=== PATIENT | male | born 1955 | race Caucasian/White ===

== ENCOUNTER 2023-05-16 15:23 | Outpatient (OUT) | payer MEDICARE, SELFPAY ==
[2023-05-16 15:44] LABS: Basophils Percent Auto 0.4 % (0.2-2.0); Eosinophils Absolute Auto 0.2 10^3/uL (0.0-0.7); Hematocrit 37.4 % (42.0-54.0); Hemoglobin 12.1 g/dL (14.0-18.0); Immature Granulocytes Abs Auto 0.02 10^3/uL (0.00-0.03); Immature Granulocytes Pct Auto 0.3 % (0.0-0.5); Lymphocytes Absolute Auto 1.8 10^3/uL (1.2-3.8); Lymphocytes Percent Auto 24.3 % (20.5-60.0); Mean Corpuscular HGB Conc 32.4 g/dL (29.9-35.2); Mean Corpuscular Hemoglobin 32.5 pg (25.9-34.0); Mean Corpuscular Volume 100.5 fL (80.0-94.0); Mean Platelet Volume 10.6 fL (9.5-13.5); Monocytes Absolute Auto 0.6 10^3/uL (0.3-0.8); Monocytes Percent Auto 8.7 % (1.7-12.0); Neutrophils Absolute Auto 4.7 10^3/uL (1.4-6.5); Neutrophils Percent Auto 63.3 % (43.0-75.0); Platelet Count 274 10^3/uL (150-450); Red Blood Count 3.72 10^6/uL (4.70-6.10); Red Cell Distribution Width 13.1 % (11.0-15.0); White Blood Count 7.3 10^3/uL (4.0-11.0)
[2024-01-20 13:20] LABS: Reticulocyte Count 1.61 % (0.60-3.10)
== END 2023-05-16 15:24 | disposition home or self-care (01) ==
PROVIDERS: PCP Internal Medicine; Visit Provider Internal Medicine
DX: D53.9 Nutritional anemia, unspecified (principal); E11.65 Type 2 diabetes mellitus with hyperglycemia
CPT/HCPCS: 36415; 82306; 85025; 85045

== ENCOUNTER 2023-10-21 07:34 | Outpatient (OUT) | payer MEDICARE, OTHER, SELFPAY ==
[2023-10-21 08:01] LABS: Basophils Absolute Auto 0.1 10^3/uL (0.0-0.1); Basophils Percent Auto 0.8 % (0.2-2.0); Eosinophils Absolute Auto 0.2 10^3/uL (0.0-0.7); Eosinophils Percent Auto 2.8 % (0.9-7.0); Hemoglobin 12.8 g/dL (14.0-18.0); Immature Granulocytes Abs Auto 0.02 10^3/uL (0.00-0.03); Immature Granulocytes Pct Auto 0.3 % (0.0-0.5); Lymphocytes Absolute Auto 2.1 10^3/uL (1.2-3.8); Lymphocytes Percent Auto 26.3 % (20.5-60.0); Mean Corpuscular Hemoglobin 31.7 pg (25.9-34.0); Mean Platelet Volume 10.2 fL (9.5-13.5); Monocytes Absolute Auto 0.6 10^3/uL (0.3-0.8); Monocytes Percent Auto 7.1 % (1.7-12.0); Neutrophils Absolute Auto 4.9 10^3/uL (1.4-6.5); Neutrophils Percent Auto 62.7 % (43.0-75.0); Platelet Count 311 10^3/uL (150-450); Red Blood Count 4.04 10^6/uL (4.70-6.10); Red Cell Distribution Width 12.1 % (11.0-15.0); White Blood Count 7.8 10^3/uL (4.0-11.0)
[2023-10-21 08:03] LABS: Microalbumin Urine Random 1.7 mg/dL (<=30.0)
[2023-10-21 08:05] LABS: Estimated Average Glucose 151 mg/dL; Glycohemoglobin A1C 6.9 % (4.5-6.2)
[2023-10-21 08:22] LABS: Alanine Aminotransferase 31 U/L (16-63); Anion Gap 12.6; BUN Creatinine Ratio 15.8; Calcium 8.8 mg/dL (8.5-10.1); Chloride 103 mmol/L (98-107); Chol HDL Ratio 3.1; Cholesterol 137 mg/dL (<=200); Estimated GFR (African America >60 (>=60); Estimated GFR (Non-African Ame 60 (>=60); Glucose 141 mg/dL (74-106); HDL Cholesterol 44 mg/dL (40-60); Potassium 4.6 mmol/L (3.5-5.1); Sodium 140 mmol/L (136-145); Triglycerides 192 mg/dL (<=150); VLDL CHOLESTEROL 38.4 mg/dL
[2023-10-21 09:04] LABS: Prostate Specific Antigen Scrn 1.92 ng/mL (<=4.00)
== END 2023-10-21 07:35 | disposition home or self-care (01) ==
PROVIDERS: PCP Internal Medicine; Visit Provider Internal Medicine
DX: E11.65 Type 2 diabetes mellitus with hyperglycemia (principal); E78.00 Pure hypercholesterolemia, unspecified; I10 Essential (primary) hypertension; Z12.5 Encounter for screening for malignant neoplasm of prostate; D51.0 Vitamin B12 deficiency anemia due to intrinsic factor deficiency
CPT/HCPCS: 36415; 80048; 80061; 82043; 82607; 83036; 84460; 85025; G0103

== ENCOUNTER 2023-11-18 10:23 | Outpatient (OUT) | payer MEDICARE, OTHER, SELFPAY ==
--- NOTE | 2023-11-18 10:24 | CA_ITS ---
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: : 1955 Requested By: HUNTER SIMMONS Order Number: [id number] Reading MD: HUNTER SIMMONS Interpretive Statements Predominant rhythm is sinus with average rate of 76 bpm Tachycardia - max rate of 173 bpm (associated with NSVT) - 229 episodes of PSVT with longest duration of 16 beats Bradycardia - min rate of 52 bpm - longest episode of 17sec with rates between 52-56 bpm - longest duration of 30sec with rates between 101-104 bpm Ventricular ectopy - 716 total (<1%) - 631 PVC - 58 couplets NSVT - 7 episodes with longest of 8 beats Patient triggered events: 8 - associated with symptoms of palpitations - assiciated with SVT, ventricular ectopy - associated with rates of 103, 105 and NSR IMpression: Predominant rhythm is sinus with average rate of 76 bpm Fastest rate of 173 bpm (NSVT) and sloweat rate of 52 bpm 631 PVC, 58 couplets 7 NSVT w/ longest duration of 8 beats No atrial fibrillation No pauses or blocks Electronically Signed On 12-05-2023 7:14:02 EST by HUNTER SIMMONS
[2023-11-18 10:48] LABS: Thyroid Stimulating Hormone 1.655 uIU/mL (0.358-3.740)
== END 2023-11-18 10:24 | disposition home or self-care (01) ==
LOC: CARD 10:23
PROVIDERS: PCP Internal Medicine; Visit Provider Internal Medicine
DX: R00.2 Palpitations (principal)
CPT/HCPCS: 36415; 84443; 93242

== ENCOUNTER 2023-12-17 13:28 | Outpatient (OUT) | payer MEDICARE, OTHER, SELFPAY ==
--- NOTE | 2023-12-17 14:31 | CA_ITS ---
Patient Name: MERRY RASMUSSEN MR#: [id number] : 1955 Exam Date: 12/17/2023 Ordering Doctor: DR Yordan Ramey D.O. ECHOCARDIOGRAM REPORT PROCEDURE: CA ECHO DOPPLER COMPLETE INDICATIONS: Nonsustained Vtach, AoV sclerosis, hypertension, diabetes COMPARISON: None. DESCRIPTION: COMPLETE ECHOCARDIOGRAM Real-time transthoracic echocardiography with 2D, M-mode, spectral and color flow Doppler performed. QUALITY: Technical quality was good. 69 , 236#, BSA 2.22 m2 LEFT VENTRICLE: Normal chamber size. Thickened septal wall. Normal systolic function. LV EF: Normal left ventricular ejection fraction, (>55%). DIASTOLIC: Diastolic function is indeterminate. ATRIAL SEPTUM: LEFT ATRIUM: Normal chamber size. RIGHT ATRIUM: Normal chamber size. RIGHT VENTRICLE: Normal chamber size. Normal right ventricular systolic function. TRICUSPID VALVE: Normal mobility and thickness. No stenosis with trivial regurgitation. Doppler studies reveal mildly (35-45) elevated right sided pressures. RVSP 43 mmHg MITRAL VALVE: Normal mobility and thickness. No evidence of mitral valve stenosis. Mild mitral annular calcification. No mitral regurgitation. AORTIC VALVE: Normal trileaflet appearance. Mildly calcified aortic valve. Mildly diminished mobility. Doppler velocity suggest no significant aortic valve stenosis. No aortic regurgitation. AORTIC ROOT: Normal diameter and appearance. PULMONIC VALVE: Normal thickness and mobility. No stenosis. No regurgitation. PERICARDIUM: No evidence of pericardial effusion. IVC: Collapses with inspirations. IVC is normal in size. PLEURA: CONCLUSION: 1. Normal ventricular systolic function. LVEF is 55 to 60%. 2. Mildly calcified aortic valve with no significant aortic valve stenosis. 3. Mildly elevated right-sided pressures. RVSP is 43 mmHg. Adult Echocardiography Procedure Report Left Ventricle LVEDD (3.7 - 5.6 cm): 5.00 cm LVESD (2.2 - 4.0 cm): 4.04 cm LVIVS thickness (0.6 - 1.2 cm): 1.21 cm LVPW thickness (0.5 - 1.0 cm): 1.04 cm e': 0.08 m/s E - e': 11.63 LVOT Max Gradient: 4.51 mm[Hg] LVOT Area (cm2): 1.06 m/s Peak Velocity (LVOT): 1.06 m/s Mean Velocity (LVOT): 0.57 m/s LVOT Diameter 1.6 cm Left Atrium LA Volume Index (2D A2C): 28.77 ml/m2 Left Atrium Systolic Dimension: 3.29 cm Mitral Valve MV E to A Ratio: 1.62 Mitral Valve A-Wave Peak Velocity: 0.58 m/s Mitral Valve E-Wave Peak Velocity: 0.93 m/s Right Ventricle Aorta AO Root Diam: 2.95 cm Ascending Ao Diam: 3.03 cm Aortic Valve AoV Area (Peak Addison): 0.97 cm2, 0.97 cm2 AoV Area (VTI): 1.07 cm2, 1.07 cm2 Peak Velocity(Antegrade Flow): 1.97 m/s Peak Gradient(Antegrade Flow): 15.60 mm[Hg] Mean Velocity(Antegrade Flow): 1.21 m/s Mean Gradient(Antegrade Flow): 6.91 mm[Hg] Velocity Time Integral: 37.15 cm Tricuspid Valve Peak Velocity (Regurgitant Flow): 3.16 m/s Pulmonic Valve Peak Velocity: 0.89 m/s Peak Gradient: 2.73 mm[Hg], 3.67 mm[Hg] Right Atrium Right Atrium Systolic Pressure: 48.25 ml, 48.25 ml Dictated by: Alex Foley M.D. on 12/17/2023 at 18:39 Approved by: Alex Foley M.D. on 12/17/2023 at 18:45
== END 2023-12-17 13:29 | disposition home or self-care (01) ==
LOC: CARD 13:29
PROVIDERS: PCP Internal Medicine; Visit Provider Internal Medicine
DX: I47.29 Other ventricular tachycardia (principal); I35.8 Other nonrheumatic aortic valve disorders
CPT/HCPCS: 93306

== ENCOUNTER 2023-12-20 09:21 | Outpatient (OUT) | payer MEDICARE, OTHER, SELFPAY ==
--- OUTSIDE RECORDS SUMMARY | 2023-12-20 09:26 | XMS_ITS | CCD ---
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 Name Role Phone PHYSICIAN, DEFAULT Unavailable Unavailable PHYSICIAN, DEFAULT Unavailable Unavailable PHYSICIAN, DEFAULT Unavailable Unavailable PHYSICIAN, DEFAULT Unavailable Unavailable PHYSICIAN, DEFAULT Unavailable Unavailable PHYSICIAN, DEFAULT Unavailable Unavailable TANVIR, DR HARRISON Primary Care Unavailable BALL, DR HARRISON Admitting Unavailable BALL, DR HARRISON Attending Unavailable BALL, DR HARRISON Consulting Unavailable ZIEBER, DR JHOANA Ace Consulting Unavailable BALL, DR HARRISON Admitting Unavailable BALL, DR HARRISON Attending Unavailable BALL, DR HARRISON Primary Care Unavailable BALL, DR HARRISON Consulting Unavailable BALL, DR HARRISON Admitting Unavailable BALL, DR HARRISON Attending Unavailable BALL, DR HARRISON Primary Care Unavailable BALL, DR HARRISON Consulting Unavailable REQUEST, DR JASON LISTED Admitting Unavaila ble REQUEST, DR JASON LISTED Attending Unavaila ble BALL, DR HARRISON Primary Care Unavailable REQUEST, DR JASON LISTED Consulting Unavaila ble REQUEST, DR JASON LISTED Admitting Unavaila ble REQUEST, DR JASON LISTED Attending Unavaila ble BALL, DR HARRISON Primary Care Unavailable REQUEST, DR JASON LISTED Consulting Unavaila ble BALL, DR HARRISON Admitting Unavailable BALL, DR HARRISON Attending Unavailable BALL, DR HARRISON Primary Care Unavailable BALL, DR HARRISON Consulting Unavailable WEST, DR ROXANE Culver Consulting Unavailable Ball, Yordan Unavailable Uzair Leblanc Admitting Unavailable Uzair Leblanc Attending Unavailable Tanvir, Yordan Primary Care Unavailable Allergies Allergy Classification Reported Allergen(s) Allergy Type Date of Onset Reaction(s) Facility (8 sources) sulfaSALAzine Drug Allergy Unknown Th[place]a Other Medications Current Medications Medication Drug Class(es) Dates Sig (Normalized) Sig (Original) atorvastatin 40 mg oral tablet (14 sources) HMG-CoA Reductase Inhibitor take 1 tablet by mouth every twenty-four hours Atorvastatin Calcium 40 MG 1 tablet Orally Once a day Active BD Luer-Josias Syringe 23G X 1 3 ML (14 sources) BD Luer-Josias Syri nge 23G X 1 3 ML 1 syringe once every month IM monthly for 365 days Active Cinnamon Preparation (14 sources) Non-Standardized Food Allergenic Extract Cinnamon Active Fish Oils (14 sources) Fish Oil Active FLUoxetine 20 mg oral capsule (14 sources) Serotonin Reuptake Inhibitor take 1 capsule by mouth once daily FLUoxetine HCl 20 MG TAKE 1 CAPSULE BY MOUTH EVERY DAY Active lisinopril 20 mg oral tablet (14 sources) Angiotensin Converting Enzyme Inhibitor take 1 tablet by mouth once daily Lisinopril 20 MG TAKE 1 TABLET BY MOUTH EVERY DAY Active metFORMIN hydrochloride 1000 mg oral tablet (14 sources) Biguanide take 1 tablet by mouth at dinner metFORMIN HCl 1000 MG TAKE 1 TABLET BY MOUTH BEFORE BKFST AND EVENING MEAL for 90 Active 24 hr metoprolol succinate 25 mg extended release oral tablet (2 sources) beta-Adrenergic Jose Start: 12-05-19 take 1 tablet by mouth every twenty-four hours Metoprolol Succinate ER 25 MG 1 tablet Orally Once a day for 30 days Dec, Active tamsulosin hydrochloride 0.4 mg oral capsule (14 sources) alpha-Adrenergic Jose take 1 capsule by mouth once daily at dinner Tamsulosin HCl 0.4 MG TAKE 1 CAPSULE BY MOUTH EVERY DAY AFTER EVENING MEAL Active vitamin b12 1 mg/ml injectable solution (14 sources) Vitamin B12 Cyanocobalamin 1 000 MCG/ML INJECT 1 ML EVERY 4 WEEKS Active Cyanocobalamin 1 000 MCG/ML INJECT 1 ML EVERY 4 WEEKS Active Completed/Discontinued Medications Medication Drug Class(es) Dates Sig (Normalized) Sig (Original) dextromethorphan hydrobromide 30 mg / pyrilamine maleate 30 mg oral tablet (14 sources) Uncompetitive G-kgiekv-P-aspartat e Receptor Antagonist, Sigma-1 Agonist Start: 01-27-2020 [place] DMT 30-30 MG 1 tablet Orally every 6-8 hours for 7 days Jan, Not-Taking/PRN Start: 01-27-2020 oseltamivir 75 mg oral capsule (14 sources) Neuraminidase Inhibitor Start: 01-27-2020 take 1 capsule by mouth every twelve hours Tamiflu 75 MG 1 capsule Orally Twice a day for 5 day(s) Jan, Not-Taking/PRN Problems Active Problems Problem Classification Problem Date Documented Date Episodic/Chronic Calculus of urinary tract (3 sources) Personal history of urinary calculi Episodic Cardiac dysrhythmias (1 source) Palpitations Episodic Deficiency and other anemia (6 sources) Nutritional anemia, unspecified; Translations: [NUTRITIONAL ANEMIA UNSPECIFIED] Onset: 10-26-2022 Episodic Deficiency and other anemia (20 sources) Iron deficiency anemia; Translations: [Iron deficiency anemia] Episodic Deficiency and other anemia (5 sources) Vitamin B12 deficiency anemia due to intrinsic factor deficiency Episodic Deficiency and other anemia (12 sources) Macrocytic anemia; Translations: [Nutritional anemia, unspecified] Episodic Deficiency and other anemia (12 sources) Pernicious anemia; Translations: [Vitamin B12 deficiency anemia due to intrinsic factor deficiency] Episodic Deficiency and other anemia (1 source) Iron deficiency anemia, unspecified; Translations: [Iron deficiency anemia, unspecified] Onset: 04-25-2023 Episodic Diabetes mellitus with complications (20 sources) Type 2 diabetes mellitus with hyperglycemia; Translations: [Type 2 diabetes mellitus] Onset: 10-22-2022 Chronic Disorders of lipid metabolism (20 sources) Mixed hyperlipidemia; Translations: [Hypercholesterolemi a] Onset: 10-18-2022 Chronic Essential hypertension (20 sources) Essential (primary) hypertension; Translations: [Essential hypertension] Onset: 10-22-2022 Chronic Genitourinary symptoms and ill-defined conditions (1 source) Nocturia Episodic Heart valve disorders (20 sources) Other nonrheumatic aortic valve disorders; Translations: [Aortic valve sclerosis] Onset: 01-30-2022 Chronic Hyperplasia of prostate (6 sources) 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; Translations: [Benign prostatic hyperplasia with lower urinary tract symptoms] Chronic Mood disorders (10 sources) Recurrent major depression in full remission; Translations: [Major depressive disorder, recurrent, in full remission] Chronic Other aftercare (1 source) Other long term care pharmacist (current) drug therapy; Translations: [OTH RUBBER TURNER CURRENT DRUG THERAPY] Onset: 10-22-2022 Episodic Other and unspecified benign neoplasm (14 sources) History of polyp of colon; Translations: [Personal history of colonic polyps] Episodic Other and unspecified benign neoplasm (6 sources) Tubular adenoma of colon; Translations: [Tubular adenoma of colon] Episodic Other connective tissue disease (4 sources) Other specified soft tissue disorders; Translations: [OTHER SPEC SOFT TISSUE DISORDERS] Onset: 09-11-2022 Episodic Other diseases of veins and lymphatics (14 sources) Peripheral venous insufficiency; Translations: [Venous insufficiency (chronic) (peripheral)] Episodic Other diseases of veins and lymphatics (5 sources) Venous insufficiency (chronic) (peripheral) Episodic Other hereditary and degenerative nervous system conditions (14 sources) Restless legs; Translations: [Restless legs syndrome] Chronic Other hereditary and degenerative nervous system conditions (3 sources) Restless legs syndrome Chronic Other injuries and conditions due to external causes (2 sources) Other injury of unspecified body region, initial encounter Episodic Other screening for suspected conditions (not mental disorders or infectious disease) (2 sources) Encounter for screening for malignant neoplasm of prostate; Translations: [ENC SCREEN MALIG NEOPLASM PROSTATE] Onset: 10-22-2022 Episodic Other skin disorders (1 source) Inflamed seborrheic keratosis Episodic Residual codes; unclassified (14 sources) Obstructive sleep apnea syndrome; Translations: [Obstructive sleep apnea (adult) (pediatric)] Chronic Residual codes; unclassified (6 sources) Obstructive sleep apnea (adult) (pediatric) Chronic Superficial injury; contusion (1 source) Contusion of right lower leg, initial encounter; Translations: [CONTUSION RIGHT LOWER LEG INITIAL] Onset: 09-13-2022 Episodic Past or Other Problems Problem Classification Problem Date Documented Da te Episodic/Chronic Other circulatory disease (1 source) Other specified symptoms and signs involving the circulatory and respiratory systems; Translations: [OTH SPEC SX SIGNS INVLV CIRC RS] Onset: 01-31-2022 Episodic Unclassified (1 source) Nonsustained ventricular tachycardia I47.29 Results Test Name Value Interpretation Reference Range Facility Glucose Poct Glucometerson 0 04-25-2023 Commemt1 Glu2: Cleaned Meter Normal [facility] Comment on above: Result Comment: PERF ORMED BY: [facility] [address] [place] [address] PATHOLOGIST MOTORCYCLE MECHANIC APPRENTICE JERMAIN DANIELS M.D. Performed By: #### G LULS #### Point of Care testing , Glucose [Mass/Vol] 123 mg/dL Normal [facility] Comment on above: Result Comment: [facility] Glucose Reference Range is dependent on time and content of last meal. Glucose of more than 200 mg/dL in a nonstressed, ambulatory subject supports the diagnosis of Diabetes Mellitus. Performed By: #### G LULS #### Point of Care testing , IRON AND TIBCon 10-26-2022 % SATURATION 16.1 % Normal [facility] Comment on above: Performed By: #### M ALBR #### [facility] [address] [place] [address] Dr. Dayna Ford Iron [Mass/Vol] 44.0 ug/dL Critically low 65.0-175.0 [facility] Comment on above: Performed By: #### M ALBR #### [facility] [address] [place] [address] Dr. Dayna Ford TIBC DIRECT 274.0 ug/dL Normal 250.0-450.0 [facility] Comment on above: Performed By: #### M ALBR #### [facility] [address] [place] [address] Dr. Dayna Ford RETICULOCYTEon 10-26-2022 RETIC 1.75 % Normal 0.60-3.10 [facility] Comment on above: Performed By: #### M ALBR #### [facility] [address] [place] [address] Dr. Dayna Ford VIT B12 AND FOLATEon Cobalamin (Vitamin B12) [Mass/Vol] 398.0 pg/mL Normal 193.0-986.0 [facility] Comment on above: Performed By: #### M ALBR #### [facility] [address] [place] [address] Dr. Dayna Ford FOLATE 20.10 ng/mL Normal 8.60-58.90 [facility] Comment on above: Performed By: #### M ALBR #### [facility] [address] [place] [address] Dr. Dayna Ford CBC AUTO DIFFon 10-18-2022 BASO # 0.1 103/ul Normal 0.0-0.1 [facility] Comment on above: Performed By: #### M ALBR #### [facility] [address] [place] [address] Dr. Dayna Ford Basophils/100 WBC (Bld) 0.7 % Normal 0.2-2.0 [facility] Comment on above: Performed By: #### M ALBR #### [facility] [address] [place] [address] Dr. Dayna Ford EO # 0.2 103/ul Normal 0.0-0.7 [facility] Comment on above: Performed By: #### M ALBR #### [facility] [address] [place] [address] Dr. Dayna Ford Eosinophils/100 WBC (Bld) 3.1 % Normal 0.9-7.0 [facility] Comment on above: Performed By: #### M ALBR #### [facility] [address] [place] [address] Dr. Dayna Ford Erythrocyte distribution width (RBC) [Ratio] 12.7 % Normal 11.0-15.0 [facility] Comment on above: Performed By: #### M ALBR #### [facility] [address] [place] [address] Dr. Dayna Ford Hematocrit (Bld) [Volume fraction] 36.2 % Critically low 42.0-54.0 [facility] Comment on above: Performed By: #### M ALBR #### [facility] [address] [place] [address] Dr. Dayna Ford Hemoglobin (Bld) [Mass/Vol] 11.8 g/dL Critically low 14.0-18.0 [facility] Comment on above: Performed By: #### M ALBR #### [facility] [address] [place] [address] Dr. Dayna Ford IG # 0.02 10e3/ul Normal 0.00-0.03 [facility] Comment on above: Performed By: #### M ALBR #### [facility] [address] [place] [address] Dr. Dayna Ford IG % 0.3 % Normal 0.0-0.5 [facility] Comment on above: Performed By: #### M ALBR #### [facility] [address] [place] [address] Dr. Dayna Ford LYMPH # 1.9 103/ul Normal 1.2-3.8 [facility] Comment on above: Performed By: #### M ALBR #### [facility] [address] [address] [address] Dayna Ford Lymphocytes/100 WBC (Bld) 26.2 % Normal 20.5-60.0 [facility] Comment on above: Performed By: #### M ALBR #### [facility] [address] [address] [address] Dayna Ford MANUAL DIFF REQ NO Normal [facility] Comment on above: Performed By: #### M ALBR #### [facility] [address] [address] [address] Dayna Ford MCH (RBC) [Entitic mass] 31.9 pg Normal 25.9-34.0 [facility] Comment on above: Performed By: #### M ALBR #### [facility] [address] [place] [address] Dr. Dayna Ford MCHC (RBC) [Mass/Vol] 32.6 g/dL Normal 29.9-35.2 [facility] Comment on above: Performed By: #### M ALBR #### [facility] [address] [place] [address] Dr. Dayna Ford MCV (RBC) [Entitic vol] 97.8 fL Critically high 80.0-94.0 [facility] Comment on above: Performed By: #### M ALBR #### [facility] [address] [place] [address] Dr. Dayna Ford MONO # 0.7 103/ul Normal 0.3-0.8 [facility] Comment on above: Performed By: #### M ALBR #### [facility] [address] [place] [address] Dr. Dayna Ford Monocytes/100 WBC (Bld) 9.3 % Normal 1.7-12.0 [facility] Comment on above: Performed By: #### M ALBR #### [facility] [address] [place] [address] Dr. Dayna Ford NEUT # 4.3 103/ul Normal 1.4-6.5 [facility] Comment on above: Performed By: #### M ALBR #### [facility] [address] [address] [address] Dayna Ford Neutrophils/100 WBC (Bld) 60.4 % Normal 43.0-75.0 [facility] Comment on above: Performed By: #### M ALBR #### [facility] [address] [address] [address] Dayna Ford Platelet mean volume (Bld) [Entitic vol] 10.6 fL Normal 9.5-13.5 [facility] Comment on above: Performed By: #### M ALBR #### [facility] [address] [address] [address] Dayna Ford PLT 247 103/ul Normal 150-450 [facility] Comment on above: Performed By: #### M ALBR #### [facility] [address] [address] [address] Dayna Ford RBC 3.70 106/ul Critically low 4.70-6.10 [facility] Comment on above: Performed By: #### M ALBR #### [facility] [address] [address] [address] Dayna Ford WBC 7.1 103/ul Normal 4.0-11.0 [facility] Comment on above: Performed By: #### M ALBR #### [facility] [address] [address] [address] Dayna Ford GLYCOHEMOGLOBIN A1Con 2021 ADA RECOMMENDATION SEE BELOW Normal [facility] Comment on above: Result Comment: ADA RECOMMENDED LIMIT 4.0 - 6.0 ADA THERAPEUTIC TARGET < 7.0 ACTION SUGGESTED > 7.0 Performed By: #### A 1C #### [facility] [address] [address] [address] Dayna Ford Glucose [Mass/Vol] 148 mg/dL Normal [facility] Comment on above: Performed By: #### A 1C #### [facility] [address] [address] [address] Dayna Ford HbA1c (Bld) [Mass fraction] 6.8 % Critically high 4.5-6.2 [facility] Comment on above: Performed By: #### A 1C #### [facility] [address] [address] [address] Dayna Ford LIPID PROFILEon 10-18-2022 CHOL-HDL RATIO NORM SEE BELOW Normal [facility] Comment on above: Result Comment: 3.3 - 4.4 LOW RISK 4.4 - 7.1 AVERAGE RISK 7.1 - 11.0 MODERATE RISK >11.0 HIGH RISK Performed By: #### A LT, BMP, LIPID #### [facility] [address] [address] [address] Dayna Ford Cholesterol [Mass/Vol] 183 mg/dL Normal <=200 [facility] Comment on above: Performed By: #### A LT, BMP, LIPID #### [facility] [address] [address] [address] Dayna Ford Cholesterol in HDL [Mass/Vol] 46 mg/dL Normal 40-60 [facility] Comment on above: Performed By: #### A LT, BMP, LIPID #### [facility] [address] [address] [address] Dayna Ford Cholesterol in LDL [Mass/Vol] 98.0 mg/dL Normal [facility] Comment on above: Performed By: #### A LT, BMP, LIPID #### [facility] [address] [address] [address] Dayna Ford Cholesterol.total/Ch olesterol in HDL [Mass ratio] 4.0 {ratio} Normal [facility] Comment on above: Performed By: #### A LT, BMP, LIPID #### [facility] [address] [place], [place] [address] Dr. Dayna Ford HDL NORMAL > or = 60 mg/dl - LO W CARDIOVASCULAR RISK <40 mg/dl - HIGH CARDIOVASCULAR RISK Normal [facility] Comment on above: Performed By: #### A LT, BMP, LIPID #### [facility] [address] [address] [address] Dayna Ford LDL CALC NORMAL SEE BELOW Normal [facility] Comment on above: Result Comment: <100 mg/dl OPTIMAL 100 - 129 mg/dl NEAR OR ABOVE OPTIMAL 130 - 159 mg/dl BORDERLINE HIGH 160 - 189 mg/dl HIGH >190 mg/dl VERY HIGH Performed By: #### A LT, BMP, LIPID #### [facility] [address] [place] [address] Dr. Dayna Ford Triglyceride [Mass/Vol] 195 mg/dL Critically high <=150 [facility] Comment on above: Performed By: #### A LT, BMP, LIPID #### [facility] [address] [place] [address] Dr. Dayna Ford VLDL CALC 39.0 mg/dL Normal [facility] Comment on above: Performed By: #### A LT, BMP, LIPID #### [facility] [address] [place] [address] Dr. Dayna Ford MICROALBUMIN, RAND URon 11- mALB 3.3 mg/L Normal <=30.0 [facility] Comment on above: Performed By: #### M ALBR #### [facility] [address] [place] [address] Dr. Dayna Ford PROF CHEM 8 (BAS METB)on Anion gap [Moles/Vol] 9.5 mmol/L Normal [facility] Comment on above: Performed By: #### A LT, BMP, LIPID #### [facility] [address] [place] [address] Dr. Dayna Ford Calcium [Mass/Vol] 8.8 mg/dL Normal 8.5-10.1 [facility] Comment on above: Performed By: #### A LT, BMP, LIPID #### [facility] [address] [place] [address] Dr. Dayna Ford Chloride [Moles/Vol] 106 mmol/L Normal 98-107 [facility] Comment on above: Performed By: #### A LT, BMP, LIPID #### [facility] [address] [place] [address] Dr. Dayna Ford CO2 [Moles/Vol] 27.4 mmol/L Normal 21.0-32.0 [facility] Comment on above: Performed By: #### A LT, BMP, LIPID #### [facility] [address] [address] [address] Dayna Ford Creatinine [Mass/Vol] 1.10 mg/dL Normal 0.70-1.30 [facility] Comment on above: Performed By: #### A LT, BMP, LIPID #### [facility] [address] [address] [address] Dayna Ford EGFR-AF SENEGALESE >60 Normal >=60 [facility] Comment on above: Performed By: #### A LT, BMP, LIPID #### [facility] [address] [address] [address] Dayna Ford EGFR-NON AF SENEGALESE >60 Normal >=60 [facility] Comment on above: Performed By: #### A LT, BMP, LIPID #### [facility] [address] [address] [address] Dayna Ford Glucose [Mass/Vol] 106 mg/dL Normal 74-106 [facility] Comment on above: Performed By: #### A LT, BMP, LIPID #### [facility] [address] [address] [address] Dayna Ford Potassium [Moles/Vol] 4.9 mmol/L Normal 3.5-5.1 [facility] Comment on above: Performed By: #### A LT, BMP, LIPID #### [facility] [address] [address] [address] Dayna Ford Sodium [Moles/Vol] 138 mmol/L Normal 136-145 [facility] Comment on above: Performed By: #### A LT, BMP, LIPID #### [facility] [address] [address] [address] Dayna Ford Urea nitrogen [Mass/Vol] 15.0 mg/dL Normal 7.0-18.0 [facility] Comment on above: Performed By: #### A LT, BMP, LIPID #### [facility] [address] [address] [address] Dayna Ford Urea nitrogen/Creatinine [Mass ratio] 13.6 mg/mg Normal [facility] Comment on above: Performed By: #### A LT, BMP, LIPID #### [facility] [address] [address] [address] Dayna Ford SGPTon 10-18-2022 ALT [Catalytic activity/Vol] 27 U/L Normal 16-63 [facility] Comment on above: Performed By: #### A LT, BMP, LIPID #### [facility] [address] [address] [address] Dayna Ford US PATRICIA DOP LEG RTon 09-11-20 22 US PATRICIA DOP LEG RT EXAMINATION: US PATRICIA DOP LEG RT HISTORY: Disorder of soft tissue ; right leg swelling COMPARISON: No relevant comparison available. FINDINGS: REGION: Right lower extremity THROMBI: None. COMPRESSIBILITY: Normal compressibility. FLOW: Normal waveform and antegrade flow between 5 and 20 cm/s. OTHER: Heterogeneous fluid collection within upper medial calf in area of pain favoring an intramuscular hematoma, 8.7 cm in length by 4.7 cm in width by 0.6 cm in thickness. IMPRESSION: 1. No deep vein thrombus within the right lower extremity. 2. Intramuscular hematoma corresponding to patient's area of pain. Electronically authenticated by: JHOANA SERRATO Date: 2022-09-11 21:23 Normal [facility] GLYCOHEMOGLOBIN A1Con 2021 ADA RECOMMENDATION SEE BELOW Normal [facility] Comment on above: Result Comment: ADA RECOMMENDED LIMIT 4.0 - 6.0 ADA THERAPEUTIC TARGET < 7.0 ACTION SUGGESTED > 7.0 Performed By: #### D ATA1C #### [facility] [address] [place] [address] Dr. Dayna Ford Glucose [Mass/Vol] 146 mg/dL Normal [facility] Comment on above: Performed By: #### D ATA1C #### [facility] [address] [address] [address] Dayna Ford HbA1c (Bld) [Mass fraction] 6.7 % Critically high 4.5-6.2 [facility] Comment on above: Performed By: #### D ATA1C #### [facility] [address] [address] [address] Dayna Ford ECHOCARDIO M/2D COMPLETEon 0 3-01-2022 ECHOCARDIO M/2D COMPLETE Patient: MERRY RASMUSSEN Exam Date: 01/30/2022 : 1955 Gender:M Ordering : DR YORDAN SIMMONS D.O. Admission #: [id number] Family : Order #: [id number] CLICK HERE TO VIEW EXAM ECHOCARDIOGRAM REPORT PROCEDURE: CARDIO PULMONARY ECHOCARDIO M/2D COMP INDICATIONS: Aortic valve sclerosis COMPARISON: None. DESCRIPTION: COMPLETE ECHOCARDIOGRAM Real-time transthoracic echocardiography with 2D, M-mode, spectral and color flow Doppler performed. QUALITY: Technical quality was good. LEFT VENTRICLE: Normal chamber size. Borderline left ventricular hypertrophy. Global left ventricular systolic function is normal. Calculated left ventricular ejection fraction is 68%. LV EF: DIASTOLIC: Normal diastolic function. ATRIAL SEPTUM: LEFT ATRIUM: Normal chamber size. RIGHT ATRIUM: Normal chamber size. RIGHT VENTRICLE: Normal chamber size. Normal right ventricular systolic function. TRICUSPID VALVE: Normal mobility and thickness. No stenosis with trivial regurgitation. No evidence of pulmonary hypertension. RVSP 32 mmHg. MITRAL VALVE: Normal mobility and thickness. No mitral valve prolapse. No evidence of mitral valve stenosis. Mild mitral annular calcification. Trivial mitral regurgitation. AORTIC VALVE: Normal trileaflet appearance. Mildly calcified aortic valve. Normal leaflet mobility. No evidence of aortic valve stenosis. DVI 0.6. No aortic regurgitation. AORTIC ROOT: Normal diameter and appearance. PULMONIC VALVE: Normal thickness and mobility. No stenosis. No regurgitation. PERICARDIUM: No evidence of pericardial effusion. IVC: Collapses with inspirations. Normal in size. PLEURA: CONCLUSION: 1. Normal ventricular function. 2. No significant valvular dysfunction. 3. Normal right sided pressures. 4. No pericardial effusion. Adult Echocardiography Procedure Report Left Ventricle LVEDD (3.7 - 5.6 cm): 5.05 cm LVESD (2.2 - 4.0 cm): 3.20 cm LVIVS thickness (0.6 - 1.2 cm): 1.13 cm LVPW thickness (0.5 - 1.0 cm): 1.02 cm e': 8.33 cm/s E - e': 9.70 LVOT Area (cm2): 4.52 cm2 Peak Velocity (LVOT): 104.00 cm/s LVOT Diameter 2.40 cm Left Ventricular Ejection Fraction: 66.10 % Left Ventricular Ejection Fraction (A2C): 67 % Left Ventricular Ejection Fraction (A4C): 67 % Left Atrium LA Volume Index (2D A2C): 18.20 ml/m2 Left Atrium Systolic Dimension: 3.90 cm Left Atrium Systolic Area(A2C): 16.80 cm2 Left Atrium Systolic Area(A4C): 18.10 cm2 Left Atrium Systolic Volume(A2C): 08601 mm3 Left Atrium Systolic Volume(A4C): 49961 mm3 Mitral Valve MV E to A Ratio: 1.30 Deceleration Jones: 4520 mm/s2 Mitral Valve A-Wave Peak Velocity: 61.70 cm/s Mitral Valve E-Wave Peak Velocity: 80.50 cm/s Right Ventricle RV Internal Diastolic Dimension: 3.48 cm Aorta AO Root Diam: 3.00 cm Aortic Valve Peak Velocity (Antegrade Flow): 155.00 cm/s AoV Area (Peak Addison): 2.84 cm2 Aortic Valve Cusp Separation: 1.90 cm Peak Velocity(Antegrade Flow): 167.00 cm/s Peak Gradient(Antegrade Flow): 11 mm[Hg] Tricuspid Valve Pulmonic Valve Peak Velocity: 90.30 cm/s Peak Gradient: 3 mm[Hg] Right Atrium Dictated by: Alex Foley M.D. on 01/30/2022 at 17:59 Approved by: Alex Foley M.D. on 01/30/2022 at 18:05 Normal [facility] US CAROTID ART BILon 03-01-2 022 US CAROTID ART JUDSON EXAMINATION: US CAROTID ART JUDSON HISTORY: Aortic valve disorder COMPARISON: No relevant comparison available. TECHNIQUE: Duplex Doppler ultrasound analysis of carotid and vertebral arteries. . Bilateral carotid arterial duplex examination was performed using B-mode, color flow and spectral analysis. Carotid stenosis is reported according to validated velocity parameters, similar to NASCET criteria. FINDINGS: RIGHT CAROTID ARTERY Mild atherosclerotic plaque Subclavian: PSV: 139.8 cm/s cm/s EDV: 5.7 cm/s cm/s CCA: Prox: PSV: 133.8 cm/s cm/s EDV: 23.5 cm/s cm/s Mid: PSV: 116.1 cm/s cm/s EDV: 27.4 cm/s cm/s Distal: PSV: 92.4 cm/s cm/s EDV: 25.4 cm/s cm/s BULB: PSV: 67.2 cm/s cm/s EDV: 18.0 cm/s cm/s ICA: Prox: PSV: 116.1 cm/s cm/s EDV: 27.3 cm/s cm/s Mid: PSV: 106.2 cm/s cm/s EDV: 33.3 cm/s cm/s Distal: PSV: 106.2 cm/s cm/s EDV: 43.2 cm/s cm/s ECA: PSV: 146.1 cm/s cm/s EDV: 25.3 cm/s cm/s VERTEBRAL: PSV: 49.3 cm/s cm/s EDV: 13.1 cm/s cm/s ICA/CCA ratio: PSV: 0.9 EDV: 1.2 LEFT CAROTID ARTERY Mild atherosclerotic plaque. Moderate atherosclerotic plaque with a 70% area reduction proximal left external carotid artery with elevated flow velocity Subclavian: PSV: 235.6 cm/s cm/s EDV: 0.0 cm/s CCA: Prox: PSV: 138.6 cm/s cm/s EDV: 35.2 cm/s Mid: PSV: 116.1 cm/s cm/s EDV: 31.3 cm/s Distal: PSV: 96.4 cm/s cm/s EDV: 29.4 cm/s BULB: PSV: 64.6 cm/s cm/s EDV: 18.0 cm/s ICA: Prox: PSV: 67.2 cm/s cm/s EDV: 19.3 cm/s Mid: PSV: 95.6 cm/s cm/s EDV: 33.5 cm/s Distal: PSV: 96.8 cm/s cm/s EDV: 33.8 cm/s ECA: PSV: 252.1 cm/s cm/s EDV: 46.2 cm/s VERTEBRAL: PSV: 50.5 cm/s cm/s EDV: 10.4 cm/s ICA/CCA ratio: PSV: 0.7 EDV: 1.0 IMPRESSION: 0-49% flow stenosis bilateral internal carotid arteries 70% area reduction proximal left external carotid artery with elevated flow velocity Spectral Doppler US Thresholds (Reference: Diego EG, et al. Radiology 2000; 214:247-252) Stenosis (%) PSV (cm/sec) VICA/VCCA 0-49 <150 <2.5 50-69 150-225 2.5-4.0 >70 >225 >4.0 Electronically authenticated by: ROXANE SOSA Date: 2022-01-30 10:37 Normal [facility] GLYCOHEMOGLOBIN A1Con 2021 ADA RECOMMENDATION ADA THERAPEUTIC TARGET 6.0 - 7.0 ACTION SUGGESTED > 7.0 Normal [facility] Comment on above: Performed By: #### D ATA1C #### [facility] [address] [address] [address] Dayna Ford Glucose [Mass/Vol] 148 mg/dL Normal [facility] Comment on above: Performed By: #### D ATA1C #### [facility] [address] [address] [address] Dayna Ford HbA1c (Bld) [Mass fraction] 6.8 % Critically high <=6.0 [facility] Comment on above: Performed By: #### D ATA1C #### [facility] [address] [address] [address] Dayna Ford Vital Signs Date Time Vital Sign Value Performing Clinician Facility 12-05-2023 13:24-0500 Body height 172.72 cm [email or web address] 11-14-2023 11:00-0500 Body height 172.72 cm [email or web address] 11-14-2023 11:00-0500 Body mass index (BMI) [Ratio] 36.4 kg/m2 [email or web address] 11-14-2023 11:00-0500 Body weight 108.59 kg [email or web address] 11-14-2023 11:00-0500 Diastolic blood pressure 80 mm[Hg] [email or web address] Other 11-14-2023 11:00-0500 Respiratory rate 12 /min Yordan Ball Other [facility] Other 11-14-2023 11:00-0500 Systolic blood pressure 132 mm[Hg] Yordan Ball Other [facility] Other 10-18-2023 09:30-0500 Body height 172.72 cm Yordan Ball Other [facility] Other 10-18-2023 09:30-0500 Body mass index (BMI) [Ratio] 35.85 kg/m2 Yordan Ball Other [facility] Other 10-18-2023 09:30-0500 Body weight 106.96 kg Yordan Ball Other [facility] Other 10-18-2023 09:30-0500 Diastolic blood pressure 69 mm[Hg] Yordan Ball Other [facility] Other 10-18-2023 09:30-0500 Respiratory rate 12 /min Yordan Ball Other [facility] Other 10-18-2023 09:30-0500 Systolic blood pressure 130 mm[Hg] Yordan Ball Other [facility] Other 08-01-2023 09:30-0400 Body height 172.72 cm Yordan Ball Other [facility] 08-01-2023 09:30-0400 Body mass index (BMI) [Ratio] 35.82 kg/m2 Yordan Ball Other [facility] Other 08-01-2023 09:30-0400 Body weight 106.87 kg Yordan Ball Other [facility] Other 08-01-2023 09:30-0400 Diastolic blood pressure 68 mm[Hg] Yordan Ball Other [facility] Other 08-01-2023 09:30-0400 Respiratory rate 12 /min Yordan Ball Other [facility] Other 08-01-2023 09:30-0400 Systolic blood pressure 118 mm[Hg] Yordan Ball Other [facility] Other 06-12-2023 13:20-0400 Body height 172.72 cm Yordan Ball Other [facility] Other 04-26-2023 09:30-0400 Body height 172.72 cm Yordan Ball Other [facility] Other 04-26-2023 09:30-0400 Body mass index (BMI) [Ratio] 35.91 kg/m2 Yordan Ball Other [facility] Other 04-26-2023 09:30-0400 Body weight 107.14 kg Yordan Ball Other [facility] Other 04-26-2023 09:30-0400 Diastolic blood pressure 73 mm[Hg] Yordan Ball Other [facility] Other 04-26-2023 09:30-0400 Respiratory rate 12 /min Yordan Ball Other [facility] Other 04-26-2023 09:30-0400 Systolic blood pressure 120 mm[Hg] Yordan Ball Other [facility] Other 01-25-2023 09:30-0500 Body height 172.72 cm Yordan Ball Other [facility] Other 01-25-2023 09:30-0500 Body mass index (BMI) [Ratio] 36.12 kg/m2 Yordan Simmons Other [facility] Other 01-25-2023 09:30-0500 Body weight 107.78 kg Yordan Simmons Other [facility] Other 01-25-2023 09:30-0500 Diastolic blood pressure 70 mm[Hg] Yordan Simmons Other [facility] Other 01-25-2023 09:30-0500 Respiratory rate 12 /min Yordan Simmons Other [facility] Other 01-25-2023 09:30-0500 Systolic blood pressure 122 mm[Hg] Yordan Simmons Other [facility] Other Encounters Encounter Date Encounter Type Care Provider Facility Start: 12-05-2023 End: 12-05-2023 ambulatory Yordan Simmons Other [facility] Other Start: 12-05-2023 Telephone encounter Yordan Simmons [facility] Start: 11-14-2023 End: 11-14-2023 ambulatory Yordan Simmons Other [facility] Other Start: 11-14-2023 Office outpatient visit 15 minutes Yordan Simmons [facility] Start: 10-18-2023 End: 10-18-2023 ambulatory Yordan Simmons Other [facility] Other Start: 10-18-2023 Patient encounter procedure Yordan Tanvir [facility] Start: 10-08-2023 End: 10-08-2023 ambulatory Yordan Simmons Other [facility] Other Start: 10-08-2023 Nursing evaluation o f patient and report Yordan Simmons [facility] Start: 09-19-2023 End: 09-19-2023 ambulatory Yordan Simmons Other [facility] Start: 09-19-2023 Nursing evaluation o f patient and report Yordan Simmons [facility] Start: 08-01-2023 End: 08-01-2023 ambulatory Yordan Simmons Other [facility] Other Start: 08-01-2023 Office outpatient visit 25 minutes Yordan Ball [facility] Start: 06-12-2023 End: 06-12-2023 ambulatory Yordan Simmons Other [facility] Other Start: 06-12-2023 Telephone encounter Yordan Simmons [facility] Start: 05-22-2023 End: 05-22-2023 ambulatory Yordan Simmons Other [facility] Start: 05-22-2023 Telephone encounter Yordan Simmons [facility] Start: 04-26-2023 End: 04-26-2023 ambulatory Yordan Simmons Other [facility] Start: 04-26-2023 Office outpatient visit 25 minutes Yordan Simmons [facility] Start: 04-25-2023 End: 04-25-2023 ambulatory Uzair Leblanc Facility:[facility] Start: 04-15-2023 End: 04-15-2023 ambulatory Yordan Simmons Other [facility] Other Start: 04-15-2023 Telephone encounter Yordan Simmons [facility] Start: 01-25-2023 End: 01-25-2023 ambulatory Yordan Simmons Other [facility] Other Start: 01-25-2023 Office outpatient visit 25 minutes Yordan Ball [facility] Start: 10-26-2022 End: 10-27-[address] YORDAN SIMMONS Facility: Start: 10-18-2022 End: 10-19-[address] YORDAN SIMMONS Facility:[facility] Start: 09-11-2022 End: 09-12-[address] YORDAN SIMMONS Facility:[facility] Start: 07-19-2022 End: 07-20-2022 ambulatory NONE LISTED REQUEST Facility:[facility] Start: 01-30-2022 End: 01-31-[address] YORDAN SIMMONS Facility:[facility] Start: 01-17-2022 End: 01-18-2022 ambulatory NONE LISTED REQUEST Facility: Start: 03-25-2018 End: 03-26-2018 Ambulatory DEFAULT PHYSICIAN Facility:[facility] Start: 03-12-2018 End: 03-13-2018 Ambulatory DEFAULT PHYSICIAN Facility:[facility] Procedures Date Procedure Procedure Detail Performing Clinician Start: 10-18-[address] TYLER SIMMONS Comment on above: Performed By: #### M ALBR #### [facility] [address] [place] [address] Dr. Dayna Ford Immunizations Immunization Date Immunization Notes Care Provider [facility] 10-08-2023 tetanus and diphther ia toxoids, adsorbed, preservative free, for adult use (5 Lf of tetanus toxoid and 2 Lf of diphtheria toxoid) Yordan [facility] Other [facility] 09-19-2023 influenza, high dose seasonal, preservative-free Yordan Simmons Other [facility] Other 09-11-2022 influenza virus vaccine, split virus (incl. purified surface antigen) Yordan Simmons Other [facility] Other 08-27-2021 influenza virus vaccine, split virus (incl. purified surface antigen) Yordan Simmons Other [facility] Other 08-31-2019 pneumococcal polysaccharide vaccine, 23 valent Yordan Simmons Other [facility] Other 10-28-2013 diphtheria, tetanus toxoids and acellular pertussis vaccine, unspecified formulation Yordan Simmons Other [facility] Other Payers Date Payer Category Payer Unknown [id number] 1961 Medicare [id number] 1961 Self-pay 1961 Unknown [id number] 1955 Unknown [id number] 2.16.84 [id number] 1955 Unknown [id number] 2.16.84 [id number] 1955 Unknown [id number] 2.16.84 [id number] 1955 Unknown [id number] 2.16.84 [id number] Unknown Unknown [id number] 2.16.84 [id number] Unknown [id number] 2.16.84 [id number] Unknown [id number] 2.16.8 [id number] Social History Date Type Detail Facility Unknown if ever smoked [facility] Other Sex Assigned At Sex Assigned At Bir [facility] Other Clinical Notes 01-25-2023 to 12-05-2023 Note Date & Type Note Facility 12-05-2023 Evaluation note Encounter Date Diagnosis Assessment Notes Dec, Nonsustained ventricular tachycardia (ICD-10 - I47.29) Dec, Aortic valve sclerosis (ICD-10 - I35.8) 2021 ECHO: MORIAH 1.8cm, velocity 190, 15/9 Dec, Primary hypertension (ICD-10 - I10) [facility] Other [id number] Evaluation note* Encounter Date Diagnosis Assessment Notes Treatment Notes Treatment Clinical Notes Nov, Intermittent palpitations (ICD-10 - R00.2) Avoid stimulants, hydrate and healthy diet. Check TSH to r/o thyrotoxicosis Check Holter Nov, Primary hypertension (ICD-10 - I10) This patient is instructed to consume a healthy, low-fat, low-salt diet. They are also encouraged to continue exercise to achieve/maintain a normal BMI. Nov, Type 2 diabetes mellitus with hyperglycemia, without long-term current use of insulin (ICD-10 - E11.65) This patient is following a comprehensive diabetic treatment plan. They are checking their feet daily for calluses and nonhealing ulcers. They are being seen for yearly dilated eye examinations. Goals: SBP less than 130, LDL less than 100, FBS less than 140, A1C less than 7%. They are checking their BS daily, will which are reviewed at the office visit. Continue regular routine monitoring of A1C,] Microalbumin, Dilated eye exam and Foot exam [facility] Other 11-17-2023 Evaluation note* Encounter Date Diagnosis Assessment Notes Treatment Notes Treatment Clinical Notes Oct, Medicare annual wellness visit, initial (ICD-10 - Z00.00) Personalized health advice was given to the beneficiary including a written plan for screenings discussed and provided. Advanced care planning reviewed and/or information given as requested. Additional counseling was provided here today in regards to, [ ]. The above visit was performed by [ ] under direct supervision of [ ]. Document reviewed and amended by provider signed below. Oct, Primary hypertension (ICD-10 - I10) This patient is instructed to consume a healthy, low-fat, low-salt diet. They are also encouraged to continue exercise to achieve/maintain a normal BMI. Oct, Type 2 diabetes mellitus with hyperglycemia, without long-term current use of insulin (ICD-10 - E11.65) This patient is following a comprehensive diabetic treatment plan. They are checking their feet daily for calluses and nonhealing ulcers. They are being seen for yearly dilated eye examinations. Goals: SBP less than 130, LDL less than 100, FBS less than 140, A1C less than 7%. They are checking their BS daily, will which are reviewed at the office visit. Continue regular routine monitoring of A1C,] Microalbumin, Dilated eye exam and Foot exam Oct, GENARO (obstructive sleep apnea) (ICD-10 - G47.33) This patient is aware of the benefits associated with GENARO: With continued use, the patient reduces the risk for SC, CVA, HTN, cardiac dysrhythmias and sudden cardiac deaths.The patient is also aware of the association between GENARO and morning headaches, daytime somnolence, fatigue and obesity, which also has been improved with continued use.The patient is compliant with treatment, wearing the equipment every night for greater than 4 hours.The patient is instructed to continue use of the CPAP for GENARO treatment. Oct, Nonrheumatic aortic valve stenosis (ICD-10 - I35.0) Echo: MORIAH 1.8, Velocity 190, gradient 16/08 - 01/2022 Denies CP, tachycardia or syncope. Echo w/o significant narrowing, repeat in 3-5 years. Control BP Oct, Elevated cholesterol (ICD-10 - E78.00) Instructed on diet and exercise with continued statin therapy.Discussed the beneficial effects of lowering cholesterol in reducing the risk for cerebrovascular and cardiovascular disease. Oct, Recurrent major depressive disorder, in full remission (ICD-10 - F33.42) Mood stable. Instructed on healthy diet, exercise and to keep active. 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 No change in medical therapy Oct, Chronic venous insufficiency (ICD-10 - I87.2) Avoid salt and elevate lower extremities, support stockings, inspect legs and feet daily for blisters and ulcerations. Oct, PA (pernicious anemia) (ICD-10 - D51.0) Continue replacement injections. Recently realized only getting SC and switched to longer needle Oct, Nocturia (ICD-10 - R35.1) Oct, Benign prostatic hyperplasia with lower urinary tract symptoms (ICD-10 - N40.1) Oct, Screening PSA (prostate specific antigen) (ICD-10 - Z12.5) [facility] Other 11-07-2023 Evaluation note* Encounter Date Diagnosis Assessment Notes Treatment Notes Treatment Clinical Notes Oct, Superficial laceration of skin (ICD-10 - T14.8XXA) [facility] Other 11-07-2023 Evaluation note* Encounter Date Diagnosis Assessment Notes Treatment Notes Treatment Clinical Notes Oct, Superficial laceration of skin (ICD-10 - T14.8XXA) Tetanus shot given due to laceration on right hand [facility] Other 08-31-2023 Evaluation note* Encounter Date Diagnosis Assessment Notes Treatment Notes Treatment Clinical Notes Jul, Primary hypertension (ICD-10 - I10) This patient is instructed to consume a healthy, low-fat, low-salt diet. They are also encouraged to continue exercise to achieve/maintain a normal BMI. Jul, Type 2 diabetes mellitus with hyperglycemia, without long-term current use of insulin (ICD-10 - E11.65) This patient is following a comprehensive diabetic treatment plan. They are checking their feet daily for calluses and nonhealing ulcers. They are being seen for yearly dilated eye examinations. Goals: SBP less than 130, LDL less than 100, FBS less than 140, AC and A1C less than 7%. They are checking their BS daily, will which are reviewed at the office visit. Continue regular routine monitoring of A1C,] Microalbumin, Dilated eye exam and Foot exam Jul, GENARO (obstructive sleep apnea) (ICD-10 - G47.33) This patient is aware of the benefits associated with GENARO: With continued use, the patient reduces the risk for SC, CVA, HTN, cardiac dysrhythmias and sudden cardiac deaths.The patient is also aware of the association between GENARO and morning headaches, daytime somnolence, fatigue and obesity, which also has been improved with continued use.The patient is compliant with treatment, wearing the equipment every night for greater than 4 hours.The patient is instructed to continue use of the CPAP for GENARO treatment. Jul, Inflamed seborrheic keratosis (ICD-10 - L82.0) Used cryotherapy to remove due to constant irritation, inflammation and bleeding. He understands this is a benign lesion. Any recurrence should be brought to the office's attention Jul, Nonrheumatic aortic valve stenosis (ICD-10 - I35.0) Control BP w/ serial Echo every 3-5 years Denies CP, tachycardia or syncope Jul, Elevated cholesterol (ICD-10 - E78.00) Instructed on diet and exercise with continued statin therapy.Discussed the beneficial effects of lowering cholesterol in reducing the risk for cerebrovascular and cardiovascular disease. 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 Jul, Chronic venous insufficiency (ICD-10 - I87.2) Avoid salt and elevate lower extremities, support stockings, inspect legs and feet daily for blisters and ulcerations. Jul, PA (pernicious anemia) (ICD-10 - D51.0) COntinue monthly B12 injections [facility] Other 07-12-2023 Evaluation note* Encounter Date Diagnosis Assessment Notes Treatment Notes Treatment Clinical Notes Jun, GENARO (obstructive sleep apnea) (ICD-10 - G47.33) AHI > 30 [facility] Other 05-26-2023 Evaluation note* Encounter Date Diagnosis Assessment Notes Treatment Notes Treatment Clinical Notes April, Primary hypertension (ICD-10 - I10) This patient is instructed to consume a healthy, low-fat, low-salt diet. They are also encouraged to continue exercise to achieve/maintain a normal BMI. April, Type 2 diabetes mellitus with hyperglycemia, without long-term current use of insulin (ICD-10 - E11.65) This patient is following a comprehensive diabetic treatment plan. They are checking their feet daily for calluses and nonhealing ulcers. They are being seen for yearly dilated eye examinations. Goals: SBP less than 130, LDL less than 100, FBS less than 140, AC and A1C less than 7%. They are checking their BS daily, will which are reviewed at the office visit. A1C: [ ] Microalbumin: [ ] Eye exam: [ ] Foot exam: [ ] April, GENARO (obstructive sleep apnea) (ICD-10 - G47.33) This patient is aware of the benefits associated with GENARO: With continued use, the patient reduces the risk for SC, CVA, HTN, cardiac dysrhythmias and sudden cardiac deaths.The patient is also aware of the association between GENARO and morning headaches, daytime somnolence, fatigue and obesity, which also has been improved with continued use.The patient is compliant with treatment, wearing the equipment every night for greater than 4 hours.The patient is instructed to continue use of the CPAP for GENARO treatment. April, Nonrheumatic aortic valve stenosis (ICD-10 - I35.0) Control BP REcheck Echo in 3 years. April, Elevated cholesterol (ICD-10 - E78.00) Instructed on diet and exercise with continued statin therapy.Discussed the beneficial effects of lowering cholesterol in reducing the risk for cerebrovascular and cardiovascular disease. April, Chronic venous insufficiency (ICD-10 - I87.2) Avoid salt and elevate lower extremities, support stockings, inspect legs and feet daily for blisters and ulcerations. April, PA (pernicious anemia) (ICD-10 - D51.0) Continue IM B12 1000mcg monthly April, RLS (restless legs syndrome) (ICD-10 - G25.81) Symptoms tolerable at this time. Discussed Fe supplements April, Macrocytic anemia (ICD-10 - D53.9) r/o FA, B12 deficiency Referral to Hematology? April, History of nephrolithiasis (ICD-10 - Z87.442) [facility] Other 05-26-2023 Evaluation note* Encounter Date Diagnosis Assessment Notes Treatment Notes Treatment Clinical Notes April, Primary hypertension (ICD-10 - I10) This patient is instructed to consume a healthy, low-fat, low-salt diet. They are also encouraged to continue exercise to achieve/maintain a normal BMI. April, Type 2 diabetes mellitus with hyperglycemia, without long-term current use of insulin (ICD-10 - E11.65) This patient is following a comprehensive diabetic treatment plan. They are checking their feet daily for calluses and nonhealing ulcers. They are being seen for yearly dilated eye examinations. Goals: SBP less than 130, LDL less than 100, FBS less than 140, AC and A1C less than 7%. They are checking their BS daily, will which are reviewed at the office visit. A1C: [ ] Microalbumin: [ ] Eye exam: [ ] Foot exam: [ ] April, GENARO (obstructive sleep apnea) (ICD-10 - G47.33) This patient is aware of the benefits associated with GENARO: With continued use, the patient reduces the risk for SC, CVA, HTN, cardiac dysrhythmias and sudden cardiac deaths.The patient is also aware of the association between GENARO and morning headaches, daytime somnolence, fatigue and obesity, which also has been improved with continued use.The patient is compliant with treatment, wearing the equipment every night for greater than 4 hours.The patient is instructed to continue use of the CPAP for GENARO treatment. The patient currently has the ResMedAirCurve 10 machine and has received an error message of pump going into failure and is need of a new machine. His settings are IPAP 15 and EPAP 10. April, Nonrheumatic aortic valve stenosis (ICD-10 - I35.0) Control BP REcheck Echo in 3 years. April, Elevated cholesterol (ICD-10 - E78.00) Instructed on diet and exercise with continued statin therapy.Discussed the beneficial effects of lowering cholesterol in reducing the risk for cerebrovascular and cardiovascular disease. April, Chronic venous insufficiency (ICD-10 - I87.2) Avoid salt and elevate lower extremities, support stockings, inspect legs and feet daily for blisters and ulcerations. April, PA (pernicious anemia) (ICD-10 - D51.0) Continue IM B12 1000mcg monthly April, RLS (restless legs syndrome) (ICD-10 - G25.81) Symptoms tolerable at this time. Discussed Fe supplements April, Macrocytic anemia (ICD-10 - D53.9) r/o FA, B12 deficiency Referral to Hematology? April, History of nephrolithiasis (ICD-10 - Z87.442) Push [facility] Other 05-15-2023 Evaluation note* Encounter Date Diagnosis Assessment Notes Treatment Notes Treatment Clinical Notes April, Elevated cholesterol (ICD-10 - E78.00) [facility] Other 02-24-2023 Evaluation note* Encounter Date Diagnosis Assessment Notes Treatment Notes Treatment Clinical Notes Jan, Aortic valve sclerosis (ICD-10 - I35.8) 2021 ECHO: MORIAH 1.8cm, velocity 190, 15/9 Mild stenosis, control BP. Repeat Echo in 3 years Jan, Primary hypertension (ICD-10 - I10) This patient is instructed to consume a healthy, low-fat, low-salt diet. They are also encouraged to continue exercise to achieve/maintain a normal BMI. Jan, Elevated cholesterol (ICD-10 - E78.00) Diet and exercise with continued statin therapy. Jan, GENARO (obstructive sleep apnea) (ICD-10 - G47.33) This patient is aware of the benefits associated with GENARO: With continued use, the patient reduces the risk for SC, CVA, HTN, cardiac dysrhythmias and sudden cardiac deaths.The patient is also aware of the association between GENARO and morning headaches, daytime somnolence, fatigue and obesity, which also has been improved with continued use.The patient is compliant with treatment, wearing the equipment every night for greater than 4 hours.The patient is instructed to continue use of the CPAP for GENARO treatment. Jan, Type 2 diabetes mellitus with hyperglycemia, without long-term current use of insulin (ICD-10 - E11.65) This patient is following a comprehensive diabetic treatment plan. They are checking their feet daily for calluses and nonhealing ulcers. They are being seen for yearly dilated eye examinations. Goals: SBP less than 130, LDL less than 100, FBS less than 140, AC and A1C less than 7%. They are checking their BS daily, will which are reviewed at the office visit. Jan, Chronic venous insufficiency (ICD-10 - I87.2) Avoid salt and elevate lower extremities, support stockings, inspect legs and feet daily for blisters and ulcerations. Jan, PA (pernicious anemia) (ICD-10 - D51.0) Change needle to 1in to allow for IM injection Jan, History of nephrolithiasis (ICD-10 - Z87.442) Push fluids, no s/s recurrence Jan, RLS (restless legs syndrome) (ICD-10 - G25.81) Continue treatment of GENARO. Symptoms tolerable Thoora Other Evaluation noteNo InformationNort News in Shorts Other History general Narrative - Reported* Type Description Date Medical History hypertension Medical History type II diabetes Medical History hypercholesterolemia Surgical History wisdom teeth extract Surgical History hiatal hernia repair Surgical History cholecystectomy Surgical History hernia Hospitalization History see surgical history Th[facility]a Other History general Narrative - Reported* Type Description Date Medical History hypertension Medical History type II diabetes Medical History hypercholesterolemia Surgical History wisdom teeth extract Surgical History hiatal hernia repair Surgical History cholecystectomy Surgical History hernia Surgical History EGD 04/2023 Surgical History Colonoscopy 04/2023 Hospitalization History see surgical history Thoora Other History general Narrative - ReportedNort News in Shorts Other History general Narrative - Reported* Type Description Date Medical History hypertension Medical History type II diabetes Medical History hypercholesterolemia Medical History GENARO Surgical History wisdom teeth extract Surgical History hiatal hernia repair Surgical History cholecystectomy Surgical History hernia Surgical History EGD 04/2023 Surgical History Colonoscopy 04/2023 Hospitalization History see surgical history Thoora Other Summary Purpose Family History No Family History Records FoundNo Family History Records FoundNo Family History Records Found Advance Directives No Advanced Directives Records FoundNo Advanced Directives Records FoundNo Advanced Directives Records Found Additional Source Comments (unrecognized sect ion and content) No Status Records FoundNo Status Records FoundNo Status Records Found INFORMATION SOURCE (unrecogn ized section and content) DATE CREATED AUTHOR 05/22/2018 [facility] DATE CREATED AUTHOR AUTHOR'S ORGANIZ ATION 11/01/2022 [facility] DATE CREATED AUTHOR AUTHOR'S ORGANIZ ATION 05/12/2023 [facility] REASON FOR VISIT (unrecogniz ed section and content) 3 MONTH FOLLOW UP MBRefill3 MOTH FOLLOW UP3 MOTH FOLLOW UPNo Information3 month Follow upflu shottetanus shotWellnestetanus shotfeels like heart is fluttering , bp has been fineHolter resultsNo Information FOR RECORDS PERTAINING TO PATIENTS WHO ARE OR HAVE BEEN ENROLLED IN A CHEMICAL DEPENDENCY/SUBSTANCEABUSE PROGRAM, SOME INFORMATION MAY BE OMITTED. This clinical summary was aggregated from multiple sources. Caution should be exercised in using it in the provision of clinical care. This summary normalizes information from multiple sources, and as a consequence, information in this document may materially change the coding, format and clinical context of patient data. In addition, data may be omitted in some cases. CLINICAL DECISIONS SHOULD BE BASED ON THE PRIMARY CLINICAL RECORDS. [employer] provides no warranty or guarantee of the accuracy or completeness of information in this document.
[2023-12-20 09:38] LABS: Basophils Percent Auto 0.5 % (0.2-2.0); Eosinophils Absolute Auto 0.2 10^3/uL (0.0-0.7); Eosinophils Percent Auto 2.4 % (0.9-7.0); Hematocrit 38.3 % (42.0-54.0); Hemoglobin 12.1 g/dL (14.0-18.0); Immature Granulocytes Abs Auto 0.02 10^3/uL (0.00-0.03); Immature Granulocytes Pct Auto 0.3 % (0.0-0.5); Lymphocytes Absolute Auto 1.7 10^3/uL (1.2-3.8); Lymphocytes Percent Auto 22.5 % (20.5-60.0); Mean Corpuscular HGB Conc 31.6 g/dL (29.9-35.2); Mean Corpuscular Hemoglobin 31.8 pg (25.9-34.0); Mean Corpuscular Volume 100.5 fL (80.0-94.0); Mean Platelet Volume 10.8 fL (9.5-13.5); Monocytes Absolute Auto 0.7 10^3/uL (0.3-0.8); Monocytes Percent Auto 9.6 % (1.7-12.0); Neutrophils Absolute Auto 4.9 10^3/uL (1.4-6.5); Neutrophils Percent Auto 64.7 % (43.0-75.0); Platelet Count 230 10^3/uL (150-450); Red Blood Count 3.81 10^6/uL (4.70-6.10); White Blood Count 7.6 10^3/uL (4.0-11.0)
[2023-12-20 10:06] LABS: Anion Gap 13.3; BUN Creatinine Ratio 17.2; Calcium 8.7 mg/dL (8.5-10.1); Carbon Dioxide 27.7 mmol/L (21.0-32.0); Chloride 107 mmol/L (98-107); Estimated GFR (African America >60 (>=60); Estimated GFR (Non-African Ame 53 (>=60); Glucose 148 mg/dL (74-106); Sodium 144 mmol/L (136-145); Thyroid Stimulating Hormone 1.172 uIU/mL (0.358-3.740)
== END 2023-12-20 09:22 | disposition home or self-care (01) ==
LOC: LAB 09:23
PROVIDERS: PCP Internal Medicine; Visit Provider Internal Medicine
DX: I47.29 Other ventricular tachycardia (principal); I35.8 Other nonrheumatic aortic valve disorders; I10 Essential (primary) hypertension
CPT/HCPCS: 36415; 80048; 84443; 85025

== ENCOUNTER 2024-02-19 06:31 | Outpatient (OUT) | payer MEDICARE, OTHER, SELFPAY ==
--- NOTE | 2024-02-19 | PCN_ITS ---
CARDIAC STRESS TEST Requesting Physician: Procedure Date: 02/19/2024 INDICATION: Abnormal EKG, V-tach. STRESS TEST PROTOCOL: Lexiscan myocardial perfusion imaging. Resting heart rate: 63 beats per minute. Max heart rate: 94 beats per minute. Resting blood pressure: 108/60 Max blood pressure: 126/60 CONCLUSION: 1. Patient with right bundle branch block at baseline. 2. There were PVCs noted throughout procedure. 3. There were no definite EKG changes meeting the criteria of ischemia post Lexiscan infusion. 4. Please refer to separately interpreted nuclear myocardial perfusion imaging report. MTDD
--- NOTE | 2024-02-19 06:10 | NM_ITS ---
Patient Name: MERRY RASMUSSEN MR#: [id number] : 1955 Exam Date: 02/19/2024 Ordering Doctor: BANDAR DIAZ RADIOLOGY REPORT PROCEDURE: NM NAINA PERF SPECT REST STR COMPARISON: None. INDICATIONS: ABNORMAL EKG, VENTRICULAR TACHYCARDIA TECHNIQUE: Exam Description: Stress/Rest one day protocol gated SPECT Rest Imagin.8 mCi Tc-99m Cardiolite IV on 02/19/2024 Stress Imaging 30.7 mCi Tc-99m Cardiolite IV on 02/19/2024 Exercise Protocol: 0.4 mg Lexiscan given IV Heart Rate (bpm): Rest: 62 Max: 94 PMHR: 62 Blood Pressure: Rest: 108/60 Max: 126/60 Symptoms: Rest and peak stress ECG findings were pending and the exercise portion of the study was pending per attending physician Dr. VAZQUEZ . For more details please see separate cardiac stress test report. FINDINGS: QUALITY OF STUDY: Good. PERFUSION DEFECT: LOCATION: Basal inferior. Mid-inferior. SIZE: Small (1-2 segments). SEVERITY: Mild. TYPE: Persistent. WALL MOTION: Normal. LV SIZE: Normal. 74 mL. TID / TCD: None; 0.8 LVEF: Normal. Calculated EF 72%. SUMMARY: Myocardial perfusion imaging study has ABNORMAL findings. CONCLUSION: 1. Small area of mildly decreased uptake in the inferior wall on stress images, RCA distribution, stable on rest images with no reversible ischemia 2. Pending exercise test results Dictated by: Galo Peguero MD on 02/19/2024 at 14:26 Approved by: Galo Peguero MD on 02/19/2024 at 14:29
--- OUTSIDE RECORDS SUMMARY | 2024-02-19 06:34 | XMS_ITS | CCD ---
Author Organization [facility] Care Team Providers Care Plate Gauger Name Role Phone PHYSICIAN, DEFAULT Unavailable Unavailable PHYSICIAN, DEFAULT Unavailable Unavailable PHYSICIAN, DEFAULT Unavailable Unavailable PHYSICIAN, DEFAULT Unavailable Unavailable PHYSICIAN, DEFAULT Unavailable Unavailable PHYSICIAN, DEFAULT Unavailable Unavailable BALL, DR HARRISON Primary Care Unavailable [...] JASON LISTED Admitting Unavaila ble REQUEST, DR JAOSN LISTED Attending Unavaila ble BALL, DR HARRISON [...] Leblanc Admitting Unavailable Uzair Leblanc Attending Unavailable Ball, Yordan Primary Care Unavailable Allergies Allergy Classification Reported Allergen(s) Allergy Type Date of Onset Reaction(s) Facility (10 sources) sulfaSALAzine Drug Allergy Unknown [facility] Other Medications Current Medications Medication Drug Class(es) Dates Sig (Normalized) Sig (Original) atorvastatin 40 mg oral tablet (16 sources) HMG-CoA Reductase Inhibitor take 1 tablet by mouth every twenty-four hours Atorvastatin Calcium 40 MG 1 tablet Orally Once a day Active BD Luer-Josias Syringe 23G X 1 3 ML (16 sources) BD Luer-Josias Syri nge 23G X 1 3 ML 1 syringe once every month IM monthly for 365 days Active Cinnamon Preparation (16 sources) Non-Standardized Food Allergenic Extract Cinnamon Active Fish Oils (16 sources) Fish Oil Active FLUoxetine 20 mg oral capsule (16 sources) Serotonin Reuptake Inhibitor take 1 capsule by mouth once daily FLUoxetine HCl 20 MG TAKE 1 CAPSULE BY MOUTH EVERY DAY Active lisinopril 20 mg oral tablet (16 sources) Angiotensin Converting Enzyme Inhibitor take 1 tablet by mouth once daily Lisinopril 20 MG TAKE 1 TABLET BY MOUTH EVERY DAY Active metFORMIN hydrochloride 1000 mg oral tablet (16 sources) Biguanide take 1 tablet by mouth at dinner metFORMIN HCl 1000 MG TAKE 1 TABLET BY MOUTH BEFORE BKFST AND EVENING MEAL Active 24 hr metoprolol succinate 25 mg extended release oral tablet (4 sources) beta-Adrenergic Jose Start: 12-05-19 24 take 1 tablet by mouth every twenty-four hours Metoprolol Succinate ER 25 MG 1 tablet Orally Once a day Dec, Active tamsulosin hydrochloride 0.4 mg oral capsule (16 sources) alpha-Adrenergic Jose take 1 capsule by mouth once daily at dinner Tamsulosin HCl 0.4 MG TAKE 1 CAPSULE BY MOUTH EVERY DAY AFTER EVENING MEAL Active vitamin b12 1 mg/ml injectable solution (16 sources) Vitamin B12 Cyanocobalamin 1 000 MCG/ML INJECT 1 ML EVERY 4 WEEKS Active Cyanocobalamin 1 000 MCG/ML INJECT 1 ML EVERY 4 WEEKS Active Completed/Discontinued Medications Medication Drug Class(es) Dates Sig (Normalized) Sig (Original) dextromethorphan hydrobromide 30 mg / pyrilamine maleate 30 mg oral tablet (16 sources) Uncompetitive G-xlzesg-L-aspartat e Receptor Antagonist, Sigma-1 Agonist Start: 01-27-2020 Bristol DMT 30-30 MG 1 tablet Orally every 6-8 hours for 7 days Jan, Not-Taking/PRN Start: 01-27-2020 oseltamivir 75 mg oral capsule (16 sources) Neuraminidase Inhibitor Start: 01-27-2020 take 1 [...] factor deficiency Episodic Deficiency and other anemia (14 sources) Macrocytic anemia; Translations: [Nutritional anemia, unspecified] Episodic Deficiency and other anemia (14 sources) Pernicious anemia; Translations: [Vitamin B12 deficiency [...] sclerosis] Onset: 01-30-2022 Chronic Hyperplasia of prostate (8 sources) 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; Translations: [Benign prostatic hyperplasia with lower urinary tract symptoms] Chronic Mood disorders (12 sources) Recurrent major depression in full remission; Translations: [Major depressive disorder, recurrent, in full remission] Chronic Other aftercare (1 source) Other terminal make up operator (current) drug therapy; Translations: [OTH INTERMEDIATE CURRENT DRUG THERAPY] Onset: 10-22-2022 Episodic Other and unspecified benign neoplasm (16 sources) History of polyp of colon; Translations: [Personal history of colonic polyps] Episodic Other and unspecified benign neoplasm (6 sources) Tubular adenoma of colon; Translations: [Tubular adenoma of colon] Episodic Other connective tissue disease (4 sources) Other specified soft tissue disorders; Translations: [OTHER SPEC SOFT TISSUE DISORDERS] Onset: 09-11-2022 Episodic Other diseases of veins and lymphatics (16 sources) Peripheral venous insufficiency; Translations: [Venous insufficiency (chronic) (peripheral)] Episodic Other diseases of veins and lymphatics (6 sources) Venous insufficiency (chronic) (peripheral) Episodic Other hereditary and degenerative nervous system conditions (16 sources) Restless legs; Translations: [Restless legs syndrome] [...] Inflamed seborrheic keratosis Episodic Residual codes; unclassified (16 sources) Obstructive sleep apnea syndrome; Translations: [Obstructive sleep apnea (adult) (pediatric)] Chronic Residual codes; unclassified (7 sources) Obstructive sleep apnea (adult) (pediatric) Chronic [...] INVLV CIRC RS] Onset: 01-31-2022 Episodic Unclassified (2 sources) Nonsustained ventricular tachycardia I47.29 Results Test Name Value Interpretation Reference Range Facility Glucose Poct Glucometerson 0 04-25-2023 Commemt1 Glu2: Cleaned Meter Normal [facility] Comment on above: Result Comment: PERF ORMED BY: [facility] [address] [place] [address] PATHOLOGIST LEAN FACILITATOR JERMAIN DANIELS M.D. Performed By: #### G LULS #### Point of Care testing , Glucose [Mass/Vol] 123 mg/dL Normal [facility] Comment on above: Result Comment: [facility] Glucose Reference Range is dependent on time and content of last meal. Glucose of more than 200 mg/dL in a nonstressed, ambulatory subject supports the diagnosis of Diabetes Mellitus. Performed By: #### G LULS #### Point of Care testing , IRON AND TIBCon 10-26-2022 % SATURATION 16.1 % Normal [facility] Comment on above: Performed By: #### M ALBR #### [facility] [address] [place] [address] Dr. Dayna Ford Iron [Mass/Vol] 44.0 ug/dL Critically low 65.0-175.0 [facility] Comment on above: Performed By: #### M ALBR #### [facility] [address] [place] [address] Dr. Dayna Ford TIBC DIRECT 274.0 ug/dL Normal 250.0-450.0 [facility] Comment on above: Performed By: #### M ALBR #### [facility] [address] [place] [address] Dr. Dayna Ford RETICULOCYTEon 10-26-2022 RETIC 1.75 % Normal 0.60-3.10 [facility] Comment on above: Performed By: #### M ALBR #### [facility] [address] [place] [address] Dr. Dayna Ford VIT B12 AND FOLATEon Cobalamin (Vitamin B12) [Mass/Vol] 398.0 pg/mL Normal 193.0-986.0 [facility] Comment on above: Performed By: #### M ALBR #### [facility] [address] [place] [address] Dr. Dayna Ford FOLATE 20.10 ng/mL Normal 8.60-58.90 [facility] Comment on above: Performed By: #### M ALBR #### [facility] [address] [place] [address] Dr. Dayna Ford CBC AUTO DIFFon 10-18-2022 BASO # 0.1 103/ul Normal 0.0-0.1 [facility] Comment on above: Performed By: #### M ALBR #### [facility] [address] [place] [address] Dr. Dayna Ford Basophils/100 WBC (Bld) 0.7 % Normal 0.2-2.0 [facility] Comment on above: Performed By: #### M ALBR #### [facility] [address] [place] [address] Dr. Dayna Fodr EO # 0.2 103/ul Normal 0.0-0.7 [facility] Comment on above: Performed By: #### M ALBR #### [facility] [address] [place] [address] Dr. Dayna Ford Eosinophils/100 WBC (Bld) 3.1 % Normal 0.9-7.0 [facility] Comment on above: Performed By: #### M ALBR #### [facility] [address] [place] [address] Dr. Dayna Ford Erythrocyte distribution width (RBC) [Ratio] 12.7 % Normal 11.0-15.0 [facility] Comment on above: Performed By: #### M ALBR #### [facility] [address] [place] [address] Dr. Dayna Ford Hematocrit (Bld) [Volume fraction] 36.2 % Critically low 42.0-54.0 [facility] Comment on above: Performed By: #### M ALBR #### [facility] [address] [place] [address] Dr. Dayna Ford Hemoglobin (Bld) [Mass/Vol] 11.8 g/dL Critically low 14.0-18.0 [facility] Comment on above: Performed By: #### M ALBR #### [facility] [address] [place] [address] Dr. Dayna Ford IG # 0.02 10e3/ul Normal 0.00-0.03 [facility] Comment on above: Performed By: #### M ALBR #### [facility] [address] [place] [address] Dr. Dayna Ford IG % 0.3 % Normal 0.0-0.5 [facility] Comment on above: Performed By: #### M ALBR #### [facility] [address] [place] [address] Dr. Dayna Ford LYMPH # 1.9 103/ul Normal 1.2-3.8 [facility] Comment on above: Performed By: #### M ALBR #### [facility] [address] [place] [address] Dr. Dayna Ford Lymphocytes/100 WBC (Bld) 26.2 % Normal 20.5-60.0 [facility] Comment on above: Performed By: #### M ALBR #### [facility] [address] [place] [address] Dr. Dayna Ford MANUAL DIFF REQ NO Normal [facility] Comment on above: Performed By: #### M ALBR #### [facility] [address] [address] [address] Dayna Ford MCH (RBC) [Entitic mass] 31.9 pg Normal 25.9-34.0 [facility] Comment on above: Performed By: #### M ALBR #### [facility] [address] [place] [address] Dr. Dayna Ford MCHC (RBC) [Mass/Vol] 32.6 g/dL Normal 29.9-35.2 [facility] Comment on above: Performed By: #### M ALBR #### [facility] [address] [place] [address] Dr. Dayna Ford MCV (RBC) [Entitic vol] 97.8 fL Critically high 80.0-94.0 [facility] Comment on above: Performed By: #### M ALBR #### [facility] [address] [place] [address] Dr. Dayna Ford MONO # 0.7 103/ul Normal 0.3-0.8 [facility] Comment on above: Performed By: #### M ALBR #### [facility] [address] [place] [address] Dr. Dayna Ford Monocytes/100 WBC (Bld) 9.3 % Normal 1.7-12.0 [facility] Comment on above: Performed By: #### M ALBR #### [facility] [address] [place] [address] Dr. Dayna Ford NEUT # 4.3 103/ul Normal 1.4-6.5 [facility] Comment on above: Performed By: #### M ALBR #### [facility] [address] [address] [address] Dayna Ford Neutrophils/100 WBC (Bld) 60.4 % Normal 43.0-75.0 [facility] Comment on above: Performed By: #### M ALBR #### [facility] [address] [address] [address] Dayna Ford Platelet mean volume (Bld) [Entitic vol] 10.6 fL Normal 9.5-13.5 [facility] Comment on above: Performed By: #### M ALBR #### [facility] [address] [address] [address] Dayna Ford PLT 247 103/ul Normal 150-450 [facility] Comment on above: Performed By: #### M ALBR #### [facility] [address] [place] [address] Dr. Dayna Ford RBC 3.70 106/ul Critically low 4.70-6.[address] [facility] Comment on above: Performed By: #### M ALBR #### [facility] [address] [address] [address] Dayna Ford WBC 7.1 103/ul Normal 4.0-11.0 [facility] Comment on above: Performed By: #### M ALBR #### [facility] [address] [place] [address] Dr. Dayna Ford GLYCOHEMOGLOBIN A1Con 2021 ADA RECOMMENDATION SEE BELOW Normal [facility] Comment on above: Result Comment: ADA RECOMMENDED LIMIT 4.0 - 6.0 ADA THERAPEUTIC TARGET < 7.0 ACTION SUGGESTED > 7.0 Performed By: #### A 1C #### [facility] [address] [place] [address] Dr. Dayna Ford Glucose [Mass/Vol] 148 mg/dL Normal [facility] Comment on above: Performed By: #### A 1C #### [facility] [address] [place] [address] Dr. Dayna Ford HbA1c (Bld) [Mass fraction] 6.8 % Critically high 4.5-6.2 [facility] Comment on above: Performed By: #### A 1C #### [facility] [address] [address] [address] Dayna Ford LIPID PROFILEon 10-18-2022 CHOL-HDL RATIO NORM SEE BELOW Normal [facility] Comment on above: Result Comment: 3.3 - 4.4 LOW RISK 4.4 - 7.1 AVERAGE RISK 7.1 - 11.0 MODERATE RISK >11.0 HIGH RISK Performed By: #### A LT, BMP, LIPID #### [facility] [address] [address] [address] Dayna Ford Cholesterol [Mass/Vol] 183 mg/dL Normal <=200 [facility] Comment on above: Performed By: #### A LT, BMP, LIPID #### [facility] [address] [address] [address] Dayna Ford Cholesterol in HDL [Mass/Vol] 46 mg/dL Normal 40-60 [facility] Comment on above: Performed By: #### A LT, BMP, LIPID #### [facility] [address] [address] [address] Dayna Ford Cholesterol in LDL [Mass/Vol] 98.0 mg/dL Normal [facility] Comment on above: Performed By: #### A LT, BMP, LIPID #### [facility] [address] [address] [address] Dayna Ford Cholesterol.total/Ch olesterol in HDL [Mass ratio] 4.0 {ratio} Normal [facility] Comment on above: Performed By: #### A LT, BMP, LIPID #### [facility] [address] [place] [address] Dr. Dayna Ford HDL NORMAL > or = 60 mg/dl - LO W CARDIOVASCULAR RISK <40 mg/dl - HIGH CARDIOVASCULAR RISK Normal [facility] Comment on above: Performed By: #### A LT, BMP, LIPID #### [facility] [address] [place] [address] Dr. Dayna Ford LDL CALC NORMAL SEE BELOW Normal [facility] Comment on above: Result Comment: <100 mg/dl OPTIMAL 100 - 129 mg/dl NEAR OR ABOVE OPTIMAL 130 - 159 mg/dl BORDERLINE HIGH 160 - 189 mg/dl HIGH >190 mg/dl VERY HIGH Performed By: #### A LT, BMP, LIPID #### [facility] [address] [address] [address] Dayna Ford Triglyceride [Mass/Vol] 195 mg/dL Critically high <=150 [facility] Comment on above: Performed By: #### A LT, BMP, LIPID #### [facility] [address] [address] [address] Dayna Ford VLDL CALC 39.0 mg/dL Normal [facility] Comment on above: Performed By: #### A LT, BMP, LIPID #### [facility] [address] [place] [address] Dr. Dayna Ford MICROALBUMIN, RAND URon 11- mALB 3.3 mg/L Normal <=30.0 [facility] Comment on above: Performed By: #### M ALBR #### [facility] [address] [place] [address] Dr. Dayna Ford PROF CHEM 8 (BAS METB)on Anion gap [Moles/Vol] 9.5 mmol/L Normal [facility] Comment on above: Performed By: #### A LT, BMP, LIPID #### [facility] [address] [place] [address] Dr. Dayna Ford Calcium [Mass/Vol] 8.8 mg/dL Normal 8.5-10.1 [facility] Comment on above: Performed By: #### A LT, BMP, LIPID #### [facility] [address] [place] [address] Dr. Dayna Ford Chloride [Moles/Vol] 106 mmol/L Normal 98-107 [facility] Comment on above: Performed By: #### A LT, BMP, LIPID #### [facility] [address] [place] [address] Dr. Dayna Ford CO2 [Moles/Vol] 27.4 mmol/L Normal 21.0-32.0 [facility] Comment on above: Performed By: #### A LT, BMP, LIPID #### [facility] [address] [address] [address] Dayna Ford Creatinine [Mass/Vol] 1.10 mg/dL Normal 0.70-1.30 [facility] Comment on above: Performed By: #### A LT, BMP, LIPID #### [facility] [address] [place] [address] Dr. Dayna Ford EGFR-AF FILIPINO >60 Normal >=60 [facility] Comment on above: Performed By: #### A LT, BMP, LIPID #### [facility] [address] [address] [address] Dayna Ford EGFR-NON AF FILIPINO >60 Normal >=60 [facility] Comment on above: Performed By: #### A LT, BMP, LIPID #### [facility] [address] [place] [address] Dr. Dayna Ford Glucose [Mass/Vol] 106 mg/dL Normal 74-106 [facility] Comment on above: Performed By: #### A LT, BMP, LIPID #### [facility] [address] [place] [address] Dr. Dayna Ford Potassium [Moles/Vol] 4.9 mmol/L Normal 3.5-5.1 [facility] Comment on above: Performed By: #### A LT, BMP, LIPID #### [facility] [address] [place] [address] Dr. Dayna Ford Sodium [Moles/Vol] 138 mmol/L Normal 136-145 [facility] Comment on above: Performed By: #### A LT, BMP, LIPID #### [facility] [address] [place] [address] Dr. Dayna Ford Urea nitrogen [Mass/Vol] 15.0 mg/dL Normal 7.0-18.0 [facility] Comment on above: Performed By: #### A LT, BMP, LIPID #### [facility] [address] [place] [address] Dr. Dayna Ford Urea nitrogen/Creatinine [Mass ratio] 13.6 mg/mg Normal [facility] Comment on above: Performed By: #### A LT, BMP, LIPID #### [facility] [address] [address] [address] Dayna Ford SGPTon 10-18-2022 ALT [Catalytic activity/Vol] 27 U/L Normal 16-63 [facility] Comment on above: Performed By: #### A LT, BMP, LIPID #### [facility] [address] [address] [address] Dayna Ford US PATRICIA DOP LEG [...] by: JHOANA SERRATO Date: 2022-09-11 21:23 Normal [facility] GLYCOHEMOGLOBIN A1Con 2021 ADA RECOMMENDATION SEE BELOW Normal [facility] Comment on above: Result Comment: ADA RECOMMENDED LIMIT 4.0 - 6.0 ADA THERAPEUTIC TARGET < 7.0 ACTION SUGGESTED > 7.0 Performed By: #### D ATA1C #### [facility] [address] [address] [address] Dayna Ford Glucose [Mass/Vol] 146 mg/dL Normal [facility] Comment on above: Performed By: #### D ATA1C #### [facility] [address] [address] [address] Dayna Ford HbA1c (Bld) [Mass fraction] 6.7 % Critically high 4.5-6.2 [facility] Comment on above: Performed By: #### D ATA1C #### [facility] [address] [address] [address] Dayna Ford ECHOCARDIO M/2D COMPLETEon 0 01-30-2022 ECHOCARDIO M/2D COMPLETE Patient: MERRY RASMUSSEN Exam Date: 01/30/2022 : 1955 Gender:M Ordering : DR YORDAN SIMMONS D.O. Admission #: [id number] Family : Order #: [id number] CLICK HERE TO VIEW EXAM ECHOCARDIOGRAM REPORT [...] Area(A4C): 18.10 cm2 Left Atrium Systolic Volume(A2C): 02662 mm3 Left Atrium Systolic Volume(A4C): 66251 mm3 Mitral Valve MV E to A Ratio: 1.30 Deceleration Shelby: 4520 mm/s2 Mitral Valve A-Wave Peak Velocity: [...] Foley M.D. on 01/30/2022 at 18:05 Normal [facility] US CAROTID ART BILon 01-30-2 022 CAROTID ART JUDSON EXAMINATION: US CAROTID ART [...] by: ROXANE SOSA Date: 2022-01-30 10:37 Normal [facility] GLYCOHEMOGLOBIN A1Con 2021 ADA RECOMMENDATION ADA THERAPEUTIC TARGET 6.0 - 7.0 ACTION SUGGESTED > 7.0 Normal [facility] Comment on above: Performed By: #### D ATA1C #### [facility] [address] [address] [address] Dayna Ford Glucose [Mass/Vol] 148 mg/dL Normal [facility] Comment on above: Performed By: #### D ATA1C #### [facility] [address] [address] [address] Dayna Ford HbA1c (Bld) [Mass fraction] 6.8 % Critically high <=6.0 [facility] Comment on above: Performed By: #### D ATA1C #### [facility] [address] [address] [address] Dayna Ford Vital Signs Date Time Vital Sign Value Performing Clinician Facility 12-05-2023 13:24-0500 Body height 172.72 cm [facility] Other [facility] 11-14-2023 11:00-0500 Body height 172.72 cm Yordan [employer] Other [facility] 11-14-2023 11:00-0500 Body mass index (BMI) [Ratio] 36.4 kg/m2 [facility] 11-14-2023 11:00-0500 Body weight 108.59 kg [facility] Other [facility] Other 11-14-2023 11:00-0500 Diastolic blood pressure 80 mm[Hg] [facility] Other [facility] Other 11-14-2023 11:00-0500 Respiratory rate 12 /min Yordan Ball Other [facility] Other 11-14-2023 11:00-0500 Systolic blood pressure 132 mm[Hg] Yordan Ball Other [facility] Other 10-18-2023 09:30-0500 Body height 172.72 cm Yordan Ball Other [facility] Other 10-18-2023 09:30-0500 Body mass index (BMI) [Ratio] 35.85 kg/m2 Yordan Ball Other [facility] Other 10-18-2023 09:30-0500 Body weight 106.96 kg Yordan Ball Other [facility] Other 10-18-2023 09:30-0500 Diastolic blood pressure 69 mm[Hg] Yordan Ball Other [facility] Other 10-18-2023 09:30-0500 Respiratory rate 12 /min Yordan Ball Other [facility] Other 10-18-2023 09:30-0500 Systolic blood pressure 130 mm[Hg] Yordan Ball Other [facility] Other 08-01-2023 09:30-0400 Body height 172.72 cm Yordan Ball Other [facility] Other 08-01-2023 09:30-0400 Body mass index (BMI) [Ratio] 35.82 kg/m2 Yordan Ball Other [facility] Other 08-01-2023 09:30-0400 Body weight 106.87 kg Yordan Ball Other [facility] Other 08-01-2023 09:30-0400 Diastolic blood pressure 68 mm[Hg] Yordan Ball Other [facility] Other 08-01-2023 09:30-0400 Respiratory rate 12 /min Yordan Ball Other [facility] Other 08-01-2023 09:30-0400 Systolic blood pressure 118 mm[Hg] Yordan Ball Other [facility] Other 06-12-2023 13:20-0400 Body height 172.72 cm Yordan Ball Other [facility] Other 04-26-2023 09:30-0400 Body height 172.72 cm Yordan Ball Other [facility] Other 04-26-2023 09:30-0400 Body mass index (BMI) [Ratio] 35.91 kg/m2 Yordan Ball Other [facility] Other 04-26-2023 09:30-0400 Body weight 107.14 kg Yordan Ball Other [facility] Other 04-26-2023 09:30-0400 Diastolic blood pressure 73 mm[Hg] Yordan Ball Other [facility] Other 04-26-2023 09:30-0400 Respiratory rate 12 /min Yordan Ball Other [facility] Other 04-26-2023 09:30-0400 Systolic blood pressure 120 mm[Hg] Yordan Ball Other [facility] Other 01-25-2023 09:30-0500 Body height 172.72 cm Yordan Ball Other [facility] Other 01-25-2023 09:30-0500 Body mass index (BMI) [Ratio] 36.12 kg/m2 Yordan Ball Other [facility] Other 01-25-2023 09:30-0500 Body weight 107.78 kg Yordan Ball Other [facility] Other 01-25-2023 09:30-0500 Diastolic blood pressure 70 mm[Hg] Yordan Ball Other [facility] Other 01-25-2023 09:30-0500 Respiratory rate 12 /min Yordan Ball Other [facility] Other 01-25-2023 09:30-0500 Systolic blood pressure 122 mm[Hg] Yordan Ball Other [facility] Other Encounters Encounter Date Encounter Type Care Provider Facility Start: 12-24-2023 End: 12-24-2023 ambulatory Yordan Ball Other [facility] Other Start: 12-24-2023 Telephone encounter Yordan Ball [facility] Start: 12-23-2023 End: 12-23-2023 ambulatory Yordan Ball Other [facility] Other Start: 12-23-2023 Telephone encounter Yordan Ball [facility] Start: 12-05-2023 End: 12-05-2023 ambulatory Yordan Ball Other [facility] Other Start: 12-05-2023 Telephone encounter Yordan Ball [facility] Start: 11-14-2023 End: 11-14-2023 ambulatory Yordan Ball Other [facility] Other Start: 11-14-2023 Office outpatient visit 15 minutes Yordan Ball [facility] Start: 10-18-2023 End: 10-18-2023 ambulatory Yordan Ball Other [facility] Other Start: 10-18-2023 Patient encounter procedure Yordan Simmons [facility] Start: 10-08-2023 End: 10-08-2023 ambulatory Yordan Simmons Other [facility] Other Start: 10-08-2023 Nursing evaluation o f patient and report Yordan Simmons [facility] Start: 09-19-2023 End: 09-19-2023 ambulatory Yordan Simmons Other [facility] Other Start: 09-19-2023 Nursing evaluation o f patient and report Yordan [facility] Start: 08-01-2023 End: 08-01-2023 ambulatory Yordan Simmons Other [facility] Start: 08-01-2023 Office outpatient visit 25 minutes Yordan Ball [facility] Start: 06-12-2023 End: 06-12-2023 ambulatory Yordan Simmons Other [facility] Start: 06-12-2023 Telephone encounter Yordan Simmons [facility] Start: 05-22-2023 End: 05-22-2023 ambulatory Yordan Simmons Other [facility] Start: 05-22-2023 Telephone encounter Yordan Ball [facility] Start: 04-26-2023 End: 04-26-2023 ambulatory Yordan Ball Other [facility] Start: 04-26-2023 Office outpatient visit 25 minutes Yordan Ball [facility] Start: 04-25-2023 End: 04-25-2023 ambulatory Uzair Leblanc Facility:[facility] Start: 04-15-2023 End: 04-15-2023 ambulatory Yordan Ball Other [facility] Start: 04-15-2023 Telephone encounter Yordan Ball [facility] Start: 01-25-2023 End: 01-25-2023 ambulatory Yordan Simmons Other [facility] Start: 01-25-2023 Office outpatient visit 25 minutes Yordan [facility] Start: 10-26-2022 End: 10-27-[address] YORDAN SIMMONS Facility:[facility] Start: 10-18-2022 End: 10-19-[address] YORDAN SIMMONS Facility:[facility] Start: 09-11-2022 End: 09-12-[address] YORDAN SIMMONS Facility:[facility] Start: 07-19-2022 End: 07-20-[address] NONE LISTED REQUEST Facility:[facility] Start: 01-30-2022 End: 01-31-[address] YORDAN SIMMONS Facility:[facility] Start: 01-17-2022 End: 01-18-[address] NONE LISTED REQUEST Facility: Start: 03-25-2018 End: 03-26-2018 Ambulatory DEFAULT PHYSICIAN Facility:[facility] Start: 03-12-2018 End: 03-13-2018 Ambulatory DEFAULT PHYSICIAN Facility:[facility] Procedures Date Procedure Procedure Detail Performing Clinician Start: 10-18-[address] SCOTT [place] Comment on above: Performed By: #### M ALBR #### [facility] [address] [place] [address] Dr. Dayna Ford Immunizations Immunization Date Immunization Notes Care Provider Fa [facility] 10-08-2023 tetanus and diphther ia toxoids, adsorbed, preservative free, for adult use (5 Lf of tetanus toxoid and 2 Lf of diphtheria toxoid) Yordan Simomns Other [facility] 09-19-2023 influenza, high dose seasonal, preservative-free Yordan Simmons Other [facility] 09-11-2022 influenza virus vaccine, split virus (incl. purified surface antigen) Yordan Simmons Other [facility] 08-27-2021 influenza virus vaccine, split virus (incl. purified surface antigen) Yordan Simmnos Other [facility] Other 08-31-2019 pneumococcal polysaccharide vaccine, 23 valent Yordan Simmons Other [facility] Other 10-28-2013 diphtheria, tetanus toxoids and acellular pertussis vaccine, unspecified formulation Yordan Simmons Other [facility] Other Payers Date Payer Category Payer Unknown [id number] 1961 Medicare [id number] 1961 Self-pay 1961 Unknown [id number] 1955 Unknown [id number] 2.16.84 [id number] 1953 Unknown [id number] 2.16.84 [id number] 1953 Unknown [id number] 2.16.84 [id number] 1953 Unknown [id number] 2.16.84 [id number] Unknown Unknown [id number] 2.16.84 [id number] Unknown [id number] 2.16.84 [id number] Unknown [id number] 2.16.8 [id number] Social History Date Type Detail Facility Unknown if ever smoked [facility] Other Sex Assigned At Sex Assigned At Bir th [facility] Other Clinical Notes 01-25-2023 to 12-24-2023 Note Date & Type Note Facility 12-24-2023 Evaluation note Encounter Date Diagnosis Assessment Notes Dec, NSVT (nonsustained ventricular tachycardia) (ICD-10 - I47.29) Normal LVEF w/o aortic sclerosis. Compliant w/ treatment of GENARO. Normal TSH and BMP w/ mild CKD 3a. Symptoms noticeable at rest w/o activity limiting symptoms. Denies CP, dyspnea or lightheadedness . Instructed to avoid stimulants and initiated Metoprolol Refer to Cardiology for evaluation. Dec, Aortic valve sclerosis (ICD-10 - I35.8) 2021 ECHO: MORIAH 1.8cm, velocity 190, 15 ECHO: LVEF 60%, calcific aortic valve w/o , RVSP 43 - 12/2023 Asymptomatic w/o CP, tachycardia or lightheadedness . Control BP and repeast Echo in 3 years. Dec, Primary hypertension (ICD-10 - I10) Stable and controlled. Dec, Elevated cholesterol (ICD-10 - E78.00) Stable Dec, GENARO (obstructive sleep apnea) (ICD-10 - G47.33) AHI > 30 Compliant w/ treatment Dec, Type 2 diabetes mellitus with hyperglycemia, without long-term current use of insulin (ICD-10 - E11.65) Stable Dec, Chronic venous insufficiency (ICD-10 - I87.2) Stable [facility] Other 01-04-2024 Evaluation note* Encounter Date Diagnosis Assessment Notes Treatment Notes Treatment Clinical Notes Dec, Nonsustained ventricular tachycardia (ICD-10 - I47.29) Dec, Aortic valve sclerosis (ICD-10 - I35.8) 2021 ECHO: MORIAH 1.8cm, velocity 190, 15Dec, Primary hypertension (ICD-10 - I10) [facility] Other 12-14-2023 Evaluation note* Encounter Date Diagnosis Assessment Notes [...] Microalbumin, Dilated eye exam and Foot exam [facility] Other 11-17-2023 Evaluation note* Encounter Date Diagnosis [...] use, the patient reduces the risk for ME, CVA, HTN, cardiac dysrhythmias and sudden cardiac [...] and to keep active. 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 No change [...] PSA (prostate specific antigen) (ICD-10 - Z12.5) [facility] Other 11-07-2023 Evaluation note* Encounter Date Diagnosis Assessment Notes Treatment Notes Treatment Clinical Notes Oct, Superficial laceration of skin (ICD-10 - T14.8XXA) [facility] Other 11-07-2023 Evaluation note* Encounter Date Diagnosis Assessment Notes Treatment Notes Treatment Clinical Notes Oct, Superficial laceration of skin (ICD-10 - T14.8XXA) Tetanus shot given due to laceration on right hand [facility] Other 08-31-2023 Evaluation note* Encounter Date Diagnosis [...] use, the patient reduces the risk for ME, CVA, HTN, cardiac dysrhythmias and sudden cardiac [...] healthy diet, exercise and keep active 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 Jul, Chronic venous insufficiency (ICD-10 - I87.2) Avoid salt and elevate lower extremities, support stockings, inspect legs and feet daily for blisters and ulcerations. Jul, PA (pernicious anemia) (ICD-10 - D51.0) COntinue monthly B12 injections [facility] Other 07-12-2023 Evaluation note* Encounter Date Diagnosis Assessment Notes Treatment Notes Treatment Clinical Notes Jun, GENARO (obstructive sleep apnea) (ICD-10 - G47.33) AHI > 30 [facility] Other 05-26-2023 Evaluation note* Encounter Date Diagnosis [...] use, the patient reduces the risk for ME, CVA, HTN, cardiac dysrhythmias and sudden cardiac [...] April, History of nephrolithiasis (ICD-10 - Z87.442) [facility] Other 05-26-2023 Evaluation note* Encounter Date Diagnosis [...] use, the patient reduces the risk for ME, CVA, HTN, cardiac dysrhythmias and sudden cardiac [...] of nephrolithiasis (ICD-10 - Z87.442) Push fluids [facility] Other 05-15-2023 Evaluation note* Encounter Date Diagnosis Assessment Notes Treatment Notes Treatment Clinical Notes April, Elevated cholesterol (ICD-10 - E78.00) [facility] Other 02-24-2023 Evaluation note* Encounter Date Diagnosis [...] use, the patient reduces the risk for ME, CVA, HTN, cardiac dysrhythmias and sudden cardiac [...] G25.81) Continue treatment of GENARO. Symptoms tolerable [facility] Other Evaluation noteNo InformationNort StyleHop Other History general Narrative - Reported* Type Description Date Medical History hypertension Medical History type II diabetes Medical History hypercholesterolemia Surgical History wisdom teeth extract Surgical History hiatal hernia repair Surgical History cholecystectomy Surgical History hernia Hospitalization History see surgical history [facility] Other History general Narrative - Reported* Type Description Date Medical History hypertension Medical History type II diabetes Medical History hypercholesterolemia Surgical History wisdom teeth extract Surgical History hiatal hernia repair Surgical History cholecystectomy Surgical History hernia Surgical History EGD 04/2023 Surgical History Colonoscopy 04/2023 Hospitalization History see surgical history [facility] Other History general Narrative - ReportedNortPopJam Other History general Narrative - Reported* Type Description Date Medical History hypertension Medical History type II diabetes Medical History hypercholesterolemia Medical History GENARO Surgical History wisdom teeth extract Surgical History hiatal hernia repair Surgical History cholecystectomy Surgical History hernia Surgical History EGD 04/2023 Surgical History Colonoscopy 04/2023 Hospitalization History see surgical history [facility] Other Reason for referral (narrative)* Reason Referral for NSVT Diagnosis 1 NSVT (nonsustained v entricular tachycardia) (I47.29) Referral Organization [facility] Referring Provider First Name Yordan Referring Provider Last Name Tanvir Referring Provider Specialty Internal Me dicine Referred Organization [facility] Referred Provider Gabino Parham Referred Address [address] [place], [place],[address] Referred Provider Specialty Cardiology Referral Priority Routine General Notes Patient being referr ed for NSVT. He presented w/ heart fluttering during rest. He denies activity limiting symptoms. He has normal LVEF and denies CP, dyspnea or lightheadedness. He is being referred for evaluation and treatment. [facility] Other Summary Purpose Family History No Family History Records FoundNo Family History Records FoundNo Family History Records Found Advance Directives No Advanced Directives Records FoundNo Advanced Directives Records FoundNo Advanced Directives Records Found Additional Source Comments (unrecognized sect ion and content) No Status Records FoundNo Status Records FoundNo Status Records Found INFORMATION SOURCE (unrecogn ized section and content) DATE CREATED AUTHOR 05/22/2018 [facility] DATE CREATED AUTHOR AUTHOR'S ORGANIZ ATION 11/01/[address] [facility] DATE CREATED AUTHOR AUTHOR'S ORGANIZ ATION 05/12/2023 [facility] REASON FOR VISIT (unrecogniz ed section and content) 3 MONTH FOLLOW UP MBRefill3 MOTH FOLLOW UP3 MOTH FOLLOW UPNo Information3 month Follow upflu shottetanus shotWellnestetanus shotfeels like heart is fluttering , bp has been fineHolter resultsNo InformationLab resultsNo Information FOR RECORDS PERTAINING TO PATIENTS [...] BE BASED ON THE PRIMARY CLINICAL RECORDS. [facility]. provides no warranty or guarantee of the accuracy or completeness of information in this document.
[2024-02-19] MEDS: REGADENOSON 0.4 MG/5 ML SYRINGE 0.400000000000000022 MG IV (08:19)
== END 2024-02-19 06:32 | disposition home or self-care (01) ==
LOC: NM 06:31
PROVIDERS: PCP Internal Medicine; Visit Provider Nurse Practitioner
DX: I47.29 Other ventricular tachycardia (principal); R94.31 Abnormal electrocardiogram [ECG] [EKG]
CPT/HCPCS: 78452; 93017; A9500; J2785

== ENCOUNTER 2024-06-23 12:57 | Outpatient (OUT) | payer MEDICARE, OTHER, SELFPAY ==
--- OUTSIDE RECORDS SUMMARY | 2024-06-23 13:05 | XMS_ITS | CCD ---
Author Organization [facility] Care Team Providers Care Rn Review Name Role Phone PHYSICIAN, DEFAULT Unavailable Unavailable [...] Unavailable WEST, DR ROXANE Culver Consulting Unavailable Tanvir, Yordan Unavailable Uzair Leblanc Admitting Unavailable Uzair Leblanc Attending Unavailable Ball, Yordan Primary Care Unavailable GABINO PARHAM Attending Unavailable BANDAR DIAZ Attending Unavailable Allergies Allergy Classification Reported Allergen(s) Allergy Type Date of Onset Reaction(s) Facility (10 sources) sulfaSALAzine Drug Allergy Unknown oneforty Other Medications Current Medications Medication Drug Class(es) Dates Sig (Normalized) Sig (Original) atorvastatin 40 mg oral tablet (17 sources) HMG-CoA Reductase Inhibitor Start: 01-31-2024 take 40 mg by mouth once daily Atorvastatin Active 40 MG PO Daily January 31, 2024 1:00am take 1 tablet by obey th every twenty-four hours Atorvastatin Calcium 40 MG 1 tablet Oral ly Once a day Active BD Luer-Josias Syringe 23G X 1 3 ML (16 sources) BD Luer-Josias Syri nge 23G X 1 3 ML 1 syringe once every month IM monthly for 365 days Active Cinnamon Preparation (16 sources) Non-Standardized Food Allergenic Extract Cinnamon Active Fish Oils (16 sources) Fish Oil Active FLUoxetine 20 mg oral capsule (17 sources) Serotonin Reuptake Inhibitor Start: 10-24-2020 take 20 mg by mouth once daily Fluoxetine Active 20 MG PO Daily October 24, 2020 1:00am lisinopril 20 mg oral tablet (17 sources) Angiotensin Converting Enzyme Inhibitor Start: 10-24-2020 take 20 mg by mouth once daily Lisinopril Active 20 MG PO Daily October 24, 2020 1:00am metFORMIN hydrochloride 1000 mg oral tablet (17 sources) Biguanide Start: 10-24-2020 take 1000 mg by mouth twice daily Metformin Active 1000 MG PO Twice daily October 24, 2020 1:00am take 1 tablet by mouth at dinner metFORMIN HCl 1000 MG TAKE 1 TABLET BY MOUTH BEFORE BKFST AND EVENING MEAL Active metoprolol tartrate 50 mg oral tablet (5 sources) beta-Adrenergic Jose Start: 01-31-2024 take 50 mg by mouth once daily Metoprolol Tartrate Active 50 MG PO Daily January 31, 2024 1:00am Start: 12-05-2023 take 1 tablet by obey th every twenty-four hours Metoprolol Succinate ER 25 MG 1 tablet Orally Once a day Dec, Active tamsulosin hydrochloride 0.4 mg oral capsule (17 sources) alpha-Adrenergic Jose Start: 04-25-2023 take 0.4 mg by mouth once daily Tamsulosin Active 0.4 MG PO Daily April 25, 2023 12:00am vitamin b12 1 mg/ml injectable solution (17 sources) Vitamin B12 Start: 10-24-2020 inject 1000 ug by subcutaneous injection every month Cyanocobalamin (Vitamin B-12) Active 1000 MCG SUBCUT every month October 24, 2020 1:00am Cyanocobalamin 1 000 MCG/ML INJECT 1 ML EVERY 4 WEEKS Active Cyanocobalamin 1 000 MCG/ML INJECT 1 ML EVERY 4 WEEKS Active Completed/Discontinued Medications Medication Drug Class(es) Dates Sig (Normalized) Sig (Original) dextromethorphan hydrobromide 30 mg / pyrilamine maleate 30 mg oral tablet (16 sources) Uncompetitive P-bnmugp-Y-aspartat e Receptor Antagonist, Sigma-1 Agonist Start: 01-27-2020 Longs DMT 30-30 MG 1 tablet Orally every 6-8 hours for 7 days Jan, Not-Taking/PRN Start: 01-27-2020 oseltamivir 75 mg oral capsule (16 sources) Neuraminidase Inhibitor Start: 01-27-2020 take 1 capsule by mouth every twelve hours Tamiflu 75 MG 1 capsule Orally Twice a day for 5 day(s) Jan, Not-Taking/PRN pravastatin sodium 40 mg oral tablet (1 source) HMG-CoA Reductase Inhibitor Start: 10-24-2020 End: 01-31-2024 take 40 mg by mouth once daily Pravastatin Discontinued 40 MG PO Daily October 24, 2020 1:00am January 31, 2024 2:12pm Problems Active Problems Problem Classification Problem Date Documented Date Episodic/Chronic Calculus of urinary tract (3 sources) Personal history of urinary calculi Episodic Cardiac dysrhythmias (2 sources) Nonsustained ventricular tachycardia ; Translations: [Nonsustained ventricular tachycardia] 02-22-2024 Chronic Cardiac dysrhythmias (1 source) Palpitations Episodic Deficiency [...] lipid metabolism (20 sources) Mixed hyperlipidemia; Translations: [Hypercholesterolemia] Onset: 10-18-2022 Chronic Essential hypertension (20 sources) Essential (primary) hypertension; Translations: [Essential hypertension] Onset: 10-22-2022 Chronic Genitourinary symptoms and ill-defined conditions (1 source) Nocturia Episodic Heart valve disorders (20 sources) Other nonrheumatic aortic valve disorders; Translations: [Aortic valve sclerosis] Onset: 01-30-2022 Chronic Hyperplasia of prostate (8 sources) 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; Translations: [Benign prostatic hyperplasia with lower urinary tract symptoms] Chronic Hypertension with complications and secondary hypertension (2 sources) Hypertensive heart disease without heart failure; Translations: [Hypertensive heart disease without heart failure] Onset: 02-25-2024 Chronic Mood disorders (13 sources) Recurrent major depression in full remission; Translations: [Major depressive disorder, recurrent, in full remission] Chronic Other aftercare (1 source) Other exterminator helper (current) drug therapy; Translations: [OTH SKILLED NURSING CURRENT DRUG THERAPY] Onset: 10-22-2022 Episodic Other [...] Other hereditary and degenerative nervous system conditions (17 sources) Restless legs; Translations: [Restless legs syndrome] 02-21-2024 Chronic Other hereditary and degenerative nervous system conditions (3 sources) Restless legs syndrome Chronic Other injuries and conditions due to external causes (2 sources) Other injury of unspecified body region, initial encounter Episodic Other screening for suspected conditions (not mental disorders or infectious disease) (5 sources) Encounter for screening for malignant neoplasm of prostate; Translations: [History of adenomatous polyp of colon] Onset: 10-22-2022 Episodic Other skin disorders (1 source) Inflamed seborrheic keratosis Episodic Residual codes; unclassified (17 sources) Obstructive sleep apnea syndrome; Translations: [Obstructive sleep apnea (adult) (pediatric)] 02-21-2024 Chronic Residual codes; unclassified (7 sources) Obstructive sleep apnea (adult) (pediatric) Chronic Superficial injury; contusion (1 source) Contusion of right lower leg, initial encounter; Translations: [CONTUSION RIGHT LOWER LEG INITIAL] Onset: 09-13-2022 Episodic Unclassified (1 source) Other ventricular tachycardia; Translations: [Other ventricular tachycardia] Onset: 01-22-2024 Unclassified (1 source) Supraventricular tachycardia, unspecified; Translations: [Supraventricular tachycardia, unspecified] Onset: 01-22-2024 Past or Other Problems Problem Classification Problem Date Documented Date Episodic/Chronic Other circulatory disease (1 source) Other specified symptoms and signs involving the circulatory and respiratory systems; Translations: [OTH SPEC SX SIGNS INVLV CIRC RS] Onset: 01-31-2022 Episodic Unclassified (2 sources) Nonsustained ventricular tachycardia I47.29 Unclassified (1 source) Other ventricular tachycardia; Translations: [Other ventricular tachycardia] Onset: 01-22-2024 Unclassified (1 source) Supraventricular tachycardia, unspecified; Translations: [Supraventricular tachycardia, unspecified] Onset: 01-22-2024 Results Test Name Value Interpretation Reference Range Facility Office Visiton 02-25-2024 Follow-up visit [id number] Myrna,Merry S 1955 M Date Provider Department Center 02/25/2024 GABINO LUNDBERG BUSTER [facility] Family History Problem Relation Age of Onset Diabetes Mother Heart failure Mother Family Status - Relation Status Age at Mother Level of Service:04431 [place] OFFICE/OUTPATIENT NEW MODERATE MDM 45 MINUTES Normal [facility] Office Visiton 01-22-2024 Follow-up visit [id number] NorrisMerry Fern 1955 M Date Provider Department Center 01/22/2024 BANDAR AGUILAR BUSTER [facility] Family History Problem Relation Age of Onset Diabetes Mother Heart failure Mother Family Status - Relation Status Age at Mother Level of Service:05239 [place] OFFICE/OUTPATIENT NEW MODERATE MDM 45 MINUTES Normal [facility] Glucose Poct Glucometerson 0 04-25-2023 Commemt1 Glu2: Cleaned Meter Normal [facility] Comment on above: Result Comment: PERF ORMED BY: [facility] [address] [place] [address] PATHOLOGIST COILER OPERATOR JERMAIN DANIELS M.D. Performed By: #### G LULS #### Point of Care testing , Glucose [Mass/Vol] 123 mg/dL Normal [facility] Comment on above: Result Comment: [place] Glucose Reference Range is dependent on time and content of last meal. Glucose of more than 200 mg/dL in a nonstressed, ambulatory subject supports the diagnosis of Diabetes Mellitus. Performed By: #### G LULS #### Point of Care testing , IRON AND TIBCon 10-26-2022 % SATURATION 16.1 % Normal [facility] Comment on above: Performed By: #### M ALBR #### [facility] [address] [place] [address] Dr. Dayna Ford Iron [Mass/Vol] 44.0 ug/dL Critically low 65.0-175.0 [facility] Comment on above: Performed By: #### M ALBR #### [facility] [address] [address] [address] Dayna Ford TIBC DIRECT 274.0 ug/dL Normal 250.0-450.0 [facility] Comment on above: Performed By: #### M ALBR #### [facility] [address] [place] [address] Dr. Dayna Ford RETICULOCYTEon 10-26-2022 RETIC 1.75 % Normal 0.60-3.10 [facility] Comment on above: Performed By: #### M ALBR #### [facility] [address] [place] [address] Dr. Dayna Ford VIT B12 AND FOLATEon 022 Cobalamin (Vitamin B12) [Mass/Vol] 398.0 pg/mL Normal 193.0-986.0 [facility] Comment on above: Performed By: #### M ALBR #### [facility] [address] [place] [address] Dr. Dayna Ford FOLATE 20.10 ng/mL Normal 8.60-58.90 [facility] Comment on above: Performed By: #### M ALBR #### [facility] [address] [address] [address] Dayna Ford CBC AUTO DIFFon 10-18-2022 BASO # 0.1 103/ul Normal 0.0-0.1 [facility] Comment on above: Performed By: #### M ALBR #### [facility] [address] [address] [address] Dayna Ford Basophils/100 WBC (Bld) 0.7 % Normal 0.2-2.0 [facility] Comment on above: Performed By: #### M ALBR #### [facility] [address] [place] [address] Dr. Dayna Ford EO # 0.2 103/ul Normal 0.0-0.7 [facility] Comment on above: Performed By: #### M ALBR #### [facility] [address] [place] [address] Dr. Dayna Ford Eosinophils/100 WBC (Bld) 3.1 % Normal 0.9-7.0 [facility] Comment on above: Performed By: #### M ALBR #### [facility] [address] [place] [address] Dr. Dayna Ford Erythrocyte distribution width (RBC) [Ratio] 12.7 % Normal 11.0-15.0 [facility] Comment on above: Performed By: #### M ALBR #### [facility] [address] [place] [address] Dr. Dayna Ford Hematocrit (Bld) [Volume fraction] 36.2 % Critically low 42.0-54.0 [facility] Comment on above: Performed By: #### M ALBR #### [facility] [address] [place] [address] Dr. Dayna Ford Hemoglobin (Bld) [Mass/Vol] 11.8 g/dL Critically low 14.0-18.0 [facility] Comment on above: Performed By: #### M ALBR #### [facility] [address] [place] [address] Dr. Dayna Ford IG # 0.02 10e3/ul Normal 0.00-0.03 [facility] Comment on above: Performed By: #### M ALBR #### [facility] [address] [address] [address] Dayna Ford IG % 0.3 % Normal 0.0-0.5 [facility] Comment on above: Performed By: #### M ALBR #### [facility] [address] [address] [address] Dayna Ford LYMPH # 1.9 103/ul Normal 1.2-3.8 [facility] Comment on above: Performed By: #### M ALBR #### [facility] [address] [place] [address] Dr. Dayna Ford Lymphocytes/100 WBC (Bld) 26.2 % Normal 20.5-60.0 [facility] Comment on above: Performed By: #### M ALBR #### [facility] [address] [place] [address] Dr. Dayna Ford MANUAL DIFF REQ NO Normal [facility] Comment on above: Performed By: #### M ALBR #### [facility] [address] [place] [address] Dr. Dayna Ford MCH (RBC) [Entitic mass] 31.9 pg Normal 25.9-34.0 [facility] Comment on above: Performed By: #### M ALBR #### [facility] [address] [place] [address] Dr. Dayna Ford MCHC (RBC) [Mass/Vol] 32.6 g/dL Normal 29.9-35.2 [facility] Comment on above: Performed By: #### M ALBR #### [facility] [address] [place] [address] Dr. Dayna Ford MCV (RBC) [Entitic vol] 97.8 fL Critically high 80.0-94.0 [facility] Comment on above: Performed By: #### M ALBR #### [facility] [address] [place] [address] Dr. Dayna Ford MONO # 0.7 103/ul Normal 0.3-0.8 [facility] Comment on above: Performed By: #### M ALBR #### [facility] [address] [address] [address] Dayna Ford Monocytes/100 WBC (Bld) 9.3 % Normal 1.7-12.0 [facility] Comment on above: Performed By: #### M ALBR #### [facility] [address] [address] [address] Dayna Ford NEUT # 4.3 103/ul Normal 1.4-6.5 [facility] Comment on above: Performed By: #### M ALBR #### [facility] [address] [address] [address] Dayna Ford Neutrophils/100 WBC (Bld) 60.4 % Normal 43.0-75.0 [facility] Comment on above: Performed By: #### M ALBR #### [facility] [address] [place] [address] Dr. Dayna Ford Platelet mean volume (Bld) [Entitic vol] 10.6 fL Normal 9.5-13.5 [facility] Comment on above: Performed By: #### M ALBR #### [facility] [address] [place] [address] Dr. Dayna Ford PLT 247 103/ul Normal 150-450 [facility] Comment on above: Performed By: #### M ALBR #### [facility] [address] [place] [address] Dr. Dayna Ford RBC 3.70 106/ul Critically low 4.70-6.10 [facility] Comment on above: Performed By: #### M ALBR #### [facility] [address] [address] [address] Dayna Ford WBC 7.1 103/ul Normal 4.0-11.0 [facility] Comment on above: Performed By: #### M ALBR #### [facility] [address] [place] [address] Dr. Dayna Ford GLYCOHEMOGLOBIN A1Con 2021 ADA RECOMMENDATION SEE BELOW Normal [facility] Comment on above: Result Comment: ADA RECOMMENDED LIMIT 4.0 - 6.0 ADA THERAPEUTIC TARGET < 7.0 ACTION SUGGESTED > 7.0 Performed By: #### A 1C #### [facility] [address] [address] [address] Dayna Ford Glucose [Mass/Vol] 148 mg/dL Normal [facility] Comment on above: Performed By: #### A 1C #### [facility] [address] [address] [address] Dayna Ford HbA1c (Bld) [Mass fraction] 6.8 % Critically high 4.5-6.2 [facility] Comment on above: Performed By: #### A 1C #### [facility] [address] [place] [address] Dr. Dayna Ford LIPID PROFILEon 10-18-2022 CHOL-HDL RATIO NORM SEE BELOW Normal [facility] Comment on above: Result Comment: 3.3 - 4.4 LOW RISK 4.4 - 7.1 AVERAGE RISK 7.1 - 11.0 MODERATE RISK >11.0 HIGH RISK Performed By: #### A LT, BMP, LIPID #### [facility] [address] [place] [address] Dr. Dayna Ford Cholesterol [Mass/Vol] 183 mg/dL Normal <=200 [facility] Comment on above: Performed By: #### A LT, BMP, LIPID #### [facility] [address] [place] [address] Dr. Dayna Ford Cholesterol in HDL [Mass/Vol] 46 mg/dL Normal 40-60 [facility] Comment on above: Performed By: #### A LT, BMP, LIPID #### [facility] [address] [place] [address] Dr. Dayna Ford Cholesterol in LDL [Mass/Vol] 98.0 mg/dL Normal [facility] Comment on above: Performed By: #### A LT, BMP, LIPID #### [facility] [address] [place] [address] Dr. Dayna Ford Cholesterol.total/Ch olesterol in HDL [Mass ratio] 4.0 {ratio} Normal [facility] Comment on above: Performed By: #### A LT, BMP, LIPID #### [facility] [address] [address] [address] Dayna Ford HDL NORMAL > or = 60 mg/dl - LO W CARDIOVASCULAR RISK <40 mg/dl - HIGH CARDIOVASCULAR RISK Normal [facility] Comment on above: Performed By: #### A LT, BMP, LIPID #### [facility] [address] [address] [address] Dayna Ford LDL CALC NORMAL SEE BELOW Normal [facility] Comment on above: Result Comment: <100 mg/dl OPTIMAL 100 - 129 mg/dl NEAR OR ABOVE OPTIMAL 130 - 159 mg/dl BORDERLINE HIGH 160 - 189 mg/dl HIGH >190 mg/dl VERY HIGH Performed By: #### A LT, BMP, LIPID #### [facility] [address] [place] [address] Dr. Dayna Ford Triglyceride [Mass/Vol] 195 mg/dL Critically high <=150 [facility] Comment on above: Performed By: #### A LT, BMP, LIPID #### [facility] [address] [address] [address] Dayna Ford VLDL CALC 39.0 mg/dL Normal [facility] Comment on above: Performed By: #### A LT, BMP, LIPID #### [facility] [address] [place] [address] Dr. Dayna Ford MICROALBUMIN, RAND URon 11- mALB 3.3 mg/L Normal <=30.0 [facility] Comment on above: Performed By: #### M ALBR #### [facility] [address] [place] [address] Dr. Dayna Ford PROF CHEM 8 (BAS METB)on Anion gap [Moles/Vol] 9.5 mmol/L Normal [facility] Comment on above: Performed By: #### A LT, BMP, LIPID #### [facility] [address] [place] [address] Dr. Dayna Ford Calcium [Mass/Vol] 8.8 mg/dL Normal 8.5-10.1 [facility] Comment on above: Performed By: #### A LT, BMP, LIPID #### [facility] [address] [address] [address] Dayna Ford Chloride [Moles/Vol] 106 mmol/L Normal 98-107 [facility] Comment on above: Performed By: #### A LT, BMP, LIPID #### [facility] [address] [address] [address] Dayna Ford CO2 [Moles/Vol] 27.4 mmol/L Normal 21.0-32.[address] [facility] Comment on above: Performed By: #### A LT, BMP, LIPID #### [facility] [address] [address] [address] Dayna Ford Creatinine [Mass/Vol] 1.10 mg/dL Normal 0.70-1.30 [facility] Comment on above: Performed By: #### A LT, BMP, LIPID #### [facility] [address] [place] [address] Dr. Dayna Ford EGFR-AF LAO >60 Normal >=[address] [facility] Comment on above: Performed By: #### A LT, BMP, LIPID #### [facility] [address] [place] [address] Dr. Dayna Ford EGFR-NON AF LAO >60 Normal >=60 [facility] Comment on above: Performed By: #### A LT, BMP, LIPID #### [facility] [address] [place] [address] Dr. Dayna Ford Glucose [Mass/Vol] 106 mg/dL Normal 74-106 [facility] Comment on above: Performed By: #### A LT, BMP, LIPID #### [facility] [address] [address] [address] Dayna Ford Potassium [Moles/Vol] 4.9 mmol/L Normal 3.5-5.1 [facility] Comment on above: Performed By: #### A LT, BMP, LIPID #### [facility] [address] [address] [address] Dayna Ford Sodium [Moles/Vol] 138 mmol/L Normal 136-145 [facility] Comment on above: Performed By: #### A LT, BMP, LIPID #### [facility] [address] [place], [place] [address] Dr. Dayna Ford Urea nitrogen [Mass/Vol] 15.0 mg/dL Normal 7.0-18.0 [facility] Comment on above: Performed By: #### A LT, BMP, LIPID #### [facility] [address] [address] [address] Dayna Ford Urea nitrogen/Creatinine [Mass ratio] 13.6 mg/mg Normal [facility] Comment on above: Performed By: #### A LT, BMP, LIPID #### [facility] [address] [address] [address] Dayna Ford PTon 10-18-2022 ALT [Catalytic activity/Vol] 27 U/L Normal 16-63 [facility] Comment on above: Performed By: #### A LT, BMP, LIPID #### [facility] [address] [address] [address] Dayna Ford US PATRICIA DOP LEG RTon 09-11-20 US PATRICIA DOP LEG RT EXAMINATION: US [...] by: JHOANA SERRATO Date: 2022-09-11 21:[address] [facility] GLYCOHEMOGLOBIN A1Con 2021 ADA RECOMMENDATION SEE BELOW Normal [facility] Comment on above: Result Comment: ADA RECOMMENDED LIMIT 4.0 - 6.0 ADA THERAPEUTIC TARGET < 7.0 ACTION SUGGESTED > 7.0 Performed By: #### D ATA1C #### [facility] [address] [place] [address] Dr. Dayna Ford Glucose [Mass/Vol] 146 mg/dL Normal [facility] Comment on above: Performed By: #### D ATA1C #### [facility] [address] [place], [place] [address] Dr. Dayna Ford HbA1c (Bld) [Mass fraction] 6.7 % Critically high 4.5-6.2 [facility] Comment on above: Performed By: #### D ATA1C #### [facility] [address] [place], [place] [address] Dr. Dayna Ford ECHOCARDIO M/2D COMPLETEon 0 01-30-2022 ECHOCARDIO M/2D COMPLETE Patient: MERRY NORRIS Exam Date: 01/30/2022 : 1955 Gender:M Ordering : DR YORDAN RAMEY D.O. Admission #: [id number] Family : Order #: [id number] CLICK HERE TO VIEW EXAM ECHOCARDIOGRAM REPORT [...] Area(A4C): 18.10 cm2 Left Atrium Systolic Volume(A2C): 90783 mm3 Left Atrium Systolic Volume(A4C): 48035 mm3 Mitral Valve MV E to A Ratio: 1.30 Deceleration [place]: 4520 mm/s2 Mitral Valve A-Wave Peak Velocity: [...] Foley M.D. on 01/30/2022 at 18:[address] [facility] US CAROTID ART BILon 022 US CAROTID ART JUDSON EXAMINATION: US [...] by: ROXANE SOSA Date: 2022-01-30 10:[address] [facility] GLYCOHEMOGLOBIN A1Con 2021 ADA RECOMMENDATION ADA THERAPEUTIC TARGET 6.0 - 7.0 ACTION SUGGESTED > 7.[address] [facility] Comment on above: Performed By: #### D ATA1C #### [facility] [address] [place] [address] Dr. Dayna Ford Glucose [Mass/Vol] 148 mg/dL Normal [facility] Comment on above: Performed By: #### D ATA1C #### [facility] [address] [address] [address] Dayna Ford HbA1c (Bld) [Mass fraction] 6.8 % Critically high <=6.0 [facility] Comment on above: Performed By: #### D ATA1C #### [facility] [address] [address] [address] Dayna Ford Vital Signs Date Time Vital Sign Value Performing Clinician Facility 02-24-2024 14: Body height 172.72 cm [facility] 02-24-2024 14:040 Body mass index (BMI) [Ratio] 36.3 kg/m2 [facility] 02-24-2024 14: Body weight 108.4 kg [facility] 02-24-2024 14:33-0400 Diastolic blood pressure 70 mm[Hg] [facility] 02-24-2024 14:33-0400 Heart rate 71 /min [facility] 02-24-2024 14:33-0400 Respiratory rate 12 /min [facility] 02-24-2024 14:33-0400 Systolic blood pressure 96 mm[Hg] [facility] 12-05-2023 13:24-0500 Body height 172.72 cm Yordan Ball Other [facility] 11-14-2023 11:00-0500 Body height 172.72 cm Yordan Ball Other [facility] Other 11-14-2023 11:00-0500 Body mass index (BMI) [Ratio] 36.4 kg/m2 Yordan Ball Other [facility] Other 11-14-2023 11:00-0500 Body weight 108.59 kg Yordan Ball Other [facility] Other 11-14-2023 11:00-0500 Diastolic blood pressure 80 mm[Hg] Yordan Ball Other [facility] Other 11-14-2023 11:00-0500 Respiratory rate 12 /min Yordan Ball Other [facility] Other 11-14-2023 11:00-0500 Systolic blood pressure 132 mm[Hg] Yordan Ball Other [facility] Other 10-18-2023 09:30-0500 Body height 172.72 cm Yordan Ball Other [facility] Other 10-18-2023 09:30-0500 Body mass index (BMI) [Ratio] 35.85 kg/m2 Yordan Ball Other [facility] Other 10-18-2023 09:30-0500 Body weight 106.96 kg Yordan Ball Other [facility] Other 10-18-2023 09:30-0500 Diastolic blood pressure 69 mm[Hg] Yordan Ball Other [facility] Other 10-18-2023 09:30-0500 Respiratory rate 12 /min Yrodan Ball Other [facility] Other 10-18-2023 09:30-0500 Systolic blood pressure 130 mm[Hg] Yordan Ball Other [facility] Other 08-01-2023 09:30-0400 Body height 172.72 cm Yordan Ball Other [facility] Other 08-01-2023 09:30-0400 Body mass index (BMI) [Ratio] 35.82 kg/m2 Yordan Ball Other [facility] Other 08-01-2023 09:30-0400 Body weight 106.87 kg Yordan Ball Other [facility] Other 08-01-2023 09:30-0400 Diastolic blood pressure 68 mm[Hg] Yordan Ball Other [facility] Other 08-01-2023 09:30-0400 Respiratory rate 12 /min Yordan Ball Other [facility] Other 08-01-2023 09:30-0400 Systolic blood pressure 118 mm[Hg] Yordan Ball Other [facility] Other 06-12-2023 13:20-0400 Body height 172.72 cm Yordan Ball Other [facility] Other 05-26-2023 09:30-0400 Body height 172.72 cm Yordan Ball Other [facility] Other 04-26-2023 09:30-0400 Body mass index (BMI) [Ratio] 35.91 kg/m2 Yordan Ball Other [facility] Other 04-26-2023 09:30-0400 Body weight 107.14 kg Yordan Ball Other [facility] Other 04-26-2023 09:30-0400 Diastolic blood pressure 73 mm[Hg] Yordan Ball Other [facility] Other 04-26-2023 09:30-0400 Respiratory rate 12 /min Yordan Ball Other [facility] Other 04-26-2023 09:30-0400 Systolic blood pressure 120 mm[Hg] Yordan Ball Other [facility] Other 01-25-2023 09:30-0500 Body height 172.72 cm Yordan Ball Other [facility] Other 01-25-2023 09:30-0500 Body mass index (BMI) [Ratio] 36.12 kg/m2 Yordan Ball Other [facility] Other 01-25-2023 09:30-0500 Body weight 107.78 kg Yordan Ball Other [facility] Other 01-25-2023 09:30-0500 Diastolic blood pressure 70 mm[Hg] Yordan Ball Other [facility] Other 01-25-2023 09:30-0500 Respiratory rate 12 /min Yordan Ball Other [facility] Other 01-25-2023 09:30-0500 Systolic blood pressure 122 mm[Hg] Yordan Ramey Other [facility] Other Encounters Encounter Date Encounter Type Care Provider Facility Start: 02-25-2024 End: 02-25-2024 ambulatory GABINO PARHAM [facility] Start: 02-24-2024 End: 02-24-2024 ambulatory [facility] Work Phone: Start: 02-24-2024 End: 02-24-2024 Patient encounter procedure [facility] Work Phone: Start: 01-31-2024 Non-patient / Non-visit [facility] Work Phone: Start: 01-22-2024 End: 01-22-2024 ambulatory [facility] Start: 12-24-2023 End: 12-24-2023 ambulatory Yordan Ramey Other [facility] Other Start: 12-24-2023 Telephone encounter Yordan Ramey [facility] Start: 12-24-2023 Patient encounter procedure [facility] Start: 12-23-2023 End: 12-23-2023 ambulatory Yordan Ramey Other [facility] Other Start: 12-23-2023 Telephone encounter Yordan Ramey [facility] Start: 12-05-2023 End: 12-05-2023 ambulatory Yordan Ramey Other [facility] Other Start: 12-05-2023 Telephone encounter Yordan Ramey [facility] Start: 12-05-2023 End: 12-05-2023 Patient encounter procedure [facility] Work Phone: Start: 11-14-2023 End: 11-14-2023 ambulatory Yordan Ramey Other [facility] Other Start: 11-14-2023 Office outpatient visit 15 minutes Yordan Ramey [facility] Start: 10-18-2023 End: 10-18-2023 ambulatory Yordan Ramey Other [facility] Other Start: 10-18-2023 Patient encounter procedure Yordan Ramey [facility] Start: 10-08-2023 End: 10-08-2023 ambulatory Yordan Ramey Other [facility] Other Start: 10-08-2023 Nursing evaluation o f patient and report Yordan Ramey [facility] Start: 09-19-2023 End: 09-19-2023 ambulatory Yordan Ramey Other [facility] Other Start: 09-19-2023 Nursing evaluation o f patient and report Yordan Ramey [facility] Start: 08-01-2023 End: 08-01-2023 ambulatory Yordan Ramey Other [facility] Other Start: 08-01-2023 Office outpatient visit 25 minutes Yordan Ramey [facility] Start: 06-12-2023 End: 06-12-2023 ambulatory Yordan Ramey Other [facility] Other Start: 06-12-2023 Telephone encounter Yordan Ramey [facility] Start: 05-22-2023 End: 05-22-2023 ambulatory Yordan Ramey Other [facility] Other Start: 05-22-2023 Telephone encounter Yordan Ramey [facility] Start: 04-26-2023 End: 04-26-2023 ambulatory Yordan Ramey Other [facility] Other Start: 04-26-2023 Office outpatient visit 25 minutes Yordan Ball [facility] Start: 04-25-2023 End: 04-25-2023 ambulatory Uzair Leblanc Facility:[facility] Start: 04-15-2023 End: 04-15-2023 ambulatory Yordan Ramey Other [facility] Other Start: 04-15-2023 Telephone encounter Yordan Ramey [facility] Start: 01-25-2023 End: 01-25-2023 ambulatory Yordan Ramey Other [facility] Other Start: 01-25-2023 Office outpatient visit 25 minutes Yordan Ramey [facility] Start: 10-26-2022 End: 10-27-[address] YORDAN RAMEY Facility:[facility] Start: 10-18-2022 End: 10-19-[address] YORDAN RAMEY Facility:[facility] Start: 09-11-2022 End: 09-12-[address] YORDAN RAMEY Facility:[facility] Start: 07-19-2022 End: 07-20-[address] NONE LISTED REQUEST Facility:[facility] Start: 01-30-2022 End: 01-31-[address] YORDAN RAMEY Facility:[facility] Start: 01-17-2022 End: 01-18-[address] NONE LISTED REQUEST Facility:[facility] Start: 03-25-2018 End: 03-26-2018 Ambulatory DEFAULT PHYSICIAN Facility:[facility] Start: 03-12-2018 End: 03-13-2018 Ambulatory DEFAULT PHYSICIAN Facility:[facility] Procedures Date Procedure Procedure Detail Performing Clinician Start: 10-18-[address] SC[place] Comment on above: Performed By: #### M ALBR #### [facility] [address] [place] [address] Dr. Dayna Ford Immunizations Immunization Date Immunization Notes Care Provider [facility] 10-08-2023 tetanus and diphther ia toxoids, adsorbed, preservative free, for adult use (2 Lf of tetanus toxoid and 2 Lf of diphtheria toxoid) [facility] 10-08-2023 tetanus and diphther ia toxoids, adsorbed, preservative free, for adult use (5 Lf of tetanus toxoid and 2 Lf of diphtheria toxoid) Yordan Ramey Other [facility] Other 09-19-2023 influenza virus vaccine, unspecified formulation [facility] 09-19-2023 influenza, high dose seasonal, preservative-free Yordan Ramey Other [facility] Other 09-11-2022 influenza virus vaccine, split virus (incl. purified surface antigen) Yordan Ramey Other [facility] Other 09-11-2022 influenza virus vaccine, unspecified formulation [facility] 08-27-2021 influenza virus vaccine, split virus (incl. purified surface antigen) Yordan Ramey Other [facility] Other 08-27-2021 influenza virus vaccine, unspecified formulation [facility] 08-31-2019 pneumococcal polysaccharide vaccine, 23 valent Yordan Ramey Other [facility] 10-28-2013 diphtheria, tetanus toxoids and acellular pertussis vaccine, unspecified formulation Yordan Ramey Other [facility] Payers Date Payer Category Payer Unknown [id number] 1961 Medicare [id number] 1961 Self-pay 1961 Unknown [id number] 1955 Unknown [id number] 1955 Unknown [id number] 1955 Unknown [id number] 1953 Unknown [id number] Unknown Unknown [id number] Unknown [id number] Unknown [id number] Unknown [place] [id number] Social History Date Type Detail Facility Unknown if ever smoked [facility] Other Sex Assigned At Sex Assigned At Bir th [facility] Other Start: 01-20-2024 Tobacco smoking status NHIS Never smoked tobacco (finding) [facility] Start: 1955 Sex Assigned At Male [facility] Clinical Notes 01-25-2023 to 02-25-2024 Note Date & Type Note Facility 02-25-2024 Note [facility] Consult Note Reason for visit: NSVT on holter, palpitations HPI: Merry Norris is a 68 y.o. year old with past medical history of Hypertension, type 2 diabetes on metformin, hypercholesterolemia, GENARO compliant with CPAP, aortic stenosis, carotid bruit, anemia. mild ckd PSH: EGD 04/2023, colonoscopy 04/2023, cholecystectomy, hiatal hernia repair. He was referred to us by primary care physician for concerns of palpitations. He was evaluated by his PCP with a Holter monitor and was found to have concerns for NSVT on Holter monitor. Patient has been complaining of heart fluttering which began the last 3 or 4 months. His palpitations are not associated with any other symptoms and do not appear to be triggered by anything specific. He was started on metoprolol after having a Holter monitor and has noticed improved symptoms, still has occasional palpitations but they are improved. He was seen by [facility] nurse practitioner who had ordered a stress test. Patient here for follow up stress test. C/o lightheadedness and near-syncope upon standing too quickly. Has not had palpitations since increasing metoprolol to 50mg daily. Still denies chest pain and SOB. Says his BP was low yesterday at Dr. Ramey's office but he doesn't recall what it was. patient states that he has noted that his blood pressure changes and dizziness has occurred since the Toprol-XL was increased to 50 mg. although he does state that this has reduced the palpitation symptoms that he had. he is on lisinopril 20 mg once daily as well as Toprol-XL 50 mg once daily and Flomax 0.4 mg once daily Patient underwent a stress test on 02/19/2024 which revealed with a small area of mildly decreased uptake in the inferior wall suggestive RCA distribution. There was no area of reversible ischemia. EKG portion of revealed presence of right bundle branch block at baseline with PVCs noted during procedure. There was no evidence of ischemia with an EKG Holter monitor 12/03/2023 shows concerns for PSVT and NSVT, patient did da symptoms for both PMH: Past Medical History: Diagnosis Date Diabetes mellitus (CMS/HCC) Sleep apnea PSH: Past Surgical History: Procedure Laterality Date TONSILLECTOMY SH: Social Determinants of Health Tobacco Use: Low Risk (01/22/2024) Patient History Smoking Tobacco Use: Never Smokeless Tobacco Use: Never Passive Exposure: Not on file Alcohol Use: Not on file Financial Resource Strain: Not on file Food Insecurity: Not on file Transportation Needs: Not on file Physical Activity: Not on file Stress: Not on file Social Connections: Not on file Intimate Partner Violence: Unknown (01/23/2024) [place] Safety & Environment Fear of Current or Ex-Partner: Not on file Emotionally Abused: Not on file Physically Abused: Not on file Sexually Abused: Not on file Physically or Sexually Abused: Not on file Depression: Not on file Housing Stability: Not on file Utilities: Not on file Allergies: No Known Allergies Weight: 108kg Visit Vitals BP 100/60 (BP Location: Right arm, Patient Position: Standing) Pulse 71 Ht 1.753 m (5' 9 ) Wt 108 kg (237 lb) SpO2 95% BMI 35.00 kg/m??? Smoking Status Never BSA 2.29 m??? Meds: Current Outpatient Medications on File Prior to Visit Medication Sig Dispense Refill atorvastatin (Lipitor) 40 mg tablet TAKE 1 TABLET BY MOUTH EVERY DAY FOR 90 DAYS lisinopril 20 mg tablet Take 20 mg by mouth in the morning. metFORMIN (Glucophage) 1,000 mg tablet TAKE 1 TABLET BY MOUTH BEFORE BREAKFAST AND EVENING MEAL metoprolol succinate XL (Toprol-XL) 50 mg 24 hr tablet Take 1 tablet (50 mg) by mouth in the morning. 30 tablet 3 tamsulosin (Flomax) 0.4 mg 24 hr capsule TAKE 1 CAPSULE BY MOUTH EVERY DAY AFTER EVENING MEAL 90 No current facility-administered medications on file prior to visit. ROS: Review of Systems Cardiovascular: Positive for near-syncope. Neurological: Positive for dizziness and light-headedness. All other systems reviewed and are negative. Physical Exam: Constitutional General Appearance: well-nourished, well-developed, appears stated age Level of Distress: comfortable Psychiatric Mental Status: alert, normal affect Orientation: oriented to time, place, and person Insight: good judgement Eyes Lids and Conjunctivae: non-injected, no xanthelasma ENMT Ears: no lesions on external ear Nose: no lesions on external nose Oropharynx: no cyanosis, no pallor Neck Neck: supple, trachea midline Carotid Arteries: bilateral normal upstroke, no bruits Jugular Veins: normal jugular venous pressure Thyroid: not enlarged Lungs Respiratory Effort: unlabored Chest Exam: normal curvature, no thoracic deformity Auscultation: clear, no wheezing, no rales, no rhonchi Cardiovascular Rate And Rhythm: regular Heart Sounds: normal S1, normal s2, no gallop Systolic Murmur: not heard Diastolic Murmur: not heard (more content not included)... [facility] 01-22-2024 Note [facility] Consult Note Reason for visit: NSVT on holter, palpitations HPI: Merry Norris is a 68 y.o. year old with past medical history of Hypertension, type 2 diabetes on metformin, hypercholesterolemia, GENARO compliant with CPAP, aortic stenosis, carotid bruit, anemia. mild ckd PSH: EGD 04/2023, colonoscopy 04/2023, cholecystectomy, hiatal hernia repair He was referred to us by primary care physician for concerns of palpitations. He was evaluated by his PCP with a Holter monitor and was found to have concerns for NSVT on Holter monitor. Patient has been complaining of heart fluttering which began the last 3 or 4 months. His palpitations are not associated with any other symptoms and do not appear to be triggered by anything specific. He was started on metoprolol after having a Holter monitor and has noticed improved symptoms, still has occasional palpitations but they are improved Holter monitor 12/03/2023 shows concerns for PSVT and NSVT, patient did da symptoms for both PMH: No past medical history on file. PSH: No past surgical history on file. SH: Social Determinants of Health Tobacco Use: Not on file Alcohol Use: Not on file Financial Resource Strain: Not on file Food Insecurity: Not on file Transportation Needs: Not on file Physical Activity: Not on file Stress: Not on file Social Connections: Not on file Intimate Partner Violence: Unknown (01/22/2024) [place] Safety & Environment Fear of Current or Ex-Partner: Not on file Emotionally Abused: Not on file Physically Abused: Not on file Sexually Abused: Not on file Physically or Sexually Abused: Not on file Depression: Not on file Housing Stability: Not on file Utilities: Not on file Allergies: Not on File Weight: No weight available There were no vitals taken for this visit. Meds: No current outpatient medications on file prior to visit. No current facility-administered medications on file prior to visit. ROS: Cardio Basic Cardiovascular Symptoms: no lightheadedness, no leg edema, no syncope, no orthopnea, no PND, no claudication, Constitutional Constitutional: no fever, no night sweats, no significant weight gain, no significant weight loss, no exercise intolerance Eyes Eyes: no dry eyes, no irritation, no vision change ENMT Ears: no difficulty hearing, no ear pain Nose: no frequent nosebleeds, Mouth/Throat: no sore throat, no bleeding gums, no snoring, no dry mouth, no mouth ulcers, no oral abnormalities, no teeth problems Respiratory Respiratory: no cough, no wheezing, no coughing up blood, no sleep apnea Musculoskeletal Musculoskeletal: no muscle aches, no muscle weakness, joint pain+, no back pain, no swelling in the extremities Integumentary Skin no rash, no ulcer, no varicosities, no discoloration, no pruritus Neurologic Neurologic: no loss of consciousness, no weakness, no numbness, no seizures, no dizziness, no headaches Psychiatric Psych: no depression, feeling safe in relationship, no alcohol abuse, Hematologic/Lymphatic Hematologic/Lymphatic no swollen glands, no bruising Physical Exam: Constitutional General Appearance: well-nourished, well-developed, appears stated age Level of Distress: comfortable Psychiatric Mental Status: alert, normal affect Orientation: oriented to time, place, and person Insight: good judgement Eyes Lids and Conjunctivae: non-injected, no xanthelasma ENMT Ears: no lesions on external ear Nose: no lesions on external nose Oropharynx: no cyanosis, no pallor Neck Neck: supple, trachea midline Carotid Arteries: bilateral normal upstroke, no bruits Jugular Veins: normal jugular venous pressure Thyroid: not enlarged Lungs Respiratory Effort: unlabored Chest Exam: normal curvature, no thoracic deformity Auscultation: clear, no wheezing, no rales, no rhonchi Cardiovascular Rate And Rhythm: regular Heart Sounds: normal S1, normal s2, no gallop Systolic Murmur: not heard Diastolic Murmur: not heard Extremities: no cyanosis, no edema, no peripheral signs of emboli Peripheral Pulses Radial Pulse: normal Abdomen Inspection and Palpation: soft, non distended, no bruit, non tender Musculoskeletal Inspection: no joint swelling Neurologic Gait: normal gait Skin Inspection and Palpation: warm and dry Nails: no clubbing Labs: Labs: 12/20/2023 sodium 144, K4, BUN 23, creatinine 1.34, GFR 53, TSH 1.172 EKG: No results found for this or any previous visit (from the past 4464 hour(s)). Echo: TTE 12/17/2023 through showing no significant stenosis, normal LVEF and size, mildly elevated RVSP 43 mmHg, mildly calcified aortic valve but no significant valve stenosis. Stress test: pending Coronary angiogram: @CATH@ Diagnostic Imaging: Carotid duplex 01/2022 shows 0 to 49% flow stenosis bilaterally, 70% area reduction of proximal left external carotid with elevated flow velocity Holter monitor (more content not included)... [facility] 01-22-2024 Note New patient here to establish care. Ref from Dr. Ramey for SVT. Had echo last month and wore Holter in Nov 2023. Tests were ordered for palpitations. He denies chest pain and SOB. Wears cpap nightly for GENARO. Review of Systems Cardiovascular: Positive for palpitations. Neurological: Positive for light-headedness. All other systems reviewed and are negative. [facility] 12-24-2023 Evaluation note Encounter Date Diagnosis Assessment [...] 2021 ECHO: MORIAH 1.8cm, velocity 190, 15/9 ECHO: LVEF 60%, calcific aortic valve w/o [...] Chronic venous insufficiency (ICD-10 - I87.2) Stable [facility] Other 01-04-2024 Evaluation note* Encounter Date Diagnosis Assessment Notes Treatment Notes Treatment Clinical Notes Dec, Nonsustained ventricular tachycardia (ICD-10 - I47.29) Dec, Aortic valve sclerosis (ICD-10 - I35.8) 2021 ECHO: MORIAH 1.8cm, velocity 190, 15Dec, Primary hypertension (ICD-10 - I10) [facility] Other 12-14-2023 Evaluation note* Encounter Date Diagnosis [...] Microalbumin, Dilated eye exam and Foot exam [facility] Other 11-17-2023 Evaluation note* Encounter Date Diagnosis [...] use, the patient reduces the risk for IL, CVA, HTN, cardiac dysrhythmias and sudden cardiac [...] I35.0) Echo: MORIAH 1.8, Velocity 190, gradient 15/9 - 01/2022 Denies CP, tachycardia or syncope. [...] and to keep active. 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 [...] PSA (prostate specific antigen) (ICD-10 - Z12.5) [facility] Other 11-07-2023 Evaluation note* Encounter Date Diagnosis Assessment Notes Treatment Notes Treatment Clinical Notes Oct, Superficial laceration of skin (ICD-10 - T14.8XXA) [facility] Other 11-07-2023 Evaluation note* Encounter Date Diagnosis Assessment Notes Treatment Notes Treatment Clinical Notes Oct, Superficial laceration of skin (ICD-10 - T14.8XXA) Tetanus shot given due to laceration on right hand [facility] Other 08-31-2023 Evaluation note* Encounter Date Diagnosis [...] use, the patient reduces the risk for IL, CVA, HTN, cardiac dysrhythmias and sudden cardiac [...] healthy diet, exercise and keep active 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 Jul, Chronic venous insufficiency (ICD-10 - I87.2) Avoid salt and elevate lower extremities, support stockings, inspect legs and feet daily for blisters and ulcerations. Jul, PA (pernicious anemia) (ICD-10 - D51.0) COntinue monthly B12 injections [facility] Other 07-12-2023 Evaluation note* Encounter Date Diagnosis Assessment Notes Treatment Notes Treatment Clinical Notes Jun, GENARO (obstructive sleep apnea) (ICD-10 - G47.33) AHI > 30 [facility] Other 05-26-2023 Evaluation note* Encounter Date Diagnosis [...] use, the patient reduces the risk for IL, CVA, HTN, cardiac dysrhythmias and sudden cardiac [...] April, History of nephrolithiasis (ICD-10 - Z87.442) [facility] Other 05-26-2023 Evaluation note* Encounter Date Diagnosis [...] use, the patient reduces the risk for IL, CVA, HTN, cardiac dysrhythmias and sudden cardiac [...] of nephrolithiasis (ICD-10 - Z87.442) Push fluids [facility] Other 05-15-2023 Evaluation note* Encounter Date Diagnosis Assessment Notes Treatment Notes Treatment Clinical Notes April, Elevated cholesterol (ICD-10 - E78.00) [facility] Other 02-24-2023 Evaluation note* Encounter Date Diagnosis [...] use, the patient reduces the risk for IL, CVA, HTN, cardiac dysrhythmias and sudden cardiac [...] G25.81) Continue treatment of GENARO. Symptoms tolerable [facility] Other Evaluation noteNo InformationNort [employer] Other Evaluation note* Diagnosis Onset Date Resolution Status Aortic valve sclerosis acute NSVT (nonsustained ventricular tachycardia) acute Type 2 diabetes mellitus with hyperglycemia acute [facility] Work Phone: [facility] general Narrative - Reported* Type Description Date Medical History hypertension Medical History type II diabetes Medical History hypercholesterolemia Surgical History wisdom teeth extract Surgical History hiatal hernia repair Surgical History cholecystectomy Surgical History hernia Hospitalization History see surgical history [facility] Other [facility] general Narrative - Reported* Type Description Date Medical History hypertension Medical History type II diabetes Medical History hypercholesterolemia Surgical History wisdom teeth extract Surgical History hiatal hernia repair Surgical History cholecystectomy Surgical History hernia Surgical History EGD 04/2023 Surgical History Colonoscopy 04/2023 Hospitalization History see surgical history [facility] Other History general Narrative - [email or web address] Other Hispdod general Narrative - Reported* Type Description Date Medical History hypertension Medical History type II diabetes Medical History hypercholesterolemia Medical History GENARO Surgical History wisdom teeth extract Surgical History hiatal hernia repair Surgical History cholecystectomy Surgical History hernia Surgical History EGD 04/2023 Surgical History Colonoscopy 04/2023 Hospitalization History see surgical history [facility] Other Reason for referral (narrative)* Reason Referral for NSVT Diagnosis 1 NSVT (nonsustained v entricular tachycardia) (I47.29) Referral Organization [facility] Referring Provider First Name Yordan Referring Provider Last Name Tanvir Referring Provider Specialty Internal Me dicine Referred Organization [place] [facility] Referred Provider Gabino Parham Referred Address [address], [place],[address] Referred Provider Specialty Cardiology Referral Priority Routine General Notes Patient being referr ed for NSVT. He presented w/ heart fluttering during rest. He denies activity limiting symptoms. He has normal LVEF and denies CP, dyspnea or lightheadedness. He is being referred for evaluation and treatment. oneforty Other Summary Purpose Family History No Family History Records Found Relationship Condition Age at Onset Recorded Date/T meena Not Specified Kidney disorder Unknown Diabetes mellitus Unknown father Hypertension Unknown Unknown Heart disease Unknown Not Specified Diabetes mellitus Unknown Malignant neoplasm Unknown Hypertension Unknown Advance Directives No Advanced Directives Records Found Advance Directive Response Recorded Date/ Time Advance Directives No October 5:37pm Chief Complaint and Reason for Visit Chief Complaint Amb Documentation 4 month follow up Reason for Visit Aortic valve scleros is NSVT (nonsustained ventricular tachycardia) Type 2 diabetes mellitus with hyperglycemia Additional Source Comments (unrecognized sect ion and content) No Status Records FoundNo Status Records FoundNo Status Records FoundNo Status Records Found INFORMATION SOURCE (unrecogn ized section and content) DATE CREATED AUTHOR 05/22/2018 [facility] DATE CREATED AUTHOR AUTHOR'S ORGANIZ ATION 11/01/2022 [facility] DATE CREATED AUTHOR AUTHOR'S ORGANIZ ATION 05/12/2023 [facility] DATE CREATED AUTHOR AUTHOR'S ORGANIZ ATION 02/26/2024 [facility] REASON FOR VISIT (unrecogniz ed section and content) 3 MONTH FOLLOW UP MBRefill3 MOTH FOLLOW UP3 MOTH FOLLOW UPNo Information3 month Follow upflu shottetanus shotWellnestetanus shotfeels like heart is fluttering , bp has been fineHolter resultsNo InformationLab resultsNo Information Care Teams (unrecognized sec tion and content) Team Status: Active Member Role Status Dates Yordan Ramey , Primary Care Provider Active Team Status: Inactive Member Role Status Dates Yordan Ramey DO Attending Provider Active Sta rt: December 05, 2023 End: December 05, 2023 Team Status: Active Member Role Status Dates Provider Conversion Attending Provider Active St art: December 24, 2023 Team Status: Active Member Role Status Dates Yordan Ramey , Primary Care Provider Active Start: January 31, 2024 MJ Holly Attending Provider Active St art: January 31, 2024 Team Status: Inactive Member Role Status Dates Yordan Ramey DO Primary Care Provide r, Attending Provider Active Start: February 24, 2024 End: February 24, 2024 Goals (unrecognized section and content) Goals may be documented in a n alternate section FOR RECORDS PERTAINING TO PATIENTS WHO ARE [...] BE BASED ON THE PRIMARY CLINICAL RECORDS. [facility] [employer] provides no warranty or guarantee of the accuracy or completeness of information in this document.
--- NOTE | 2024-06-23 13:08 | XR_ITS ---
[address] [address] Patient Name: MERRY RASMUSSEN MRN: [id number] date: 1955 Sex: M Assigned Patient Location: [facility] Current Patient Location: Accession/Order Number: [id number] Exam Date: 06/23/2024 13:10 Report Date: 06/24/2024 07:47 At the request of: HUNTER SIMMONS Procedure: XR hip RT 2V w/ pelvis PROCEDURE: XR hip RT 2V w/ pelvis COMPARISON: None. HISTORY: Pain Right Hip M25.551 FINDINGS: BONES:No acute fracture or dislocation. No significant degenerative changes or joint space narrowing. Degenerative spondylosis of the spine. SOFT TISSUES:Negative. No visible soft tissue swelling. EFFUSION:None visible. OTHER: Negative. XR/XR hip RT 2V w/ pelvis IMPRESSION: No acute radiographic abnormality Electronically authenticated by: ROXANE SOSA Date: 06/24/2024 07:47
== END 2024-06-23 12:58 | disposition home or self-care (01) ==
LOC: RAD 13:00
PROVIDERS: PCP Internal Medicine; Visit Provider Internal Medicine
DX: M25.551 Pain in right hip (principal)
CPT/HCPCS: 73502

== ENCOUNTER 2024-10-22 08:42 | Outpatient (OUT) | payer MEDICARE, OTHER, SELFPAY ==
--- OUTSIDE RECORDS SUMMARY | 2024-10-22 08:48 | XMS_ITS | CCD ---
Author Organization [facility] Care Team Providers Care Center Punch Operator Name Role Phone PHYSICIAN, DEFAULT Unavailable Unavailable PHYSICIAN, DEFAULT Unavailable Unavailable PHYSICIAN, DEFAULT Unavailable Unavailable PHYSICIAN, DEFAULT Unavailable Unavailable PHYSICIAN, DEFAULT Unavailable Unavailable PHYSICIAN, DEFAULT Unavailable Unavailable TANVIR, DR HARRISON Primary Care Unavailable BALL, DR HARRISON Admitting Unavailable BALL, DR HARRISON Attending Unavailable BALL, DR HARRISON Consulting Unavailable ZIEBER, DR JHOANA cAe Consulting Unavailable BALL, DR HARRISON Admitting Unavailable [...] WEST, DR ROXANE Culver Consulting Unavailable Tanvir, Yoradn Unavailable Uzair Leblanc Admitting Unavailable Uzair Leblanc Attending Unavailable Tanvir, Yordan Primary Care Unavailable SAÚL GUILLAUME Attending Unavailable GABINO PARHAM Attending Unavailable BANDAR CHEW Attending Unavailable Allergies Allergy Classification Reported Allergen(s) Allergy Type Date of Onset Reaction(s) Facility (10 sources) sulfaSALAzine Drug Allergy Unknown [facility] Other Medications Current Medications Medication Drug Class(es) Dates Sig (Normalized) Sig (Original) atorvastatin 40 mg oral tablet (20 sources) HMG-CoA Reductase Inhibitor Start: 06-24-2024 take 40 mg by mouth once daily at bedtime Atorvastatin Active 40 MG PO Daily at bedtime June 24, 2024 11:01am Start: 03-27-2024 End: 06-24-2024 take 1 tablet by mouth once daily Atorvastatin Discontinued 0 .ROUTE .COMPLEX March 27, 2024 7:33am June 24, 2024 11:06am TAKE 1 TABLET BY MOUTH EVERY DAY FOR 90 DAYS Start: 01-31-2024 End: 03-27-2024 take 40 mg by mouth once daily Atorvastatin Discontinu ed 40 MG PO Daily January 31, 2024 1:00am March 27, 2024 7:33am take 1 tablet by obey th every twenty-four hours Atorvastatin Calcium 40 MG 1 tablet Orally Once a day Active BD Luer-Josias Syringe 23G X 1 3 ML (16 sources) BD Luer-Josias Syri nge 23G X 1 3 ML 1 syringe once every month IM monthly for 365 days Active 24 hr buPROPion hydrochloride 150 mg extended release oral tablet (5 sources) Aminoketone Start: 07-28-2024 take 150 mg by mouth once daily in the morning Bupropion Hcl Active 150 MG PO Every morning July 28, 2024 12:00am Start: 07-22-2024 End: 07-28-2024 take 100 mg by mouth twice daily Bupropion Hcl Discontinued 100 MG PO Twice daily July 24, 2024 9:02am July 28, 2024 2:48pm Start: 06-23-2024 End: 07-22-2024 take 150 mg by mouth once daily in the morning Bupropion Hcl Discontinued 150 MG PO Every morning June 23, 2024 12:00am July 22, 2024 5:22pm Cinnamon Preparation (16 sources) Non-Standardized Food Allergenic Extract Cinnamon Active Fish Oils (16 sources) Fish Oil Active lisinopril 5 mg oral tablet (20 sources) Angiotensin Converting Enzyme Inhibitor Start: 06-25-2024 take 5 mg by mouth once daily Lisinopril Active 5 MG PO Daily June 25, 2024 5:45pm Start: 02-26-2024 End: 06-25-2024 take 10 mg by mouth once daily Lisinopril Discontinued 10 MG PO Daily February 26, 2024 6:18pm June 25, 2024 5:46pm Start: 10-24-2020 End: 02-26-2024 take 20 mg by mouth once daily Lisinopril Discontinued 20 MG PO Daily October 24, 2020 1:00am February 26, 2024 6:19pm metFORMIN hydrochloride 1000 mg oral tablet (20 sources) Biguanide Start: 10-24-2020 End: 06-23-2024 take 1000 mg by mouth twice daily at mealtime Metformin Active 1000 MG PO Twice daily with meals 60 June 24, 2024 12:00am take 1 tablet by mouth at dinner metFORMIN HCl 1000 MG TAKE 1 TABLET BY MOUTH BEFORE BKFST AND EVENING MEAL Active tamsulosin hydrochloride 0.4 mg oral capsule (19 sources) alpha-Adrenergic Jose Start: 04-25-2023 take 0.4 mg by mouth once daily Tamsulosin Active 0.4 MG PO Daily April 25, 2023 12:00am vitamin B12 (20 sources) Vitamin B12 Start: 03-02-2024 Cyanocobalamin (Vitamin B-12) Active 0 .ROUTE .COMPLEX 3 March 02, 2024 5:10pm INJECT 1 ML EVERY 4 WEEKS Start: 10-24-2020 End: 03-02-2024 inject 1000 ug by subcutaneous injection every month Cyanocobalamin (Vitamin B-12) Discontinued 1000 MCG SUBCUT every month October 24, 2020 1:00am March 02, 2024 5:10pm Cyanocobalamin 1 000 MCG/ML INJECT 1 ML EVERY 4 WEEKS Active Cyanocobalamin 1 000 MCG/ML INJECT 1 ML EVERY 4 WEEKS Active Completed/Discontinued Medications Medication Drug Class(es) Dates Sig (Normalized) Sig (Original) dextromethorphan hydrobromide 30 mg / pyrilamine maleate 30 mg oral tablet (16 sources) Uncompetitive J-gjvroc-C-aspartat e Receptor Antagonist, Sigma-1 Agonist Start: 01-27-2020 [place] DMT 30-30 MG 1 tablet Orally every 6-8 hours for 7 days Jan, Not-Taking/PRN Start: 01-27-2020 FLUoxetine 20 mg oral capsule (19 sources) Serotonin Reuptake Inhibitor Start: 10-24-2020 End: 06-23-2024 take 20 mg by mouth once daily Fluoxetine Discontinued 20 MG PO Daily October 24, 2020 1:00am June 23, 2024 11:17am metoprolol tartrate 50 mg oral tablet (11 sources) beta-Adrenergic Jose Start: 06-23-2024 End: 06-24-2024 take 50 mg by mouth twice daily Metoprolol Tartrate Discontinued 50 MG PO Twice daily June 23, 2024 11:19am June 24, 2024 11:04am Start: 06-23-2024 take 50 mg by mouth once daily Metoprolol Succinate Active 50 MG PO Daily 30 June 23, 2024 12:00am Start: 01-31-2024 End: 06-23-2024 take 50 mg by mouth once daily Metoprolol Tartrate Dis continued 50 MG PO Daily January 31, 2024 1:00am June 23, 2024 11:19am Start: 12-05-2023 take 1 tablet by obey th every twenty-four hours Metoprolol Succinate ER 25 MG 1 tablet Orally Once a day Dec, Active oseltamivir 75 mg oral capsule (16 sources) Neuraminidase Inhibitor Start: 01-27-2020 take 1 capsule by mouth every twelve hours Tamiflu 75 MG 1 capsule Orally Twice a day for 5 day(s) Jan, Not-Taking/PRN pravastatin sodium 40 mg oral tablet (3 sources) HMG-CoA Reductase Inhibitor Start: 10-24-2020 End: 01-31-2024 take 40 mg by mouth once daily Pravastatin Discontinued 40 MG PO Daily October 24, 2020 1:00am January 31, 2024 2:12pm Problems Active Problems Problem Classification Problem Date Documented Date Episodic/Chronic Calculus of urinary tract (3 sources) Personal history of urinary calculi Episodic Cardiac dysrhythmias (6 sources) Nonsustained ventricular tachycardia ; Translations: [Nonsustained ventricular tachycardia] 02-22-2024 Chronic Cardiac dysrhythmias (1 source) Palpitations Episodic Conditions associated with dizziness or vertigo (2 sources) Dizziness and giddiness; Translations: [Dizziness and giddiness] 06-23-2024 Episodic Deficiency and other anemia (6 sources) [...] heart failure] Onset: 02-25-2024 Chronic Mood disorders (15 sources) Recurrent major depression in full remission; Translations: [Major depressive disorder, recurrent, in full remission] Chronic Other aftercare (1 source) 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; Translations: [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 THERAPY] Onset: 10-22-2022 Episodic Other [...] Other hereditary and degenerative nervous system conditions (19 sources) Restless legs; Translations: [Restless legs syndrome] 02-21-2024 Chronic Other hereditary and degenerative nervous system conditions (3 sources) Restless legs syndrome Chronic Other injuries and conditions due to external causes (2 sources) Other injury of unspecified body region, initial encounter Episodic Other non-traumatic joint disorders (2 sources) Hip pain; Translations: [Pain in right hip] 06-23-2024 Episodic Other non-traumatic joint disorders (2 sources) Pain in right hip; Translations: [Pain in joint, pelvic region and thigh] 06-23-2024 Episodic Other screening for suspected conditions (not mental disorders or infectious disease) (7 sources) Encounter for screening for malignant neoplasm of prostate; Translations: [History of adenomatous polyp of colon] Onset: 10-22-2022 Episodic Other skin disorders (1 source) Inflamed seborrheic keratosis Episodic Residual codes; unclassified (19 sources) Obstructive sleep apnea syndrome; Translations: [Obstructive sleep apnea (adult) (pediatric)] 02-21-2024 Chronic Residual codes; unclassified (9 sources) Obstructive sleep apnea (adult) (pediatric); Translations: [Obstructive sleep apnea (adult)(pediatric)] Chronic Superficial injury; contusion (1 source) Contusion of right lower leg, initial encounter; Translations: [CONTUSION RIGHT LOWER LEG INITIAL] Onset: 09-13-2022 Episodic Unclassified (2 sources) NSVT Onset: 08-05-2024 Unclassified (1 source) Other ventricular tachycardia; Translations: [...] Value Interpretation Reference Range Facility Office Visiton 08-05-2024 Follow-up visit [id number] Merry Norris 1955 M Date Provider Department Center 08/05/2024 [id number] GUILLAUME CARD [facility] Family History Problem Relation Age of Onset Diabetes Mother Heart failure Mother Family Status - Relation Status Age at Mother Level of Service:61161 CO OFFICE/OUTPATIENT ESTABLISHED MOD MDM 30 MIN Reason for Visit and Comments: Hypertension [986171] NSVT [Other] - PCP decreased lisinopril down to 5mg daily due to lightheadedness, which he says has helped. Denies chest pain, SOB, and palpitations. Had routine labs w/ lipid panel in June. Normal [facility] Basophils Auto (Bld) [#/Vol] on 06-08-2024 Basophils (Bld) [#/Vol] 0.0 10 3/uL 0.0-0.1 [facility] Basophils/100 WBC Auto (Bld) on 06-08-2024 Basophils/100 WBC (Bld) 0.4 % 0.2-2.0 [facility] Cholesterol in LDL Calc [Mas s/Vol]on 06-08-2024 Cholesterol in LDL [Mass/Vol] 36.0 mg/dL [facility] Comment on above: <100 mg/dl [id number] 0-129 mg/dl NEAR OR ABOVE [id number] mg/dl BORDERLINE [id number] mg/dl HIGH>190 mg/dl VERY HIGH Cholesterol in VLDL Calc [Ma ss/Vol]on 06-08-2024 Cholesterol in VLDL [Mass/Vol] 32.8 mg/dL [facility] Eosinophils/100 WBC Auto (Bl d)on 06-08-2024 Eosinophils/100 WBC (Bld) 2.9 % 0.9-7.0 [facility] Erythrocyte distribution wid th Auto (RBC) [Ratio]on 06-08-2024 Erythrocyte distribution width (RBC) [Ratio] 12.7 % 11.0-15.0 [facility] Estimated glomerular filtrat ion rate (GFR) non- Americanon 06-08-2024 GFR/1.73 sq M.predicted among non-blacks MDRD (S/P/Bld) [Vol rate/Area] 59 mL/min/{1.73_m2} Low >=60 [facility] Globulin Calc (S) [Mass/Vol] on 06-08-2024 Globulin (S) [Mass/Vol] 3.1 g/dL [facility] Glucose mean value [Mass/vol ume] in Blood Estimated from glycated hemoglobinon 06-08-2024 Average glucose Estimated from glycated hemoglobin (Bld) [Mass/Vol] 148 mg/dL [facility] Hematocrit Auto (Bld) [Volum e fraction]on 06-08-2024 Hematocrit (Bld) [Volume fraction] 38.8 % Low 42.0-54.0 [facility] Hemoglobin [Mass/volume] in Bloodon 06-08-2024 Hemoglobin (Bld) [Mass/Vol] 12.6 g/dL Low 14.0-18.0 [facility] - Chemistry and C hemistry - challengeon 06-08-2024 Albumin [Mass/Vol] 3.2 g/dL Low 3.4-5.0 [facility] ALP [Catalytic activity/Vol] 80 U/L 46-116 [facility] ALT [Catalytic activity/Vol] 28 U/L 16-63 [facility] AST [Catalytic activity/Vol] 18 U/L 15-37 [facility] Bilirubin [Mass/Vol] 0.9 mg/dL 0.2-1.0 [facility] Calcium [Mass/Vol] 8.0 mg/dL Low 8.5-10.1 [facility] Chloride [Moles/Vol] 106 mmol/L 98-107 [facility] Cholesterol [Mass/Vol] 108 mg/dL <=200 [facility] Cholesterol in HDL [Mass/Vol] 40 mg/dL 40-60 [facility] Comment on above: > or =60 mg/dl - LOW CARDIOVASCULAR RISK<40 mg/dl - HIGH CARDIOVASCULAR RISK CO2 [Moles/Vol] 27.3 mmol/L 21.0-32.0 [facility] Creatinine [Mass/Vol] 1.22 mg/dL 0.70-1.30 [facility] GFR/1.73 sq M.predicted MDRD (S/P/Bld) [Vol rate/Area] mL/min/{1.73_m2} >=60 [facility] Glucose [Mass/Vol] 136 mg/dL High 74-106 [facility] Potassium [Moles/Vol] 4.4 mmol/L 3.5-5.1 [facility] Protein [Mass/Vol] 6.3 g/dL Low 6.4-8.2 [facility] Sodium [Moles/Vol] 141 mmol/L 136-145 [facility] Triglyceride [Mass/Vol] 164 mg/dL High <=150 [facility] Urea nitrogen [Mass/Vol] 18.0 mg/dL 7.0-18.0 [facility] Urea nitrogen/Creatinine [Mass ratio] 14.8 mg/mg [facility] - Hematology and Cell countson 06-08-2024 HbA1c (Bld) [Mass fraction] 6.8 % High 4.5-6.2 [facility] Comment on above: ADA RECOMMENDED LIMI T 4.0 - 6.0ADA THERAPEUTIC TARGET < 7.0ACTION SUGGESTED> 7.0 Immature granulocytes/100 WBC (Bld) 0.1 % 0.0-0.5 [facility] Leukocytes [#/volume] correc anabel for nucleated erythrocytes in Blood by Automated counon 06-08-2024 WBC corrected for nucl RBC Auto (Bld) [#/Vol] 7.3 10 3/uL 4.0-11.0 [facility] Lymphocytes Auto (Bld) [#/Vo l]on 06-08-2024 Lymphocytes (Bld) [#/Vol] 1.6 10 3/uL 1.2-3.8 [facility] Lymphocytes/100 WBC Auto (Bl d)on 06-08-2024 Lymphocytes/100 WBC (Bld) 22.1 % 20.5-60.0 [facility] MCH Auto (RBC) [Entitic mass ]on 06-08-2024 MCH (RBC) [Entitic mass] 32.1 pg 25.9-34.0 [facility] MCHC Auto (RBC) [Mass/Vol]on 06-08-2024 MCHC (RBC) [Mass/Vol] 32.5 g/dL 29.9-35.2 [facility] MCV Auto (RBC) [Entitic vol] on 06-08-2024 MCV (RBC) [Entitic vol] 98.7 fL High 80.0-94.0 [facility] Monocytes Auto (Bld) [#/Vol] on 06-08-2024 Monocytes (Bld) [#/Vol] 0.6 10 3/uL 0.3-0.8 [facility] Monocytes/100 WBC Auto (Bld) on 06-08-2024 Monocytes/100 WBC (Bld) 8.4 % 1.7-12.0 [facility] Neutrophils Auto (Bld) [#/Vo l]on 06-08-2024 Neutrophils (Bld) [#/Vol] 4.8 10 3/uL 1.4-6.5 [facility] Neutrophils/100 WBC Auto (Bl d)on 06-08-2024 Neutrophils/100 WBC (Bld) 66.1 % 43.0-75.0 [facility] No Panel Informationon 06-08 Eosinophils # (Auto) 0.2 10 3/uL 0.0-0.7 [facility] Immature Granulocyte # (Auto) 0.01 10 3/uL 0.00-0.03 [facility] Nucleated Red Blood Cells/100 WBC 0 [facility] Platelet mean volume Auto (B ld) [Entitic vol]on 06-08-2024 Platelet mean volume (Bld) [Entitic vol] 10.9 fL 9.5-13.5 [facility] Platelets Auto (Bld) [#/Vol] on 06-08-2024 Platelets (Bld) [#/Vol] 252 10 3/uL 150-450 [facility] RBC Auto (Bld) [#/Vol]on RBC (Bld) [#/Vol] 3.93 10 6/uL Low 4.70-6.10 [facility] Serum or plasma albumin/glob ulin mass ratioon 06-08-2024 Albumin/Globulin [Mass ratio] 1.0 {ratio} [facility] Serum or plasma anion gap de terminationon 06-08-2024 Anion gap [Moles/Vol] 12.1 mmol/L [facility] Serum or plasma total choles terol/high density lipoprotein (HDL) cholesterol mass carly 06-08-2024 Cholesterol.total/Ch olesterol in HDL [Mass ratio] 2.7 {ratio} [facility] Comment on above: 3.3 - 4.4 LOW RISK4. 4 - 7.1 AVERAGE RISK7.1 - 11.0 MODERATE RISK>11.0 HIGH RISK Office Visiton 02-25-2024 Follow-up visit [id number] Merry Norris 1955 M Date Provider Department Center 02/25/2024 GABINO LUNDBERG BUSTER [facility] Family History Problem Relation Age of Onset Diabetes Mother Heart failure Mother Family Status - Relation Status Age at Mother Level of Service:14896 CO OFFICE/OUTPATIENT NEW MODERATE MDM 45 MINUTES Normal [facility] Office Visiton 01-22-2024 Follow-up visit [id number] Merry Norris 1955 M Date Provider Department Center 01/22/2024 BANDAR AGUILAR BUSTER [facility] Family History Problem Relation Age of Onset Diabetes Mother Heart failure Mother Family Status - Relation Status Age at Mother Level of Service:34208 CO OFFICE/OUTPATIENT NEW MODERATE MDM 45 MINUTES Normal [facility] Glucose Poct Glucometerson 0 04-25-2023 Commemt1 Glu2: Cleaned Meter Normal [facility] Comment on above: Result Comment: PERF ORMED BY: [facility] [address] [place] [address] PATHOLOGIST FILTERATION OPERATOR JERMAIN DANIELS M.D. Performed By: #### G LUMOLLY #### Point of Care testing , Glucose [Mass/Vol] 123 mg/dL Normal [facility] Comment on above: Result Comment: [place] Glucose Reference Range is dependent on time and content of last meal. Glucose of more than 200 mg/dL in a nonstressed, ambulatory subject supports the diagnosis of Diabetes Mellitus. Performed By: #### G LULS #### Point of Care testing , IRON AND TIBCon 10-26-2022 % SATURATION 16.1 % Normal [facility] Comment on above: Performed By: #### M ALBR #### [facility] [address] [address] [address] Dayna Ford Iron [Mass/Vol] 44.0 ug/dL Critically low 65.0-175.0 [facility] Comment on above: Performed By: #### M ALBR #### [facility] [address] [place] [address] Dr. Dayna Ford TIBC DIRECT 274.0 ug/dL Normal 250.0-450.[address] [facility] Comment on above: Performed By: #### M ALBR #### [facility] [address] [place] [address] Dr. Dayna Ford RETICULOCYTEon 10-26-2022 RETIC 1.75 % Normal 0.60-3.10 [facility] Comment on above: Performed By: #### M ALBR #### [facility] [address] [place] [address] Dr. Dayna Ford VIT B12 AND FOLATEon Cobalamin (Vitamin B12) [Mass/Vol] 398.0 pg/mL Normal 193.0-986.0 [facility] Comment on above: Performed By: #### M ALBR #### [facility] [address] [place] [address] Dr. Dayna Ford FOLATE 20.10 ng/mL Normal 8.60-58.90 [facility] Comment on above: Performed By: #### M ALBR #### [facility] [address] [place] [address] Dr. Dayna Ford CBC AUTO DIFFon 10-18-2022 BASO # 0.1 103/ul Normal 0.0-0.1 [facility] Comment on above: Performed By: #### M ALBR #### [facility] [address] [place] [address] Dr. Dayna Ford Basophils/100 WBC (Bld) 0.7 % Normal 0.2-2.0 [facility] Comment on above: Performed By: #### M ALBR #### [facility] [address] [place] [address] Dr. Dayna Ford EO # 0.2 103/ul Normal 0.0-0.7 [facility] Comment on above: Performed By: #### M ALBR #### [facility] [address] [place] [address] Dr. Dayna Ford Eosinophils/100 WBC (Bld) 3.1 % Normal 0.9-7.0 [facility] Comment on above: Performed By: #### M ALBR #### [facility] [address] [place] [address] Dr. Dayna Ford Erythrocyte distribution width (RBC) [Ratio] 12.7 % Normal 11.0-15.0 [facility] Comment on above: Performed By: #### M ALBR #### [facility] [address] [place] [address] Dr. Dayna Ford Hematocrit (Bld) [Volume fraction] 36.2 % Critically low 42.0-54.0 [facility] Comment on above: Performed By: #### M ALBR #### [facility] [address] [place] [address] Dr. Dayna Ford Hemoglobin (Bld) [Mass/Vol] 11.8 g/dL Critically low 14.0-18.0 [facility] Comment on above: Performed By: #### M ALBR #### [facility] [address] [place] [address] Dr. Danya Ford IG # 0.02 10e3/ul Normal 0.00-0.03 [facility] Comment on above: Performed By: #### M ALBR #### [facility] [address] [place] [address] Dr. Dayna oFrd IG % 0.3 % Normal 0.0-0.5 [facility] Comment on above: Performed By: #### M ALBR #### [facility] [address] [place] [address] Dr. Dayna Ford LYMPH # 1.9 103/ul Normal 1.2-3.8 [facility] Comment on above: Performed By: #### M ALBR #### [facility] [address] [place] [address] Dr. Dayna Ford Lymphocytes/100 WBC (Bld) 26.2 % Normal 20.5-60.0 [facility] Comment on above: Performed By: #### M ALBR #### [facility] [address] [address] [address] Dayna Ford MANUAL DIFF REQ NO Normal [facility] Comment on above: Performed By: #### M ALBR #### [facility] [address] [place] [address] Dr. Dayna Ford MCH (RBC) [Entitic mass] 31.9 pg Normal 25.9-34.0 [facility] Comment on above: Performed By: #### M ALBR #### [facility] [address] [place] [address] Dr. Dayna Ford MCHC (RBC) [Mass/Vol] 32.6 g/dL Normal 29.9-35.2 [facility] Comment on above: Performed By: #### M ALBR #### [facility] [address] [place] [address] Dr. Dayna Ford MCV (RBC) [Entitic vol] 97.8 fL Critically high 80.0-94.0 [facility] Comment on above: Performed By: #### M ALBR #### [facility] [address] [place] [address] Dr. Dayna Ford MONO # 0.7 103/ul Normal 0.3-0.8 [facility] Comment on above: Performed By: #### M ALBR #### [facility] [address] [place] [address] Dr. Dayna Ford Monocytes/100 WBC (Bld) 9.3 % Normal 1.7-12.0 [facility] Comment on above: Performed By: #### M ALBR #### [facility] [address] [place] [address] Dr. Dayna Ford NEUT # 4.3 103/ul Normal 1.4-6.5 [facility] Comment on above: Performed By: #### M ALBR #### [facility] [address] [place] [address] Dr. Dayna Ford Neutrophils/100 WBC (Bld) 60.4 % Normal 43.0-75.0 [facility] Comment on above: Performed By: #### M ALBR #### [facility] [address] [address] [address] Dayna Ford Platelet mean volume (Bld) [Entitic vol] 10.6 fL Normal 9.5-13.5 [facility] Comment on above: Performed By: #### M ALBR #### [facility] [address] [address] [address] Dayna Ford PLT 247 103/ul Normal 150-450 [facility] Comment on above: Performed By: #### M ALBR #### [facility] [address] [address] [address] Dayna Ford RBC 3.70 106/ul Critically low 4.70-6.10 [facility] Comment on above: Performed By: #### M ALBR #### [facility] [address] [address] [address] Dayna Ford WBC 7.1 103/ul Normal 4.0-11.0 [facility] Comment on above: Performed By: #### M ALBR #### [facility] [address] [address] [address] Dayna Ford GLYCOHEMOGLOBIN A1Con 2021 ADA RECOMMENDATION SEE BELOW Normal [facility] Comment on above: Result Comment: ADA RECOMMENDED LIMIT 4.0 - 6.0 ADA THERAPEUTIC TARGET < 7.0 ACTION SUGGESTED > 7.0 Performed By: #### A 1C #### [facility] [address] [address] [address] Dayna Ford Glucose [Mass/Vol] 148 mg/dL Normal [facility] Comment on above: Performed By: #### A 1C #### [facility] [address] [address] [address] Dayna Ford HbA1c (Bld) [Mass fraction] 6.8 % Critically high 4.5-6.2 [facility] Comment on above: Performed By: #### A 1C #### [facility] [address] [address] [address] Dayna Ford LIPID PROFILEon 10-18-2022 CHOL-HDL RATIO NORM SEE BELOW Normal [facility] Comment on above: Result Comment: 3.3 - 4.4 LOW RISK 4.4 - 7.1 AVERAGE RISK 7.1 - 11.0 MODERATE RISK >11.0 HIGH RISK Performed By: #### A LT, BMP, LIPID #### [facility] [address] [address] [address] Dayna Ford Cholesterol [Mass/Vol] 183 mg/dL Normal <=200 [facility] Comment on above: Performed By: #### A LT, BMP, LIPID #### [facility] [address] [address] [address] Dayna Ford Cholesterol in HDL [Mass/Vol] 46 mg/dL Normal 40-60 [facility] Comment on above: Performed By: #### A LT, BMP, LIPID #### [facility] [address] [address] [address] Dayna Ford Cholesterol in LDL [Mass/Vol] 98.0 mg/dL Normal [facility] Comment on above: Performed By: #### A LT, BMP, LIPID #### [facility] [address] [address] [address] Dayna Ford Cholesterol.total/Ch olesterol in HDL [Mass ratio] 4.0 {ratio} Normal [facility] Comment on above: Performed By: #### A LT, BMP, LIPID #### [facility] [address] [address] [address] Dayna Ford HDL NORMAL > or = 60 mg/dl - LO W CARDIOVASCULAR RISK <40 mg/dl - HIGH CARDIOVASCULAR RISK Normal [facility] Comment on above: Performed By: #### A LT, BMP, LIPID #### [facility] [address] [address] [address] Dayna Ford LDL CALC NORMAL SEE BELOW Normal [facility] Comment on above: Result Comment: <100 mg/dl OPTIMAL 100 - 129 mg/dl NEAR OR ABOVE OPTIMAL 130 - 159 mg/dl BORDERLINE HIGH 160 - 189 mg/dl HIGH >190 mg/dl VERY HIGH Performed By: #### A LT, BMP, LIPID #### [facility] [address] [address] [address] Dayna Ford Triglyceride [Mass/Vol] 195 mg/dL Critically high <=150 [facility] Comment on above: Performed By: #### A LT, BMP, LIPID #### [facility] [address] [address] [address] Dayna Ford VLDL CALC 39.0 mg/dL Normal [facility] Comment on above: Performed By: #### A LT, BMP, LIPID #### [facility] [address] [address] [address] aDyna Ford MICROALBUMIN, RAND URon 11-1 mALB 3.3 mg/L Normal <=30.0 [facility] Comment on above: Performed By: #### M ALBR #### [facility] [address] [address] [address] Dayna Ford PROF CHEM 8 (BAS METB)on Anion gap [Moles/Vol] 9.5 mmol/L Normal [facility] Comment on above: Performed By: #### A LT, BMP, LIPID #### [facility] [address] [address] [address] Dayna Ford Calcium [Mass/Vol] 8.8 mg/dL Normal 8.5-10.1 [facility] Comment on above: Performed By: #### A LT, BMP, LIPID #### [facility] [address] [address] [address] Dayna Ford Chloride [Moles/Vol] 106 mmol/L Normal 98-107 [facility] Comment on above: Performed By: #### A LT, BMP, LIPID #### [facility] [address] [address] [address] Dayna Ford CO2 [Moles/Vol] 27.4 mmol/L Normal 21.0-32.0 [facility] Comment on above: Performed By: #### A LT, BMP, LIPID #### [facility] [address] [address] [address] Dayna Ford Creatinine [Mass/Vol] 1.10 mg/dL Normal 0.70-1.30 [facility] Comment on above: Performed By: #### A LT, BMP, LIPID #### [facility] [address] [address] [address] Dayna Ford EGFR-AF CENTRAL AFRICAN >60 Normal >=60 [facility] Comment on above: Performed By: #### A LT, BMP, LIPID #### [facility] [address] [address] [address] Dayna Ford EGFR-NON AF CENTRAL AFRICAN >60 Normal >=60 [facility] Comment on above: Performed By: #### A LT, BMP, LIPID #### [facility] [address] [address] [address] Dayna Ford Glucose [Mass/Vol] 106 mg/dL Normal 74-106 [facility] Comment on above: Performed By: #### A LT, BMP, LIPID #### [facility] [address] [place] [address] Dr. Dayna Ford Potassium [Moles/Vol] 4.9 mmol/L Normal 3.5-5.1 [facility] Comment on above: Performed By: #### A LT, BMP, LIPID #### [facility] [address] [address] [address] Dayna Ford Sodium [Moles/Vol] 138 mmol/L Normal 136-145 [facility] Comment on above: Performed By: #### A LT, BMP, LIPID #### [facility] [address] [place] [address] Dr. Dayna Ford Urea nitrogen [Mass/Vol] 15.0 mg/dL Normal 7.0-18.0 [facility] Comment on above: Performed By: #### A LT, BMP, LIPID #### [facility] [address] [address] [address] Dayna Ford Urea nitrogen/Creatinine [Mass ratio] 13.6 mg/mg Normal [facility] Comment on above: Performed By: #### A LT, BMP, LIPID #### [facility] [address] [address] [address] Dayna Ford [facility] 10-18-2022 ALT [Catalytic activity/Vol] 27 U/L Normal 16-63 [facility] Comment on above: Performed By: #### A LT, BMP, LIPID #### [facility] [address] [address] [address] Dayna Ford US PATRICIA DOP LEG [...] by: JHOANA SERRATO Date: 2022-09-11 21:23 Normal [facility] GLYCOHEMOGLOBIN A1Con 2021 ADA RECOMMENDATION SEE BELOW Normal [facility] Comment on above: Result Comment: ADA RECOMMENDED LIMIT 4.0 - 6.0 ADA THERAPEUTIC TARGET < 7.0 ACTION SUGGESTED > 7.0 Performed By: #### D ATA1C #### [facility] [address] [address] [address] Dayna Ford Glucose [Mass/Vol] 146 mg/dL Normal [facility] Comment on above: Performed By: #### D ATA1C #### [facility] [address] [address] [address] Dayna Ford HbA1c (Bld) [Mass fraction] 6.7 % Critically high 4.5-6.2 [facility] Comment on above: Performed By: #### D ATA1C #### [facility] [address] [address] [address] Dayna Ford ECHOCARDIO M/2D COMPLETEon 0 01-30-2022 ECHOCARDIO M/2D COMPLETE Patient: MERRY NORRIS Exam Date: 01/30/2022 : 1955 Gender:M Ordering : DR YORDAN RAMEY D.O. Admission #: [id number] Family : Order #: [id number] CLICK HERE TO VIEW EXAM ECHOCARDIOGRAM REPORT [...] Area(A4C): 18.10 cm2 Left Atrium Systolic Volume(A2C): 77139 mm3 Left Atrium Systolic Volume(A4C): 20315 mm3 Mitral Valve MV E to A Ratio: 1.30 Deceleration [place]: 4520 mm/s2 Mitral Valve A-Wave Peak Velocity: [...] Foley M.D. on 01/30/2022 at 18:05 Normal [facility] US CAROTID ART BILon 03-01-2 022 [...] by: ROXANE SOSA Date: 2022-01-30 10:37 Normal [facility] GLYCOHEMOGLOBIN A1Con 2021 ADA RECOMMENDATION ADA THERAPEUTIC TARGET 6.0 - 7.0 ACTION SUGGESTED > 7.0 Normal [facility] Comment on above: Performed By: #### D ATA1C #### [facility] [address] [address] [address] Dayna Ford Glucose [Mass/Vol] 148 mg/dL Normal [facility] Comment on above: Performed By: #### D ATA1C #### [facility] [address] [place], [place] [address] Dr. Dayna Ford HbA1c (Bld) [Mass fraction] 6.8 % Critically high <=6.0 [facility] Comment on above: Performed By: #### D ATA1C #### [facility] [address] [address] [address] Dayna Ford Vital Signs Date Time Vital Sign Value Performing Clinician Facility 06-23-2024 10:50-0400 Body height 172.72 cm [facility] 06-23-2024 10:50-0400 Body mass index (BMI) [Ratio] 35.8 kg/m2 [facility] 06-23-2024 10:50-0400 Body weight 106.82 kg [facility] 06-23-2024 10:50-0400 Diastolic blood pressure 67 mm[Hg] [facility] 06-23-2024 10:50-0400 Heart rate 67 /min [facility] 06-23-2024 10:50-0400 Respiratory rate 12 /min [facility] 06-23-2024 10:50-0400 Systolic blood pressure 115 mm[Hg] [facility] 02-24-2024 14:33-0400 Body height 172.72 cm [facility] 02-24-2024 14:33-0400 Body mass index (BMI) [Ratio] 36.3 kg/m2 [facility] 02-24-2024 14:33-0400 Body weight 108.4 kg [facility] 02-24-2024 14:33-0400 Diastolic blood pressure 70 mm[Hg] [facility] 02-24-2024 14:33-0400 Heart rate 71 /min [facility] 02-24-2024 14:33-0400 Respiratory rate 12 /min [facility] 02-24-2024 14:33-0400 Systolic blood pressure 96 mm[Hg] [facility] 12-05-2023 13:24-0500 Body height 172.72 cm Yordan Ball Other [facility] 11-14-2023 11:00-0500 Body height 172.72 cm Yordan Ball Other [facility] [employer] Other 11-14-2023 11:00-0500 Body mass index (BMI) [Ratio] 36.4 kg/m2 Yordan Ball Other [facility] Other 11-14-2023 11:00-0500 Body weight 108.59 kg Yordan Ball Other [facility] [employer] Other 11-14-2023 11:00-0500 Diastolic blood pressure 80 mm[Hg] Yordan Ball Other [facility] Other 11-14-2023 11:00-0500 Respiratory rate 12 /min Yordan Ball Other [facility] Other 11-14-2023 11:00-0500 Systolic blood pressure 132 mm[Hg] Yordan Ball Other [facility] Other 10-18-2023 09:30-0500 Body height 172.72 cm Yordan Ball Other [facility] Other 10-18-2023 09:30-0500 Body mass index (BMI) [Ratio] 35.85 kg/m2 Yordan Ball Other [facility] Other 10-18-2023 09:30-0500 Body weight 106.96 kg Yordan Ball Other [facility] Other 10-18-2023 09:30-0500 Diastolic blood pressure 69 mm[Hg] Yordan Ball Other [facility] Other 10-18-2023 09:30-0500 Respiratory rate 12 /min Yordan Ball Other [facility] Other 10-18-2023 09:30-0500 Systolic blood pressure 130 mm[Hg] Yordan Ball Other [facility] Other 08-01-2023 09:30-0400 Body height 172.72 cm Yordan Ball Other [facility] Other 08-01-2023 09:30-0400 Body mass index (BMI) [Ratio] 35.82 kg/m2 Yordan Ball Other [facility] Other 08-01-2023 09:30-0400 Body weight 106.87 kg Yordan Ball Other [facility] Other 08-01-2023 09:30-0400 Diastolic blood pressure 68 mm[Hg] Yordan Ball Other [facility] Other 08-01-2023 09:30-0400 Respiratory rate 12 /min Yordan Ball Other [facility] Other 08-01-2023 09:30-0400 Systolic blood pressure 118 mm[Hg] Yordan Ball Other [facility] Other 06-12-2023 13:20-0400 Body height 172.72 cm Yordan Ball Other [facility] Other 04-26-2023 09:30-0400 Body height 172.72 cm Yordan Ball Other [facility] Other 04-26-2023 09:30-0400 Body mass index (BMI) [Ratio] 35.91 kg/m2 Yordan Ball Other [facility] Other 04-26-2023 09:30-0400 Body weight 107.14 kg Yordan Ball Other [facility] Other 04-26-2023 09:30-0400 Diastolic blood pressure 73 mm[Hg] Yordan Ball Other [facility] Other 04-26-2023 09:30-0400 Respiratory rate 12 /min Yordan Ball Other [facility] Other 04-26-2023 09:30-0400 Systolic blood pressure 120 mm[Hg] Yordan Ball Other [facility] Other 01-25-2023 09:30-0500 Body height 172.72 cm Yordan Ball Other [facility] Other 01-25-2023 09:30-0500 Body mass index (BMI) [Ratio] 36.12 kg/m2 Yordan Ball Other [facility] Other 01-25-2023 09:30-0500 Body weight 107.78 kg Yordan Ball Other [facility] Other 01-25-2023 09:30-0500 Diastolic blood pressure 70 mm[Hg] Yordan Ball Other [facility] Other 01-25-2023 09:30-0500 Respiratory rate 12 /min Yordan Ball Other [facility] Other 01-25-2023 09:30-0500 Systolic blood pressure 122 mm[Hg] Yordan Ramey Other [facility] Other Encounters Encounter Date Encounter Type Care Provider Facility Start: 08-11-2024 End: 08-11-2024 ambulatory [facility] Work Phone: Start: 08-11-2024 End: 08-11-2024 Patient encounter procedure [facility] Work Phone: Start: 08-05-2024 End: 08-05-2024 ambulatory [facility] Start: 06-23-2024 End: 06-23-2024 ambulatory [facility] Work Phone: Start: 06-23-2024 End: 06-23-2024 Patient encounter procedure [facility] Work Phone: Start: 06-08-2024 Non-patient / Non-visit [facility] Work Phone: Start: 02-25-2024 End: 02-25-2024 ambulatory [facility] Start: 02-24-2024 End: 02-24-2024 ambulatory [facility] Work Phone: Start: 02-24-2024 End: 02-24-2024 Patient encounter procedure [facility] Work Phone: Start: 01-31-2024 Non-patient / Non-visit [facility] [employer] [facility] Work Phone: Start: 01-22-2024 End: 01-22-2024 ambulatory [facility] Start: 12-24-2023 End: 12-24-2023 ambulatory Yordan Ramey Other [facility] Other Start: 12-24-2023 Telephone encounter Yordan Ramey [facility] Start: 12-24-2023 Patient encounter procedure [facility]- Start: 12-23-2023 End: 12-23-2023 ambulatory Yordan Tanvir Other [facility] Other Start: 12-23-2023 Telephone encounter Yordan Ramey [facility] Start: 12-05-2023 End: 12-05-2023 ambulatory Yordan Ball Other [facility] Other Start: 12-05-2023 Telephone encounter Yordan Ramey [facility] Start: 12-05-2023 End: 12-05-2023 Patient encounter procedure [facility] Work Phone: Start: 11-14-2023 End: 11-14-2023 ambulatory Yordan Tanvir Other [facility] Other Start: 11-14-2023 Office outpatient visit 15 minutes Yordan Ball [facility] Start: 10-18-2023 End: 10-18-2023 ambulatory Yordan Ball Other [facility] Other Start: 10-18-2023 Patient encounter procedure Yordan Ramey [facility] Start: 10-08-2023 End: 10-08-2023 ambulatory Yordan Ball Other [facility] Other Start: 10-08-2023 Nursing evaluation o f patient and report Yordan Ramey [facility] Start: 09-19-2023 End: 09-19-2023 ambulatory Yordan Ball Other [facility] Other Start: 09-19-2023 Nursing evaluation o f patient and report Yordan Ball [facility] Start: 08-01-2023 End: 08-01-2023 ambulatory Yordan Ball Other [facility] Other Start: 08-01-2023 Office outpatient visit 25 minutes Yordan Ball [facility] Start: 06-12-2023 End: 06-12-2023 ambulatory Yordan Ball Other [facility] Other Start: 06-12-2023 Telephone encounter Yordan Ramey [facility] Start: 05-22-2023 End: 05-22-2023 ambulatory Yordan Ramey Other [facility] Other Start: 05-22-2023 Telephone encounter Yordan Ramey [facility] Start: 04-26-2023 End: 04-26-2023 ambulatory Yordan Ramey Other [facility] Other Start: 04-26-2023 Office outpatient visit 25 minutes Yordan Ramey [facility] Start: 04-25-2023 End: 04-25-2023 ambulatory Uzair Leblanc Facility:[facility] Start: 04-15-2023 End: 04-15-2023 ambulatory Yordan Ramey Other [facility] Other Start: 04-15-2023 Telephone encounter Yordan Ramey [facility] Start: 01-25-2023 End: 01-25-2023 ambulatory Yordan Ramey Other [facility] Other Start: 01-25-2023 Office outpatient visit 25 minutes Yordan Tanvir [facility] Start: 10-26-2022 End: 10-27-2022 ambulatory [...] Start: 03-25-2018 End: 03-26-2018 Ambulatory DEFAULT PHYSICIAN Facility:[facility] Start: 03-12-2018 End: 03-13-2018 Ambulatory DEFAULT PHYSICIAN Facility:[facility] Procedures Date Procedure Procedure Detail Performing Clinician Start: 10-18-[address] TYLER RAMEY Comment on above: Performed By: #### M ALBR #### [facility] [address] [address] [address] Dayna Ford Plan of Treatment Date Care Activity Detail Author XR Hip - right 2 Views [facility] Immunizations Immunization Date Immunization Notes Care Provider Fa cility 08-11-2024 influenza, high dose seasonal, preservative-free [facility] 10-08-2023 tetanus and diphther ia toxoids, adsorbed, preservative free, for adult use (2 Lf of tetanus toxoid and 2 Lf of diphtheria toxoid) [facility] 10-08-2023 tetanus and diphther ia toxoids, adsorbed, preservative free, for adult use (5 Lf of tetanus toxoid and 2 Lf of diphtheria toxoid) Yordan Ramey Other [facility] Other 09-19-2023 influenza virus vaccine, unspecified formulation [facility] 09-19-2023 influenza, high dose seasonal, preservative-free Yordan Ramey Other [facility] 09-11-2022 influenza virus vaccine, split virus (incl. purified surface antigen) Yordan Ramey Other [facility] Other 09-11-2022 influenza virus vaccine, unspecified formulation [facility] 08-27-2021 influenza virus vaccine, split virus (incl. purified surface antigen) Yordan Ramey Other [facility] 08-27-2021 influenza virus vaccine, unspecified formulation [facility] 08-31-2019 pneumococcal polysaccharide vaccine, 23 valent Yordan Ramey Other [facility] 10-28-2013 diphtheria, tetanus toxoids and acellular pertussis vaccine, unspecified formulation Yordan Ramey Other [facility] Payers Date Payer Category Payer Unknown [id number] 1961 Medicare [id number] 1961 Self-pay 1961 Unknown [id number] 1955 Unknown [id number] 1955 Unknown [id number] 1955 Unknown [id number] 1955 Unknown [id number] Unknown Unknown [id number] Unknown [id number] Unknown [id number] [address] [id number] Social History Date Type Detail Facility Unknown if ever smoked [facility] Other Sex Assigned At Sex Assigned At Bir th [facility] Other Start: 01-20-2024 Tobacco smoking status NHIS Never smoked tobacco (finding) [facility] Start: 1955 Sex Assigned At Male F [facility] Clinical Notes 01-25-2023 to 08-05-2024 Note Date & Type Note Facility 08-05-2024 Note [facility] Jake Norris is a 69 y.o. year old male patient being seen for Hypertension and NSVT Patient Active Problem List Diagnosis Sleep apnea Diabetes mellitus (CMS/HCC) NSVT (nonsustained ventricular tachycardia) (CMS/HCC) Aortic valve sclerosis Encounter for colonoscopy due to history of adenomatous colonic polyps Hypercholesterolemia Primary hypertension Recurrent major depressive disorder, in full remission (CMS/HCC) Right hip pain RLS (restless legs syndrome) Type 2 diabetes mellitus with hyperglycemia (CMS/HCC) HPI 08/05/2024 Patient is here today for follow-up visit. He states that he has been doing well. He denies any palpitation. He denies dizziness or syncope or near syncope. Denies chest pain or shortness of breath at rest with exertion. Denies orthopnea or paroxysmal nocturnal dyspnea or legs edema He states that he wears CPAP on daily basis. 01/22/2024 visit with Bandar Chew NP Merry Norris is a 68 y.o. year [...] NSVT, patient did da symptoms for both ROS All systems were reviewed and they were negative except for the positive findings noted above in the history Past Medical History: Diagnosis Date Diabetes mellitus (CMS/HCC) Sleep apnea Past Surgical History: Procedure Laterality Date TONSILLECTOMY Family History Problem Relation Name Age of Onset Diabetes Mother Heart failure Mother Social History Tobacco Use Smoking status: Never Smokeless tobacco: Never Substance Use Topics Alcohol use: Never Allergies No Known Allergies Medications Current Outpatient Medications: atorvastatin (Lipitor) 40 mg tablet, TAKE 1 TABLET BY MOUTH EVERY DAY FOR 90 DAYS, Disp: , Rfl: lisinopril 10 mg tablet, Take 1 tablet (10 mg) by mouth once daily as directed. (Patient taking differently: Take 5 mg by mouth once daily as directed.), Disp: 90 tablet, Rfl: 3 metFORMIN (Glucophage) 1,000 mg tablet, TAKE 1 TABLET BY MOUTH BEFORE BREAKFAST AND EVENING MEAL, Disp: , Rfl: metoprolol succinate XL (Toprol-XL) 50 mg 24 hr tablet, TAKE 1 TABLET BY MOUTH EVERY DAY IN THE MORNING, Disp: 90 tablet, Rfl: 3 tamsulosin (Flomax) 0.4 mg 24 hr capsule, TAKE 1 CAPSULE BY MOUTH EVERY DAY AFTER EVENING MEAL 90, Disp: , Rfl: Objective Visit Vitals BP 129/68 (BP Location: Right arm, Patient Position: Sitting) Pulse 71 Ht 1.753 m (5' 9 ) Wt 105 kg (231 lb) SpO2 99% BMI 34.11 kg/m??? Smoking Status Never BSA 2.26 m??? Physical exam: GENERAL: alert and oriented x3, well developed, in no acute distress. HEAD: atraumatic, normocephalic. EYES: TOBY, EOMI. NECK: trachea midline, no JVD present, no carotid bruits present. CARDIAC: S1, S2 present. RRR. No murmur, rubs, or gallops. RESPIRATORY: CTAB, no increased effort of breathing, no rales, rhonchi, or wheezing. ABDOMEN: soft, nontender, nondistended. EXTREMITIES: no lower extremity edema. No rash/skin discoloration present. NEURO: strength/sensation equal and symmetric in bilateral upper and lower extremities. PSYCH: appropriate mood, affect, and judgement. Recent Labs Labs 12/20/2023 White blood count 7.6, hemoglobin 12, hematocrit 38, platelets 230 Sodium 144, potassium 4, BUN 23, creatinine 1.34, GFR above 60, glucose 148, calcium 8.7 TSH 1.172 Labs 10/21/2023 HbA1c 6.9% ALT 31 Triglyceride 192, cholesterol 137, LDL 55, HDL 44 Imaging and other tests [id number] showed normal sinus rhythm with sinus arrhythmia, normal EKG Echo: 12/17/2023 Echo 01/30/2022 Echo 03/25/2018 Global left ventricular systolic function is normal (Visually estimated EF 60%). No regional wall motion abnormality. Normal diastolic function. Normal right ventricular systolic function. The left atrium is normal in size. Mildly sclerosed aortic valve cusps Trileaflet aortic valve with mild non-coronary cusp thickening; DVI 0.56. No aortic valve stenosis. No aortic valve regurgitation. Measurements: Name Value Normal Rang Lexiscan nuclear stress test 02/19/2024 at [facility]: Cardiac cath: Event Monitor: 11/18/2023 (more content not included)... [facility] 02-25-2024 Note [place] [facility] Consult Note Reason for visit: NSVT [...] on file Intimate Partner Violence: Unknown (01/23/2024) [place] Safety [place] Environment Fear of Current or [...] Murmur: not heard (more content not included)... [facility] 01-22-2024 Note [place] [facility] Consult Note [...] on file Intimate Partner Violence: Unknown (01/22/2024) [place] Fear of Current or [...] velocity Holter monitor (more content not included)... [facility] 01-22-2024 Note New patient here to establish care. Ref from Dr. Ramey for SVT. Had echo last month and wore Holter in Nov 2023. Tests were ordered for palpitations. He denies chest pain and SOB. Wears cpap nightly for GENARO. Review of Systems Cardiovascular: Positive for palpitations. Neurological: Positive for light-headedness. All other systems reviewed and are negative. [facility] 12-24-2023 Evaluation note Encounter Date Diagnosis [...] I35.8) 2021 ECHO: MORIAH 1.8cm, velocity 190, 15/ ECHO: LVEF 60%, calcific aortic valve w/o [...] Chronic venous insufficiency (ICD-10 - I87.2) Stable [facility] Other 01-04-2024 Evaluation note* Encounter Date Diagnosis Assessment Notes Treatment Notes Treatment Clinical Notes Dec, Nonsustained ventricular tachycardia (ICD-10 - I47.29) Dec, Aortic valve sclerosis (ICD-10 - I35.8) 2021 ECHO: MORIAH 1.8cm, velocity 190, 15/9 Dec, Primary hypertension (ICD-10 - I10) [facility] Other 12-14-2023 Evaluation note* Encounter Date Diagnosis [...] Microalbumin, Dilated eye exam and Foot exam [facility] Other 11-17-2023 Evaluation note* Encounter Date Diagnosis [...] use, the patient reduces the risk for MO, CVA, HTN, cardiac dysrhythmias and sudden cardiac [...] and to keep active. 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 No change [...] PSA (prostate specific antigen) (ICD-10 - Z12.5) [facility] Other 11-07-2023 Evaluation note* Encounter Date Diagnosis Assessment Notes Treatment Notes Treatment Clinical Notes Oct, Superficial laceration of skin (ICD-10 - T14.8XXA) [facility] Other 11-07-2023 Evaluation note* Encounter Date Diagnosis Assessment Notes Treatment Notes Treatment Clinical Notes Oct, Superficial laceration of skin (ICD-10 - T14.8XXA) Tetanus shot given due to laceration on right hand [facility] Other 08-31-2023 Evaluation note* Encounter Date Diagnosis [...] use, the patient reduces the risk for MO, CVA, HTN, cardiac dysrhythmias and sudden cardiac [...] healthy diet, exercise and keep active 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 Jul, Chronic venous insufficiency (ICD-10 - I87.2) Avoid salt and elevate lower extremities, support stockings, inspect legs and feet daily for blisters and ulcerations. Jul, PA (pernicious anemia) (ICD-10 - D51.0) COntinue monthly B12 injections [facility] Other 07-12-2023 Evaluation note* Encounter Date Diagnosis Assessment Notes Treatment Notes Treatment Clinical Notes Jun, GENARO (obstructive sleep apnea) (ICD-10 - G47.33) AHI > 30 [facility] Other 05-26-2023 Evaluation note* Encounter Date Diagnosis [...] use, the patient reduces the risk for MO, CVA, HTN, cardiac dysrhythmias and sudden cardiac [...] History of nephrolithiasis (ICD-10 - Z87.442) [employer] ([employer]) Other 05-26-2023 Evaluation note* Encounter Date Diagnosis [...] use, the patient reduces the risk for MO, CVA, HTN, cardiac dysrhythmias and sudden cardiac [...] of nephrolithiasis (ICD-10 - Z87.442) [employer] [facility] Other 05-15-2023 Evaluation note* Encounter Date Diagnosis Assessment Notes Treatment Notes Treatment Clinical Notes April, Elevated cholesterol (ICD-10 - E78.00) [facility] Other 02-24-2023 Evaluation note* Encounter Date Diagnosis [...] use, the patient reduces the risk for MO, CVA, HTN, cardiac dysrhythmias and sudden cardiac [...] G25.81) Continue treatment of GENARO. Symptoms tolerable [facility] Other Evaluation noteNo InformationNort Boundary Other Evaluation note* Diagnosis Onset Date Resolution Status Aortic valve sclerosis acute NSVT (nonsustained ventricular tachycardia) acute Type 2 diabetes mellitus with hyperglycemia acute [facility] Work Phone: Evaluation note* Diagnosis Onset Date Resolution Status Aortic valve sclerosis acute NSVT (nonsustained ventricular tachycardia) acute GENARO (obstructive sleep apnea) acute Primary hypertension acute Right hip pain acute Type 2 diabetes mellitus with hyperglycemia acute Lightheadedness noneactive [facility] Work Phone: History general Narrative - Reported* Type Description Date Medical History hypertension Medical History type II diabetes Medical History hypercholesterolemia Surgical History wisdom teeth extract Surgical History hiatal hernia repair Surgical History cholecystectomy Surgical History hernia Hospitalization History see surgical history [facility] Other [facility] Narrative - Reported* Type Description Date Medical History hypertension Medical History type II diabetes Medical History hypercholesterolemia Surgical History wisdom teeth extract Surgical History hiatal hernia repair Surgical History cholecystectomy Surgical History hernia Surgical History EGD 04/2023 Surgical History Colonoscopy 04/2023 Hospitalization History see surgical history [facility] Other History [facility] [place] Narrative - Reported* Type Description Date Medical History hypertension Medical History type II diabetes Medical History hypercholesterolemia Medical History GENARO Surgical History wisdom teeth extract Surgical History hiatal hernia repair Surgical History cholecystectomy Surgical History hernia Surgical History EGD 04/2023 Surgical History Colonoscopy 04/2023 Hospitalization History see surgical history [facility] Other Reason for referral (narrative)* Reason Referral for NSVT Diagnosis 1 NSVT (nonsustained v entricular tachycardia) (I47.29) Referral Organization [facility] arlet Referring Provider First Name Yordan Referring Provider Last Name Tanvir Referring Provider Specialty Internal Me dicine Referred Organization [facility] Referred Provider Gabino Parham Referred Address [address], [place],[address] Referred Provider Specialty Cardiology Referral Priority Routine General Notes Patient being referr ed for NSVT. He presented w/ heart fluttering during rest. He denies activity limiting symptoms. He has normal LVEF and denies CP, dyspnea or lightheadedness. He is being referred for evaluation and treatment. [facility] Other Summary Purpose Family History Relationship Condition Age at Onset Recorded Date/T meena Not Specified Kidney disorder Unknown Diabetes mellitus Unknown father Hypertension Unknown Unknown Heart disease Unknown Not Specified Diabetes mellitus Unknown Malignant neoplasm Unknown Hypertension Unknown Relationship Condition Age at Onset Recorded Date/T meena mother Kidney disorder Unknown Diabetes mellitus Unknown father Hypertension Unknown Unknown Heart disease Unknown mother Diabetes mellitus Unknown Malignant neoplasm Unknown Hypertension Unknown Advance Directives Advance Directive Response Recorded Date/ Time Advance Directives No October 5:37pm Chief Complaint and Reason for Visit Chief Complaint Amb Documentation 4 month follow up Reason for Visit Aortic valve scleros is NSVT (nonsustained ventricular tachycardia) Type 2 diabetes mellitus with hyperglycemia Chief Complaint 4 month follow up Reason for Visit Aortic valve scleros is NSVT (nonsustained ventricular tachycardia) GENARO (obstructive sleep apnea) Primary hypertension Right hip pain Type 2 diabetes mellitus with hyperglycemia Lightheadedness Chief Complaint 4 month follow up flu shot Reason for Visit Aortic valve scleros is NSVT (nonsustained ventricular tachycardia) GENARO (obstructive sleep apnea) Primary hypertension Right hip pain Type 2 diabetes mellitus with hyperglycemia Lightheadedness Additional Source Comments (unrecognized sect ion and content) No Status Records FoundNo Status Records FoundNo Status Records FoundNo Status Records Found INFORMATION SOURCE (unrecogn ized section and content) DATE CREATED AUTHOR 05/22/2018 [facility] DATE CREATED AUTHOR AUTHOR'S ORGANIZ ATION 11/01/2022 [facility] DATE CREATED AUTHOR AUTHOR'S ORGANIZ ATION 05/12/2023 [facility] DATE CREATED AUTHOR AUTHOR'S ORGANIZ ATION 08/10/2024 [facility] REASON FOR VISIT (unrecogniz ed section and content) 3 MONTH FOLLOW UP MBRefill3 MOTH FOLLOW UP3 MOTH FOLLOW UPNo Information3 month Follow upflu shottetanus shotWellnestetanus shotfeels like heart is fluttering , bp has been fineHolter resultsNo InformationLab resultsNo Information Care Teams (unrecognized sec tion and content) Team Status: Active Member Role Status Dates Yordan Ramey , DO Primary Care Provider Active Team Status: Active Member Role Status Dates Yordan Ramey , DO Primary Care Provide r, Attending Provider Active Start: June 08, 2024 Team Status: Inactive Member Role Status Dates Yordan Ramey , DO Primary Care Provide r, Attending Provider Active Start: June 23, 2024 End: June 23, 2024 Team Status: Inactive Member Role Status Dates Yordan Ramey , DO Attending Provider Active Sta rt: December 05, 2023 End: December 05, 2023 Team Status: Active Member Role Status Dates Provider Conversion Attending Provider Active St art: December 24, 2023 Team Status: Active Member Role Status Dates Yordan Ramey DO Primary Care Provider Active Start: January 31, 2024 MJ Holly Attending Provider Active St art: January 31, 2024 Team Status: Inactive Member Role Status Dates Yordan Ramey , DO Primary Care Provide r, Attending Provider Active Start: February 24, 2024 End: February 24, 2024 Team Status: Inactive Member Role Status Dates Yordan Ramey , DO Primary Care Provide r, Attending Provider Active Start: August 11, 2024 End: August 11, 2024 Goals (unrecognized section and content) Goals [...] BE BASED ON THE PRIMARY CLINICAL RECORDS. [employer] [facility]. provides no warranty or guarantee of the accuracy or completeness of information in this document.
[2024-10-22 10:16] LABS: Prostate Specific Antigen Scrn 1.19 ng/mL (<=4.00)
== END 2024-10-22 08:43 | disposition home or self-care (01) ==
LOC: LAB 08:44
PROVIDERS: PCP Internal Medicine; Visit Provider Internal Medicine
DX: Z12.5 Encounter for screening for malignant neoplasm of prostate (principal)
CPT/HCPCS: 36415; G0103

== ENCOUNTER 2025-03-05 16:13 | Emergency (ER) | payer MEDICARE, OTHER, SELFPAY ==
[2025-03-05] VITALS (23 sets, daily range): BP systolic 171–186; BP diastolic 80–89; PULSE 57–66; TEMP 36.8; O2SAT 97–100; BMI 35.4
--- NOTE | 2025-03-05 16:45 | ECG_ITS ---
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 Measurements Intervals [place] Rate: 60 P: 53 DE: 160 QRS: 120 QRSD: 140 T: 20 QT: 430 QTc: 431 Interpretive Statements 1100 Sinus rhythm 1102 Sinus arrhythmia 2450 Right bundle branch block 2730 Left posterior fascicular block 9150 abnormal ECG No previous ECG available for comparison Electronically Signed On 03-06-2025 8:56:31 EDT by SHAUN ANGELO M.D.
[2025-03-05 17:08] LABS: Basophils Percent Auto 0.4 % (0.2-2.0); Eosinophils Absolute Auto 0.2 10^3/uL (0.0-0.7); Eosinophils Percent Auto 2.4 % (0.9-7.0); Hemoglobin 12.8 g/dL (14.0-18.0); Immature Granulocytes Abs Auto 0.02 10^3/uL (0.00-0.03); Immature Granulocytes Pct Auto 0.3 % (0.0-0.5); Lymphocytes Absolute Auto 1.7 10^3/uL (1.2-3.8); Lymphocytes Percent Auto 21.8 % (20.5-60.0); Mean Corpuscular HGB Conc 32.8 g/dL (29.9-35.2); Mean Corpuscular Hemoglobin 32.7 pg (25.9-34.0); Mean Corpuscular Volume 99.5 fL (80.0-94.0); Mean Platelet Volume 10.5 fL (9.5-13.5); Monocytes Absolute Auto 0.6 10^3/uL (0.3-0.8); Monocytes Percent Auto 8.1 % (1.7-12.0); Neutrophils Absolute Auto 5.3 10^3/uL (1.4-6.5); Platelet Count 267 10^3/uL (150-450); Red Blood Count 3.92 10^6/uL (4.70-6.10); Red Cell Distribution Width 13.1 % (11.0-15.0); White Blood Count 7.9 10^3/uL (4.0-11.0)
[2025-03-05 17:36] LABS: Alanine Aminotransferase 27 U/L (16-63); Albumin Level 3.4 g/dL (3.4-5.0); Alkaline Phosphatase 92 U/L (46-116); Anion Gap 12.3; Aspartate Amino Transferase 12 U/L (15-37); BUN Creatinine Ratio 13.3; Bilirubin Total 0.9 mg/dL (0.2-1.0); Calcium 8.9 mg/dL (8.5-10.1); Carbon Dioxide 27.9 mmol/L (21.0-32.0); Chloride 104 mmol/L (98-107); Estimated GFR (African America >60 (>=60 mL/min/1.73m^2); Estimated GFR (Non-African Ame 55 (>=60 mL/min/1.73m^2); Globulin 3.5 g/dL; Glucose 109 mg/dL (74-106); Potassium 4.2 mmol/L (3.5-5.1); Sodium 140 mmol/L (136-145); Total Protein 6.9 g/dL (6.4-8.2); Troponin I High Sensitivity 8.8 pg/mL (4.0-76.1)
--- NOTE | 2025-03-05 17:53 | ED.CHESTPAI1 ---
Documented by User: Arlyn Oro 03/05/25 19:17 HPI - Chest Pain General Chief Complaint: Chest Pain Stated Complaint: HIGH BP Time Seen by Provider: 03/05/25 17:06 Source: patient Mode of arrival: walk-in Limitations: no limitations History of Present Illness HPI narrative: 69-year-old male presents here with a chief complaint of elevated blood pressure. Patient states he went to his primary care physician's office earlier this week for blood pressure and they increased his lisinopril by 5 mg. Patient does not have any chest pain. No shortness of breath. He has had a stress test over the last year that was normal. Patient denies chest pain today and states he just feels heaviness in his arms. Patient has no cardiac symptoms at this time. He is alert and oriented no acute distress. Related Data Home Medications ?Medication ?Instructions ?Recorded ?Confirmed atorvastatin 40 mg tablet 40 mg PO DAILY 03/05/25 03/05/25 cinnamon bark 500 mg capsule 500 mg PO DAILY 03/05/25 03/05/25 (Cinnamon) lisinopril 10 mg tablet 10 mg PO DAILY 03/05/25 03/05/25 metformin 1,000 mg tablet 1,000 mg PO DAILY 03/05/25 03/05/25 metoprolol succinate 50 mg 50 mg PO DAILY 03/05/25 03/05/25 tablet,extended release 24 hr tamsulosin 0.4 mg capsule 0.4 mg PO Q24H 03/05/25 03/05/25 Allergies Allergy/AdvReac Type Severity Reaction Status Date / Time No Known Drug Allergies Allergy Verified 03/05/25 16:22 Review of Systems ROS Narrative All Systems are negative except as noted/marked.All systems reviewed and otherwise negative PFSH PFSH Social History Little interest or pleasure in doing things: not at all Feeling down, depressed, or hopeless: not at all Exam Narrative Exam Narrative: All Systems are negative except as noted/marked.All systems reviewed and otherwise negative Nurses note and vital signs reviewed and patient is not hypoxic. General: The patient appears well and in no apparent distress. Patient is resting comfortably on cart. Skin: Warm, dry, no pallor noted. There is no rash noted. Head: Normocephalic, atraumatic Eye: Normal conjunctiva, no drainage, EOMI. PERRL Ears, Nose, Mouth, and Throat: oral mucosa is moist. Nares patent. Mouth without vesicles. Ear canals patent. Tm's without Erythema Cardiovascular: Regular Rate and Rhythm Respiratory: Patient is in no distress, no accessory muscle use, lungs are clear to auscultation, no wheezing, rales or rhonchi Back: non-tender, no CVA tenderness bilaterally to percussion. GI: Normal bowel sounds, no tenderness to palpation, no masses appreciated. No rebound, guarding, or rigidity noted. Musculoskeletal: The patient has no evidence of calf tenderness, no pitting edema, symmetrical pulses noted bilaterally Neurological: A&O x4, normal speech Psychiatric: Cooperative Constitutional Vital Signs, click to edit/add: Last Vital Signs Temp 98.2 F 03/05/25 16:22 Pulse 63 03/05/25 19:41 Resp 22 H 03/05/25 19:41 BP 171/87 H 03/05/25 19:41 Pulse Ox 100 03/05/25 19:41 O2 Del Method Room Air 03/05/25 19:41 Course Vital Signs Vital signs: Vital Signs Temperature 98.2 F 03/05/25 16:22 Pulse Rate 62 03/05/25 16:22 Respiratory Rate 18 03/05/25 16:22 Blood Pressure 180/80 H 03/05/25 16:22 Pulse Oximetry 98 03/05/25 16:22 Temperature 98.2 F 03/05/25 16:22 Pulse Rate 63 03/05/25 19:41 Respiratory Rate 22 H 03/05/25 19:41 Blood Pressure 171/87 H 03/05/25 19:41 Pulse Oximetry 100 03/05/25 19:41 Oxygen Delivery Method Room Air 03/05/25 19:41 MDM - Chest Pain MDM Narrative Medical decision making narrative: 69-year-old male presents here with a chief complaint of elevated blood pressure. Patient states he went to his primary care physician's office earlier this week for blood pressure and they increased his lisinopril by 5 mg. Patient does not have any chest pain. No shortness of breath. He has had a stress test over the last year that was normal. Patient denies chest pain today and states he just feels heaviness in his arms. Patient has no cardiac symptoms at this time. He is alert and oriented no acute distress. Upon arrival to the emergency room IV was established blood work was drawn. Troponins x 2 were both negative. Patient has no headache blurry vision double vision. Denies any chest pain at this time. EKG was also reviewed. Patient shows no signs of acute distress. Advised patient to follow back up with Dr. Sajan isaac for reevaluation. Patient is on metoprolol and lisinopril. Differential Diagnosis Differential diagnosis: Likely atypical chest pain, costochondritis and chest pain Medical Records Data Attestation: I reviewed the patient's medical records. Lab Data Labs: Lab Results 03/05/25 03/05/25 Range/Units 17:00 18:05 WBC 7.9 (4.0-11.0) 10^3/uL RBC 3.92 L (4.70-6.10) 10^6/uL Hgb 12.8 L (14.0-18.0) g/dL Hct 39.0 L (42.0-54.0) % MCV 99.5 H (80.0-94.0) fL MCH 32.7 (25.9-34.0) pg MCHC 32.8 (29.9-35.2) g/dL RDW 13.1 (11.0-15.0) % Plt Count 267 (150-450) 10^3/uL MPV 10.5 (9.5-13.5) fL Neut % (Auto) 67.0 (43.0-75.0) % Lymph % (Auto) 21.8 (20.5-60.0) % [place] % (Auto) 8.1 (1.7-12.0) % Eos % (Auto) 2.4 (0.9-7.0) % Baso % (Auto) 0.4 (0.2-2.0) % Neut # (Auto) 5.3 (1.4-6.5) 10^3/uL Lymph # (Auto) 1.7 (1.2-3.8) 10^3/uL [place] # (Auto) 0.6 (0.3-0.8) 10^3/uL Eos # (Auto) 0.2 (0.0-0.7) 10^3/uL Baso # (Auto) 0.0 (0.0-0.1) 10^3/uL Abs Immat Gran (auto) 0.02 (0.00-0.03) 10^3/uL Imm/Tot Granulo (auto) 0.3 (0.0-0.5) % Sodium 140 (136-145) mmol/L Potassium 4.2 (3.5-5.1) mmol/L Chloride 104 (98-107) mmol/L Carbon Dioxide 27.9 (21.0-32.0) mmol/L Anion Gap 12.3 BUN 17.0 (7.0-18.0) mg/dL Creatinine 1.28 (0.70-1.30) mg/dL Est GFR ( Amer) >60 (>=60 mL/min/1.73m^2) Est GFR (Non-Af Amer) 55 L (>=60 mL/min/1.73m^2) BUN/Creatinine Ratio 13.3 Glucose 109 H (74-106) mg/dL Calcium 8.9 (8.5-10.1) mg/dL Total Bilirubin 0.9 (0.2-1.0) mg/dL AST 12 L (15-37) U/L ALT 27 (16-63) U/L Alkaline Phosphatase 92 (46-116) U/L Troponin I High Sens 8.8 8.6 (4.0-76.1) pg/mL NT-Pro-B Natriuret Pep 586.0 (<=900.0) pg/mL Total Protein 6.9 (6.4-8.2) g/dL Albumin 3.4 (3.4-5.0) g/dL Globulin 3.5 g/dL Albumin/Globulin Ratio 1.0 Lipase 94.0 H (16.0-77.0) U/L ECG Data Interpretation: 1638 sinus rhythm with a rate of 60 bpm MA interval 160 ms QRS duration 140 ms right bundle branch block noted, no STEMI Discharge Plan Discharge Chief Complaint: Chest Pain Clinical Impression: Hypertension Patient Disposition: Home, Self-Care Time of Disposition Decision: 19:02 Condition: Good Prescriptions / Home Meds: No Action atorvastatin 40 mg tablet 40 mg PO DAILY lisinopril 10 mg tablet 10 mg PO DAILY metformin 1,000 mg tablet 1,000 mg PO DAILY Patient Comments: patient states in triage he takes this daily metoprolol succinate 50 mg tablet extended release 24 hr 50 mg PO DAILY Patient Comments: pt states in triage that he takes this daily tamsulosin 0.4 mg capsule 0.4 mg PO Q24H cinnamon bark [Cinnamon] 500 mg capsule 500 mg PO DAILY Print Language: Venezuelan Instructions: Hypertension (ED) Referrals: Physician,Non-Staff, [Primary Care Provider] - 1 week Discharge Date/Time: 03/05/25 19:44 Documented by User: Galindo Koch MD 03/05/25 19:58 HPI - Chest Pain General Chief Complaint: Chest Pain Stated Complaint: HIGH BP Time Seen by Provider: 03/05/25 17:06 Related Data Home Medications ?Medication ?Instructions ?Recorded ?Confirmed atorvastatin 40 mg tablet 40 mg PO DAILY 03/05/25 03/05/25 cinnamon bark 500 mg capsule 500 mg PO DAILY 03/05/25 03/05/25 (Cinnamon) lisinopril 10 mg tablet 10 mg PO DAILY 03/05/25 03/05/25 metformin 1,000 mg tablet 1,000 mg PO DAILY 03/05/25 03/05/25 metoprolol succinate 50 mg 50 mg PO DAILY 03/05/25 03/05/25 tablet,extended release 24 hr tamsulosin 0.4 mg capsule 0.4 mg PO Q24H 03/05/25 03/05/25 Allergies Allergy/AdvReac Type Severity Reaction Status Date / Time No Known Drug Allergies Allergy Verified 03/05/25 16:22 PFSH PFSH Social History Little interest or pleasure in doing things: not at all Feeling down, depressed, or hopeless: not at all Exam Constitutional Vital Signs, click to edit/add: Last Vital Signs Temp 98.2 F 03/05/25 16:22 Pulse 63 03/05/25 19:41 Resp 22 H 03/05/25 19:41 BP 171/87 H 03/05/25 19:41 Pulse Ox 100 03/05/25 19:41 O2 Del Method Room Air 03/05/25 19:41 Course Vital Signs Vital signs: Vital Signs Temperature 98.2 F 03/05/25 16:22 Pulse Rate 62 03/05/25 16:22 Respiratory Rate 18 03/05/25 16:22 Blood Pressure 180/80 H 03/05/25 16:22 Pulse Oximetry 98 03/05/25 16:22 Temperature 98.2 F 03/05/25 16:22 Pulse Rate 63 03/05/25 19:41 Respiratory Rate 22 H 03/05/25 19:41 Blood Pressure 171/87 H 03/05/25 19:41 Pulse Oximetry 100 03/05/25 19:41 Oxygen Delivery Method Room Air 03/05/25 19:41 MDM - Chest Pain MDM Narrative Medical decision making narrative: 69-year-old male presents here with a chief complaint of elevated blood pressure. Patient states he went to his primary care physician's office earlier this week for blood pressure and they increased his lisinopril by 5 mg. Patient does not have any chest pain. No shortness of breath. He has had a stress test over the last year that was normal. Patient denies chest pain today and states he just feels heaviness in his arms. Patient has no cardiac symptoms at this time. He is alert and oriented no acute distress. Upon arrival to the emergency room IV was established blood work was drawn. Troponins x 2 were both negative. Patient has no headache blurry vision double vision. Denies any chest pain at this time. EKG was also reviewed. Patient shows no signs of acute distress. Advised patient to follow back up with Dr. Sajan isaac for reevaluation. Patient is on metoprolol and lisinopril. I, Dr Koch, have reviewed the above progress note and course of action in the ER; agree with the above. I have personally gone over history and physical, and discussed disposition and treatment plan with the PA. Lab Data Labs: Lab Results 03/05/25 03/05/25 Range/Units 17:00 18:05 WBC 7.9 (4.0-11.0) 10^3/uL RBC 3.92 L (4.70-6.10) 10^6/uL Hgb 12.8 L (14.0-18.0) g/dL Hct 39.0 L (42.0-54.0) % MCV 99.5 H (80.0-94.0) fL MCH 32.7 (25.9-34.0) pg MCHC 32.8 (29.9-35.2) g/dL RDW 13.1 (11.0-15.0) % Plt Count 267 (150-450) 10^3/uL MPV 10.5 (9.5-13.5) fL Neut % (Auto) 67.0 (43.0-75.0) % Lymph % (Auto) 21.8 (20.5-60.0) % [place] % (Auto) 8.1 (1.7-12.0) % Eos % (Auto) 2.4 (0.9-7.0) % Baso % (Auto) 0.4 (0.2-2.0) % Neut # (Auto) 5.3 (1.4-6.5) 10^3/uL Lymph # (Auto) 1.7 (1.2-3.8) 10^3/uL [place] # (Auto) 0.6 (0.3-0.8) 10^3/uL Eos # (Auto) 0.2 (0.0-0.7) 10^3/uL Baso # (Auto) 0.0 (0.0-0.1) 10^3/uL Abs Immat Gran (auto) 0.02 (0.00-0.03) 10^3/uL Imm/Tot Granulo (auto) 0.3 (0.0-0.5) % Sodium 140 (136-145) mmol/L Potassium 4.2 (3.5-5.1) mmol/L Chloride 104 (98-107) mmol/L Carbon Dioxide 27.9 (21.0-32.0) mmol/L Anion Gap 12.3 BUN 17.0 (7.0-18.0) mg/dL Creatinine 1.28 (0.70-1.30) mg/dL Est GFR ( Amer) >60 (>=60 mL/min/1.73m^2) Est GFR (Non-Af Amer) 55 L (>=60 mL/min/1.73m^2) BUN/Creatinine Ratio 13.3 Glucose 109 H (74-106) mg/dL Calcium 8.9 (8.5-10.1) mg/dL Total Bilirubin 0.9 (0.2-1.0) mg/dL AST 12 L (15-37) U/L ALT 27 (16-63) U/L Alkaline Phosphatase 92 (46-116) U/L Troponin I High Sens 8.8 8.6 (4.0-76.1) pg/mL NT-Pro-B Natriuret Pep 586.0 (<=900.0) pg/mL Total Protein 6.9 (6.4-8.2) g/dL Albumin 3.4 (3.4-5.0) g/dL Globulin 3.5 g/dL Albumin/Globulin Ratio 1.0 Lipase 94.0 H (16.0-77.0) U/L Discharge Plan Discharge Chief Complaint: Chest Pain Clinical Impression: Hypertension Patient Disposition: Home, Self-Care Time of Disposition Decision: 19:02 Condition: Good Prescriptions / Home Meds: No Action atorvastatin 40 mg tablet 40 mg PO DAILY lisinopril 10 mg tablet 10 mg PO DAILY metformin 1,000 mg tablet 1,000 mg PO DAILY Patient Comments: patient states in triage he takes this daily metoprolol succinate 50 mg tablet extended release 24 hr 50 mg PO DAILY Patient Comments: pt states in triage that he takes this daily tamsulosin 0.4 mg capsule 0.4 mg PO Q24H cinnamon bark [Cinnamon] 500 mg capsule 500 mg PO DAILY Print Language: Venezuelan Instructions: Hypertension (ED) Referrals: Physician,Non-Staff, MD [Primary Care Provider] - 1 week Discharge Date/Time: 03/05/25 19:44
[2025-03-05 18:47] LABS: Troponin I High Sensitivity 8.6 pg/mL (4.0-76.1)
== END 2025-03-05 19:44 | disposition home or self-care (01) ==
PROVIDERS: Physician Assistant; Emergency Provider Emergency Medicine
DX: I10 Essential (primary) hypertension (principal); Z79.899 Other long term (current) drug therapy
CPT/HCPCS: 36415; 71046; 80053; 83690; 83880; 84484; 85025; 93005; 99285

== ENCOUNTER 2025-06-18 08:43 | Outpatient (OUT) | payer MEDICARE, OTHER, SELFPAY ==
--- NOTE | 2025-06-18 08:48 | US_ITS ---
The [address] [address] Patient Name: MERRY RASMUSSEN MRN: [id number] date: 1955 Sex: M Assigned Patient Location: Current Patient Location: [place] Accession/Order Number: [id number] Exam Date: 06/18/2025 10:08 Report Date: 06/18/2025 10:12 At the request of: HUNTER SIMMONS DO Procedure: US renal BI BILATERAL RENAL AND BLADDER ULTRASOUND CLINICAL HISTORY: Azotemia COMPARISON: None Estimation of renal size is approximately 14.5 cm on the right and 11.2 cm on the left . At the superior pole on the right, there is an echogenic focus measuring 1 cm in size which may be a stone. There is also potential stone on the left measuring 7 mm. No hydronephrosis is identified. There is a small right renal cyst measuring almost 2 cm in diameter. There is no perinephric fluid. The urinary bladder is partially distended with a volume of 201 mL. The bladder wall is top normal in thickness. No intraluminal abnormalities are seen. US/US renal BI IMPRESSION: Small right renal cyst. Bilateral nephrolithiasis. NO OBSTRUCTIVE UROPATHY. Impression dictated by: Tayler Hendricks M.D. 06/18/2025 10:12 AM Dictation Location: [place] [address] Electronically authenticated by: [id number] Y Date: 06/18/2025 10:12
--- OUTSIDE RECORDS SUMMARY | 2025-06-18 09:03 | XMS_ITS | CCD ---
Author Organization [facility] Care Team Providers Care Best Second Jobs Name Role Phone PHYSICIAN, DEFAULT Unavailable Unavailable [...] Facility (10 sources) sulfaSALAzine Drug Allergy Unknown Metric Insights Other Medications Current Medications Medication Drug Class(es) Dates Sig (Normalized) Sig (Original) amLODIPine 5 mg oral tablet (2 sources) Dihydropyridine Calcium Channel Jose Start: 03-08-2025 take 1 tablet by mouth once daily Amlodipine 5 mg tablet Active 5 MG PO Daily 30 30 Nirmala 7th, 2025 12:00am atorvastatin 40 mg oral tablet (20 sources) HMG-CoA Reductase Inhibitor Start: 03-14-2025 take 1 tablet by mouth once daily Atorvastatin 40 mg tablet Active 0 .ROUTE .COMPLEX March 14, 2025 9:23pm TAKE 1 TABLET BY MOUTH EVERY DAY FOR 90 DAYS Start: 06-24-2024 End: 03-14-2025 take 1 tablet by mouth once daily at bedtime Atorvastatin 40 mg tablet Discontinued 40 MG PO Daily at bedtime June 24, 2024 11:01am March 14, 2025 9:23pm Start: 03-27-2024 End: 06-24-2024 take 1 tablet by mouth once daily Atorvastatin 40 mg tablet Discontinued 0 .ROUTE .COMPLEX March 27, 2024 7:33am June 24, 2024 11:06am TAKE 1 TABLET BY MOUTH EVERY DAY FOR 90 DAYS Start: 01-31-2024 End: 03-27-2024 take 1 tablet by mouth once daily Atorvastatin 40 mg tablet Discontinued 40 MG PO Daily January 31, 2024 [...] hydrochloride 150 mg extended release oral tablet (20 sources) Aminoketone Start: 02-09-2025 take 1 tablet by mouth once daily in the morning Bupropion Hcl 150 mg tablet extended release 24 hr Active 150 MG PO Every morning February 09, 2025 12:00am Start: 08-18-2024 End: 02-09-2025 take 1 tablet by mouth twice daily Bupropion Hcl 100 mg tablet sustained-release 12 hr Discontinued 0 .ROUTE .COMPLEX 180 February 07, 2025 6:55pm February 09, 2025 11:28am TAKE 1 TABLET BY MOUTH TWICE A DAY Start: 07-28-2024 End: 08-18-2024 take 1 tablet by mouth once daily in the morning Bupropion Hcl 150 mg tablet extended release 24 hr Discontinued 150 MG PO Every morning July 28, 2024 12:00am August 18, 2024 5:41pm Start: 07-22-2024 End: 07-28-2024 take 1 tablet by mouth twice daily Bupropion Hcl 100 mg tablet sustained-release 12 hr Discontinued 100 MG PO Twice daily 60 July 24, 2024 9:02am July 28, 2024 2:48pm Start: 06-23-2024 End: 07-22-2024 take 1 tablet by mouth once daily in the morning Bupropion Hcl 150 mg tablet extended release 24 hr Discontinued 150 MG PO Every morning 30 June 23, 2024 12:00am July 22, 2024 5:22pm Cinnamon Preparation (16 sources) Non-Standardized Food Allergenic Extract Cinnamon Active Cyanocobalamin (Vitamin B-12 ) 1,000 mcg/mL solution (4 sources) Start: 04-09-2025 Cyanocobalamin (Vitamin B-12) 1,000 mcg/mL solution Active 0 .ROUTE .COMPLEX April 09, 2025 3:58pm INJECT 1 ML EVERY 4 WEEKS Start: 03-02-2024 End: 04-09-2025 Cyanocobalamin (Vitamin B-12 ) 1,000 mcg/mL solution Discontinued 0 .ROUTE .COMPLEX March 02, 2024 5:10pm April 09, 2025 3:58pm INJECT 1 ML EVERY 4 WEEKS Start: 03-02-2024 Cyanocobalamin (Vitamin B-12) 1,000 mcg/mL solution Active 0 .ROUTE .COMPLEX March 02, 2024 5:10pm INJECT 1 ML EVERY 4 WEEKS Fish Oils (16 sources) Fish Oil Active lisinopril 10 mg oral tablet (20 sources) Angiotensin Converting Enzyme Inhibitor Start: 04-02-2025 take 1 tablet by mouth once daily Lisinopril 10 mg tablet Active 10 MG PO Daily April 02, 2025 11:49am Start: 03-03-2025 End: 04-02-2025 take 2 tablets by mouth once daily Lisinopril 5 mg tablet Discontinued 10 MG PO Daily 180 March 03, 2025 10:32am April 02, 2025 11:49am Start: 10-16-2024 End: 03-03-2025 take 1 tablet by mouth once daily Lisinopril 5 mg tablet Discontinued 0 .ROUTE .COMPLEX October 16, 2024 8:27am March 03, 2025 10:32am TAKE 1 TABLET BY MOUTH EVERY DAY Start: 06-25-2024 End: 10-16-2024 take 1 tablet by mouth once daily Lisinopril 5 mg tablet Discontinued 5 MG PO Daily June 25, 2024 5:45pm October 16, 2024 8:27am Start: 02-26-2024 End: 06-25-2024 take 1 tablet by mouth once daily Lisinopril 10 mg tablet Discontinued 10 MG PO Daily February 26, 2024 6:18pm June 25, 2024 5:46pm Start: 10-24-2020 End: 02-26-2024 take 1 tablet by mouth once daily Lisinopril 20 mg tablet Discontinued 20 MG PO Daily October 24, 2020 1:00am February 26, 2024 6:19pm metFORMIN hydrochloride 500 mg oral tablet (20 sources) Biguanide Start: 03-22-2025 take 1 tablet by mouth twice daily at mealtime Metformin 500 mg tablet Active 500 MG PO Twice daily with meals 90 March 22, 2025 5:13pm On Hold: may change to Jardiance Start: 03-19-2025 End: 03-22-2025 take 1 tablet by mouth once daily Metformin 500 mg tablet Discontinued 500 MG PO Daily 90 90 March 19, 2025 12:00am March 22, 2025 5:13pm Start: 02-09-2025 End: 03-19-2025 take 1 tablet by mouth once daily Metformin 1,000 mg tablet Discontinued 1000 MG PO Daily 90 90 February 09, 2025 11:30am March 19, 2025 10:15am Start: 11-27-2024 End: 02-09-2025 take 1 tablet by mouth before breakfast Metformin 1,000 mg tablet Discontinued 0 .ROUTE .COMPLEX 180 November 27, 2024 8:15am February 09, 2025 11:31am TAKE 1 TABLET BY MOUTH BEFORE BREAKFAST AND EVENING MEAL Start: 10-24-2020 End: 11-27-2024 take 1 tablet by mouth twice daily at mealtime Metformin 1,000 mg tablet Discontinued 1000 MG PO Twice daily with meals 60 June 24, 2024 12:00am November 27, 2024 8:15am take 1 tablet by mouth at dinner metFORMIN HCl 1000 MG TAKE 1 TABLET BY MOUTH BEFORE BKFST AND EVENING MEAL Active Syringe With Needle (Bd Ecli pse Luer-Josias) 3 mL 23 x 1 syringe (6 sources) Start: 01-14-2025 Syringe With N eedle (Bd Eclipse Luer-Josias) 3 mL 23 x 1 syringe Active 0 .Route 50 January 14, 2025 8:57pm As directed Start: 01-14-2025 End: 01-14-2025 Syringe With Needle (Bd Ecli pse Luer-Josias) 3 mL 23 x 1 syringe Discontinued 0 .Route 50 January 14, 2025 1:00am January 14, 2025 8:57pm As directed tamsulosin hydrochloride 0.4 mg oral capsule (20 sources) alpha-Adrenergic Jose Start: 12-16-2024 take 1 capsule by mouth once daily at dinner Tamsulosin 0.4 mg capsule Active 0 .ROUTE .COMPLEX 90 December 16, 2024 8:39am TAKE 1 CAPSULE BY MOUTH EVERY DAY AFTER EVENING MEAL 90 Start: 04-25-2023 End: 12-16-2024 take 1 capsule by mouth once daily Tamsulosin 0.4 mg capsule Discontinued 0.4 MG PO Daily April 25, 2023 12:00am December 16, 2024 8:39am vitamin B12 (20 sources) Vitamin B12 Start: 03-02-2024 Cyanocobalamin (Vitamin B-12) Active 0 .ROUTE .COMPLEX 3 March 02, 2024 5:10pm INJECT 1 ML EVERY 4 WEEKS Start: 10-24-2020 End: 03-02-2024 inject 1000 ug by subcutaneous injection every month Cyanocobalamin (Vitamin B-12) 1,000 mcg/mL solution Discontinued 1000 MCG SUBCUT every month October 24, 2020 1:00am March 02, 2024 5:10pm Start: 10-24-2020 End: 03-02-2024 inject 1000 ug [...] 30 mg oral tablet (16 sources) Uncompetitive B-gliyvz-T-aspartat e Receptor Antagonist, Sigma-1 Agonist Start: 01-27-2020 Magnolia DMT 30-30 MG 1 tablet Orally every 6-8 hours for 7 days Jan, Not-Taking/PRN Start: 01-27-2020 FLUoxetine 20 mg oral capsule (20 sources) Serotonin Reuptake Inhibitor Start: 10-24-2020 End: 06-23-2024 take 1 capsule by mouth once daily Fluoxetine 20 mg capsule Discontinued 20 MG PO Daily October 24, 2020 1:00am June 23, 2024 11:17am metoprolol tartrate 50 mg oral tablet (20 sources) beta-Adrenergic Jose Start: 06-23-2024 End: 06-24-2024 take 1 tablet by mouth twice daily Metoprolol Tartrate 50 mg tablet Discontinued 50 MG PO Twice daily June 23, 2024 11:19am June 24, 2024 11:04am Start: 06-23-2024 take 1 tablet by obey th once daily Metoprolol Succinate 50 mg tablet extended release 24 hr Active 50 MG PO Daily June 23, 2024 12:00am Start: 01-31-2024 End: 06-23-2024 take 1 tablet by mouth once daily Metoprolol Tartrate 50 mg tablet Discontinued 50 MG PO Daily January 31, 2024 [...] Not-Taking/PRN pravastatin sodium 40 mg oral tablet (6 sources) HMG-CoA Reductase Inhibitor Start: 10-24-2020 End: 01-31-2024 take 1 tablet by mouth once daily Pravastatin 40 mg tablet Discontinued 40 MG PO Daily October 24, 2020 1:00am January 31, 2024 2:12pm Problems Active Problems Problem Classification Problem Date Documented Date Episodic/Chronic Calculus of urinary tract (3 sources) Personal history of urinary calculi Episodic Cardiac dysrhythmias (15 sources) Nonsustained ventricular tachycardia ; Translations: [Nonsustained ventricular tachycardia] 02-22-2024 Chronic Comment on above: Stress Test: fixed i nferior wall defect - 01/2024,Echo: LVEF 55%, RVSP 43, aortic sclerosis - 12/2023 Echocardiogram: LVEF 55%, normal RV size/function, RVSP 43, calcific AV - 12/2023Stress test: Lexiscan w/o EKG changes, Cardiolite images w/ fixed inferior wall defect - 01/2024 Cardiac dysrhythmias (1 source) Palpitations Episodic Conditions associated with dizziness or vertigo (2 sources) Dizziness and giddiness; Translations: [Dizziness and giddiness] 06-23-2024 Episodic Deficiency and other anemia (6 sources) Nutritional anemia, unspecified; Translations: [NUTRITIONAL ANEMIA UNSPECIFIED] Onset: 10-26-2022 Episodic Deficiency and other anemia (20 sources) Iron deficiency anemia; Translations: [Iron deficiency anemia] Episodic Deficiency and other anemia (8 sources) Vitamin B12 deficiency anemia due to intrinsic factor deficiency; Translations: [Pernicious anemia] Episodic Deficiency and other anemia (14 sources) Macrocytic anemia; Translations: [Nutritional anemia, unspecified] Episodic Deficiency and other anemia (17 sources) Pernicious anemia; Translations: [Vitamin B12 deficiency anemia due to intrinsic factor deficiency] 01-14-2025 Episodic Deficiency and other anemia (1 source) [...] Translations: [Aortic valve sclerosis] Onset: 01-30-2022 Chronic Comment on above: Echo: LVEF 55%, RVSP 43, velocity 197, gradient 15/6 - 12/2023 Hyperplasia of prostate (8 sources) 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; Translations: [Benign prostatic hyperplasia with lower urinary tract symptoms] Chronic Hypertension with complications and secondary hypertension (2 sources) Hypertensive heart disease without heart failure; Translations: [Hypertensive heart disease without heart failure] Onset: 02-25-2024 Chronic Mood disorders (18 sources) Recurrent major depression in full remission; Translations: [Major depressive disorder, recurrent, in full remission] Chronic Other aftercare (1 source) 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; Translations: [OTH FRONT OFFICE COORDINATOR CURRENT DRUG THERAPY] Onset: 10-22-2022 Episodic Other [...] Other hereditary and degenerative nervous system conditions (20 sources) Restless legs; Translations: [Restless legs syndrome] 02-21-2024 Chronic Other hereditary and degenerative nervous system conditions (3 sources) Restless legs syndrome Chronic Other injuries and conditions due to external causes (2 sources) Other injury of unspecified body region, initial encounter Episodic Other non-traumatic joint disorders (5 sources) Hip pain; Translations: [Pain in right hip] 06-23-2024 Episodic Other non-traumatic joint disorders (2 sources) Pain in right hip; Translations: [Pain in joint, pelvic region and thigh] 06-23-2024 Episodic Other nutritional; endocrine; and metabolic disorders (2 sources) Obesity; Translations: [Obesity, unspecified] 02-09-2025 Chronic Other nutritional; endocrine; and metabolic disorders (5 sources) Obesity, unspecified; Translations: [Obesity, unspecified] 02-09-2025 Chronic Other screening for suspected conditions (not mental disorders or infectious disease) (13 sources) Encounter for screening for malignant neoplasm of prostate; Translations: [History of adenomatous polyp of colon] Onset: 10-22-2022 Episodic Comment on above: PSA: 1.21 - 10/2021, 1.07 - 10/2022, 1.92 - 10/2023, 1. - 10/2024 Problem List clean-u p per request of Phys. EHR Cmte Other skin disorders (1 source) Inflamed seborrheic keratosis Episodic Residual codes; unclassified (20 sources) Obstructive sleep apnea syndrome; Translations: [Obstructive sleep apnea (adult) (pediatric)] 02-21-2024 Chronic Residual codes; unclassified (15 sources) Obstructive sleep apnea (adult) (pediatric); Translations: [...] [facility] Facility Office Visiton 08-05-2024 Follow-up visit [id number] Merry Norris 1955 M Date Provider Department Center 08/05/2024 [id number] Family History Problem Relation Age of Onset Diabetes Mother Heart failure Mother Family Status - Relation Status Age at Mother Level of Service:45641 [place] OFFICE/OUTPATIENT ESTABLISHED MOD MDM 30 MIN Reason for Visit and Comments: Hypertension [512960] NSVT [Other] - PCP decreased lisinopril down to 5mg daily due to lightheadedness, which he says has helped. Denies chest pain, SOB, and palpitations. Had routine labs w/ lipid panel in June. Normal [facility] Basophils Auto (Bld) [#/Vol] on 06-08-2024 Basophils (Bld) [#/Vol] 0.0 10 3/uL 0.0-0.1 [facility] Basophils/100 WBC Auto (Bld) on 06-08-2024 Basophils/100 WBC (Bld) 0.4 % 0.2-2.0 [facility] Cholesterol in LDL Calc [Mas s/Vol]on 06-08-2024 Cholesterol in LDL [Mass/Vol] 36.0 mg/dL [facility] Comment on above: <100 mg/dl [id number] 0-129 mg/dl NEAR OR ABOVE [id number] mg/dl BORDERLINE [id number] mg/dl HIGH>190 mg/dl VERY HIGH Cholesterol in VLDL Calc [Ma ss/Vol]on 06-08-2024 Cholesterol in VLDL [Mass/Vol] 32.8 mg/dL [facility] Eosinophils/100 WBC Auto (Bl d)on 06-08-2024 Eosinophils/100 WBC (Bld) 2.9 % 0.9-7.0 [facility] Erythrocyte distribution wid th Auto (RBC) [Ratio]on 06-08-2024 Erythrocyte distribution width (RBC) [Ratio] 12.7 % 11.0-15.0 [facility] Estimated glomerular filtrat ion rate (GFR) non- Americanon 06-08-2024 GFR/1.73 sq M.predicted among non-blacks MDRD (S/P/Bld) [Vol rate/Area] 59 mL/min/{1.73_m2} Low >=60 [facility] Globulin Calc (S) [Mass/Vol] on 06-08-2024 Globulin (S) [Mass/Vol] 3.1 g/dL [facility] Glucose mean value [Mass/vol ume] in Blood Estimated from glycated hemoglobinon 06-08-2024 Average glucose Estimated from glycated hemoglobin (Bld) [Mass/Vol] 148 mg/dL [facility] Hematocrit Auto (Bld) [Volum e fraction]on 06-08-2024 Hematocrit (Bld) [Volume fraction] 38.8 % Low 42.0-54.0 [facility] Hemoglobin [Mass/volume] in Bloodon 06-08-2024 Hemoglobin (Bld) [Mass/Vol] 12.6 g/dL Low 14.0-18.0 [facility] Laboratory - Chemistry and C hemistry - challengeon 06-08-2024 Albumin [Mass/Vol] 3.2 g/dL Low 3.4-5.0 [facility] ALP [Catalytic activity/Vol] 80 U/L 46-116 [facility] ALT [Catalytic activity/Vol] 28 U/L 16-63 [facility] AST [Catalytic activity/Vol] 18 U/L 15-37 [facility] Bilirubin [Mass/Vol] 0.9 mg/dL 0.2-1.0 [facility] Calcium [Mass/Vol] 8.0 mg/dL Low 8.5-10.1 [facility] Chloride [Moles/Vol] 106 mmol/L 98-107 [facility] Cholesterol [Mass/Vol] 108 mg/dL <=200 [facility] Cholesterol in HDL [Mass/Vol] 40 mg/dL 40-60 [facility] Comment on above: > or =60 mg/dl - LOW CARDIOVASCULAR RISK<40 mg/dl - HIGH CARDIOVASCULAR RISK CO2 [Moles/Vol] 27.3 mmol/L 21.0-32.0 [facility] Creatinine [Mass/Vol] 1.22 mg/dL 0.70-1.30 [facility] GFR/1.73 sq M.predicted MDRD (S/P/Bld) [Vol rate/Area] mL/min/{1.73_m2} >=60 [facility] Glucose [Mass/Vol] 136 mg/dL High 74-106 [facility] Potassium [Moles/Vol] 4.4 mmol/L 3.5-5.1 [facility] Protein [Mass/Vol] 6.3 g/dL Low 6.4-8.2 [facility] Sodium [Moles/Vol] 141 mmol/L 136-145 [facility] Triglyceride [Mass/Vol] 164 mg/dL High <=150 [facility] Urea nitrogen [Mass/Vol] 18.0 mg/dL 7.0-18.0 [facility] Urea nitrogen/Creatinine [Mass ratio] 14.8 mg/mg [facility] Laboratory - Hematology and Cell countson 06-08-2024 HbA1c (Bld) [Mass fraction] 6.8 % High 4.5-6.2 [facility] Comment on above: ADA RECOMMENDED LIMI T 4.0 - 6.0ADA THERAPEUTIC TARGET < 7.0ACTION SUGGESTED> 7.0 Immature granulocytes/100 WBC (Bld) 0.1 % 0.0-0.5 [facility] Leukocytes [#/volume] correc anabel for nucleated erythrocytes in Blood by Automated counon 06-08-2024 WBC corrected for nucl RBC Auto (Bld) [#/Vol] 7.3 10 3/uL 4.0-11.0 [facility] Lymphocytes Auto (Bld) [#/Vo l]on 06-08-2024 Lymphocytes (Bld) [#/Vol] 1.6 10 3/uL 1.2-3.8 [facility] Lymphocytes/100 WBC Auto (Bl d)on 06-08-2024 Lymphocytes/100 WBC (Bld) 22.1 % 20.5-60.0 [facility] MCH Auto (RBC) [Entitic mass ]on 06-08-2024 MCH (RBC) [Entitic mass] 32.1 pg 25.9-34.0 [facility] MCHC Auto (RBC) [Mass/Vol]on 06-08-2024 MCHC (RBC) [Mass/Vol] 32.5 g/dL 29.9-35.2 [facility] MCV Auto (RBC) [Entitic vol] on 06-08-2024 MCV (RBC) [Entitic vol] 98.7 fL High 80.0-94.0 [facility] Monocytes Auto (Bld) [#/Vol] on 06-08-2024 Monocytes (Bld) [#/Vol] 0.6 10 3/uL 0.3-0.8 [facility] Monocytes/100 WBC Auto (Bld) on 06-08-2024 Monocytes/100 WBC (Bld) 8.4 % 1.7-12.0 [facility] Neutrophils Auto (Bld) [#/Vo l]on 06-08-2024 Neutrophils (Bld) [#/Vol] 4.8 10 3/uL 1.4-6.5 [facility] Neutrophils/100 WBC Auto (Bl d)on 06-08-2024 Neutrophils/100 WBC (Bld) 66.1 % 43.0-75.0 [facility] No Panel Informationon 06-08 Eosinophils # (Auto) 0.2 10 3/uL 0.0-0.7 [facility] Immature Granulocyte # (Auto) 0.01 10 3/uL 0.00-0.03 [facility] Nucleated Red Blood Cells/100 WBC 0 [facility] Platelet mean volume Auto (B ld) [Entitic vol]on 06-08-2024 Platelet mean volume (Bld) [Entitic vol] 10.9 fL 9.5-13.5 [facility] Platelets Auto (Bld) [#/Vol] on 06-08-2024 Platelets (Bld) [#/Vol] 252 10 3/uL 150-450 [facility] RBC Auto (Bld) [#/Vol]on RBC (Bld) [#/Vol] 3.93 10 6/uL Low 4.70-6.10 [facility] Serum or plasma albumin/glob ulin mass ratioon 06-08-2024 Albumin/Globulin [Mass ratio] 1.0 {ratio} [facility] Serum or plasma anion gap de terminationon 06-08-2024 Anion gap [Moles/Vol] 12.1 mmol/L [facility] Serum or plasma total choles terol/high density lipoprotein (HDL) cholesterol mass carly 06-08-2024 Cholesterol.total/Ch olesterol in HDL [Mass ratio] 2.7 {ratio} [facility] Comment on above: 3.3 - 4.4 LOW RISK4. 4 - 7.1 AVERAGE RISK7.1 - 11.0 MODERATE RISK>11.0 HIGH RISK Office Visiton 02-25-2024 Follow-up visit [id number] Merry Norris 1955 M Date Provider Department Center 02/25/2024 GABINO LUNDBERG [facility] Family History Problem Relation Age of Onset Diabetes Mother Heart failure Mother Family Status - Relation Status Age at Mother Level of Service:34817 [place] OFFICE/OUTPATIENT NEW MODERATE MDM 45 MINUTES Normal [facility] Office Visiton 01-22-2024 Follow-up visit [id number] Merry Norris 1955 M Date Provider Department Center 01/22/2024 PANFILOSANAZBANDAR Hu [facility] Family History Problem Relation Age of Onset Diabetes Mother Heart failure Mother Family Status - Relation Status Age at Mother Level of Service:24827 [place] OFFICE/OUTPATIENT NEW MODERATE MDM 45 MINUTES Normal [facility] Glucose Poct Glucometerson 0 04-25-2023 Commemt1 Glu2: Cleaned Meter Normal [facility] Comment on above: Result Comment: PERF ORMED BY: [facility] [address] [place] [address] PATHOLOGIST RACING MANAGER JERMAIN DANIELS M.D. Performed By: #### G LULS #### Point of Care testing , Glucose [Mass/Vol] 123 mg/dL Normal [facility] Comment on above: Result Comment: [facility] Glucose Reference Range is dependent on time and content of last meal. Glucose of more than 200 mg/dL in a nonstressed, ambulatory subject supports the diagnosis of Diabetes Mellitus. Performed By: #### G LULS #### Point of Care testing , IRON AND TIBCon 10-26-2022 % SATURATION 16.1 % Normal [facility] Comment on above: Performed By: #### M ALBR #### [facility] [address] [address] [address] Dayna Ford Iron [Mass/Vol] 44.0 ug/dL Critically low 65.0-175.0 [facility] Comment on above: Performed By: #### M ALBR #### [facility] [address] [address] [address] Dayna Ford TIBC DIRECT 274.0 ug/dL Normal 250.0-450.0 [facility] Comment on above: Performed By: #### M ALBR #### [facility] [address] [place] [address] Dr. Dayna Ford RETICULOCYTEon 10-26-2022 RETIC 1.75 % Normal 0.60-3.10 [facility] Comment on above: Performed By: #### M ALBR #### [facility] [address] [place] [address] Dr. Dayna Ford VIT B12 AND FOLATEon 022 Cobalamin (Vitamin B12) [Mass/Vol] 398.0 pg/mL Normal 193.0-986.0 [facility] Comment on above: Performed By: #### M ALBR #### [facility] [address] [place] [address] Dr. Dayna Ford FOLATE 20.10 ng/mL Normal 8.60-58.90 [facility] Comment on above: Performed By: #### M ALBR #### [facility] [address] [place] [address] Dr. Dayna Ford CBC AUTO DIFFon 10-18-2022 BASO # 0.1 103/ul Normal 0.0-0.1 [facility] Comment on above: Performed By: #### M ALBR #### [facility] [address] [place] [address] Dr. Dayna Ford Basophils/100 WBC (Bld) 0.7 % Normal 0.2-2.0 [facility] Comment on above: Performed By: #### M ALBR #### [facility] [address] [place] [address] Dr. Dayna Ford EO # 0.2 103/ul Normal 0.0-0.7 [facility] Comment on above: Performed By: #### M ALBR #### [facility] [address] [place] [address] Dr. Dayna Ford Eosinophils/100 WBC (Bld) 3.1 % Normal 0.9-7.0 [facility] Comment on above: Performed By: #### M ALBR #### [facility] [address] [place] [address] Dr. Dayna Ford Erythrocyte distribution width (RBC) [Ratio] 12.7 % Normal 11.0-15.0 [facility] Comment on above: Performed By: #### M ALBR #### [facility] [address] [place] [address] Dr. Dayna Ford Hematocrit (Bld) [Volume fraction] 36.2 % Critically low 42.0-54.0 [facility] Comment on above: Performed By: #### M ALBR #### [facility] [address] [place] [address] Dr. Dayna Ford Hemoglobin (Bld) [Mass/Vol] 11.8 g/dL Critically low 14.0-18.0 [facility] Comment on above: Performed By: #### M ALBR #### [facility] [address] [place] [address] Dr. Dayna Ford IG # 0.02 10e3/ul Normal 0.00-0.03 [facility] Comment on above: Performed By: #### M ALBR #### [facility] [address] [place] [address] Dr. Dayna Ford IG % 0.3 % Normal 0.0-0.5 [facility] Comment on above: Performed By: #### M ALBR #### [facility] [address] [place] [address] Dr. Dayna Ford LYMPH # 1.9 103/ul Normal 1.2-3.8 [facility] Comment on above: Performed By: #### M ALBR #### [facility] [address] [place] [address] Dr. Dayna Ford Lymphocytes/100 WBC (Bld) 26.2 % Normal 20.5-60.0 [facility] Comment on above: Performed By: #### M ALBR #### [facility] [address] [place] [address] Dr. Dayna Ford MANUAL DIFF REQ NO Normal [facility] Comment on above: Performed By: #### M ALBR #### [facility] [address] [place] [address] Dr. Dayna Ford MCH (RBC) [Entitic mass] 31.9 pg Normal 25.9-34.0 [facility] Comment on above: Performed By: #### M ALBR #### [facility] [address] [place] [address] Dr. Dayna Ford MCHC (RBC) [Mass/Vol] 32.6 g/dL Normal 29.9-35.2 [facility] Comment on above: Performed By: #### M ALBR #### [facility] [address] [place] [address] Dr. Dayna Ford MCV (RBC) [Entitic vol] 97.8 fL Critically high 80.0-94.0 [facility] Comment on above: Performed By: #### M ALBR #### [facility] [address] [place] [address] Dr. Dayna Ford MONO # 0.7 103/ul Normal 0.3-0.8 [facility] Comment on above: Performed By: #### M ALBR #### [facility] [address] [place] [address] Dr. Dayna Ford Monocytes/100 WBC (Bld) 9.3 % Normal 1.7-12.0 [facility] Comment on above: Performed By: #### M ALBR #### [facility] [address] [place] [address] Dr. Dayna Ford NEUT # 4.3 103/ul Normal 1.4-6.5 [facility] Comment on above: Performed By: #### M ALBR #### [facility] [address] [place] [address] Dr. Dayna Ford Neutrophils/100 WBC (Bld) 60.4 % Normal 43.0-75.0 [facility] Comment on above: Performed By: #### M ALBR #### [facility] [address] [place] [address] Dr. Dayna Ford Platelet mean volume (Bld) [Entitic vol] 10.6 fL Normal 9.5-13.5 [facility] Comment on above: Performed By: #### M ALBR #### [facility] [address] [address] [address] Dayna Ford PLT 247 103/ul Normal 150-450 [facility] Comment on above: Performed By: #### M ALBR #### [facility] [address] [address] [address] Dayna Ford RBC 3.70 106/ul Critically low 4.70-6.10 [facility] Comment on above: Performed By: #### M ALBR #### [facility] [address] [address] [address] Dayna Ford WBC 7.1 103/ul Normal 4.0-11.0 [facility] Comment on above: Performed By: #### M ALBR #### [facility] [address] [address] [address] Dayna Ford GLYCOHEMOGLOBIN A1Con 2021 ADA RECOMMENDATION SEE BELOW Normal [facility] Comment on above: Result Comment: ADA RECOMMENDED LIMIT 4.0 - 6.0 ADA THERAPEUTIC TARGET < 7.0 ACTION SUGGESTED > 7.0 Performed By: #### A 1C #### [facility] [address] [address] [address] Dayna Ford Glucose [Mass/Vol] 148 mg/dL Normal [facility] Comment on above: Performed By: #### A 1C #### [facility] [address] [address] [address] Dayna Ford HbA1c (Bld) [Mass fraction] 6.8 % Critically high 4.5-6.2 [facility] Comment on above: Performed By: #### A 1C #### [facility] [address] [address] [address] Dayna Ford LIPID PROFILEon 10-18-2022 CHOL-HDL RATIO NORM SEE BELOW Normal [facility] Comment on above: Result Comment: 3.3 - 4.4 LOW RISK 4.4 - 7.1 AVERAGE RISK 7.1 - 11.0 MODERATE RISK >11.0 HIGH RISK Performed By: #### A LT, BMP, LIPID #### [facility] [address] [address] [address] Dayna Ford Cholesterol [Mass/Vol] 183 mg/dL Normal <=200 [facility] Comment on above: Performed By: #### A LT, BMP, LIPID #### [facility] [address] [address] [address] Dayna Ford Cholesterol in HDL [Mass/Vol] 46 mg/dL Normal 40-60 [facility] Comment on above: Performed By: #### A LT, BMP, LIPID #### [facility] [address] [place] [address] Dr. Dayna Ford Cholesterol in LDL [Mass/Vol] 98.0 mg/dL Normal [facility] Comment on above: Performed By: #### A LT, BMP, LIPID #### [facility] [address] [place] [address] Dr. Dayna Ford Cholesterol.total/Ch olesterol in HDL [Mass ratio] 4.0 {ratio} Normal [facility] Comment on above: Performed By: #### A LT, BMP, LIPID #### [facility] [address] [place] [address] Dr. Dayna Ford HDL NORMAL > or = 60 mg/dl - LO W CARDIOVASCULAR RISK <40 mg/dl - HIGH CARDIOVASCULAR RISK Normal [facility] Comment on above: Performed By: #### A LT, BMP, LIPID #### [facility] [address] [place] [address] Dr. Dayna Ford LDL CALC NORMAL SEE BELOW Normal [facility] Comment on above: Result Comment: <100 mg/dl OPTIMAL 100 - 129 mg/dl NEAR OR ABOVE OPTIMAL 130 - 159 mg/dl BORDERLINE HIGH 160 - 189 mg/dl HIGH >190 mg/dl VERY HIGH Performed By: #### A LT, BMP, LIPID #### [facility] [address] [place] [address] Dr. Dayna Ford Triglyceride [Mass/Vol] 195 mg/dL Critically high <=150 [facility] Comment on above: Performed By: #### A LT, BMP, LIPID #### [facility] [address] [place] [address] Dr. Dayna Ford VLDL CALC 39.0 mg/dL Normal [facility] Comment on above: Performed By: #### A LT, BMP, LIPID #### [facility] [address] [place] [address] Dr. Dayna Ford MICROALBUMIN, RAND URon 10-02 mALB 3.3 mg/L Normal <=30.0 [facility] Comment on above: Performed By: #### M ALBR #### [facility] [address] [place] [address] Dr. Dayna Ford PROF CHEM 8 (BAS METB)on Anion gap [Moles/Vol] 9.5 mmol/L Normal [facility] Comment on above: Performed By: #### A LT, BMP, LIPID #### [facility] [address] [place] [address] Dr. Dayna Ford Calcium [Mass/Vol] 8.8 mg/dL Normal 8.5-10.1 [facility] Comment on above: Performed By: #### A LT, BMP, LIPID #### [facility] [address] [place] [address] Dr. Dayna Ford Chloride [Moles/Vol] 106 mmol/L Normal 98-107 [facility] Comment on above: Performed By: #### A LT, BMP, LIPID #### [facility] [address] [place] [address] Dr. Dayna Ford CO2 [Moles/Vol] 27.4 mmol/L Normal 21.0-32.0 [facility] Comment on above: Performed By: #### A LT, BMP, LIPID #### [facility] [address] [place] [address] Dr. Dayna Ford Creatinine [Mass/Vol] 1.10 mg/dL Normal 0.70-1.30 [facility] Comment on above: Performed By: #### A LT, BMP, LIPID #### [facility] [address] [place] [address] Dr. Dayna Ford EGFR-AF NIUEAN >60 Normal >=60 [facility] Comment on above: Performed By: #### A LT, BMP, LIPID #### [facility] [address] [address] [address] Dayna Ford EGFR-NON AF NIUEAN >60 Normal >=60 [facility] Comment on above: Performed By: #### A LT, BMP, LIPID #### [facility] [address] [address] [address] Dayna Ford Glucose [Mass/Vol] 106 mg/dL Normal 74-106 [facility] Comment on above: Performed By: #### A LT, BMP, LIPID #### [facility] [address] [address] [address] Dayna Ford Potassium [Moles/Vol] 4.9 mmol/L Normal 3.5-5.1 [facility] Comment on above: Performed By: #### A LT, BMP, LIPID #### [facility] [address] [place] [address] Dr. Dayna Ford Sodium [Moles/Vol] 138 mmol/L Normal 136-145 [facility] Comment on above: Performed By: #### A LT, BMP, LIPID #### [facility] [address] [address] [address] Dayna Ford Urea nitrogen [Mass/Vol] 15.0 mg/dL Normal 7.0-18.0 [facility] Comment on above: Performed By: #### A LT, BMP, LIPID #### [facility] [address] [place] [address] Dr. Dayna Ford Urea nitrogen/Creatinine [Mass ratio] 13.6 mg/mg Normal [facility] Comment on above: Performed By: #### A LT, BMP, LIPID #### [facility] [address] [address] [address] Dayna Ford [facility] 10-18-2022 ALT [Catalytic activity/Vol] 27 U/L Normal 16-63 [facility] Comment on above: Performed By: #### A LT, BMP, LIPID #### [facility] [address] [place] [address] Dr. Dayna Ford US PATRICIA DOP LEG [...] by: JHOANA SERRATO Date: 2022-09-11 21:23 Normal [facility] GLYCOHEMOGLOBIN A1Con 2021 ADA RECOMMENDATION SEE BELOW Normal [facility] Comment on above: Result Comment: ADA RECOMMENDED LIMIT 4.0 - 6.0 ADA THERAPEUTIC TARGET < 7.0 ACTION SUGGESTED > 7.0 Performed By: #### D ATA1C #### [facility] [address] [address] [address] Dayna Ford Glucose [Mass/Vol] 146 mg/dL Normal [facility] Comment on above: Performed By: #### D ATA1C #### [facility] [address] [address] [address] Dayna Ford HbA1c (Bld) [Mass fraction] 6.7 % Critically high 4.5-6.2 [facility] Comment on above: Performed By: #### D ATA1C #### [facility] [address] [address] [address] Dayna Ford ECHOCARDIO M/2D COMPLETEon 0 01-30-2022 ECHOCARDIO M/2D COMPLETE Patient: MERRY NORRIS Exam Date: 01/30/2022 : 1955 Gender:M Ordering : DR YORDAN RAMEY D.O. Admission #: [id number] Family : Order #: [id number] CLICK HERE TO VIEW EXAM ECHOCARDIOGRAM REPORT [...] Area(A4C): 18.10 cm2 Left Atrium Systolic Volume(A2C): 12658 mm3 Left Atrium Systolic Volume(A4C): 87390 mm3 Mitral Valve MV E to A Ratio: 1.30 Deceleration [place]: 4520 mm/s2 Mitral Valve A-Wave Peak Velocity: [...] Foley M.D. on 01/30/2022 at 18:05 Normal [facility] US CAROTID ART BILon 022 US [...] by: ROXANE SOSA Date: 2022-01-30 10:37 Normal [facility] GLYCOHEMOGLOBIN A1Con 2021 ADA RECOMMENDATION ADA THERAPEUTIC TARGET 6.0 - 7.0 ACTION SUGGESTED > 7.0 Normal [facility] Comment on above: Performed By: #### D ATA1C #### [facility] [address] [place], [place] [address] Dr. Dayna Ford Glucose [Mass/Vol] 148 mg/dL Normal [facility] Comment on above: Performed By: #### D ATA1C #### [facility] [address] [place], [place] [address] Dr. Dayna Ford HbA1c (Bld) [Mass fraction] 6.8 % Critically high <=6.0 [facility] Comment on above: Performed By: #### D ATA1C #### [facility] [address] [place], [place] [address] Dr. Dayna Ford Vital Signs Date Time Vital Sign Value Performing Clinician Facility 05-10-2025 11:04-0400 Body height 172.72 cm [facility] 05-10-2025 11:04-0400 Body mass index (BMI) [Ratio] 35 kg/m2 [facility] 05-10-2025 11:04-0400 Body weight 104.49 kg [facility] 05-10-2025 11:04-0400 Diastolic blood pressure 72 mm[Hg] [facility] 05-10-2025 11:04-0400 Heart rate 69 /min [facility] 05-10-2025 11:04-0400 Respiratory rate 12 /min [facility] 05-10-2025 11:04-0400 Systolic blood pressure 110 mm[Hg] [facility] 03-19-2025 09:58-0400 Body height 172.72 cm [facility] 03-19-2025 09:58-0400 Body mass index (BMI) [Ratio] 34.9 kg/m2 [facility] 03-19-2025 09:58-0400 Body weight 104.38 kg [facility] 03-19-2025 09:58-0400 Diastolic blood pressure 82 mm[Hg] [facility] 03-19-2025 09:58-0400 Heart rate 67 /min [facility] 03-19-2025 09:58-0400 Respiratory rate 12 /min [facility] 03-19-2025 09:58-0400 Systolic blood pressure 147 mm[Hg] [facility] 02-09-2025 10:54-0400 Body height 172.72 cm [facility] 02-09-2025 10:54-0400 Body mass index (BMI) [Ratio] 35.6 kg/m2 [facility] 02-09-2025 10:54-0400 Body weight 106.14 kg [facility] 02-09-2025 10:54-0400 Diastolic blood pressure 68 mm[Hg] [facility] 02-09-2025 10:54-0400 Heart rate 69 /min [facility] 02-09-2025 10:54-0400 Respiratory rate 12 /min [facility] 02-09-2025 10:54-0400 SaO2% (BldA) [Mass fraction] 98 % [facility] 02-09-2025 10:54-0400 Systolic blood pressure 108 mm[Hg] [facility] 06-23-2024 10:50-0400 Body height 172.72 cm [facility] 06-23-2024 10:50-0400 Body mass index (BMI) [Ratio] 35.8 kg/m2 [facility] 06-23-2024 10:50-0400 Body weight 106.82 kg [facility] 06-23-2024 10:50-0400 Diastolic blood pressure 67 mm[Hg] [facility] 06-23-2024 10:50-0400 Heart rate 67 /min [facility] 06-23-2024 10:50-0400 Respiratory rate 12 /min [facility] 06-23-2024 10:50-0400 Systolic blood pressure 115 mm[Hg] [facility] 02-24-2024 14:33-0400 Body height 172.72 cm [facility] 02-24-2024 14:33-0400 Body mass index (BMI) [Ratio] 36.3 kg/m2 [facility] 02-24-2024 14:33-0400 Body weight 108.4 kg [facility] 02-24-2024 14:33-0400 Diastolic blood pressure 70 mm[Hg] [facility] 02-24-2024 14:33-0400 Heart rate 71 /min [facility] 02-24-2024 14:33-0400 Respiratory rate 12 /min [facility] 02-24-2024 14:33-0400 Systolic blood pressure 96 mm[Hg] [facility] 12-05-2023 13:24-0500 Body height 172.72 cm Yordan Ball Other [facility] 11-14-2023 11:00-0500 Body height 172.72 cm Yordan Ball Other [facility] [employer] Other 11-14-2023 11:00-0500 Body mass index (BMI) [Ratio] 36.4 kg/m2 Yordan Ball Other [employer] Other 11-14-2023 11:00-0500 Body weight 108.59 kg Yordan Ball Other [employer] Other 11-14-2023 11:00-0500 Diastolic blood pressure 80 mm[Hg] Yordan Ball Other [employer] Other 11-14-2023 11:00-0500 Respiratory rate 12 /min Yordan Ball Other [employer] Other 11-14-2023 11:00-0500 Systolic blood pressure 132 mm[Hg] Yordan Ball Other [employer] Other 10-18-2023 09:30-0500 Body height 172.72 cm Yordan Ball Other [employer] Other 10-18-2023 09:30-0500 Body mass index (BMI) [Ratio] 35.85 kg/m2 Yordan Ball Other [employer] Other 10-18-2023 09:30-0500 Body weight 106.96 kg Yordan Ball Other [employer] Other 10-18-2023 09:30-0500 Diastolic blood pressure 69 mm[Hg] Yordan Ball Other [employer] Other 10-18-2023 09:30-0500 Respiratory rate 12 /min Yordan Ball Other [employer] Other 10-18-2023 09:30-0500 Systolic blood pressure 130 mm[Hg] Yordan Ball Other [employer] Other 08-01-2023 09:30-0400 Body height 172.72 cm Yordan Ball Other [employer] Other 08-01-2023 09:30-0400 Body mass index (BMI) [Ratio] 35.82 kg/m2 Yordan Ball Other [employer] Other 08-01-2023 09:30-0400 Body weight 106.87 kg Yordan Ball Other [employer] Other 08-01-2023 09:30-0400 Diastolic blood pressure 68 mm[Hg] Yordan Ball Other [employer] Other 08-01-2023 09:30-0400 Respiratory rate 12 /min Yordan Ball Other [employer] Other 08-01-2023 09:30-0400 Systolic blood pressure 118 mm[Hg] Yordan Ball Other [employer] Other 06-12-2023 13:20-0400 Body height 172.72 cm Yordan Ball Other [employer] Other 04-26-2023 09:30-0400 Body height 172.72 cm Yordan Ball Other [employer] Other 04-26-2023 09:30-0400 Body mass index (BMI) [Ratio] 35.91 kg/m2 Yordan Ball Other [employer] Other 04-26-2023 09:30-0400 Body weight 107.14 kg Yordan Ball Other [employer] Other 04-26-2023 09:30-0400 Diastolic blood pressure 73 mm[Hg] Yordan Ball Other [employer] Other 04-26-2023 09:30-0400 Respiratory rate 12 /min Yordan Ball Other [employer] Other 04-26-2023 09:30-0400 Systolic blood pressure 120 mm[Hg] Yordan Ball Other [employer] Other 01-25-2023 09:30-0500 Body height 172.72 cm Yordan Ball Other [employer] Other 01-25-2023 09:30-0500 Body mass index (BMI) [Ratio] 36.12 kg/m2 Yordan Ball Other [employer] Other 01-25-2023 09:30-0500 Body weight 107.78 kg Yordan Ball Other [employer] Other 01-25-2023 09:30-0500 Diastolic blood pressure 70 mm[Hg] Yordan Ball Other [employer] Other 01-25-2023 09:30-0500 Respiratory rate 12 /min Yordan Ball Other [employer] Other 01-25-2023 09:30-0500 Systolic blood pressure 122 mm[Hg] Yordan Ball Other [facility] [employer] Other Encounters Encounter Date Encounter Type Care Provider Facility Start: 05-10-2025 End: 05-10-2025 ambulatory [facility] Work Phone: Start: 05-10-2025 End: 05-10-2025 Patient encounter procedure [facility] Work Phone: Start: 03-19-2025 End: 03-19-2025 ambulatory [facility] Work Phone: Start: 03-19-2025 End: 03-19-2025 Patient encounter procedure [facility] Work Phone: Start: 02-09-2025 End: 02-09-2025 ambulatory [facility] Work Phone: Start: 02-09-2025 End: 02-09-2025 Patient encounter procedure [facility] Work Phone: Start: 10-23-2024 Patient encounter procedure [facility] Start: 08-11-2024 End: 08-11-2024 ambulatory [facility] Work Phone: Start: 08-11-2024 End: 08-11-2024 Patient encounter procedure [facility] Work Phone: Start: 08-05-2024 End: 08-05-2024 ambulatory [facility] Start: 06-23-2024 End: 06-23-2024 ambulatory [facility] Work Phone: Start: 06-23-2024 End: 06-23-2024 Patient encounter procedure [facility] Work Phone: Start: 06-08-2024 Non-patient / Non-visit [facility] [employer] Work Phone: Start: 02-25-2024 End: 02-25-2024 ambulatory GABINO ROSAURA [facility] Start: 02-24-2024 End: 02-24-2024 ambulatory [facility] Work Phone: Start: 02-24-2024 End: 02-24-2024 Patient encounter procedure [facility] Work Phone: Start: 01-31-2024 Non-patient / Non-visit [facility] Work Phone: Start: 01-22-2024 End: 01-22-2024 ambulatory [facility] Start: 12-24-2023 End: 12-24-2023 ambulatory Yordan Ramey Other [employer] Other Start: 12-24-2023 Telephone encounter Yordan Ramey [facility] Start: 12-24-2023 Patient encounter procedure [facility]- Start: 12-23-2023 End: 12-23-2023 ambulatory Yordan Ball Other [employer] Other Start: 12-23-2023 Telephone encounter Yordan Tanvir [facility] Start: 12-05-2023 End: 12-05-2023 ambulatory Yordan Ball Other [employer] Other Start: 12-05-2023 Telephone encounter Yordan Ramey FP [facility] Start: 12-05-2023 End: 12-05-2023 Patient encounter procedure [facility] Work Phone: Start: 11-14-2023 End: 11-14-2023 ambulatory Yordan Ball Other [employer] Other Start: 11-14-2023 Office outpatient visit 15 minutes Yordan Ball [facility] Start: 10-18-2023 End: 10-18-2023 ambulatory Yordan Ball Other [employer] Other Start: 10-18-2023 Patient encounter procedure Yordan Ball [facility] Start: 10-08-2023 End: 10-08-2023 ambulatory Yordan Ramey Other [employer] Other Start: 10-08-2023 Nursing evaluation o f patient and report Yordan Ramey [facility] Start: 09-19-2023 End: 09-19-2023 ambulatory Yordan Ramey Other [employer] Other Start: 09-19-2023 Nursing evaluation o f patient and report Yordan Ramey [facility] Start: 08-01-2023 End: 08-01-2023 ambulatory Yordan Ramey Other [employer] Other Start: 08-01-2023 Office outpatient visit 25 minutes Yordan Ball [facility] Start: 06-12-2023 End: 06-12-2023 ambulatory Yordan Ramey Other [employer] Other Start: 06-12-2023 Telephone encounter Yordan Ramey [facility] Start: 05-22-2023 End: 05-22-2023 ambulatory Yordan Ramey Other [employer] Other Start: 05-22-2023 Telephone encounter Yordan Ramey [facility] Start: 04-26-2023 End: 04-26-2023 ambulatory Yordan Ramey Other [employer] Other Start: 04-26-2023 Office outpatient visit 25 minutes Yordan Ramey [facility] Start: 04-25-2023 End: 04-25-2023 ambulatory Uzair Leblanc Facility:[facility] Start: 04-15-2023 End: 04-15-2023 ambulatory Yordan Ramey Other [employer] Other Start: 04-15-2023 Telephone encounter Yordan Ramey [facility] Start: 01-25-2023 End: 01-25-2023 ambulatory Yordan Ramey Other [employer] Other Start: 01-25-2023 Office outpatient visit 25 minutes Yordan Ramey [facility] Start: 10-26-2022 End: 10-27-[address] YORDAN RAMEY Facility:[facility] Start: 10-18-2022 End: 10-19-[address] YORDAN RAMEY Facility:[facility] Start: 09-11-2022 End: 09-12-[address] YORDAN RAMEY Facility:[facility] Start: 07-19-2022 End: 07-20-2022 ambulatory NONE LISTED REQUEST Facility:[facility] Start: 01-30-2022 End: 01-31-[address] YORDAN RAMEY Facility:[facility] Start: 01-17-2022 End: 01-18-[address] NONE LISTED REQUEST Facility:[facility] Start: 03-25-2018 End: 03-26-2018 Ambulatory DEFAULT PHYSICIAN Facility:[facility] Start: 03-12-2018 End: 03-13-2018 Ambulatory DEFAULT PHYSICIAN Facility:[facility] Procedures Date Procedure Procedure Detail Performing Clinician Start: 10-18-[address] SCOTT [place] Comment on above: Performed By: #### M ALBR #### [facility] [address] [place] [address] Dr. Dayna Ford Plan of Treatment Date Care Activity Detail Author XR Hip - right 2 Views [facility] Immunizations Immunization Date Immunization Notes Care Provider Anastasiya pavon 08-11-2024 influenza, high dose seasonal, preservative-free [facility] 10-08-2023 tetanus and diphther ia toxoids, adsorbed, preservative free, for adult use (2 Lf of tetanus toxoid and 2 Lf of diphtheria toxoid) [facility] 10-08-2023 tetanus and diphther ia toxoids, adsorbed, preservative free, for adult use (5 Lf of tetanus toxoid and 2 Lf of diphtheria toxoid) Yordan Ramey Other [employer] Other 09-19-2023 influenza virus vaccine, unspecified formulation [facility] 09-19-2023 influenza, high dose seasonal, preservative-free Yordan Ramey Other [employer] Other 09-11-2022 influenza virus vaccine, split virus (incl. purified surface antigen) Yordan Ramey Other [employer] Other 09-11-2022 influenza virus vaccine, unspecified formulation [facility] 08-27-2021 influenza virus vaccine, split virus (incl. purified surface antigen) Yordan Ramey Other [employer] Other 08-27-2021 influenza virus vaccine, unspecified formulation [facility] 08-31-2019 pneumococcal polysaccharide vaccine, 23 valent Yordan Ramey Other [facility] 10-28-2013 diphtheria, tetanus toxoids and acellular pertussis vaccine, unspecified formulation Yordan Ramey Other [facility] Payers Date Payer Category Payer Unknown [id number] 1961 Medicare [id number] 1961 Self-pay 1961 Unknown [id number] 1955 Unknown [id number] 1955 Unknown [id number] 1955 Unknown [id number] 1955 Unknown [id number] Unknown Unknown [id number] Unknown [id number] Unknown [id number] Unknown [facility] [id number] Social History Date Type Detail Facility Unknown if ever smoked [employer] Other Sex Assigned At Sex Assigned At Bir th [employer] Other Start: 01-20-2024 Tobacco smoking status NHIS Never smoked tobacco (finding) [facility] Start: 1955 Sex Assigned At Male [facility] Start: 02-09-2025 End: 05-10-2025 Sex Male (finding) [facility] Clinical Notes 01-25-2023 to 02-09-2025 Note Date & Type Note Facility 02-09-2025 Evaluation note Diagnosis Onset Date Resolution Aortic valve sclerosis acute Ma rch 2024 10:52am NSVT (nonsustained ventricular tachycardia) acute January 302024 10:52am Obesity acute February 09 10:52am GENARO (obstructive sleep apnea) acute February 09, 2025 10:52am Pernicious anemia acute January 302024 10:52am Primary hypertension acute Willy h 2024 10:52am Type 2 diabetes mellitus with hyperglycemia acute February 09, 025 10:52am Aortic valve sclerosis acute Ap ril 2024 9:48am NSVT (nonsustained ventricular tachycardia) acute March 022024 9:48am Obesity acute March 19 9:48am GENARO (obstructive sleep apnea) acute March 19, 2025 9:48am Primary hypertension acute Apri l 2024 9:48am Type 2 diabetes mellitus with hyperglycemia acute March 19, 025 9:48am [facility] Work Phone: 1(762) 566-197803-11-2025 Evaluation note* Diagnosis Onset Date Resolution Status Admit Date Aortic valve sclerosis acute Ma rch 2024 10:52am NSVT (nonsustained ventricul ar tachycardia) acute February 09, 2025 10:52am Obesity acute February 09 10:52am GENARO (obstructive sleep apnea) acute February 09, 2025 10:52am Pernicious anemia acute January 302024 10:52am Primary hypertension acute Willy h 2024 10:52am Type 2 diabetes mellitus wit h hyperglycemia acute February 09, 2025 10:52am Aortic valve sclerosis acute Ap ril 2024 9:48am NSVT (nonsustained ventricul ar tachycardia) acute March 19, 2025 9:48am Obesity acute March 19 9:48am GENARO (obstructive sleep apnea) acute March 19, 2025 9:48am Primary hypertension acute Apri l 2024 9:48am Type 2 diabetes mellitus wit h hyperglycemia acute March 19, 2025 9:48am Aortic valve sclerosis acute Ju ne 2024 10:52am NSVT (nonsustained ventricul ar tachycardia) acute May 10, 2025 1 0:52am Obesity acute May 10, 2025 10:52am GENARO (obstructive sleep apnea) acute May 10, 2025 10:52am Pernicious anemia acute May 10:52am Primary hypertension acute May 10, 2025 10:52am Type 2 diabetes mellitus wit h hyperglycemia acute May 10, 2025 1 0:52am [facility] Work Phone: [phone]) 523-448309-04-2024 NoteUT Cardiology - [facility] Subjective Merry Norris is a 69 y.o. year old [...] Rang Lexiscan nuclear stress test 02/19/2024 at [facility]: Cardiac cath: Event Monitor: 11/18/2023 (more content not included)...[facility]03-26-2024 Note [place] Electrophysiology Consult Note Reason for visit: NSVT [...] on file Intimate Partner Violence: Unknown (01/23/2024) [place] [facility] [place] Fear of Current or [...] Diastolic Murmur: not heard (more content not included)...[facility]02-21-2024 Note [place] Electrophysiology Consult Note Reason for [...] on file Intimate Partner Violence: Unknown (01/22/2024) [place] [facility] [place] Fear of Current or [...] flow velocity Holter monitor (more content not included)...[facility] 01-22-2024 NoteNew patient here to establish care. Ref from Dr. Ramey for SVT. Had echo last month and wore Holter in Nov 2023. Tests were ordered for palpitations. He denies chest pain and SOB. Wears cpap nightly for GENARO. Review of Systems Cardiovascular: Positive for palpitations. Neurological: Positive for light-headedness. All other systems reviewed and are negative.[facility] 12-24-2023 Evaluation note* Encounter Date Diagnosis Assessment Notes Treatment Notes Treatment Clinical Notes Dec, NSVT (nonsustained ventricular tachycardia) (ICD-10 - I47.29) Normal LVEF w/o aortic sclerosis. Compliant w/ treatment of GENARO. Normal TSH and BMP w/ mild CKD 3a. Symptoms noticeable at rest w/o activity limiting symptoms. Denies CP, dyspnea or lightheadedness. Instructed to avoid stimulants and initiated Metoprolol Refer to Cardiology for evaluation. Dec, Aortic valve sclerosis (ICD-10 - I35.8) 2021 ECHO: MORIAH 1.8cm, velocity 190, 15/9 ECHO: LVEF 60%, calcific aortic valve w/o , RVSP 43 - 12/2023 Asymptomatic w/o CP, tachycardia or lightheadedness. Control BP and repeast Echo in 3 years. Dec, Primary hypertension (ICD-10 - I10) Stable and controlled. Dec, Elevated cholesterol (ICD-10 - E78.00) Stable Dec, GENARO (obstructive sleep apnea) (ICD-10 - G47.33) AHI > 30 Compliant w/ treatment Dec, Type 2 diabetes mellitus with hyperglycemia, without long-term current use of insulin (ICD-10 - E11.65) Stable Dec, Chronic venous insufficiency (ICD-10 - I87.2) Stable [employer] Other 01-04-2024 Evaluation note* Encounter Date Diagnosis Assessment Notes Treatment Notes Treatment Clinical Notes Dec, Nonsustained ventricular tachycardia (ICD-10 - I47.29) Dec, Aortic valve sclerosis (ICD-10 - I35.8) 2021 ECHO: MORIAH 1.8cm, velocity 190, 15/9 Dec, Primary hypertension (ICD-10 - I10) [employer] Other 12-14-2023 Evaluation note* Encounter Date Diagnosis [...] Microalbumin, Dilated eye exam and Foot exam [employer] Other 11-17-2023 Evaluation note* Encounter Date Diagnosis [...] use, the patient reduces the risk for GA, CVA, HTN, cardiac dysrhythmias and sudden cardiac [...] and to keep active. 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 No change [...] PSA (prostate specific antigen) (ICD-10 - Z12.5) [employer] Other 11-07-2023 Evaluation note* Encounter Date Diagnosis Assessment Notes Treatment Notes Treatment Clinical Notes Oct, Superficial laceration of skin (ICD-10 - T14.8XXA) [employer] Other 11-07-2023 Evaluation note* Encounter Date Diagnosis Assessment Notes Treatment Notes Treatment Clinical Notes Oct, Superficial laceration of skin (ICD-10 - T14.8XXA) Tetanus shot given due to laceration on right hand [employer] Other 08-31-2023 Evaluation note* Encounter Date Diagnosis [...] use, the patient reduces the risk for GA, CVA, HTN, cardiac dysrhythmias and sudden cardiac [...] healthy diet, exercise and keep active 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 Jul, Chronic venous insufficiency (ICD-10 - I87.2) Avoid salt and elevate lower extremities, support stockings, inspect legs and feet daily for blisters and ulcerations. Jul, PA (pernicious anemia) (ICD-10 - D51.0) COntinue monthly B12 injections [employer] Other 07-12-2023 Evaluation note* Encounter Date Diagnosis Assessment Notes Treatment Notes Treatment Clinical Notes Jun, GENARO (obstructive sleep apnea) (ICD-10 - G47.33) AHI > 30 [employer] Other 05-26-2023 Evaluation note* Encounter Date Diagnosis [...] use, the patient reduces the risk for GA, CVA, HTN, cardiac dysrhythmias and sudden cardiac [...] History of nephrolithiasis (ICD-10 - Z87.442) [employer] Other 05-26-2023 Evaluation note* Encounter Date Diagnosis [...] use, the patient reduces the risk for GA, CVA, HTN, cardiac dysrhythmias and sudden cardiac [...] of nephrolithiasis (ICD-10 - Z87.442) Push fluids [employer] Other 05-15-2023 Evaluation note* Encounter Date Diagnosis Assessment Notes Treatment Notes Treatment Clinical Notes April, Elevated cholesterol (ICD-10 - E78.00) [employer] Other 02-24-2023 Evaluation note* Encounter Date Diagnosis [...] use, the patient reduces the risk for GA, CVA, HTN, cardiac dysrhythmias and sudden cardiac [...] G25.81) Continue treatment of GENARO. Symptoms tolerable [employer] Other Evaluation noteNo InformationNort Endorse For A Cause Other Evaluation note* Diagnosis Onset Date Resolution Status Aortic valve sclerosis acute NSVT (nonsustained ventricular tachycardia) acute Type 2 diabetes mellitus with hyperglycemia acute [facility] Work Phone: Evaluation note* Diagnosis Onset Date Resolution Status Aortic valve sclerosis acute NSVT (nonsustained ventricular tachycardia) acute GENARO (obstructive sleep apnea) acute Primary hypertension acute Right hip pain acute Type 2 diabetes mellitus with hyperglycemia acute Lightheadedness noneactive [facility] Work Phone: Evaluation note* Diagnosis Onset Date Resolution Status Admit Date Aortic valve sclerosis acute Ma [facility] 2024 10:52am NSVT (nonsustained ventricul ar tachycardia) acute February 09, 2025 10:52am GENARO (obstructive sleep apnea) acute February 09, 2025 10:52am Primary hypertension acute Willy h 2024 10:52am Type 2 diabetes mellitus wit h hyperglycemia acute February 09, 2025 10:52am [facility] Work Phone: History general Narrative - Reported* Type Description Date Medical History hypertension Medical History type II diabetes Medical History hypercholesterolemia Surgical History wisdom teeth extract Surgical History hiatal hernia repair Surgical History cholecystectomy Surgical History hernia Hospitalization History see surgical history [employer] Other History general Narrative - Reported* Type Description Date Medical History hypertension Medical History type II diabetes Medical History hypercholesterolemia Surgical History wisdom teeth extract Surgical History hiatal hernia repair Surgical History cholecystectomy Surgical History hernia Surgical History EGD 04/2023 Surgical History Colonoscopy 04/2023 Hospitalization History see surgical history [employer] Other History general Narrative - ReportedNort Endorse For A Cause Other History general Narrative - Reported* Type Description Date Medical History hypertension Medical History type II diabetes Medical History hypercholesterolemia Medical History GENARO Surgical History wisdom teeth extract Surgical History hiatal hernia repair Surgical History cholecystectomy Surgical History hernia Surgical History EGD 04/2023 Surgical History Colonoscopy 04/2023 Hospitalization History see surgical history [employer] Other Reason for referral (narrative)* Reason Referral for NSVT Diagnosis 1 NSVT (nonsustained v entricular tachycardia) (I47.29) Referral Organization [facility]vir nice Referring Provider First Name Yordan Referring Provider Last Name Tanvir Referring Provider Specialty Internal Me dicalvaro Referred Organization [facility] Referred Provider Gabino Parham Referred Address [address] [place], [place],[address] Referred Provider Specialty Cardiology Referral Priority Routine General Notes Patient being referr ed for NSVT. He presented w/ heart fluttering during rest. He denies activity limiting symptoms. He has normal LVEF and denies CP, dyspnea or lightheadedness. He is being referred for evaluation and treatment. [employer] Other Summary Purpose Family History Relationship Condition [...] diabetes mellitus with hyperglycemia Lightheadedness Chief Complaint Admit Date 4 month f/u February 09, 2025 10: 52am Reason for Visit Admit Date Aortic valve sclerosis February 09, 2025 10:52am NSVT (nonsustained ventricular tachycard ia) February 09, 2025 10:52am GENARO (obstructive sleep apnea) January 10:52am Primary hypertension February 09, 2025 10 :52am Type 2 diabetes mellitus with hyperglyce lito February 09, 2025 10:52am Chief Complaint Admit Date 4 month f/u February 09, 2025 10: 52am ER follow up March 19, 2025 9:4 8am Reason for Visit Admit Date Aortic valve sclerosis February 09, 2025 10:52am NSVT (nonsustained ventricular tachycard ia) February 09, 2025 10:52am Obesity February 09, 2025 10: 52am GENARO (obstructive sleep apnea) January 10:52am Pernicious anemia February 09, 2025 10: 52am Primary hypertension February 09, 2025 10 :52am Type 2 diabetes mellitus with hyperglyce lito February 09, 2025 10:52am Aortic valve sclerosis March 19, 2025 9:48am NSVT (nonsustained ventricular tachycard ia) March 19, 2025 9:48am Obesity March 19, 2025 9:4 8am GENARO (obstructive sleep apnea) March 9:48am Primary hypertension March 19, 2025 9: 48am Type 2 diabetes mellitus with hyperglyce [facility] March 19, 2025 9:48am Chief Complaint Admit Date 4 month f/u February 09, 2025 10: 52am ER follow up March 19, 2025 9:4 8am 3 month f/u May 10, 2025 10:52 am Reason for Visit Admit Date Aortic valve sclerosis February 09, 2025 10:52am NSVT (nonsustained ventricular tachycard ia) February 09, 2025 10:52am Obesity February 09, 2025 10: 52am GENARO (obstructive sleep apnea) January 10:52am Pernicious anemia February 09, 2025 10: 52am Primary hypertension February 09, 2025 10 :52am Type 2 diabetes mellitus with hyperglyce [facility] February 09, 2025 10:52am Aortic valve sclerosis March 19, 2025 9:48am NSVT (nonsustained ventricular tachycard ia) March 19, 2025 9:48am Obesity March 19, 2025 9:4 8am GENARO (obstructive sleep apnea) March 9:48am Primary hypertension March 19, 2025 9: 48am Type 2 diabetes mellitus with hyperglyce [facility] March 19, 2025 9:48am Aortic valve sclerosis May 10, 2025 10 :52am NSVT (nonsustained ventricular tachycard ia) May 10, 2025 10:52am Obesity May 10, 2025 10:52 am GENARO (obstructive sleep apnea) May 10, 2025 10:52am Pernicious anemia May 10, 2025 10:52 am Primary hypertension May 10, 2025 10:5 2am Type 2 diabetes mellitus with hyperglyce lito May 10, 2025 10:52am Additional Source Comments (unrecognized sect ion and content) No Status Records FoundNo Status Records FoundNo Status Records FoundNo Status Records Found INFORMATION SOURCE (unrecogn ized section and content) DATE CREATED AUTHOR 05/22/2018 [facility] DATE CREATED AUTHOR AUTHOR'S ORGANIZ ATION 11/01/2022 [facility] DATE CREATED AUTHOR AUTHOR'S ORGANIZ ATION 05/12/2023 [facility] DATE CREATED AUTHOR AUTHOR'S ORGANIZ ATION 08/10/2024 [facility] REASON FOR VISIT (unrecogniz ed section and content) 3 MONTH FOLLOW UP MBRefill3 MOTH FOLLOW UP3 MOTH FOLLOW UPNo Information3 month Follow upflu shottetanus shotWellnestetanus shotfeels like heart is fluttering , bp has been fineHolter resultsNo InformationLab resultsNo Information Care Teams (unrecognized sec tion and content) Team Status: Active Member Role Status Dates Yordan Ramey DO Primary Care Provider Active Team Status: Inactive Member Role Status Dates Yordan Ramey DO Primary Care Provide r, Attending Provider Active Start: February 09, 2025 End: February 09, 2025 Team Status: Active Member Role Status Dates [...] Status Dates Yordan Ramey , Primary Care Provide r, Attending Provider Active Start: August 11, 2024 End: August 11, 2024 Team Status: Inactive Member Role Status Dates Yordan Ramey , DO Primary Care Provide r, Attending Provider Active Start: March 19, 2025 End: March 19, 2025 Team Status: Inactive Member Role Status Dates Yordan Ramey , DO Primary Care Provide r, Attending Provider Active Start: May 10, 2025 End: May 10, 2025 Goals (unrecognized section and content) Goals may [...] BE BASED ON THE PRIMARY CLINICAL RECORDS. [facility] [employer] provides no warranty or guarantee of the accuracy or completeness of information in this document.
== END 2025-06-18 08:44 | disposition home or self-care (01) ==
LOC: US 08:43
PROVIDERS: PCP Internal Medicine; Visit Provider Internal Medicine
DX: R79.89 Other specified abnormal findings of blood chemistry (principal); N20.0 Calculus of kidney; N28.1 Cyst of kidney, acquired
CPT/HCPCS: 76775

== ENCOUNTER 2025-10-25 08:03 | Outpatient (OUT) | payer MEDICARE, OTHER, SELFPAY ==
--- OUTSIDE RECORDS SUMMARY | 2025-10-25 08:10 | XMS_ITS | Clinical Summary ---
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 Role Phone Yordan Ramey DO Primary Care Provider [phone] Allergies No known active allergies Medications MedicationSigDispense QuantityRefillsLast FilledStart DateEnd DateStatus metFORMIN (Glucophage) 1,000 mg tablet TAKE 1 TABLET BY MOUTH BEFORE BREAKFAST AND EVENING MEAL11/08/2023ctive atorvastatin (Lipitor) 40 mg tablet TAKE 1 TABLET BY MOUTH EVERY DAY FOR 90 DAYS12/31/2023ctive tamsulosin (Flomax) 0.4 mg 24 hr capsule TAKE 1 CAPSULE BY MOUTH EVERY DAY AFTER EVENING MEAL ctive lisinopril 10 mg tablet Indications:Benign hypertensive heart disease without congestive heart failure Take 1 tablet (10 mg) by mouth once daily as directed. 90 tablet ctive metoprolol succinate XL (Toprol-XL) 50 mg 24 hr tablet Indications:SVT (supraventricular tachycardia),NSVT (nonsustained ventricular tachycardia) (CMS/HCC)TAKE 1 TABLET BY MOUTH EVERY DAY IN THE MORNING 90 tablet 5Active buPROPion XL (Wellbutrin XL) 150 mg 24 hr tablet Take 150 mg by mouth in the morning.5Active amLODIPine (Norvasc) 5 mg tablet Take 5 mg by mouth in the morning.5Active cyanocobalamin (Vitamin B-12) 1,000 mcg/mL injection Inject 100 mcg into the shoulder, thigh, or buttocks 1 (one) time.07/02/2025 Active Active Problems ProblemNoted DateDiagnosed DateClass 2 obesity due to excess calories without serious comorbidity with body mass index (BMI) of 35.0 to 35.9 in adult 08/22/2025ortic valve yriostupt04/03/2024Encounter for colonoscopy due to history of adenomatous colonic xgennw2408/04/20245623Yqfkleasiiufscaromsn00/03/2024 Primary vngetmkmbrdo05/03/2024ecurrent major depressive disorder, in full qrtbwzezy35/03/2024ight hip pain08/04/2024LS (restless legs syndrome) 08/04/2024Type 2 diabetes mellitus with wguwkfdzpmhwb34/03/2024Sleep apnea Diabetes mellitusNSVT (nonsustained ventricular tachycardia) Encounters DateTypeDepartmentCare IakxPzshfaexkdx20/19/2025 10:00 AM EDTOffice Visit [facility] [place] [address] [place] [address] Pk Carcamo MD NSVT (nonsustained ventricular tachycardia) (CMS/HCC) (Primary Dx); Primary hypertension; Hypercholesterolemia; Type 2 diabetes mellitus with hyperglycemia, without long-term current use of insulin (CMS/HCC); Obstructive sleep apnea syndrome; Class 2 obesity due to excess calories without serious comorbidity with body mass index (BMI) of 35.0 to 35.9 in adultfrom Last 3 Months Family History Medical HistoryRelationNameCommentsDiabetesMotherHeart failureMotherRelationName StatusCommentsFatherDeceasedMotherDeceased Social History Tobacco UseTypesPacks/DayYears UsedDateSmoking Tobacco: NeverSmokeless Tobacco: Never Tobacco Cessation:Counseling Given: Not Answered Alcohol UseStandard Drinks/WeekCommentsNever0 (1 standard drink = 0.6 oz pure alcohol)[place] Safety & EnvironmentAnswerDate RecordedFear of Current or Ex-Partner Not on file01/23/2024Emotionally AbusedNot on file01/23/2024hysically AbusedNot on file01/23/2024Sexually AbusedNot on 01/23/2024hysically or Sexually AbusedNot on file01/23/2024Sex and Gender InformationValueDate RecordedSex Assigned at VfcqwGgyj90/11/2025 3:30 PM EDTLegal KmmFkkx1305/31/2022 12:04 AM EDT Gender CtgiviunNjbd03/11/2025 3:30 PM EDTSexual OrientationHeterosexual or Pdfdkckr99/11/2025 3:30 PM EDT Last Filed Vital Signs Vital SignReadingTime TakenCommentsBlood Tjcwxptw511/68008/20/2025 10:48 AM EDT Igztv226508/20/2025 10:48 AM EDTTemperature--Respiratory Rate--Oxygen Saturation 97%08/20/2025 10:48 AM EDTInhaled Oxygen Concentration--Uxsxga488 kg (238 lb) 08/20/2025 10:48 AM JJLPjpxmu582.3 cm (5' 9 )08/20/2025 10:48 AM EDTBody Mass Index35.15008/20/2025 10:48 AM EDT Plan of Treatment Health MaintenanceDue DateLast DoneCommentsCT Khwwgzpeqkcc1953Colonoscopy 3Colorectal Cancer Ujwxspbhg1953Diabetes: Hemoglobin A1C 1953FIT-DNA1953FIT1953FOBT1953Medicare Annual Wellness (AWV)1955 2876Cgqeiipvnhmww1953Diabetes: Retinopathy Lymbtlwia43/10/1963 Depression Qusmnygbz46/10/1965Diabetes: Urine Protein Wdxmbckwd78/10/1972 Pneumococcal Vaccine: 50+ Years (1 of 2 - PCV)1972Adult Ptmfust1906/10/1975 Zoster Vaccines (1 of 2)Fall Risk Recfhmzle32/10/2018COVID- 19 Vaccine ( season)/01/2021, 02/04/2021Influenza Vaccine (#1)509/09/2024, 09/11/2022, 08/27/2021, Additional history existsHIB VaccinesAged OutNo longer eligible based on patient's age to complete this topic HPV VaccinesAged OutNo longer eligible based on patient's age to complete this topicIPV VaccinesAged OutNo longer eligible based on patient's age to complete this topicMeningococcal B VaccineAged OutNo longer eligible based on patient's age to complete this topicMeningococcal VaccineAged OutNo longer eligible based on patient's age to complete this topicRotavirus VaccinesAged OutNo longer eligible based on patient's age to complete this [place] [address] Care Teams Team MemberRelationshipSpecialtyStart DateEnd Date Yordan Ramey DO [address] [facility] [place] [id number] PCP - General01/22/24
--- OUTSIDE RECORDS SUMMARY | 2025-10-25 08:11 | XMS_ITS | CCD ---
Author Organization [facility] CliniSynv Care Team Providers Care Ophthalmic Nurse Name Role Phone PHYSICIAN, DEFAULT Unavailable Unavailable [...] Unavailable WEST, DR ROXANE [employer] Unavailable Yordan Ramey Unavailable Uzair Leblanc Admitting Unavailable Uzair Leblanc Attending Unavailable Yordan Ramey Primary Care Unavailable Yordan Ramey DO Primary Care Provider Yordan Ramey DO Attending Provider [phone] SAÚL GUILLAUME Attending Unavailable Allergies Allergy ClassificationReported Allergen(s)Allergy TypeDate of OnsetReaction(s) Facility (10 sources)sulfaSALAzineDrug AllergyUnknoWright [facility] Hospital [facility] Other Medications Current Medications MedicationDrug Class(es)DatesSig (Normalized)Sig (Original)amLODIPine 5 mg oral tablet (4 sources)Dihydropyridine Calcium Channel BlockerStart: 11-36-0524bioa 1 tablet by mouth once dailyatorvastatin 40 mg oral tablet (20 sources)HMG-CoA Reductase InhibitorStart: 36-33-6704xebl 1 tablet by mouth once dailyStart: 06-24-2024 End: 00-61-2392ndur 1 tablet by mouth once daily at bedtimeAtorvastatin 40 mg tablet Discontinued 40 MG PO Daily at bedtime 90 June 24, 2024 11:01am March 14, 2025 9:23pmStart: 03-27-2024 End: 80-63-6245vyel 1 tablet by mouth once dailyAtorvastatin 40 mg tablet Discontinued 0 .ROUTE .COMPLEX 90 March 27, 2024 7:33am June 241:06am TAKE 1 TABLET BY MOUTH EVERY DAY FOR 90 DAYSStart: 01-31-2024 End: 19-26-5632slkv 1 tablet by mouth once dailyAtorvastatin 40 mg tablet Discontinued 40 MG PO Daily January 31, 2024 1:00am March 27, 2024 7:33amtake 1 tablet by mouth every twenty-four hoursAtorvastatin Calcium 40 MG 1 tablet Orally Once a day ActiveBD Luer-Josias Syringe 23G X 1 3 ML (16 sources)BD Luer-Josias Syringe 23G X 1 3 ML 1 syringe once every month IM monthly for 365 days Jmimwj92 hr buPROPion hydrochloride 150 mg extended release oral tablet (20 sources)AminoketoneStart: 92-66-5695ftbt 1 tablet by mouth once daily in the morningStart: 02-09-2025 End: 45-22-7363gmcy 1 tablet by mouth once daily in the morningBupropion Hcl 150 mg tablet extended release 24 hr Discontinued 150 MG PO Every morning 90 2024 12:00am August 10, 2025 8:39amStart: 08-18-2024 End: 90-65-6637jyyf 1 tablet by mouth twice dailyBupropion Hcl 100 mg tablet sustained-release 12 hr Discontinued 0 .ROUTE .COMPLEX 180 February 07, 2025 6:55pm February 09, 2025 11:28am TAKE 1 TABLET BY MOUTH TWICE A DAYStart: 07-28-2024 End: 99-67-5347zewz 1 tablet by mouth once daily in the morningBupropion Hcl 150 mg tablet extended release 24 hr Discontinued 150 MG PO Every morning July 28, 2024 12:00am August 18, 2024 5:41pmStart: 07-22-2024 End: 36-88-7808wabi 1 tablet by mouth twice dailyBupropion Hcl 100 mg tablet sustained-release 12 hr Discontinued 100 MG PO Twice daily 60 2023 9:02am July 28, 2024 2:48pmStart: 06-23-2024 End: 08-17-3615hgof 1 tablet by mouth once daily in the morningBupropion Hcl 150 mg tablet extended release 24 hr Discontinued 150 MG PO Every morning June 23, 2024 12:00am July 22, 2024 5:22pmCinnamon Preparation (16 sources)Non-Standardized Food Allergenic ExtractCinnamon Active Cyanocobalamin (Vitamin B-12) 1,000 mcg/mL solution (4 sources)Start: 53-65-3292Vybayvolbndltd (Vitamin B-12) 1,000 mcg/mL solution Active 0 .ROUTE .COMPLEX April 09, 2025 3:58pmINJECT 1 ML EVERY 4 WEEKSStart: 03-02-2024 End: 98-42-8360Lvrtguhyjudsdt (Vitamin B-12) 1,000 mcg/mL solution Discontinued 0 .ROUTE .COMPLEX 3 March 02, 2024 5:10pm April 09, 2025 3:58pm INJECT 1 ML EVERY 4 WEEKSStart: 75-64-2757Uoywuahngvgqgf (Vitamin B-12) 1,000 mcg/mL solution Active 0 .ROUTE .COMPLEX March 02, 2024 5:10pm INJECT 1 ML EVERY 4 WEEKSFish Oils (16 sources)Fish Oil Activelisinopril 10 mg oral tablet (20 sources)Angiotensin Converting Enzyme InhibitorStart: 02-52-2573yyed 1 tablet by mouth once dailyStart: 03-03-2025 End: 38-71-0359msam 2 tablets by mouth once dailyLisinopril 5 mg tablet Discontinued 10 MG PO Daily 180 March 03, 2025 10:32am April 02, 2025 11:49am Start: 10-16-2024 End: 59-07-0266oujh 1 tablet by mouth once dailyLisinopril 5 mg tablet Discontinued 0 .ROUTE .COMPLEX October 16, 2024 8:27am March 03, 2025 10:32am TAKE 1 TABLET BY MOUTH EVERY DAYStart: 06-25-2024 End: 42-20-9239caon 1 tablet by mouth once dailyLisinopril 5 mg tablet Discontinued 5 MG PO Daily June 25, 2024 5:45pm October 16, 2024 8 :27amStart: 02-26-2024 End: 31-46-6213ebya 1 tablet by mouth once dailyLisinopril 10 mg tablet Discontinued 10 MG PO Daily February 26, 2024 6:18pm June 25, 2024 5:46pm Start: 10-24-2020 End: 31-22-7871fqwn 1 tablet by mouth once dailyLisinopril 20 mg tablet Discontinued 20 MG PO Daily October 24, 2020 1:00am February 26, 2024 6:19pm metFORMIN hydrochloride 500 mg oral tablet (20 sources)BiguanideStart: 78-82-3957bpmi 1 tablet by mouth twice daily at mealtimeStart: 03-19-2025 End: 11-39-4341nkpo 1 tablet by mouth once dailyMetformin 500 mg tablet Discontinued 500 MG PO Daily 90 90 March 19, 2025 12:00am March 22, 2025 5:13pmStart: 02-09-2025 End: 37-52-1008ympu 1 tablet by mouth once dailyMetformin 1,000 mg tablet Discontinued 1000 MG PO Daily 90 90 February 09, 2025 11:30am March 19, 2025 10:15amStart: 11-27-2024 End: 40-02-9526ggig 1 tablet by mouth before breakfastMetformin 1,000 mg tablet Discontinued 0 .ROUTE .COMPLEX 180 November 27, 2024 8:15am January 11:31am TAKE 1 TABLET BY MOUTH BEFORE BREAKFAST AND EVENING MEALStart: 10-24-2020 End: 83-55-2701csqv 1 tablet by mouth twice daily at mealtimeMetformin 1,000 mg tablet Discontinued 1000 MG PO Twice daily with meals 60 June 24, 2024 12:00am November 27, 2024 8:15amtake 1 tablet by mouth at dinnermetFORMIN HCl 1000 MG TAKE 1 TABLET BY MOUTH BEFORE BKFST AND EVENING MEAL ActiveSyringe With Needle (Bd Eclipse Luer-Josias) 3 mL 23 x 1 syringe (10 sources)Start: 90-73-0028Jwvtjgr With Needle (Bd Eclipse Luer-Josias) 3 mL 23 x 1 syringe Active 0 .Route 50 January 14, 2025 8:57pm As directedStart: 01-14-2025 End: 86-42-1402Oiwpfwb With Needle (Bd Eclipse Luer-Josias) 3 mL 23 x 1 syringe Discontinued 0 .Route 50 January 14, 2025 1:00am January 14, 2025 8:57pm As directedtamsulosin hydrochloride 0.4 mg oral capsule (20 sources)alpha-Adrenergic BlockerStart: 59-06-6360rvva 1 capsule by mouth once daily at dinnerStart: 04-25-2023 End: 04-82-2339idzs 1 capsule by mouth once dailyTamsulosin 0.4 mg capsule Discontinued 0.4 MG PO Daily April 25, 2023 12:00am December 16, 2024 8:39am vitamin b12 1 mg/ml injectable solution (20 sources)Vitamin I99Exftm: 03-02-2024 End: 96-80-1056Ouwvx: 18-77-4700Dkzmhvcjyltbfg (Vitamin B-12) Active 0 .ROUTE .COMPLEX 3 March 02, 2024 5:10pm INJECT 1 ML EVERY 4WEEKSStart: 10-24-2020 End: 30-13-8276nnbeoa 1000 ug by subcutaneous injection every month Cyanocobalamin (Vitamin B-12) 1,000 mcg/mL solution Discontinued 1000 MCG SUBCUT every month October 24, 2020 1:00am March 02, 2024 5:10pmStart: 10-24-2020 End: 63-67-5240tpbvhu 1000 ug by subcutaneous injection every month Cyanocobalamin (Vitamin B-12) Discontinued 1000 MCG SUBCUT every month October 24, 2020 1:00am March 02, 2024 5:10pmCyanocobalamin 1000 MCG/ML INJECT 1 ML EVERY 4 WEEKS ActiveCyanocobalamin 1000 MCG/ML INJECT 1 ML EVERY 4 WEEKS Active Completed/Discontinued Medications MedicationDrug Class(es)DatesSig (Normalized)Sig (Original)dextromethorphan hydrobromide 30 mg / pyrilamine maleate 30 mg oral tablet (16 sources)Uncompetitive H-zpscni-W-aspartate Receptor Antagonist, Sigma-1 AgonistStart: 75-53-6324Mgpzso DMT 30-30 MG 1 tablet Orally every 6-8 hours for 7 days Jan, Not-Taking/PRNStart: 14-02-9995TLQdowwgrj 20 mg oral capsule (20 sources)Serotonin Reuptake InhibitorStart: 10-24-2020 End: 62-89-3819rngr 1 capsule by mouth once dailyFluoxetine 20 mg capsule Discontinued 20 MG PO Daily October 24, 2020 1:00am June 23, 2024 11:17am metoprolol tartrate 50 mg oral tablet (20 sources)beta-Adrenergic BlockerStart: 06-23-2024 End: 45-86-3138byiu 1 tablet by mouth twice dailyMetoprolol Tartrate 50 mg tablet Discontinued 50 MG PO Twice daily June 23, 2024 11:19am June 24, 2024 11:04amStart: 35-13-5449okxo 1 tablet by mouth once dailyStart: 01-31-2024 End: 87-60-7217iwrj 1 tablet by mouth once dailyMetoprolol Tartrate 50 mg tablet Discontinued 50 MG PO Daily January 31, 2024 1:00am June 231:19amStart: 04-21-8697xexk 1 tablet by mouth every twenty-four hoursMetoprolol Succinate ER 25 MG 1 tablet Orally Once a day Dec, Activeoseltamivir 75 mg oral capsule (16 sources)Neuraminidase InhibitorStart: 37-00-1108yhpp 1 capsule by mouth every twelve hoursTamiflu 75 MG 1 capsule Orally Twice a day for 5 day(s) Jan, Not-Taking/PRNpravastatin sodium 40 mg oral tablet (8 sources)HMG-CoA Reductase InhibitorStart: 10-24-2020 End: 24-11-6261gkmi 1 tablet by mouth once dailyPravastatin 40 mg tablet Discontinued 40 MG PO Daily October 24, 2020 1:00am January 31, 2024 2:12pm Problems Active Problems Problem ClassificationProblemDateDocumented DateEpisodic/ChronicCalculus of urinary tract (3 sources)Personal history of urinary calculiEpisodicCardiac dysrhythmias (19 sources)Nonsustained ventricular tachycardia ; Translations: [Nonsustained ventricular tachycardia]49-09-5059FwybsmxTwhyhak on above:Stress Test: fixed inferior wall defect - 01/2024,Echo: LVEF 55%, RVSP 43, aortic sclerosis - 12/2023 Echocardiogram: LVEF 55%, normal RV size/function, RVSP 43, calcific AV - 12/2023Stress test: Lexiscan w/o EKG changes, Cardiolite images w/ fixed inferior wall defect - ardiac dysrhythmias (1 source)PalpitationsEpisodicChronic kidney disease (4 sources)Chronic kidney disease; Translations: [Chronic kidney disease, unspecified]12-03-0210HikcqvjZuutwtrrah associated with dizziness or vertigo (2 sources)Dizziness and giddiness; Translations: [Dizziness and giddiness] 12-90-5413HmubbygiXnykkdwztk and other anemia (6 sources)Nutritional anemia, unspecified; Translations: [NUTRITIONAL ANEMIA UNSPECIFIED]Onset: 24-29-2061WhuffcpsCtuvfagaci and other anemia (20 sources)Iron deficiency anemia; Translations: [Iron deficiency anemia] EpisodicDeficiency and other anemia (8 sources)Vitamin B12 deficiency anemia due to intrinsic factor deficiency; Translations: [Pernicious anemia]EpisodicDeficiency and other anemia (14 sources)Macrocytic anemia; Translations: [Nutritional anemia, unspecified] EpisodicDeficiency and other anemia (20 sources)Pernicious anemia; Translations: [Vitamin B12 deficiency anemia due to intrinsic factor deficiency]51-57-9373MoovtkizNrmfpvpafq and other anemia (1 source)Iron deficiency anemia, unspecified; Translations: [Iron deficiency anemia, unspecified]Onset: 28-12-4121SjsyyfvoHzygxare mellitus with complications (20 sources)Type 2 diabetes mellitus with hyperglycemia; Translations: [Type 2 diabetes mellitus]Onset: 26-55-2120PigengfErdwmygsk of lipid metabolism (20 sources)Mixed hyperlipidemia; Translations: [Hypercholesterolemia]Onset: 50-42-8868UqsltzwMaseylvih hypertension (20 sources)Essential (primary) hypertension; Translations: [Essential hypertension]Onset: 15-53-9122KpmdykqYixecxztuhnph symptoms and ill-defined conditions (1 source)NocturiaEpisodicHeart valve disorders (20 sources)Other nonrheumatic aortic valve disorders; Translations: [Aortic valve sclerosis]Onset: 07-72-7378OeyudxvTwsjaih on above:Echo: LVEF 55%, RVSP 43, velocity 197, gradient 16/05 - 12/2023Hyperplasia of prostate (8 sources)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; Translations: [Benign prostatic hyperplasia with lower urinary tract symptoms]ChronicMood disorders (20 sources)Recurrent major depression in full remission; Translations: [Major depressive disorder, recurrent, in full remission]ChronicOther aftercare (1 source)Other termination clerk (current) drug therapy; Translations: [OTH GROUP HOME CURRENT DRUG THERAPY]Onset: 64-24-0460YjkpyojlGbntm and unspecified benign neoplasm (16 sources)History of polyp of colon; Translations: [Personal history of colonic polyps]EpisodicOther and unspecified benign neoplasm (6 sources)Tubular adenoma of colon; Translations: [Tubular adenoma of colon] EpisodicOther connective tissue disease (4 sources)Other specified soft tissue disorders; Translations: [OTHER SPEC SOFT TISSUE DISORDERS]Onset: 47-30-6425RbretsfsOthko diseases of veins and lymphatics (16 sources)Peripheral venous insufficiency; Translations: [Venous insufficiency (chronic) (peripheral)]EpisodicOther diseases of veins and lymphatics (6 sources)Venous insufficiency (chronic) (peripheral)EpisodicOther hereditary and degenerative nervous system conditions (20 sources)Restless legs; Translations: [Restless legs syndrome]02-21-2024 ChronicOther hereditary and degenerative nervous system conditions (3 sources)Restless legs syndromeChronicOther injuries and conditions due to external causes (2 sources)Other injury of unspecified body region, initial encounterEpisodic Other non-traumatic joint disorders (7 sources)Hip pain; Translations: [Pain in right hip]76-39-1135YuhcssklHspps non-traumatic joint disorders (2 sources)Pain in right hip; Translations: [Pain in joint, pelvic region and thigh]27-06-6299JvdbvhdoToywx nutritional; endocrine; and metabolic disorders (6 sources)Obesity; Translations: [Obesity, unspecified]31-95-7448VnxprluQyytq nutritional; endocrine; and metabolic disorders (5 sources)Obesity, unspecified; Translations: [Obesity, unspecified]02-09-2025 ChronicOther screening for suspected conditions (not mental disorders or infectious disease) (15 sources)Encounter for screening for malignant neoplasm of prostate; Translations: [History of adenomatous polyp of colon]Onset: 14-47-8165Jijmxxza Comment on above:PSA: 1.21 - 10/2021, 1.07 - 10/2022, 1.92 - 10/2023, 1.19 - 4Problem List clean-up per request of Phys. EHR CmteOther skin disorders (1 source)Inflamed seborrheic keratosisEpisodicResidual codes; unclassified (20 sources)Obstructive sleep apnea syndrome; Translations: [Obstructive sleep apnea (adult) (pediatric)]02-10-0236BwxyqpmAsjvebxz codes; unclassified (15 sources)Obstructive sleep apnea (adult) (pediatric); Translations: [Obstructive sleep apnea (adult)(pediatric)]ChronicSuperficial injury; contusion (1 source)Contusion of right lower leg, initial encounter; Translations: [CONTUSION RIGHT LOWER LEG INITIAL]Onset: 83-13-7988UnlhntnkDvltowtccbri (2 sources)NSVTOnset: 06-68-4071Nkruxwlevepk (2 sources)Valve Disorder; Translations: [Valve Disorder]Onset: 08-20-2025 Past or Other Problems Problem ClassificationProblemDateDocumented DateEpisodic/ChronicOther circulatory disease (1 source)Other specified symptoms and signs involving the circulatory and respiratory systems; Translations:[OTH SPEC SX SIGNS INVLV CIRC RS]Onset: 24-00-1176XdecljndQqmhabqhqnyl (2 sources)Nonsustained ventricular tachycardia I47.29 Results Test NameValueInterpretationReference RangeFacilityOffice Visiton 08-20-2025 Follow-up [id number] Merry Norris 1955 M Date Provider Department Center 08/20/2025 [id number] SANDS Family History Problem Relation Age of Onset Diabetes Mother Heart failure Mother Family Status - Relation Status Age at Mother Father Level of Service:08368 RI OFFICE/OUTPATIENT ESTABLISHED LOW MDM 20 MIN Reason for Visit and Comments: Follow-up [772960] - Patient is here today for a 1 year follow up. Patient states he has been feeling pretty good. Patient has no cardiac complaints at this time NSVT [Other] Valve Disorder [3372] - Aortic valve sclerosis Hyperlipidemia [182] Hypertension [348474]NormalTogus VA Medical CenterBasophils Auto (Bld) [#/Vol]on 60-84-3348Yiwieovwi (Bld) [#/Vol]0.0 10 3/uL0.0-0.1FOur Lady of Mercy Hospital - AndersonBasophils/100 WBC Auto (Bld)on 59-38-2059Vupqlmtvr/100 WBC (Bld)0.4 %0.2-2.0[facility] HospitalCholesterol in LDL Calc [Mass/Vol]on 46-49-0262Zunvdfysshh in LDL [Mass/Vol]36.0 mg/dLThe [facility]vue HospitalComment on above:<100 mg/dl LCJOBNS589-879 mg/dl NEAR OR ABOVE IKSXUUP396-031 mg/dl BORDERLINE VRQX222-776 mg/dl HIGH>190 mg/dl VERY HIGH Cholesterol in VLDL Calc [Mass/Vol]on 16-60-9938Eomsgxixndd in VLDL [Mass/Vol] 32.8 mg/dLThe [facility]vue HospitalEosinophils/100 WBC Auto (Bld)on 43-61-3515Tujxezpaydn/100 WBC (Bld)2.9 %0.9-7.0[facility] Erythrocyte distribution width Auto (RBC) [Ratio]on 87-27-6434Anxyzxsizof distribution width (RBC) [Ratio]12.7 %11.0-15.0[facility] Estimated glomerular filtration rate (GFR) non- Americanon 06-08-2024 GFR/1.73 sq M.predicted among non-blacks MDRD (S/P/Bld) [Vol rate/Area]59 mL/min/{1.73_m2}Low>=60The [facility] HospitalGlobulin Calc (S) [Mass/Vol]on 00-17-5781Slwdfgdg (S) [Mass/Vol]3.1 g/dLThe [facility]vue HospitalGlucose mean value [Mass/volume] in Blood Estimated from glycated hemoglobinon 37-49-2205Jazabsd glucose Estimated from glycated hemoglobin (Bld) [Mass/Vol]148 mg/dLThe [facility] HospitalHematocrit Auto (Bld) [Volume fraction]on 93-60-9919Murmxrrpzj (Bld) [Volume fraction]38.8 %Low 42.0-54.0[facility] HospitalHemoglobin [Mass/volume] in Bloodon 58-50-4696Uvkvukfwcj (Bld) [Mass/Vol]12.6 g/dLLow14.0-18.0[facility] HospitalLaboratory - Chemistry and Chemistry - challengeon 06-08-2024 Albumin [Mass/Vol]3.2 g/dLLow3.4-5.0[facility] HospitalALP [Catalytic activity/Vol]80 U/X72-112KnzttpwzxThe [facility] HospitalALT [Catalytic activity/Vol]28 U/A41-08WivhvlffzThe [facility] HospitalAST [Catalytic activity/Vol]18 U/Q18-26MgjztpsohThe [facility]vue HospitalBilirubin [Mass/Vol]0.9 mg/dL0.2-1.0[facility] HospitalCalcium [Mass/Vol]8.0 mg/dLLow8.5-10.1FOur Lady of Mercy Hospital - AndersonChloride [Moles/Vol]106 mmol/L 98-107The [facility] HospitalCholesterol [Mass/Vol]108 mg/dL<=200 [facility] HospitalCholesterol in HDL [Mass/Vol]40 mg/dL40-60 [facility] HospitalComment on above:> or =60 mg/dl - LOW CARDIOVASCULAR RISK<40 mg/dl - HIGH CARDIOVASCULAR RISKCO2 [Moles/Vol]27.3 mmol/L21.0-32.0[facility] HospitalCreatinine [Mass/Vol]1.22 mg/dL 0.70-1.30[facility] HospitalGFR/1.73 sq M.predicted MDRD (S/P/Bld) [Vol rate/Area]mL/min/{1.73_m2}>=60The [facility] HospitalGlucose [Mass/Vol]136 mg/bQRyqq44-590FfyiuwdvrThe [facility]vue HospitalPotassium [Moles/Vol]4.4 mmol/L3.5-5.1FOur Lady of Mercy Hospital - AndersonProtein [Mass/Vol] 6.3 g/dLLow6.4-8.2FSycamore Medical Centerodium [Moles/Vol]141 mmol/L 136-145The [facility] HospitalTriglyceride [Mass/Vol]164 mg/dLHigh <=150The [facility] HospitalUrea nitrogen [Mass/Vol]18.0 mg/dL7.0-18.0 [facility] HospitalUrea nitrogen/Creatinine [Mass ratio]14.8 mg/mg [facility] HospitalLaboratory - Hematology and Cell countson 01-33-4240PpM9t (Bld) [Mass fraction]6.8 %High4.5-6.2FOur Lady of Mercy Hospital - AndersonComment on above:ADA RECOMMENDED LIMIT 4.0 - 6.0ADA THERAPEUTIC TARGET < 7.0ACTION SUGGESTED> 7.0Immature granulocytes/100 WBC (Bld)0.1 %0.0-0.5FOur Lady of Mercy Hospital - AndersonLeukocytes [#/volume] corrected for nucleated erythrocytes in Blood by Automated counon 16-87-5002DEH corrected for nucl RBC Auto (Bld) [#/Vol]7.3 10 3/uL4.0-11.0[facility] Lymphocytes Auto (Bld) [#/Vol]on 12-17-2176Jnlmeupwbwm (Bld) [#/Vol]1.6 10 3/uL 1.2-3.8[facility] HospitalLymphocytes/100 WBC Auto (Bld)on 59-24-5497Ueqfpwbupxk/100 WBC (Bld)22.1 %20.5-60.0[facility] HospitalH Auto (RBC) [Entitic mass]on 53-05-9910YZG (RBC) [Entitic mass]32.1 pg 25.9-34.0[facility] HospitalMCHC Auto (RBC) [Mass/Vol]on 12-18-6642IOJJ (RBC) [Mass/Vol]32.5 g/dL29.9-35.2FOur Lady of Mercy Hospital - AndersonMCV Auto (RBC) [Entitic vol]on 80-45-2983URJ (RBC) [Entitic vol]98.7 fL High80.0-94.0[facility] HospitalMonocytes Auto (Bld) [#/Vol]on 13-66-0912Bfihnrcjn (Bld) [#/Vol]0.6 10 3/uL0.3-0.8[facility] HospitalMonocytes/100 WBC Auto (Bld)on 23-13-2334Dptmmxoxw/100 WBC (Bld)8.4 % 1.7-12.0[facility] HospitalNeutrophils Auto (Bld) [#/Vol]on 34-37-4318Boawfotquqi (Bld) [#/Vol]4.8 10 3/uL1.4-6.5FOur Lady of Mercy Hospital - AndersonNeutrophils/100 WBC Auto (Bld)on 70-18-0735Nfhwejatykx/100 WBC (Bld)66.1 % 43.0-75.0[facility] HospitalNo Panel Informationon 06-08-2024 Eosinophils # (Auto)0.2 10 3/uL0.0-0.7FOur Lady of Mercy Hospital - AndersonImmature Granulocyte # (Auto)0.01 10 3/uL0.00-0.03[facility] Nucleated Red Blood Cells/100 RCM1XhcsujmcbThe Bellevue HospitalPlatelet mean volume Auto (Bld) [Entitic vol]on 43-03-9835Lakllpff mean volume (Bld) [Entitic vol]10.9 fL9.5-13.5FOur Lady of Mercy Hospital - AndersonPlatelets Auto (Bld) [#/Vol]on 72-11-2322Ofrwxygkj (Bld) [#/Vol]252 10 3/vB223-294SpqzgbairThe Bellevue HospitalRBC Auto (Bld) [#/Vol]on 11-65-3916ZIW (Bld) [#/Vol]3.93 10 6/uL Low4.70-6.10WVUM[facility] Community Hospitalerum or plasma albumin/globulin mass ratioon 10-75-6145Sxrksgi/Globulin [Mass ratio]1.0 {ratio}[facility] Hospitalerum or plasma anion gap determinationon 88-50-3300Dlopx gap [Moles/Vol]12.1 mmol/LFSycamore Medical Centererum or plasma total cholesterol/high density lipoprotein (HDL) cholesterol mass carly 06-08-2024 Cholesterol.total/Cholesterol in HDL [Mass ratio]2.7 {ratio}[facility] HospitalComment on above:3.3 - 4.4 LOW RISK4.4 - 7.1 AVERAGE RISK7.1 - 11.0 MODERATE RISK>11.0 HIGH RISKGlucose Poct Glucometerson 51-44-2652Gunbsnq5 Glu2: Cleaned MeterNoMetroHealth Main Campus Medical CenterComment on above: Result Comment: PERFORMED BY: [facility] [address] [place] [address] PATHOLOGIST CARDIOPULMONARY TECHNOLOGIST CHIEF JERMAIN DANIELS M.D.Performed By: #### GLULS #### Point of Care testing ,Glucose [Mass/Vol]123 mg/dLHolmes County Joel Pomerene Memorial HospitalComment on above:Result Comment: Random Glucose Reference Range is dependent on time and content of last meal. Glucose of more than 200 mg/dL in a nonstressed, ambulatory subject supports the diagnosis of Diabetes Mellitus.Performed By: #### GLULS #### Point of Care testing ,IRON AND TIBCon 10-26-2022% RYJDPVBCMP65.1 %NormalMercy HealthComment on above:Performed By: #### MALBR #### [facility] [address] [place] [address] Dr. Dayna Lantigua [Mass/Vol]44.0 ug/dLCritically low65.0-175.0Mercy HealthComment on above:Performed By: #### MALBR #### [facility] [address] [place] [address] Dr. Dayna Jean VKVHMR539.0 ug/lEBgelqr808.0-450.0[facility] Comment on above:Performed By: #### MALBR #### [facility] [address] [place] [address] Dr. Dayna PickeringICULOCYTEon 13-34-6333DCIUK4.75 %Normal0.60-3.10The [facility] HospitalComment on above:Performed By: #### MALBR #### [facility] [address] [place] [address] Dr. Dayna Sosa B12 AND FOLATEon 01-21-7955Mrxfimruy (Vitamin B12) [Mass/Vol] 398.0 pg/eXZxotbd555.0-986.0The [facility] HospitalComment on above:Performed By: #### MALBR #### [facility] [address] [place] [address] Dr. Dayna FordFOLATE20.10 ng/mLNormal8.60-58.90The [facility] HospitalComment on above:Performed By: #### MALBR #### [facility] [address] [place] [address] Dr. Dayna VazquezC AUTO DIFFon 19-63-2061RLXT #0.1 103/ulNormal0.0-0.1The [facility] HospitalComment on above:Performed By: #### MALBR #### [facility] [address] [place] [address] Dr. Dayna FordBasophils/100 WBC (Bld)0.7 %Normal0.2-2.0[facility] Comment on above:Performed By: #### MALBR #### [facility] [address] [place] [address] Dr. Dayna Bryant #0.2 103/ulNormal0.0-0.7The [facility] HospitalComment on above: Performed By: #### MALBR #### [facility] [address] [place] [address] Dr. Dayna Khannaosinophils/100 WBC (Bld)3.1 %Normal0.9-7.0[facility] Comment on above:Performed By: #### MALBR #### [facility] [address] [place] [address] Dr. Dayna Khannarythrocyte distribution width (RBC) [Ratio]12.7 %Ksugsq75.0-15.0 The [facility] HospitalComment on above:Performed By: #### MALBR #### [facility] [address] [place] [address] Dr. Dayna FordHematocrit (Bld) [Volume fraction]36.2 %Critically low42.0-54.0 [facility] HospitalComment on above:Performed By: #### MALBR #### [facility] [address] [place] [address] Dr. Dayna FordHemoglobin (Bld) [Mass/Vol]11.8 g/dLCritically low14.0-18.0The [facility] HospitalComment on above:Performed By: #### MALBR #### [facility] [address] [place] [address] Dr. Dayna Clemons #0.02 10e3/ulNormal0.00-0.03The [facility] HospitalComment on above:Performed By: #### MALBR #### [facility] [address] [place] [address] Dr. Dayna Clemons %0.3 %Normal0.0-0.5The [facility] HospitalComment on above: Performed By: #### MALBR #### [facility] [address] [place] [address] Dr. Dayna Pimentel #1.9 103/ulNormal1.2-3.8The [facility] HospitalComment on above:Performed By: #### MALBR #### [facility] [address] [place] [address] Dr. Dayna Johocytes/100 WBC (Bld)26.2 %Gjlqmz63.5-60.0The [facility] HospitalComment on above:Performed By: #### MALBR #### [facility] [address] [place] [address] Dr. Dayna ÁlvarezUAL DIFF REQNONormalThe [facility] HospitalComment on above: Performed By: #### MALBR #### [facility] [address] [place] [address] Dr. Dayna Navarro (RBC) [Entitic mass]31.9 szTfbfzu00.9-34.0The [facility] HospitalComment on above:Performed By: #### MALBR #### [facility] [address] [place] [address] Dr. Dayna Munoz (RBC) [Mass/Vol]32.6 g/fECnksga91.9-35.2The [facility] HospitalComment on above:Performed By: #### MALBR #### [facility] [address] [place] [address] Dr. Dayna Espino (RBC) [Entitic vol]97.8 fLCritically high80.0-94.0The [facility] HospitalComment on above:Performed By: #### MALBR #### [facility] [address] [place] [address] Dr. Dayna Hayes #0.7 103/ulNormal0.3-0.8The [facility] HospitalComment on above:Performed By: #### MALBR #### [facility] [address] [place] [address] Dr. Dayna Goocytes/100 WBC (Bld)9.3 %Normal1.7-12.0The [facility] Comment on above:Performed By: #### MALBR #### [facility] [address] [place] [address] Dr. Dayna Tavarez #4.3 103/ulNormal1.4-6.5The [facility] HospitalComment on above:Performed By: #### MALBR #### [facility] [address] [place] [address] Dr. Dayna Cumminsutrophils/100 WBC (Bld)60.4 %Llvann02.0-75.0The [facility] HospitalComment on above:Performed By: #### MALBR #### [facility] [address] [place] [address] Dr. Dayna Sheltonlet mean volume (Bld) [Entitic vol]10.6 fLNormal9.5-13.5The [facility] HospitalComment on above:Performed By: #### MALBR #### [facility] [address] [place] [address] Dr. Dayna MoralezT247 103/dzAkglut733-251Vxi [facility] HospitalComment on above: Performed By: #### MALBR #### [facility] [address] [place] [address] Dr. Dayna FordRBC3.70 106/ulCritically low4.70-6.10The [facility] HospitalComment on above:Performed By: #### MALBR #### [facility] [address] [address] [address] Dayna FordWBC7.1 103/ulNormal4.0-11.0The [facility] HospitalComment on above: Performed By: #### MALBR #### [facility] [address] [address] [address] Dayna FordGLYCOHEMOGLOBIN A1Con 46-30-4652HTX RECOMMENDATIONSEE BELOWMansfield HospitalComment on above:Result Comment: ADA RECOMMENDED LIMIT 4.0 - 6.0 ADA THERAPEUTIC TARGET < 7.0 ACTION SUGGESTED > 7.0Performed By: #### A1C #### [facility] [address] [place] [address] Dr. Dayna FordGlucose [Mass/Vol]148 mg/dLNormalThOhioHealth Grady Memorial HospitalComment on above:Performed By: #### A1C #### [facility] [address] [place] [address] Dr. Dayna FordHbA1c (Bld) [Mass fraction]6.8 %Critically high4.5-6.2The [facility] HospitalComment on above:Performed By: #### A1C #### [facility] [address] [place] [address] Dr. Dayna FordLIPID PROFILEon 28-25-4552WTUU-HDL RATIO NORMSEE BELOWAdena Fayette Medical CenterComment on above:Result Comment: 3.3 - 4.4 LOW RISK 4.4 - 7.1 AVERAGE RISK 7.1 - 11.0 MODERATE RISK >11.0 HIGH RISKPerformed By: #### ALT, BMP, LIPID #### [facility] [address] [place] [address] Dr. Dayna FordCholesterol [Mass/Vol]183 mg/dLNormal<=200The [facility] Comment on above:Performed By: #### ALT, BMP, LIPID #### [facility] [address] [address] [address] Dayna FordCholesterol in HDL [Mass/Vol]46 mg/cSJgunvm57-25Hug [facility] on above:Performed By: #### ALT, BMP, LIPID #### [facility] [address] [place] [address] Dr. Dayna FordCholesterol in LDL [Mass/Vol]98.0 mg/dLAdena Fayette Medical CenterComhills & dales general hospital on above:Performed By: #### ALT, BMP, LIPID #### [facility] [address] [place] [address] Dr. Dayna Kangestermarquis.total/Cholesterol in HDL [Mass ratio]4.0 {ratio} NormalThe [facility] on above:Performed By: #### ALT, BMP, LIPID #### [facility] [address] [place] [address] Dr. Dayna PelayoL NORMAL> or = 60 mg/dl - LOW CARDIOVASCULAR RISK <40 mg/dl - HIGH CARDIOVASCULAR RISKAdena Fayette Medical CenterComhills & dales general hospital on above:Performed By: #### ALT, BMP, LIPID #### [facility] [address] [place] [address] Dr. Dayna Rodrigues CALC NORMALSEE BELOWAdena Fayette Medical CenterComhills & dales general hospital on above:Result Comment: <100 mg/dl OPTIMAL 100 - 129 mg/dl NEAR OR ABOVE OPTIMAL 130 - 159 mg/dl BORDERLINE HIGH 160 - 189 mg/dl HIGH >190 mg/dl VERY HIGH Performed By: #### ALT, BMP, LIPID #### [facility] [address] [place] [address] Dr. Dayna FordTriglyceride [Mass/Vol]195 mg/dLCritically high<=150[facility] on above:Performed By: #### ALT, BMP, LIPID #### [facility] [address] [place] [address] Dr. Dayna FordVLDL CALC39.0 mg/dLNoVan Wert County HospitalComhills & dales general hospital on above: Performed By: #### ALT, BMP, LIPID #### [facility] [address] [place] [address] Dr. Dayna LopezALBUMIN, RAND URon 82-23-7025eIFI5.3 mg/LNormal<=30.0The [facility] HospitalComment on above:Performed By: #### MALBR #### [facility] [address] [address] [address] Dayna FordPROF CHEM 8 (BAS METB)on 50-78-5425Akwow gap [Moles/Vol]9.5 mmol/LNormalThe [facility] HospitalComment on above:Performed By: #### ALT, BMP, LIPID #### [facility] [address] [address] [address] Dayna FordCalcium [Mass/Vol]8.8 mg/dLNormal8.5-10.1The [facility] Comment on above:Performed By: #### ALT, BMP, LIPID #### [facility] [address] [address] [address] Dayna FordChloride [Moles/Vol]106 mmol/TAifjmy66-264Foy [facility] Comment on above:Performed By: #### ALT, BMP, LIPID #### [facility] [address] [address] [address] Dayna FordCO2 [Moles/Vol]27.4 mmol/REjgici42.0-32.0The [facility] Comment on above:Performed By: #### ALT, BMP, LIPID #### [facility] [address] [address] [address] Dayna FordCreatinine [Mass/Vol]1.10 mg/dLNormal0.70-1.30The [facility] HospitalComment on above:Performed By: #### ALT, BMP, LIPID #### [facility] [address] [address] [address] Dayna KhannaGFR-AF CENTRAL AFRICAN>60Normal>=60The [facility] HospitalComment on above:Performed By: #### ALT, BMP, LIPID #### [facility] [address] [address] [address] Dayna KhannaGFR-NON AF CENTRAL AFRICAN>60Normal>=60The [facility] HospitalComment on above:Performed By: #### ALT, BMP, LIPID #### [facility] [address] [address] [address] Dayna FordGlucose [Mass/Vol]106 mg/cSYszkaj12-379IuaMercy Health Comment on above:Performed By: #### ALT, BMP, LIPID #### [facility] [address] [address] [address] Dayna FordPotassium [Moles/Vol]4.9 mmol/LNormal3.5-5.1[facility] Comment on above:Performed By: #### ALT, BMP, LIPID #### [facility] [address] [address] [address] Dayna FordSodium [Moles/Vol]138 mmol/HRleome186-250LxxMercy Health Comment on above:Performed By: #### ALT, BMP, LIPID #### [facility] [address] [address] [address] Dayna FordUrea nitrogen [Mass/Vol]15.0 mg/dLNormal7.0-18.0The [facility] HospitalComment on above:Performed By: #### ALT, BMP, LIPID #### [facility] [address] [address] [address] Dayna Reynolds nitrogen/Creatinine [Mass ratio]13.6 mg/mgNormalThe [facility] HospitalComment on above:Performed By: #### ALT, BMP, LIPID #### [facility] [address] [place] [address] Dr. Dayna Chester 67-55-5292YQZ [Catalytic activity/Vol]27 U/KMjnyex56-73FwzMercy HealthComment on above:Performed By: #### ALT, BMP, LIPID #### [facility] [address] [place] [address] Dr. Dayna Oliva PARTICIA DOP LEG RTon 50-53-3377AD PATRICIA DOP LEG RTEXAMINATION: US PATRICIA DOP LEG RT HISTORY: Disorder [...] patient's area of pain. Electronically authenticated by: JHAONA SERRATO Date: 2022-09-11 21:23A[facility] Medical CenterGLYCOHEMOGLOBIN A1Con 58-70-6142ZWG RECOMMENDATIONSEE BELOW NormalThe [facility] HospitalComment on above:Result Comment: ADA RECOMMENDED LIMIT 4.0 - 6.0 ADA THERAPEUTIC TARGET < 7.0 ACTION SUGGESTED > 7.0Performed By: #### DATA1C #### [facility] [address] [place] [address] Dr. Dayna FordGlucose [Mass/Vol]146 mg/dLNoVan Wert County HospitalComment on above:Performed By: #### DATA1C #### [facility] [address] [address] [address] Dayna FordHbA1c (Bld) [Mass fraction]6.7 %Critically high4.5-6.2The [facility] HospitalComment on above:Performed By: #### DATA1C #### [facility] [address] [place] [address] Dr. Mcintosh ChangECHOCARDIO M/2D COMPLETEon [id number] M/2D COMPLETE Patient: MERRY NORRIS Exam Date: 01/30/2022 : 1955 Gender:M Ordering : DR OYRDAN RAMEY D.O. Admission #: [id number] Family : Order #: [id number] CLICK HERE TO VIEW EXAM ECHOCARDIOGRAM REPORT [...] Area(A4C): 18.10 cm2 Left Atrium Systolic Volume(A2C): 24441 mm3 Left Atrium Systolic Volume(A4C): 37652 mm3 Mitral Valve MV E to A Ratio: 1.30 Deceleration Hudspeth: 4520 mm/s2 Mitral Valve A-Wave Peak Velocity: [...] by: Alex Foley M.D. on 01/30/2022 at 18:05[facility] CAROTID ART BILon [id number] CAROTID ART BILEXAMINATION: US CAROTID ART JUDSON HISTORY: Aortic valve [...] Electronically authenticated by: ROXANE SOSA Date: 2022-01-30 10:37[facility] Medical CenterGLYCOHEMOGLOBIN A1Con 13-83-7738FCI RECOMMENDATIONADA THERAPEUTIC TARGET 6.0 - 7.0 ACTION SUGGESTED > 7.0[facility] Comment on above:Performed By: #### DATA1C #### [facility] [address] [place] [address] Dr. Dayna FordGlucose [Mass/Vol]148 mg/dLNoVan Wert County HospitalComment on above:Performed By: #### DATA1C #### [facility] [address] [place], [place] [address] Dr. Dayna FordHbA1c (Bld) [Mass fraction]6.8 %Critically high<=6.0The [facility] HospitalComment on above:Performed By: #### DATA1C #### [facility] [address] [place], [place] [address] Dr. Dayna Ford Vital Signs Date TimeVital SignValuePerforming FxlmrjctzAyuocrcj48-08-0259 10:19-0400Body naocjs480.72 cmBenjamin Ball DO Work Phone: [phone]09-09-2025 10:19-0400 Body mass index (BMI) [Ratio]35.7 kg/w7Zmjduoul Ball DO Work Phone: [phone] [place], [place] 0601809-09-2025 10:19-0400 Body wapeid391.7 kgBenjamin Ball DO Work Phone: [phone]09-09-2025 10:19-0400 Diastolic blood sqoujjgm21 mm[Hg]Yordan Ball DO Work Phone: [phone] [place], [place] 0601809-09-2025 10:19-0400 Heart rate72 /minBenjamin Ball DO Work Phone: [phone])[facility] [place], [place] 0568009-09-2025 10:19-0400 Respiratory rate12 /minBenjamin Ball DO Work Phone: [phone])[address]09-09-2025 10:19-0400 Systolic blood mm[Hg]Yordan Ball DO Work Phone: [phone] [place], [place] 0601806-09-2025 11:04-0400 Body .72 cmThe [facility]06-[facility]20[facility] 11:04-0400Body mass index (BMI) [Ratio]35 kg/u8BccsvpxtpThe [facility]06-09-2025 11:04-0400Body lhmeqf265.49 kgThe [facility]06-09-2025 11:04-0400Diastolic blood ygxowijz48 mm[Hg][facility] 05-10-2025 11:04-0400Heart rate69 /[facility] 05-10-2025 11:04-0400Respiratory rate12 /[facility] 05-10-2025 11:04-0400Systolic blood vpowlnva736 mm[Hg][facility]04-18-2025 09:58-0400Body kgeubn733.72 cmThe [facility]04-18-2025 09:58-0400Body mass index (BMI) [Ratio]34.9 kg/n2DeedxeoadThe [facility]04-18-2025 09:58-0400Body jxkagj009.38 [facility]04-18-2025 09:58-0400Diastolic blood ferhijbh93 mm[Hg] [facility]04-18-2025 09:58-0400Heart rate67 /[facility]04-18-2025 09:58-0400Respiratory rate12 /[facility]04-18-2025 09:58-0400Systolic blood entefxdg738 mm[Hg] [facility]03-11-2025 10:54-0400Body yziexm353.72 cm [facility]03-11-2025 10:54-0400Body mass index (BMI) [Ratio]35.6 kg/e5EmwsqshpeThe [facility]03-11-2025 10:54-0400Body spusws174.14 [facility]03-11-2025 10:54-0400Diastolic blood ujdngrwt11 mm[Hg][facility]03-11-2025 10:54-0400 Heart rate69 /[facility]03-11-2025 10:54-0400 Respiratory rate12 /[facility]03-11-2025 10:54-0400 SaO2% (BldA) [Mass fraction]98 %[facility]03-11-2025 10:54-0400Systolic blood epytcmwa891 mm[Hg][facility] 06-23-2024 10:50-0400Body fikjsl124.72 cmThe [facility] 06-23-2024 10:50-0400Body mass index (BMI) [Ratio]35.8 kg/s2EvsoobzlpThe [facility]07-23-2024 10:50-0400Body bmabao792.82 kgThe [facility]07-23-2024 10:50-0400Diastolic blood vrxnasuk93 mm[Hg][facility]07-23-2024 10:50-0400Heart rate67 /minThe [facility]07-23-2024 10:50-0400Respiratory rate12 /[facility]07-23-2024 10:50-0400Systolic blood hbgoaoze074 mm[Hg][facility]03-25-2024 14:33-0400Body eodzra593.72 cmThe [facility]03-25-2024 14:33-0400Body mass index (BMI) [Ratio]36.3 kg/j7RdkoyrvaeThe [facility]03-25-2024 14:33-0400Body inbiyj058.4 kg [facility]03-25-2024 14:33-0400Diastolic blood phdctyun57 mm[Hg][facility]03-25-2024 14:33-0400Heart rate71 /min [facility]03-25-2024 14:33-0400Respiratory rate12 /min [facility]03-25-2024 14:33-0400Systolic blood zyrnetww07 mm[Hg][facility]01-04-2024 13:24-0500Body cyfaxb210.72 cm Yordan Ball Other [facility]12-14-2023 11:00-0500 Body .72 cmBenjamin Ball Other [employer] Other [id number] 11:00-0500Body mass index (BMI) [Ratio]36.4 kg/d0Iejsuuyt Ball Other [employer] Other 12-14-2023 11:00-0500Body ixyjfh762.59 kgBenjamin Ball Other [employer] Other 12-14-2023 11:00-0500Diastolic blood fwfjmrzi80 mm[Hg] Yordan Ball Other [employer] Other 12-14-2023 11:00-0500Respiratory rate12 /minBenjamin Ball Other [employer] Other 12-14-2023 11:00-0500Systolic blood lpmnxidu158 mm[Hg] Yordan Ball Other [employer] Other 11-17-2023 09:30-0500Body tigepg157.72 cmBenjamin Ball Other [employer] Other 11-17-2023 09:30-0500Body mass index (BMI) [Ratio] 35.85 kg/c7Ffsnrgjr Ball Other [employer] Other 11-17-2023 09:30-0500Body nkegbc252.96 kgBenjamin Ball Other [employer] Other 11-17-2023 09:30-0500Diastolic blood oojmzdal79 mm[Hg] Yordan Ball Other [employer] Other 11-17-2023 09:30-0500Respiratory rate12 /minBenjamin Ball Other [employer] Other 11-17-2023 09:30-0500Systolic blood jwriielh532 mm[Hg] Yordan Ball Other [employer] Other 08-31-2023 09:30-0400Body .72 cmBenjamin Ball Other [employer] Other 08-31-2023 09:30-0400Body mass index (BMI) [Ratio] 35.82 kg/z9Zxhxuxtx Ball Other [employer] Other 08-31-2023 09:30-0400Body .87 kgBenjamin Ball Other [employer] Other 08-31-2023 09:30-0400Diastolic blood nzcidtwp30 mm[Hg] Yordan Ball Other [employer] Other 08-31-2023 09:30-0400Respiratory rate12 /minBenjamin Ball Other [employer] Other 08-31-2023 09:30-0400Systolic blood xejhstwu297 mm[Hg] Yordan Ball Other [employer] Other 07-12-2023 13:20-0400Body zpftib787.72 cmBenjamin Ball Other [employer] Other 05-26-2023 09:30-0400Body xszoeg750.72 cmBenjamin Ball Other [employer] Other 05-26-2023 09:30-0400Body mass index (BMI) [Ratio] 35.91 kg/f3Ezhjvqgz Ball Other [employer] Other 05-26-2023 09:30-0400Body jsjkid829.14 kgBenjamin Ball Other [facility] [employer] Other 05-26-2023 09:30-0400Diastolic blood duoauxat38 mm[Hg] Yordan Ball Other [facility] [employer] Other 05-26-2023 09:30-0400Respiratory rate12 /minBenjamin Ball Other [facility] Other 05-26-2023 09:30-0400Systolic blood mm[Hg] Yordan Ball Other [facility] Other 02-24-2023 09:30-0500Body jgdgoa743.72 cmBenjamin Ball Other [facility] Other 02-24-2023 09:30-0500Body mass index (BMI) [Ratio] 36.12 kg/v5Ykygflse Ball Other [facility] Other 02-24-2023 09:30-0500Body itgjem624.78 kgBenjamin Ball Other [employer] Other 02-24-2023 09:30-0500Diastolic blood afygqges77 mm[Hg] Yordan Ball Other [employer] Other 02-24-2023 09:30-0500Respiratory rate12 /minBenjamin Ball Other [employer] Other 02-24-2023 09:30-0500Systolic blood dkolvzeo492 mm[Hg] Yordan Ball Other [employer] Other Encounters Encounter DateEncounter TypeCare ProviderFacilityStart: 08-26-2025 End: 15-49-1006foyftlhgthBhgdzhkd Ball DO Work Phone: [facility] Work Phone: Start: 08-26-2025 End: 17-50-0822Qqkmovk encounter procedureBenshamir Ramey DO-[facility] Work Phone: Start: 08-20-2025 End: 57-46-5647jouhbtvvgsPIRZVSuburban Community Hospital & Brentwood Hospitaltart: 08-10-2025 End: 01-76-0084zzsxijokslUlujumhr Ball DO Work Phone: [facility] Work Phone: Start: 08-10-2025 End: 41-58-7624Oxyeobx encounter procedureBenshamir Ramey DO-[facility] Work Phone: Start: 05-10-2025 End: 99-94-3584apojujtrkyGsxufbyyvK[facility] Work Phone: Start: 05-10-2025 End: 74-00-1558Cxqoqia encounter procedureFirubaldos Physician Group-[facility] Work Phone: Start: 03-19-2025 End: 71-16-5896kwhuablijpCclfztmmtK[facility] Health [facility] Work Phone: Start: 03-19-2025 End: 28-83-9784Pzxscbi encounter procedureFirelands Physician Group-[facility] Work Phone: Start: 02-09-2025 End: 69-24-6009qibmrglzdaBnuwdabbmK[facility] Work Phone: Start: 02-09-2025 End: 60-89-3609Iimiskd encounter procedureFirelands Physician Group-[facility] Work Phone: Start: 06-18-5275Fispfrj encounter procedureWVUMedicine Harrison Community Hospitaltart: 08-11-2024 End: 84-04-2823qwukssmwclLoljpgrbqK[facility] Work Phone: Start: 08-11-2024 End: 61-42-6994Nocubqt encounter procedureFirelands Physician Group-[facility] Work Phone: Start: 06-23-2024 End: 58-77-0901wdwwhxintnSqoatgnuaK[facility] Health [facility] Work Phone: Start: 06-23-2024 End: 72-07-7348Gejsybx encounter procedureFirelands Physician Group-[facility] Work Phone: Start: 87-53-3255Kmq-patient / Non-visitFirelands Physician Group-[facility] Work Phone: Start: 02-24-2024 End: 29-46-5356cixbhdglqmJsrwklkahK[facility] Work Phone: Start: 02-24-2024 End: 35-78-6313Erlpjth encounter procedureFirelands Physician Group-[facility] Work Phone: Start: 57-04-1099Ilx-patient / Non-visitFirelands Physician Group-[facility] Work Phone: Start: 12-24-2023 End: 84-45-8129rrwlqvcjnyQojwewcp Ball Other [employer] Other Start: 51-38-5851Lawmqicci encounterBenjamin KatianaG [facility] ClinicStart: 75-43-8190Zpsrwzx encounter procedureFirelands Physician Group-Start: 12-23-2023 End: 80-02-2560nplymugqnvYxhxaoqt Ball Other [employer] Other Start: 13-37-0314Jvkzdmchs encounterBenjamin BallFPG [facility] ClinicStart: 12-05-2023 End: 23-39-0655yteblssmchHcqcpnma Ball Other [employer] Other Start: 15-11-1721Njsedbhky encounterBenjaisaac Ramey Medical ClinicStart: 12-05-2023 End: 52-37-8830Rkrqthz encounter procedureFirelands Physician Group-[facility] Work Phone: Start: 11-14-2023 End: 11-54-9874kvbmmahiydMzjxsnnm Ball Other [employer] Other Start: 53-50-8765Abghzt outpatient visit 15 minutes Yordan [facility] ClinicStart: 10-18-2023 End: 44-31-2156mmbazuhyprGviwfrhm Ball Other [employer] Other Start: 46-35-2017Cwgnxnq encounter procedureBenshamir R[facility]y Medical ClinicStart: 10-08-2023 End: 76-42-1460uucprvryxbGxlledte Ball Other [employer] Other Start: 57-77-3039Hovlgil evaluation of patient and reportBenshamir Ramey Medical ClinicStart: 09-19-2023 End: 80-45-5589memkkhztxpNloesfjl Ball Other [employer] Other Start: 36-50-8004Wnleekd evaluation of patient and reportBenshamir Ramey Medical ClinicStart: 08-01-2023 End: 99-17-6914ykxwylrhilPxcophgb Ball Other [employer] Other Start: 16-92-4108Wnbfmm outpatient visit 25 minutes Yordan [facility] ClinicStart: 06-12-2023 End: 94-34-7182srgzblwfpwVautkrhm Ball Other [employer] Other Start: 20-52-6647Zfhnwyawg encounterBenjamin BallFPG [facility] ClinicStart: 05-22-2023 End: 76-38-1449zlonyplomhRrlkkpxg Ball Other [employer] Other Start: 61-66-3298Jxxzpchjf encounterBenjamin BallZIAG [facility] ClinicStart: 04-26-2023 End: 67-32-6606fixymlgfvvSucclgyw Ball Other [employer] Other Start: 34-17-7261Enudab outpatient visit 25 minutes Yordan SaabG [facility] ClinicStart: 04-25-2023 End: 13-49-4155uutoeyhcolVfjsnqu J DittyFacility:[facility] Hospitaltart: 04-15-2023 End: 15-25-4913vndmtqzhenZflwodmo Ball Other [employer] Other Start: 95-01-2655Ygrevllit encounterBenjamin BallZIAG [facility] ClinicStart: 01-25-2023 End: 65-02-8577xzmspajfyuZihwivul Ball Other [employer] Other Start: 33-13-4405Aqesrc outpatient visit 25 minutes Yordan [facility] ClinicStart: 10-26-2022 End: 88-37-0114hrcuidrkziOQ YORDAN BALLFacility:I9Dbiuz: 10-18-2022 End: 88-91-9871kwlqbmgwjhXS YORDAN BALLFacility:P1Xqzeq: 09-11-2022 End: 90-48-8185kdmlohwygeOW YORDAN BALLFacility:N0Gkolu: 07-19-2022 End: 35-57-1679fdvknvoqwgWG NONE LISTED REQUESTFacility:N7Rwmzg: 01-30-2022 End: 41-49-5908xaygubqplkWR YORDAN BALLFacility:S2Fpjav: 01-17-2022 End: 21-61-0243rultyqbhdrPN NONE LISTED REQUESTFacility:V4Zifux: 03-25-2018 End: 19-66-0523WdwqojfcgsNHCSRTH PHYSICIANFacility:[facility]PITALtart: 03-12-2018 End: 52-57-7318BbsccvtbwkFMWNZMO PHYSICIANFacility:[facility] Procedures DateProcedureProcedure DetailPerforming ClinicianStart: 04-52-9284Ceugvz-up visitFollow-upSAMAR MADIEOURYStart: 94-34-5165ARP screeningDR YORDAN RAMEYComment on above:Performed By: #### MALBR #### [facility] [address] [address] [address] Dayna Ford Plan of Treatment DateCare ActivityDetailAuthorXR Hip - right 2 [facility] Immunizations Immunization DateImmunizationNotesCare YlenqfueGodmukbj21-90-3006cwigsxrqn, high dose seasonal, preservative-freeBenjamin Ball DO Work Phone: [facility]09-10-2024influenza, high dose seasonal, preservative-freeThe [facility]vue [facility] tetanus and diphtheria toxoids, adsorbed, preservative free, for adult use (2 Lf of tetanus toxoid and 2 Lf of diphtheria toxoid)[facility]11-07-2023tetanus and diphtheria toxoids, adsorbed, preservative free, for adult use (5 Lf of tetanus toxoid and 2 Lf of diphtheria toxoid)Yordan Ramey Other [employer] Other [id number] virus vaccine, unspecified formulation[facility]10-19-2023influenza, high dose seasonal, preservative-freeBenjamin Tanvir Other [employer] Other [id number] virus vaccine, split virus (incl. purified surface antigen)Yordan Ramey Other [employer] Other [id number] virus vaccine, unspecified formulation[facility]09-26-2021influenza virus vaccine, split virus (incl. purified surface antigen)Yordan Ramey Other [employer] Other [id number] virus vaccine, unspecified formulation[facility]09-30-2019pneumococcal polysaccharide vaccine, 23 valentBenshamir Ramey Other [facility]11-27-2013diphtheria, tetanus toxoids and acellular pertussis vaccine, unspecified formulation Yordan Ramey Other [facility] Payers DatePayer CategoryPayerPolicy [id number] 1960Medicare [id number] Health [id number] Social History DateTypeDetailFacilityUnknown if ever smokedNort Stootie Other Sex Assigned At BirthSex Assigned At The LibrarySt. Louis Children'S HospitalVidSys Other Start: [id number] smoking status NHISNever smoked tobacco (finding)[facility]tart: [id number] [facility]: 02-09-2025 End: [id number] (finding)[facility] Clinical Notes 01-25-2023 to 08-20-2025 Note Date & [id number] NoteUT Cardiology - [facility] Subjective Merry Norris is a 70 y.o. year old male patient being seen for Hypertension and NSVT Patient Active Problem List Diagnosis Sleep apnea Diabetes mellitus (CMS/HCC) NSVT (nonsustained ventricular tachycardia) (CMS/[facility]) Aortic valve sclerosis Encounter for colonoscopy due to history of adenomatous colonic polyps Hypercholesterolemia Primary hypertension Recurrent major depressive disorder, in full remission Right hip pain RLS (restless legs syndrome) Type 2 diabetes mellitus with hyperglycemia (CMS/HCC) HPI 08/20/2025 He states that he has been doing well. He denies any chest discomfort at rest or with exertion. He denies exertional dyspnea, orthopnea or paroxysmal nocturnal dyspnea. He denies dizziness, syncope or near syncope. He denies palpitations, legs edema or discomfort on exertion. 08/05/2024 Patient is here today for follow-up visit. He states that he has been doing well. He denies any palpitation. He denies dizziness or syncope or near syncope. Denies chest pain or shortness of breath at rest with exertion. Denies orthopnea or paroxysmal nocturnal dyspnea or legs edema He states that he wears CPAP on daily basis. 01/22/2024 visit with Weston Chew NP Merry Norris is a 68 [...] Never Substance Use Topics Alcohol use: Never Drug use: Never Allergies No Known Allergies Medications Current Outpatient Medications: amLODIPine (Norvasc) 5 mg tablet, Take 5 mg by mouth in the morning., Disp: , Rfl: atorvastatin (Lipitor) 40 mg tablet, TAKE 1 TABLET BY MOUTH EVERY DAY FOR 90 DAYS, Disp: , Rfl: buPROPion XL (Wellbutrin XL) 150 mg 24 hr tablet, Take 150 mg by mouth in the morning., Disp: , Rfl: cyanocobalamin (Vitamin B-12) 1,000 mcg/mL injection, Inject 100 mcg into the shoulder, thigh, or buttocks 1 (one) time., Disp: , Rfl: lisinopril 10 mg tablet, Take 1 tablet (10 mg) by mouth once daily as directed., Disp: 90 tablet, Rfl: 3 metoprolol succinate XL (Toprol-XL) 50 mg 24 hr tablet, TAKE 1 TABLET BY MOUTH EVERY DAY IN THE MORNING, Disp: 90 tablet, Rfl: 3 tamsulosin (Flomax) 0.4 mg 24 hr capsule, TAKE 1 CAPSULE BY MOUTH EVERY DAY AFTER EVENING MEAL 90, Disp: , Rfl: metFORMIN (Glucophage) 1,000 mg tablet, TAKE 1 TABLET BY MOUTH BEFORE BREAKFAST AND EVENING MEAL (Patient not taking: Reported on 08/20/2025), Disp: , Rfl: Objective Visit Vitals BP 145/68 (BP Location: Right arm, Patient Position: Sitting) Pulse 65 Ht 1.753 m (5' 9 ) Wt 108 kg (238 lb) SpO2 97% BMI 35.15 kg/m??? Smoking Status Never BSA 2.29 m??? Physical exam: GENERAL: alert and oriented [...] appropriate mood, affect, and judgement. Recent Labs 05/05/2025 White blood count 7.5, hemoglobin 13.8, hematocrit 41.5, platelets 293 Sodium 142, potassium 4.7, BUN 30, creatinine 1.46, GFR 48, glucose 146, calcium 9.4 HbA1c 6.7% Total bilirubin 1, AST 19, ALT 42, alk phos 109, total protein 7, albumin 3.4 Triglyceride 140, cholesterol 111, LDL 38, HDL 45 Labs 12/20/2023 White blood count 7.6, hemoglobin 12, hem (more content not included)... [facility]09-09-2025 Evaluation note* Diagnosis Onset Date Resolution Status Admit Date Aortic valve sclerosis acuteSept2024 10:14amChronic kidney diseaseacuteSept2024 10:14amNSVT (nonsustained ventricular tachycardia)acutept2024 10:14amObesityacuteSept2024 10:14amOSA (obstructive sleep apnea)acute August 10, 2025 10:14amPernicious anemiaacuteSept2024 10:14am Primary hypertensionacuteSept2024 10:14amType 2 diabetes mellitus with hyperglycemiaacuteSept2024 10:14am [facility] Work Phone: 1(787) 146-478803-11-2025 Evaluation note* Diagnosis Onset Date Resolution Status Admit Date Aortic valve sclerosis acuteMarch 2024 10:52amNSVT (nonsustained ventricular tachycardia)acute February 09, 2025 10:52amObesityacuteMarch 2024 10:52amOSA (obstructive sleep apnea)acuteMarch 2024 10:52amPernicious anemiaacuteMarch 2024 10:52amPrimary hypertensionacuteMarch 2024 10:52amType 2 diabetes mellitus with hyperglycemiaacuteMarch 2024 10:52amAortic valve sclerosisacuteApril 2024 9:48amNSVT (nonsustained ventricular tachycardia)acuteApril 2024 9:48amObesityacuteApril 2024 9:48amOSA (obstructive sleep apnea)acute March 19, 2025 9:48amPrimary hypertensionacuteApril 2024 9:48amType 2 diabetes mellitus with hyperglycemiaacuteApril 2024 9:48am [facility] Work Phone: 1(644) 883-546703-11-2025 Evaluation note* Diagnosis Onset Date Resolution Status Admit Date Aortic valve sclerosis acuteMarch 2024 10:52amNSVT (nonsustained ventricular tachycardia)acute February 09, 2025 10:52amObesityacuteMarch 2024 10:52amOSA (obstructive sleep apnea)[facility] 10:52amPernicious anemiaacuteMarch 2024 10:52amPrimary hypertensionacuteMarch 2024 10:52amType 2 diabetes mellitus with hyperglycemiaacuteMarch 2024 10:52amAortic valve sclerosisacuteApril 2024 9:48amNSVT (nonsustained ventricular tachycardia)acuteApril 2024 9:48amObesityacuteApril 2024 9:48amOSA (obstructive sleep apnea)acute March 19, 2025 9:48amPrimary hypertensionacuteApril 2024 9:48amType 2 diabetes mellitus with hyperglycemiaacuteApril 2024 9:48amAortic valve sclerosisacuteJune 2024 10:52amNSVT (nonsustained ventricular tachycardia) acuteJune 2024 10:52amObesityacuteJune 2024 10:52amOSA (obstructive sleep apnea)acuteJune 2024 10:52amPernicious anemiaacuteJune 2024 10:52amPrimary hypertensionacuteJune 2024 10:52amType 2 diabetes mellitus with hyperglycemiaacuteJune 2024 10:52am [facility] Work Phone: 1(771) 811-794101-23-2024 Evaluation note* Encounter Date Diagnosis Assessment Notes Treatment Notes Treatment Clinical Notes Dec, NSVT (nonsustained ventricular t achycardia) (ICD-10 - I47.29) Normal LVEF w/o aortic sclerosis. Compliant w/ treatment of GENARO. Normal TSH and BMP w/ mild CKD 3a. Symptoms noticeable at rest w/o activity limiting symptoms. Denies CP, dyspnea or lightheadedness. Instructed to avoid stimulants and initiated Metoprolol Refer to Cardiology for evaluation. Dec,ortic valve sclerosis (ICD-10 - I35.8)2021 ECHO: MORIAH 1.8cm, velocity 190, 15/9 ECHO: LVEF 60%, calcific aortic valve w/o , RVSP 43 - 12/2023 Asymptomatic w/o CP, tachycardia or lightheadedness. Control BP and repeast Echo in 3 years. Dec,rimary hypertension (ICD-10 - I10)Stable and controlled. Dec,Elevated cholesterol (ICD-10 - E78.00)Stable Dec,OSA (obstructive sleep apnea) (ICD-10 - G47.33)AHI > 30Compliant w/ treatment Dec,Type 2 diabetes mellitus with hyperglycemia, without long-term current use of insulin (ICD-10 - E11.65)Stable Dec,hronic venous insufficiency (ICD-10 - I87.2)Stable [employer] Other 01-04-2024 Evaluation note* Encounter Date Diagnosis Assessment Notes Treatment Notes Treatment Clinical Notes Dec, Nonsustained ventricular tachyca rdia (ICD-10 - I47.29) Dec,ortic valve sclerosis (ICD-10 - I35.8)2021 ECHO: MORIAH 1.8cm, velocity 190, 15/9 Dec,4Primary hypertension (ICD-10 - I10) [employer] Other 12-14-2023 Evaluation note* Encounter Date Diagnosis Assessment Notes Treatment Notes Treatment Clinical Notes Nov, Intermittent palpitations (ICD-1 0 - R00.2) Avoid stimulants, hydrate and healthy diet. Check TSH to r/o thyrotoxicosis Check Holter Nov,rimary hypertension (ICD-10 - I10)This patient is instructed to consume a healthy, low-fat, low-salt diet. They are also encouraged to continue exercise to achieve/maintain a normal BMI. Nov,Type 2 diabetes mellitus with hyperglycemia, without long-term current use of insulin (ICD-10 - E11.65)This patient is following a comprehensive diabetic treatment [...] Microalbumin, Dilated eye exam and Foot exam [employer] Other 11-17-2023 Evaluation note* Encounter Date Diagnosis [...] above visit was performed by [ ] underdirect supervision of [ ]. Document reviewed and amended by provider signed below. Oct,rimary hypertension (ICD-10 - I10)This patient is instructed to consume a healthy, low-fat, low-salt diet. They are also encouraged to continue exercise to achieve/maintain a normal BMI. Oct,Type 2 diabetes mellitus with hyperglycemia, without long-term current use of insulin (ICD-10 - E11.65)This patient is following a comprehensive diabetic treatment [...] Microalbumin, Dilated eye exam and Foot exam Oct,OSA (obstructive sleep apnea) (ICD-10 - G47.33)This patient is aware of the benefits associated with GENARO: With continued use, the patient reduces the risk for RI, CVA, HTN, cardiac dysrhythmias and sudden cardiac deaths.The patient is also aware of the association between GENARO and morning headaches, daytime somnolence, fatigue and obesity, whichalso has been improved with continued use.The patient is compliant with treatment, wearing the equipment every night for greater than 4 hours.The patient is instructed to continue use of the CPAP forOSA treatment. Oct,Nonrheumatic aortic valve stenosis (ICD-10 - I35.0)Echo: MORIAH 1.8, Velocity 190, gradient 16/08 - 2Denies CP, tachycardia or syncope. Echo w/o significant narrowing, repeat in 3-5 years. Control BP Oct,Elevated cholesterol (ICD-10 - E78.00)Instructed on diet and exercise with continued statin therapy.Discussed the beneficial effects of lo wering cholesterol in reducing the risk for cerebrovascular and cardiovascular disease. Oct,Recurrent major depressive disorder, in full remission (ICD-10 - F33.42)Mood stable. Instructed on healthy diet, exercise and to keep active. 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 No change in medical therapy Oct,hronic venous insufficiency (ICD-10 - I87.2)Avoid salt and elevate lower extremities, support stockings, inspect legs and feet daily for blisters and ulcerations. Oct,A (pernicious anemia) (ICD-10 - D51.0)Continue replacement injections. Recently realized only getting SC and switched to longer needle Oct,Nocturia (ICD-10 - R35.1) Oct,enign prostatic hyperplasia with lower urinary tract symptoms (ICD- 10 - N40.1) Oct,Screening PSA (prostate specific antigen) (ICD-10 - Z12.5) [employer] Other 11-07-2023 Evaluation note* Encounter Date Diagnosis Assessment Notes Treatment Notes Treatment Clinical Notes Oct, Superficial laceration of skin ( ICD-10 - T14.8XXA) [employer] Other 11-07-2023 Evaluation note* Encounter Date Diagnosis Assessment Notes Treatment Notes Treatment Clinical Notes Oct, Superficial laceration of skin ( ICD-10 - T14.8XXA) Tetanus shot given due to laceration on right hand [employer] Other 08-31-2023 Evaluation note* Encounter Date Diagnosis Assessment Notes Treatment Notes Treatment Clinical Notes Jul, Primary hypertension (ICD-10 - I 10) This patient is instructed to consume a healthy, low-fat, low-salt diet. They are also encouraged to continue exercise to achieve/maintain a normal BMI. Jul,Type 2 diabetes mellitus with hyperglycemia, without long-term current use of insulin (ICD-10 - E11.65)This patient is following a comprehensive diabetic treatment [...] Microalbumin, Dilated eye exam and Foot exam Jul,OSA (obstructive sleep apnea) (ICD-10 - G47.33)This patient is aware of the benefits associated with GENARO: With continued use, the patient reduces the risk for RI, CVA, HTN, cardiac dysrhythmias and sudden cardiac deaths.The patient is also aware of the association between GENARO and morning headaches, daytime somnolence, fatigue and obesity, whichalso has been improved with continued use.The patient is compliant with treatment, wearing the equipment every night for greater than 4 hours.The patient is instructed to continue use of the CPAP forOSA treatment. Jul,Inflamed seborrheic keratosis (ICD-10 - L82.0)Used cryotherapy to remove due to constant irritation, inflammation and bleeding. He understands this is a benign lesion. Any recurrence should be brought to the office's attention Jul,Nonrheumatic aortic valve stenosis (ICD-10 - I35.0)Control BP w/ serial Echo every 3-5 years Denies CP, tachycardia or syncope Jul,Elevated cholesterol (ICD-10 - E78.00)Instructed on diet and exercise with continued statin therapy.Discussed the beneficial effects of lo wering cholesterol in reducing the risk for cerebrovascular and cardiovascular disease. 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 Jul,hronic venous insufficiency (ICD-10 - I87.2)Avoid salt and elevate lower extremities, support stockings, inspect legs and feet daily for blisters and ulcerations. Jul,A (pernicious anemia) (ICD-10 - D51.0)COntinue monthly B12 injections [employer] Other 07-12-2023 Evaluation note* Encounter Date Diagnosis Assessment Notes Treatment Notes Treatment Clinical Notes Jun, GENARO (obstructive sleep apnea) (ICD-10 - G 47.33) AHI > 30 [employer] Other 05-26-2023 Evaluation note* Encounter Date Diagnosis Assessment Notes Treatment Notes Treatment Clinical Notes April, Primary hypertension (ICD-10 - I 10) This patient is instructed to consume a healthy, low-fat, low-salt diet. They are also encouraged to continue exercise to achieve/maintain a normal BMI. April,Type 2 diabetes mellitus with hyperglycemia, without long-term current use of insulin (ICD-10 - E11.65)This patient is following a comprehensive diabetic treatment [...] A1C: [ ] Microalbumin: [ ] Eye exam:[ ] Foot exam: [ ] April,OSA (obstructive sleep apnea) (ICD-10 - G47.33)This patient is aware of the benefits associated with GENARO: With continued use, the patient reduces the risk for RI, CVA, HTN, cardiac dysrhythmias and sudden cardiac deaths.The patient is also aware of the association between GENARO and morning headaches, daytime somnolence, fatigue and obesity, whichalso has been improved with continued use.The patient is compliant with treatment, wearing the equipment every night for greater than 4 hours.The patient is instructed to continue use of the CPAP forOSA treatment. April,Nonrheumatic aortic valve stenosis (ICD-10 - I35.0)Control BP REcheck Echo in 3 years. April,Elevated cholesterol (ICD-10 - E78.00)Instructed on diet and exercise with continued statin therapy.Discussed the beneficial effects of lo wering cholesterol in reducing the risk for cerebrovascular and cardiovascular disease. April,hronic venous insufficiency (ICD-10 - I87.2)Avoid salt and elevate lower extremities, support stockings, inspect legs and feet daily for blisters and ulcerations. April,A (pernicious anemia) (ICD-10 - D51.0)Continue IM B12 1000mcg monthly April,RLS (restless legs syndrome) (ICD-10 - G25.81)Symptoms tolerable at this time. Discussed Fe supplements April,Macrocytic anemia (ICD-10 - D53.9)r/o FA, B12 deficiency Referral to Hematology? April,History of nephrolithiasis (ICD-10 - Z87.442)[employer] Other 05-26-2023 Evaluation note* Encounter Date Diagnosis Assessment Notes Treatment Notes Treatment Clinical Notes April, Primary hypertension (ICD-10 - I 10) This patient is instructed to consume a healthy, low-fat, low-salt diet. They are also encouraged to continue exercise to achieve/maintain a normal BMI. April,Type 2 diabetes mellitus with hyperglycemia, without long-term current use of insulin (ICD-10 - E11.65)This patient is following a comprehensive diabetic treatment [...] A1C: [ ] Microalbumin: [ ] Eye exam:[ ] Foot exam: [ ] April,OSA (obstructive sleep apnea) (ICD-10 - G47.33)This patient is aware of the benefits associated with GENARO: With continued use, the patient reduces the risk for RI, CVA, HTN, cardiac dysrhythmias and sudden cardiac deaths.The patient is also aware of the association between GENARO and morning headaches, daytime somnolence, fatigue and obesity, whichalso has been improved with continued use.The patient is compliant with treatment, wearing the equipment every night for greater than 4 hours.The patient is instructed to continue use of the CPAP forOSA treatment. The patient currently has the ResMedAirCurve 10 machine and has received an error message of pump going into failure and is need of a new machine. His settings are IPAP 15 and EPAP 10. April,Nonrheumatic aortic valve stenosis (ICD-10 - I35.0)Control BP REcheck Echo in 3 years. April,Elevated cholesterol (ICD-10 - E78.00)Instructed on diet and exercise with continued statin therapy.Discussed the beneficial effects of lo wering cholesterol in reducing the risk for cerebrovascular and cardiovascular disease. April,hronic venous insufficiency (ICD-10 - I87.2)Avoid salt and elevate lower extremities, support stockings, inspect legs and feet daily for blisters and ulcerations. April,A (pernicious anemia) (ICD-10 - D51.0)Continue IM B12 1000mcg monthly April,RLS (restless legs syndrome) (ICD-10 - G25.81)Symptoms tolerable at this time. Discussed Fe supplements April,Macrocytic anemia (ICD-10 - D53.9)r/o FA, B12 deficiency Referral to Hematology? April,History of nephrolithiasis (ICD-10 - Z87.442)Push fluids [employer] Other 05-15-2023 Evaluation note* Encounter Date Diagnosis Assessment Notes Treatment Notes Treatment Clinical Notes April, Elevated cholesterol (ICD-10 - E 78.00) [employer] Other 02-24-2023 Evaluation note* Encounter Date Diagnosis Assessment Notes Treatment Notes Treatment Clinical Notes Jan, Aortic valve scleros is (ICD-10 - I35.8) 2021 ECHO: MORIAH 1.8cm, velocity 190, 15/9 Mild stenosis, control BP. Repeat Echo in 3 years Jan,rimary hypertension (ICD-10 - I10)This patient is instructed to consume a healthy, low-fat, low-salt diet. They are also encouraged to continue exercise to achieve/maintain a normal BMI. Jan,Elevated cholesterol (ICD-10 - E78.00)Diet and exercise with continued statin therapy. Jan,OSA (obstructive sleep apnea) (ICD-10 - G47.33)This patient is aware of the benefits associated with GENARO: With continued use, the patient reduces the risk for RI, CVA, HTN, cardiac dysrhythmias and sudden cardiac deaths.The patient is also aware of the association between GENARO and morning headaches, daytime somnolence, fatigue and obesity, whichalso has been improved with continued use.The patient is compliant with treatment, wearing the equipment every night for greater than 4 hours.The patient is instructed to continue use of the CPAP forOSA treatment. Jan,Type 2 diabetes mellitus with hyperglycemia, without long-term current use of insulin (ICD-10 - E11.65)This patient is following a comprehensive diabetic treatment plan. They are checking their feet daily for calluses and nonhealing ulcers. They are being seen for yearly dilated eye examinations. Goals: SBP less than 130, LDL less than 100, FBS less than 140, AC and A1C less than 7%. They are checking their BS daily, will which are reviewed at the office visit. Jan,hronic venous insufficiency (ICD-10 - I87.2)Avoid salt and elevate lower extremities, support stockings, inspect legs and feet daily for blisters and ulcerations. Jan,A (pernicious anemia) (ICD-10 - D51.0)Change needle to 1in to allow for IM injection Jan,History of nephrolithiasis (ICD-10 - Z87.442)Push fluids, no s/s recurrence Jan,RLS (restless legs syndrome) (ICD-10 - G25.81)Continue treatment of GENARO. Symptoms tolerable [facility] [employer] Other Evaluation noteNo InformationNortWellSpan [facility]burg Hospital [employer] Other Evaluation note* Diagnosis Onset Date Resolution Status Aortic valve sclerosis acuteNSVT (nonsustained ventricular tachycardia)acuteType 2 diabetes mellitus with hyperglycemiaacute [facility] Work Phone: Evaluation note* Diagnosis Onset Date Resolution Status Aortic valve sclerosis acuteNSVT (nonsustained ventricular tachycardia)acuteOSA (obstructive sleep apnea)acutePrimary hypertensionacuteRight hip painacuteType 2 diabetes mellitus with hyperglycemiaacuteLightheadednessnoneactive [facility] Work Phone: Evaluation note* Diagnosis Onset Date Resolution Status Admit Date Aortic valve sclerosis acuteMarch 2024 10:52amNSVT (nonsustained ventricular tachycardia)acute February 09, 2025 10:52amOSA (obstructive sleep apnea)acuteMarch 2024 10:52amPrimary hypertensionacuteMarch 2024 10:52amType 2 diabetes mellitus with hyperglycemiaacuteMarch 2024 10:52am [facility] Work Phone: Evaluation note* Diagnosis Onset Date Resolution Status Admit Date Aortic valve sclerosis acuteSeptember 2024 10:14amChronic kidney diseaseacuteSeptember 2024 10:14amNSVT (nonsustained ventricular tachycardia)acuteSept2024 10:14amObesityacuteSeptember 2024 10:14amOSA (obstructive sleep apnea)acute August 10, 2025 10:14amPernicious anemiaacuteSeptember 2024 10:14am Primary hypertensionacuteSeptember 2024 10:14amType 2 diabetes mellitus with hyperglycemiaacuteSeptember 2024 10:14am [facility] Work Phone: History general Narrative - Reported* Type Description Date Medical History hypertension Medical Historytype II diabetesMedical HistoryhypercholesterolemiaSurgical Historywisdom teeth extractSurgical Historyhiatal hernia repairSurgical History cholecystectomySurgical HistoryherniaHospitalization Historysee surgical history [employer] Other History general Narrative - Reported* Type Description Date Medical History hypertension Medical Historytype II diabetesMedical HistoryhypercholesterolemiaSurgical Historywisdom teeth extractSurgical Historyhiatal hernia repairSurgical History cholecystectomySurgical HistoryherniaSurgical HistoryEGD04/2023Surgical History Colonoscopy04/2023Hospitalization Historysee surgical history [employer] Other History general Narrative - ReportedNortVidSys Other History general Narrative - Reported* Type Description Date Medical History hypertension Medical Historytype II diabetesMedical HistoryhypercholesterolemiaMedical HistoryOSASurgical Historywisdom teeth extractSurgical Historyhiatal hernia repairSurgical HistorycholecystectomySurgical HistoryherniaSurgical HistoryEGD 04/2023Surgical HistoryColonoscopy04/2023Hospitalization Historysee surgical history 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 He presented w/ heart fluttering during rest. He denies activity limiting symptoms. He has normal LVEF and denies CP, dyspnea or lightheadedness. He is being referred for evaluation and treatment. [employer] Other Reason for referral (narrative)No reason for referral information availableC[facility] Work Phone: Summary Purpose Family History Relationship Condition Age at Onset Recorded Date/T meena Not Specified Kidney disorder Unknown Diabetes mellitusUnknownfatherHypertensionUnknownDeceasedUnknownHeart disease UnknownNot SpecifiedDiabetes mellitusUnknownMalignant neoplasmUnknown HypertensionUnknown Relationship Condition Age at Onset Recorded Date/T meena mother Kidney disorder Unknown Diabetes mellitusUnknownfatherHypertensionUnknownDeceasedUnknownHeart disease UnknownmotherDiabetes mellitusUnknownMalignant neoplasmUnknownHypertension Unknown Advance Directives Advance Directive Response Recorded Date/ Time Advance Directives No October 5:37pm Chief Complaint and Reason for Visit Chief Complaint Admit Date 3 mo f/u August 10, 2025 10:14am Flu Shot August 26, 2025 10:09am Reason for Visit Admit Date Aortic valve sclerosis August 10 10:14am Chronic kidney disease August 10 10:14am NSVT (nonsustained ventricular tachycard ia) August 10, 2025 10:14am Obesity August 10, 2025 10:14am GENARO (obstructive sleep apnea) August 10, 2025 10:14am Pernicious anemia August 10, 2025 10:14am Primary hypertension August 10, 2025 10:14am Type 2 diabetes mellitus with hyperglyce lito August 10, 2025 10:14am Chief Complaint Amb Documentation 4 month follow upReason for VisitAortic valve sclerosis NSVT (nonsustained ventricular tachycardia) Type 2 diabetes mellitus with hyperglycemia Chief Complaint 4 month follow up Reason for Visit Aortic valve scleros is NSVT (nonsustained ventricular tachycardia) GENARO (obstructive sleep apnea) Primary hypertension Right hip pain Type 2 diabetes mellitus with hyperglycemia Lightheadedness Chief Complaint 4 month follow up flu shotReason for VisitAortic valve sclerosis NSVT (nonsustained ventricular tachycardia) GENARO (obstructive sleep [...] 48am Type 2 diabetes mellitus with hyperglyce lito March 19, 2025 9:48am Chief Complaint Admit [...] 48am Type 2 diabetes mellitus with hyperglyce lito March 19, 2025 9:48am Aortic valve sclerosis May 10, 2025 10 :52am NSVT (nonsustained ventricular tachycard ia) May 10, 2025 10:52am Obesity May 10, 2025 10:52 am GENARO (obstructive sleep apnea) May 10, 2025 10:52am Pernicious anemia May 10, 2025 10:52 am Primary hypertension May 10, 2025 10:5 2am Type 2 diabetes mellitus with hyperglyce [facility] May 10, 2025 10:52am Chief Complaint Admit Date 3 mo f/u August 10, 2025 10:14am Reason for Visit Admit Date Aortic valve sclerosis August 10 10:14am Chronic kidney disease August 10 10:14am NSVT (nonsustained ventricular tachycard ia) August 10, 2025 10:14am Obesity August 10, 2025 10:14am GENARO (obstructive sleep apnea) August 10, 2025 10:14am Pernicious anemia August 10, 2025 10:14am Primary hypertension August 10, 2025 10:14am Type 2 diabetes mellitus with hyperglyce [facility] August 10, 2025 10:14am Chief Complaint Admit Date 3 mo f/u August 10, 2025 10:14am Flu Shot August 26, 2025 10:09am Additional Source Comments (unrecognized sect ion and content) No Status Records FoundNo Status Records FoundNo Status Records FoundNo Status Records Found INFORMATION SOURCE (unrecogn ized section and content) DATE CREATED AUTHOR 05/22/2018 [facility] DATE CREATED AUTHOR AUTHOR'S ORGANIZ ATION 11/01/2022 [facility] DATE CREATED AUTHOR AUTHOR'S ORGANIZ ATION 05/12/2023 [facility] DATE CREATED AUTHOR AUTHOR'S ORGANIZ ATION 08/22/2025 [facility] REASON FOR VISIT (unrecogniz ed section and [...] Care Provider Active Start: January 31, 2024 Hussein Holly ProviderActiveStart: January 31, 2024 Team Status: Inactive Member Role Status Jorje Ramey DO Primary Care Provide r, Attending Provider Active Start: February 24, 2024 End: February 24, 2024 Team Status: Inactive Member Role Status Jorje Ramey DO Primary Care Provide r, Attending Provider Active Start: August 11, 2024 End: August 11, 2024 Team Status: Inactive Member Role Status Jorje Ramey DO Primary Care Provide r, Attending Provider Active Start: March 19, 2025 End: March 19, 2025 Team Status: Inactive Member Role Status Jorje Ramey DO Primary Care Provide r, Attending Provider Active Start: May 10, 2025 End: May 10, 2025 Team Status: Inactive Member Role Status Jorje Ramey DO Primary Care Provider Active Start: August 10, 2025 End: August 10erin Ramey DOAttending ProviderActiveStart: August 10, 2025 End: August 10, 2025 Team Status: Inactive Member Role Status Dates Yordan Ramey DO Primary Care Provider Active Start: August 26, 2025 End: August 26erin Ramey DOAttending ProviderActiveStart: August 26, 2025 End: August 26, 2025 Goals (unrecognized section and content) Goals [...] BE BASED ON THE PRIMARY CLINICAL RECORDS. [employer] [facility]. provides no warranty or guarantee of the accuracy or completeness of information in this document.
[2025-10-25 08:37] LABS: Hematocrit 42.1 % (42.0-54.0); Hemoglobin 13.6 g/dL (14.0-18.0); Immature Granulocytes Abs Auto 0.03 10^3/uL (0.00-0.03); Immature Granulocytes Pct Auto 0.4 % (0.0-0.5); Lymphocytes Absolute Auto 1.5 10^3/uL (1.2-3.8); Mean Corpuscular HGB Conc 32.3 g/dL (29.9-35.2); Mean Corpuscular Hemoglobin 32.2 pg (25.9-34.0); Mean Corpuscular Volume 99.5 fL (80.0-94.0); Platelet Count 249 10^3/uL (150-450); Red Blood Count 4.23 10^6/uL (4.70-6.10); White Blood Count 8.3 10^3/uL (4.0-11.0)
[2025-10-25 08:48] LABS: Microalbum Creatinine Ratio Ur 15.6 mg/g (0.0-29.9)
[2025-10-25 08:56] LABS: Alanine Aminotransferase 32 U/L (16-63); Albumin Globulin Ratio 1.0; Albumin Level 3.4 g/dL (3.4-5.0); Alkaline Phosphatase 107 U/L (46-116); Anion Gap 14.0; Aspartate Amino Transferase 14 U/L (15-37); Blood Urea Nitrogen 24.0 mg/dL (7.0-18.0); Carbon Dioxide 28.1 mmol/L (21.0-32.0); Chloride 105 mmol/L (98-107); Cholesterol 129 mg/dL (<=200); Estimated GFR (African America >60 (>=60 mL/min/1.73m^2); Estimated GFR (Non-African Ame 52 (>=60 mL/min/1.73m^2); Globulin 3.5 g/dL; Glucose 145 mg/dL (74-106); HDL Cholesterol 45 mg/dL (40-60); Potassium 5.1 mmol/L (3.5-5.1); Sodium 142 mmol/L (136-145); Total Protein 6.9 g/dL (6.4-8.2); Triglycerides 117 mg/dL (<=150); VLDL CHOLESTEROL 23.4 mg/dL
[2025-10-25 09:03] LABS: Calcium 9.0 mg/dL (8.5-10.1)
== END 2025-10-25 08:04 | disposition home or self-care (01) ==
LOC: LAB 08:07
PROVIDERS: PCP Internal Medicine; Visit Provider Internal Medicine
DX: E78.00 Pure hypercholesterolemia, unspecified (principal); E11.65 Type 2 diabetes mellitus with hyperglycemia; I10 Essential (primary) hypertension; Z12.5 Encounter for screening for malignant neoplasm of prostate
CPT/HCPCS: 36415; 80053; 80061; 82043; 82570; 83036; 85025; G0103

== ENCOUNTER 2025-11-01 11:36 | Outpatient (OUT) | payer MEDICARE, OTHER, SELFPAY ==
--- OUTSIDE RECORDS SUMMARY | 2025-10-27 06:10 | XMS_ITS | Continuity of Care Document ---
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 Name Role Phone Yordan Ramey DO Primary Care Provider [phone] Yordan Ramey DO Attending Provider [phone] Care Teams Patient Care Team Team Status: Active Member Role/Relationship Status Dates Yordan Ramey DO Primary Care Provider Active Visit Care Team Team Status: Inactive Member Role/Relationship Status Dates Yordan Ramey DO Primary Care Provider Active Start: August 10, 2025 End: August 10Lowell Martines ProviderActiveStart: August 10, 2025 End: August 10, 2025 Visit Care Team Team Status: Inactive Member Role/Relationship Status Dates Yordan Ramey DO Primary Care Provider Active Start: August 26, 2025 End: August 26Lowell Martines ProviderActiveStart: August 26, 2025 End: August 26, 2025 Patient Care Team Team Status: Active Member Role/Relationship Status Dates Yordan Ramey DO Primary Care Provider Active Start: October 25, 2025 Lowell Huizar ProviderActiveStart: October 25, 2025 Patient Care Team Team Status: Inactive Member Role/Relationship Status Dates Yordan Ramey DO Primary Care Provider Active Start: October 27, 2025 End: October 27Lowell Martines ProviderActiveStart: October 27, 2025 End: October 27, 2025 Chief Complaint and Reason for Visit Chief Complaint Admit Date 3 mo f/u August 10, 2025 10:14am Flu Shot August 26, 2025 10:09am wellness October 27, 2025 10:10am Reason for Visit Admit Date Aortic valve sclerosis August 10 10:14am Chronic kidney disease August 10 10:14am NSVT (nonsustained ventricular tachycard ia) August 10, 2025 10:14am Obesity August 10, 2025 10:14am GENARO (obstructive sleep apnea) August 10, 2025 10:14am Pernicious anemia August 10, 2025 10:14am Primary hypertension August 10, 2025 10:14am Type 2 diabetes mellitus with hyperglyce lito August 10, 2025 10:14am Aortic valve sclerosis October 27 10:10am Chronic kidney disease October 27 10:10am Low back pain October 27, 2025 10:10am Medicare annual wellness visit, subseque nt October 27, 2025 10:10am NSVT (nonsustained ventricular tachycard ia) October 27, 2025 10:10am Obesity October 27, 2025 10:10am GENARO (obstructive sleep apnea) October 032024 10:10am Pernicious anemia October 27, 2025 10:10am Primary hypertension October 27, 2025 10:10am Screening PSA (prostate specific antigen ) October 27, 2025 10:10am Type 2 diabetes mellitus with hyperglyce lito October 27, 2025 10:10am Allergies, Adverse Reactions, Alerts Allergen Type Severity Reaction Last Updated Verified Status sulfasalazine Allergy Unknown Unknown Reaction Novem 2024 10:19am Yes Active Social History Smoking Status Status Start Date End Date Date of Observa tion Never smoked tobacco (finding) January 20, 2024 1:25pm Observation Status Observation Response Date of Response Legal Sex Male (finding) Sex Assigned At BirthMaleJuly 1954 Family History Relationship Condition Age at Onset Recorded Date/T meena mother Kidney disorder Unknown Diabetes mellitusUnknownfatherHypertensionUnknownDeceasedUnknownHeart disease UnknownmotherDiabetes mellitusUnknownMalignant neoplasmUnknownHypertension Unknown Problems Active Problems Problem Diagnosis/Recorded Date Onset Date Status C omments Medicare annual wellness vis it, subsequent October 23, 2024 7:18am Unknown Active GENARO (obstructive sleep apnea)February 21, 2024 10:36amUnknownActiveScreening PSA (prostate specific antigen)October 22, 2024 5:29pmUnknownActivePSA: 1.21 - 10/2021, 1.07 - 10/2022, 1.92 - 10/2023, 1.19 - 10/2024, 1.4 - 10/2025Type 2 diabetes mellitus with hyperglycemiaMarch 2023 1:50pmUnknownActiveLow back painNovember 2024 10:59amUnknownActivePernicious anemiaFebruary 2024 7:55pmUnknownActiveHypercholesterolemiaMarch 2023 10:36amUnknownActive Chronic kidney diseaseJune 2024 10:39amUnknownActiveRLS (restless legs syndrome)February 21, 2024 10:36amUnknownActivePrimary hypertensionMarch 2023 10:36amUnknownActiveAortic valve sclerosisMarch 2023 1:50pmUnknown ActiveEcho: LVEF 55%, RVSP 43, velocity 197, gradient 15/6 - 4Recurrent major depressive disorder, in full remissionMarch 2023 10:36amUnknown ActiveRight hip painJuly 2023 10:32amUnknownActiveObesityMarch 2024 10:45amUnknownActiveNSVT (nonsustained ventricular tachycardia)February 22, 2024 1:50pmUnknownActiveEchocardiogram: LVEF 55%, normal RV size/function, RVSP 43, calcific AV - 12/2023Stress test: Lexiscan w/o EKG changes, Cardiolite images w/ fixed inferior wall defect - 01/2024Inactive/Resolved Problems Problem Diagnosis/Recorded Date Onset Date Status C konrad Encounter for colonoscopy due to history of adenomatous colonic polyps October 24, 2020 11:53am Unknown Resolved Prob peyton List clean-up per request of Phys. EHR Cmte Medications Medication Status Dose Units Route Directions Qty Days Refills S tart Date Stop Date End Date Reason(s) Instructions Adherence Lisinopril 10 mg tablet Discontinued 10 MG PO Halle ly 30 0March 2023 5:18pmJuly 2023 4:46pmCyanocobalamin (Vitamin B-12) 1,000 mcg/mL solutionDiscontinued0.ROUTE.XBGRKDQ69Etzrj 2023 4:10pmMay 2024 2:58pmINJECT 1 ML EVERY 4 WEEKSAtorvastatin 40 mg tabletDiscontinued0.ROUTE .MCWZUVW023Hdexm 2023 6:33amJuly 2023 10:06amTAKE 1 TABLET BY MOUTH EVERY DAY FOR 90 DAYSAtorvastatin 40 mg hemuwnQanncoexpaud77BYSQQfzvm at bedtime 902023 10:01amApril 2024 8:23pmMetformin 1,000 mg tablet Nlgjzqxcyyrn9597YIWIVsauh daily with bebnq009Gtiu 2023 11:00pmDecember 2023 7:15amLisinopril 5 mg klztkuMnembtavsfgt7TMJRKmmpo30714Iggn 2023 4:45pmNovember 2023 7:27amBupropion Hcl 100 mg tablet sustained- release 12 uuKwmkgreovige386ITKNLraco qehpo28615Duxfam 2023 11:00pmAugust 2023 8:02amBupropion Hcl 100 mg tablet sustained-release 12 hrDiscontinued 100MGPOTwice iyexz31432Moqkqh 2023 8:02amAugust 2023 1:48pmBupropion Hcl 150 mg tablet extended release 24 elGlkldjmhpwxm419AIOJJbwlp July 27, 2024 11:00pmSeptember 2023 4:41pmBupropion Hcl 100 mg tablet sustained-release 12 hrDiscontinued0.ROUTE.KRPZUIW9295Elrqqtzwv 2023 4:41pmMarch 2024 5:55pmTAKE 1 TABLET BY MOUTH TWICE A DAYLisinopril 5 mg tabletDiscontinued0.ROUTE.TNZFKNA200Ubiolfln 2023 7:27amApril 2024 9:32amTAKE 1 TABLET BY MOUTH EVERY DAYMetformin 1,000 mg tabletDiscontinued0 .ROUTE.YLCSIIB6060Rfundofk 2023 7:15amMarch 2024 10:31amTAKE 1 TABLET BY MOUTH BEFORE BREAKFAST AND EVENING MEALTamsulosin 0.4 mg capsuleActive 0.ROUTE.CRZXZNA280Ruvpqim 2024 7:39amTAKE 1 CAPSULE BY MOUTH EVERY DAY AFTER EVENING MEAL 90Complies with drug therapySyringe With Needle (Bd Eclipse Luer-Josias) 3 mL 23 x 1 syringeDiscontinued0.Uccfi959Wrpafrag 2024 12:00am January 14, 2025 7:57pmPernicious anemia Vitamin B12 deficiency anemia due to intrinsic factor deficiencyAs directed Syringe With Needle (Bd Eclipse Luer-Josias) 3 mL 23 x 1 syringeActive0.Zqoqq791 January 14, 2025 7:57pmPernicious anemia Vitamin B12 deficiency anemia due to intrinsic factor deficiencyAs directed Bupropion Hcl 100 mg tablet sustained-release 12 hrDiscontinued0.ROUTE.COMPLEX 1801March 2024 5:55pmMarch 2024 10:28amTAKE 1 TABLET BY MOUTH TWICE A DAYLisinopril 5 mg lwxxvgQvcidgqzgtig09WCPQAdaak751051Bekzi 2024 9:32amMay 2024 10:49amAmlodipine 5 mg azxxawZoonpz2RFGQYxpsn498215Bxlpu 2024 11:00pmComplies with drug therapyAtorvastatin 40 mg tabletActive0.ROUTE.COMPLEX 903April 2024 8:23pmTAKE 1 TABLET BY MOUTH EVERY DAY FOR 90 DAYSComplies with drug therapyMetformin 500 mg trewggPnoqztfaakrw174PKPYYkuxc daily with swanr11169Axalr 2024 4:13pmNovember 2024 10:41amOn Hold: may change to JardianceLisinopril 10 mg jeqakzFynqiu88XFYDAwyyw78715Yuf 2024 10:49am Complies with drug therapyCyanocobalamin (Vitamin B-12) 1,000 mcg/mL solution Active0.ROUTE.MKVRNNC78Tpd 2024 2:58pmINJECT 1 ML EVERY 4 WEEKSComplies with drug therapyBupropion Hcl 150 mg tablet extended release 24 hrActive0.ROUTE .LWRXZNX744Gfvgortlp 9th, 2025 7:39amTAKE 1 TABLET BY MOUTH EVERY MORNING Complies with drug therapyPravastatin 40 mg eaglesVfasmnmhnodq56DXAZBmbnt October 24, 2020 12:00amMarch 2023 1:12pmLisinopril 20 mg tablet Qmnvydazdpes55KIVXWqqceBfsrxmmu 23rd, 2020 12:00amMarch 2023 5:19pm Cyanocobalamin (Vitamin B-12) 1,000 mcg/mL qvenottiBnomohqnfpfj0982MEDAHLFCJ every monthAtrium Health Mercy2019 12:00amApril 2023 4:10pmMetformin 1,000 mg zynkzmGyhvmmgcklsm9303QBQHAqxwa dailyAtrium Health Mercy2019 12:00amJuly 2023 10:31amFluoxetine 20 mg gcryfesNfscxtrdrfzr08YVCLCgtrsUdxmmuou 2019 12:00amJuly 2023 10:17amTamsulosin 0.4 mg capsuleDiscontinued0.4MGPODaily April 24, 2023 11:00pmJanuary 2024 7:39amAtorvastatin 40 mg tablet Kceqjikhtbrj15KSOCEtkdgQvqbn 2023 12:00amApril 2023 6:33amMetoprolol Tartrate 50 mg exnqtfQcuqwkjgbfvl25WIHFFarfvTytqi 2023 12:00amJuly 2023 10:19amMetoprolol Tartrate 50 mg psdaukQhetruqmefmi03BJFOZofgv dailyJuly 2023 10:19amJuly 2023 10:04amBupropion Hcl 150 mg tablet extended release 24 vyCrhklyvlupqb762KFOJGjvad bomjxxn62981Kroer 2024 11:00pm August 10, 2025 7:39amMetformin 1,000 mg qwwzllLjvptfvhnzaz4005VNDKYcspv7783 [facility] 2024 10:30amApril 2024 9:15amEmpagliflozin (Jardiance) 10 mg rdagwoLivrzq06QVCZDltjz71501Mmafxyxv 2024 12:00amComplies with drug therapyBupropion Hcl 150 mg tablet extended release 24 rgMiuxvhsdspyg282CEGM Every uubtetj34054Tkmb 2023 11:00pmAugust 2023 4:22pmMetoprolol Succinate 50 mg tablet extended release 24 fjZgxfse38STFNYfrjw06613Ysgz 2023 11:00pmComplies with drug therapyMetformin 500 mg gmlyzoGmkjvbzxolrc210EOCT Yjfqn82656Amzjs 2024 11:00pmApril 2024 4:13pm Immunizations Immunization Event Date Not Given Reason Dose Number Hat Renovator Lot Number Reason(s) Given Vaccine Information Statement (VIS) Detail Administration Location DTap, unspecified October 28, 2013 Fluzone TIV High-Dose 65YR+August 11, [id number] Fluzone TIV High-Dose 65YR+August 26, [id number] influenza, unspecified formulationSeptember 2020influenza, unspecified formulationOctober 2021influenza, unspecified formulationOctmorgan [facility] neumococcal Polysacc. Vaccine, 23 valentSeptember 2018Tetanus, Diphtheria adult, 2 Lf pres free absNov2022 Relevant Diagnostic Tests and/or Laboratory Data Laboratory Results Test Collection Date/Time Result Date/Time Result Interpretation Reference Range Result Comment Performing Site Urine Random Creatinine October 25, 2 025 8:10am October 25, 2025 8:10am 147.08 mg/dL 20.00-300.00Basophils # (Auto)October 25, 2025 8:18amNovemb2024 8:18am0.0 10 3/uL0.0-0.1Estimated Average GlucoseOctober 25, 2025 8:18am October 25, 2025 8:79qf336 mg/dLProstate Specific Antigen ScreenOctober 25, 2025 8:18amNovemb2024 8:18am1.40 ng/mL<=4.00Cholesterol/HDL Ratio October 25, 2025 8:18am2.93.3 - 4.4 LOW RISK4.4 - 7.1 AVERAGE RISK7.1 - 11.0 MODERATE RISK>11.0 HIGH RISKAnion GapOcthu hu kam memorial hospital 2024 8:18am14.0Urine Random MicroalbuminAtrium Health Mercy2024 8:10amNove2024 8:10am2.3 mg/dL<=30.0 Basophils (%) (Auto)October 25, 2025 8:18amNovearizona spine and joint hospital 2024 8:18am0.5 % 0.2-2.0Hemoglobin I8yOugswspb2024 8:18amNove2024 8:18am7.6 % Above high normal4.5-6.2ADA RECOMMENDED LIMIT 4.0 - 6.0ADA THERAPEUTIC TARGET < 7.0ACTION SUGGESTED> 7.0Cholesterol LevelAtrium Health Mercy2024 8:63jw176 mg/dL <=200Albumin/Globulin RatioNdignity health st. [facility] 2024 8:18am1.0Urine Microalbumin/Creatinine RatioNdignity health st. [facility] 2024 8:10amNovearizona spine and joint hospital 2024 8:10am15.6 mg/g0.0-29.9NO MICROALBUMINURIA 0-29 MG/GCLINICAL MICROALBUMINURIA 30-300 MG/GMACROALBUMINURIA >300 MG/GEosinophils # (Auto)October 25, 2025 8:18amNove2024 8:18am0.2 10 3/uL0.0-0.7HDL CholesterolGeorgetown Community Hospital 2024 8:18am45 mg/dL40-60> or =60 mg/dl - LOW CARDIOVASCULAR RISK<40 mg/dl - HIGH CARDIOVASCULAR RISKAlbuminGeorgetown Community Hospital 2024 8:18am3.4 g/dL3.4-5.0Eosinophils (%) (Auto)October 25, 2025 8:18amNove2024 8:18am2.8 %0.9-7.0LDL Cholesterol, CalculatedOctober 25, 2025 8:18am60.6 mg/dL<100 mg/dl WGKZTAD182-021 mg/dl NEAR OR ABOVE ZHARPJA473-947 mg/dl BORDERLINE PZPS586-883 mg/dl HIGH>190 mg/dl VERY HIGHAlkaline PhosphataseNov2024 8:72ov065 U/Q28-841NqudylokgzVpalbepo 24th, 2025 8:18amNove2024 8:18am42.1 % 42.0-54.0Triglycerides LevelNov2024 8:43fk760 mg/dL<=150Alanine Aminotransferase (ALT/SGPT)October 25, 2025 8:18am32 U/U93-51Iyupcigoru October 25, 2025 8:18amNove2024 8:18am13.6 g/dLBelow low normal 14.0-18.0VLDL CholesterolNov2024 8:18am23.4 mg/dLAspartate Amino Transf (AST/SGOT)October 25, 2025 8:18am14 U/LBelow low nnpwea69-73Hzolrjnf Granulocyte # (Auto)October 25, 2025 8:18amNove2024 8:18am0.03 10 3/uL0.00-0.03BUN/Creatinine RatioNove2024 8:18am17.6Immature Granulocyte % (Auto)October 25, 2025 8:18ove2024 8:18am0.4 % 0.0-0.5Blood Urea NitrogenOctober 25, 2025 8:18am24.0 mg/dLAbove high normal 7.0-18.0Lymphocytes # (Auto)October 25, 2025 8:18amNove2024 8:18am 1.5 10 3/uL1.2-3.8Calcium LevelNov2024 8:18am9.0 mg/dL8.5-10.1 Lymphocytes (%) (Auto)October 25, 2025 8:18amNove2024 8:18am17.4 % Below low qxzoic35.5-60.0Chloride LevelNov2024 8:25ta482 mmol/L 98-107Mean Corpuscular HemoglobinNov2024 8:18amNove2024 8:18am32.2 pg25.9-34.0Carbon Dioxide LevelNovember 2024 8:18am28.1 mmol/L 21.0-32.0Mean Corpuscular Hemoglobin ConcentNovhu [facility] hospital 2024 8:18amNovemb2024 8:18am32.3 g/dL29.9-35.2CreatinineNovhu [facility] 2024 8:18am1.36 mg/dLAbove high normal0.70-1.30Mean Corpuscular VolumeNovember 2024 8:18am October 25, 2025 8:18am99.5 fLAbove high lwuesp17.0-94.0Estimated GFR ()October 25, 2025 8:18am>60>=60 mL/min/1.73m 2Monocytes # (Auto)October 25, 2025 8:18amNove2024 8:18am0.7 10 3/uL0.3-0.8 Estimated GFR (Non- AmericanNovhu [facility] memorial hospital 2024 8:99nt41Kpwau low normal >=60 mL/min/1.73m 2Monocytes (%) (Auto)October 25, 2025 8:18amNove2024 8:18am7.8 %1.7-12.0GlobulinOctober 25, 2025 8:18am3.5 g/dLMean Platelet VolumeNovember 2024 8:18amNove2024 8:18am10.9 fL9.5-13.5Glucose LevelNovhu [facility] hospital 2024 8:04hi218 mg/dLAbove high aoclea71-955Fqottotssnp # (Auto)October 25, 2025 8:18amNovemb2024 8:18am5.9 10 3/uL1.4-6.5 Potassium LevelNovhu [facility] kam memorial hospital 2024 8:18am5.1 mmol/L3.5-5.1Neutrophils (%) (Auto) October 25, 2025 8:18amNovember 2024 8:18am71.1 %43.0-75.0Sodium Level October 25, 2025 8:06na946 mmol/P435-255Gbnxwnef CountNov2024 8:18amNovember 2024 8:25bg824 10 3/qK821-674Qlmxd BilirubinNov2024 8:18am0.9 mg/dL0.2-1.0Red Blood CountNov2024 8:18amNovember 2024 8:18am4.23 10 6/uLBelow low normal4.70-6.10Total ProteinNov2024 8:18am6.9 g/dL6.4-8.2Red Cell Distribution WidthOctober 25, 2025 8:18amNovember 2024 8:18am13.0 %11.0-15.0Corrected White Blood Count October 25, 2025 8:18amNovember 2024 8:18am8.3 10 3/uL4.0-11.0 Vital Signs Vital Reading Result Reference Range Collection Date/Time Height 68 [in_i] August 10, 2025 9:90lfEljpvd276.70 kgSeptember 2024 9:19amHeart Rate72 /xdr82-398Gtbyhrcce 9th, 2025 9:19amRespiratory rate12 /wle47-49Ofabvxivi 9th, 2025 9:19amBP Eohcckqv059 mm[Hg]100-140Sept2024 9:19amBP Ulmhlynaq61 mm[Hg]60-100September 2024 9:19amBMI (Body Mass Index)35.7 kg/w2Bligkufkj 2024 9:57mxVgwyfo99 [in_i]October 27, 2025 10:24cqCasgyp932.46 kg October 27, 2025 10:23amHeart Rate66 /wnr87-394Sfvpjxrj 2024 10:23am Respiratory rate12 /qlv78-68Owtguthn 26th, 2025 10:23amBP Cbsjdzou527 mm[Hg] 100-140November 2024 10:23amBP Ipqsfhmfx51 mm[Hg]60-100November 2024 10:23amBMI (Body Mass Index)36.3 kg/x7OixgmeylOctober 27, 2025 10:23am Advance Directives Advance Directive Response Recorded Date/ Time Advance Directives No October 4:37pm Insurance Providers Guarantor Chong Rasmussen Address [address] [address]Onvd[place] Info.Home Phone: Payer Group Member ID Coverage Type Subscriber Relationship to Subscriber Effective Date Expiration Date [facility] [employer] Id: [id number] S [place] Id: [id number] [address] [facility] [address] Home Phone: selfMedicare International Metal [id number] [place] Id: [id number] [address] [facility] [address] Home Phone: self[employer] [id number] S [place] Id: [id number] [address] [place] [id number] Home Phone: self Encounters Encounter Location(s) Arrival/Admit Date Discharge/Departure Date Discharge/Departure Disposition Provider(s) Departed Physician/ Provider Office Visit -[facility] August 10, 2025 10:14am August 10, 2025 11:02am Discharged to home care or self care (routine discharge) Yordan Ramey DO Departed Physician/ Provider Office Visit -[facility] August 26, 2025 10:09am August 26, 2025 10:11am Discharged to home care or self care (routine discharge) Yordan Ramey DO Non-patient / Non-visit -[facility]2024 8:10am AUDREY Huizareparted Physician/Provider [facility] 20[facility] 10:10amNovember 2024 11:08amDischarged to home care or self care (routine discharge)Yordan Ramey DO Recent Diagnosis Onset Date Admit Date Aortic valve sclerosis Unknown August 10, 2025 10:14am Chronic kidney disease Unknown August 10, 2025 10:14am NSVT (nonsustained ventricular tachycardia) Unkn own August 10, 2025 10:14am Obesity Unknown August 10 10:14am GENARO (obstructive sleep apnea) Unknown Se ptember 2024 10:14am Pernicious anemia Unknown August 10, 2025 10:14am Primary hypertension Unknown August 102024 10:14am Type 2 diabetes mellitus with hyperglycemia Unkn own August 10, 2025 10:14am Aortic valve sclerosis Unknown October 27, 2025 10:10am Chronic kidney disease Unknown October 27, 2025 10:10am Low back pain Unknown October 27 10:10am Medicare annual wellness visit, subsequent Unkno wn October 27, 2025 10:10am NSVT (nonsustained ventricular tachycardia) Unkn own October 27, 2025 10:10am Obesity Unknown October 27 10:10am GENARO (obstructive sleep apnea) Unknown No vember 2024 10:10am Pernicious anemia Unknown October 27, 2025 10:10am Primary hypertension Unknown October 272024 10:10am Screening PSA (prostate specific antigen) Unknow n October 27, 2025 10:10am Type 2 diabetes mellitus with hyperglycemia Unkn own October 27, 2025 10:10am Assessments Diagnosis Onset Date Resolution Status Admit Date Aortic valve sclerosis acuteSeptember 2024 10:14amChronic kidney diseaseacuteSeptember 2024 10:14amNSVT (nonsustained ventricular tachycardia)acuteSeptember 2024 10:14amObesityacuteSeptember 2024 10:14amOSA (obstructive sleep apnea)acute August 10, 2025 10:14amPernicious anemiaacuteSeptember 2024 10:14am Primary hypertensionacuteSept2024 10:14amType 2 diabetes mellitus with hyperglycemiaacuteSeptember 2024 10:14amAortic valve sclerosisacute October 27, 2025 10:10amChronic kidney diseaseacuteNovember 2024 10:10amLow back painacuteNov2024 10:10amMedicare annual wellness visit, subsequentacuteNovember 2024 10:10amNSVT (nonsustained ventricular tachycardia)acuteOctober 27, 2025 10:10amObesityacuteOctober 27, 2025 10:10amOSA (obstructive sleep apnea)acuteOctober 27, 2025 10:10amPernicious anemiaacuteNov2024 10:10amPrimary hypertensionacuteOctober 27, 2025 10:10amScreening PSA (prostate specific antigen)acuteOctober 27, 2025 10:10amType 2 diabetes mellitus with hyperglycemiaacuteOctober 27, 2025 10:10am Plan of Treatment Author [facility] 10:08amI have instructed this patient to consume a healthy, low-fat, low-salt diet. I have also encouraged them to continue exercise with weight loss to achieve/maintain a BMI < 30. I have instructed this patient on the correct procedure for obtaining home BP measurements:? - rest for 5 minutes w/o talking. - positioned w/ feet on floor and arms supported. - average best 2/3 readings w/ goal < 135/85. - update office w/ home readings in 2 weeks. Echocardiogram: LVEF 55%, normal RV size/function, RVSP 43, calcific AV - 12/2023 Stress test: Lexiscan w/o EKG changes, Cardiolite images w/ fixed inferior wall defect - 01/2024 Continue Lisinopril without interruption I have instructed this patient to follow a comprehensive diabetic treatment plan. I have also instructed them to check their feet daily for calluses and nonhealing ulcers. I have instructed them to have a yearly dilated eye examination. I have reviewed their treatment goals: SBP less than 130, LDL less than 100, FBS less than 140, A1C less than 7%. I have instructed them to maintain a home BS log and bring the results to each of their office visits for review. I have explained the importance of routine monitoring of their A1C, Microalbumin and Lipids. I have explained the benefits of well controlled diabetes in preventing micro and macrovascular complications. Consider Jardiance for ASCVD risk reduction and renal protective benefits Stopping Metformin temporarily to see if GI symptoms clear. - may restart at 500mg qd or choose a different medication altogether New onset azotemia. Consumes > 48oz fluids daily and denies use of NSAIDs Recently increased Lisinopril to 10mg He denies dysuria or hematuria US renal: B/L nephrolithiasis, 2cm right renal cyst w/o obstruction - 06/2025 Discussed initiating Jardiance for ASCVD risk reduction and renal protective benefits No significant aortic stenosis. Control BP and monitor every 3 years. Echo: LVEF 55%, RVSP 43, velocity 197, gradient 15/6 - 12/2023 He denies CP or syncope He does have PSVT, NSVT Asymptomatic Holter: 8 beat VT - 11/2023 Echocardiogram: LVEF 55%, normal RV size/function, RVSP 43, calcific AV - 12/2023 Stress test: Lexiscan w/o EKG changes, Cardiolite images w/ fixed inferior wall defect - 01/2024 Increased Toprol to 50mg w/ resolution of symptoms f/u Cardiology This patient is aware of the benefits associated with GENARO: With continued use, the patient reduces the risk for AK, CVA, HTN, cardiac dysrhythmias and sudden cardiac deaths. The patient is also aware of the association between GENARO and morning headaches, daytime somnolence, fatigue and obesity, which also has been improved with continued use. The patient is compliant with treatment, wearing the equipment every night for greater than 4 hours. The patient is instructed to continue use of the CPAP for GENARO treatment. Compliant Continue monthly IM B12 supplement. Monitor B12 and H/H Hgb and MCV have improved I have instructed this patient on a low-fat, high-fiber diet.?? I have also instructed them to reduce calories, portions sizes, sweet drinks and snacks.?? I have also recommended they exercise for 30 minutes, 3-5 times weekly. They are aware of the comorbid conditions associated with excessive weight: Diabetes, HTN, Hyperlipidemia, CAD and arthritis. Author [facility]ordan [facility] HospitalAuthored[facility] 2024 11:02amI have instructed this patient to follow a comprehensive diabetic treatment plan. I have also instructed them to check their feet daily for calluses and nonhealing ulcers. I have instructed them to have a yearly dilated eye examination. I have reviewed their treatment goals: SBP less than 130, LDL less than 100, FBS less than 140, A1C less than 7%. I have instructed them to maintain a home BS log and bring the results to each of their office visits for review. I have explained the importance of routine monitoring of their A1C, Microalbumin and Lipids. I have explained the benefits of well controlled diabetes in preventing micro and macrovascular complications. Stopped Metformin w/ rise in A1C to 7.6% - average BS 160-170 Consider Jardiance for ASCVD risk reduction and renal protective benefits I have instructed this patient to consume a healthy, low-fat, low-salt diet. I have also encouraged them to continue exercise with weight loss to achieve/maintain a BMI < 30. I have instructed this patient on the correct procedure for obtaining home BP measurements:? - rest for 5 minutes w/o talking. - positioned w/ feet on floor and arms supported. - average best 2/3 readings w/ goal < 135/85. - update office w/ home readings in 2 weeks. Echocardiogram: LVEF 55%, normal RV size/function, RVSP 43, calcific AV - 12/2023 Stress test: Lexiscan w/o EKG changes, Cardiolite images w/ fixed inferior wall defect - 01/2024 Continue Lisinopril without interruption New onset azotemia. Consumes > 48oz fluids daily and denies use of NSAIDs Recently increased Lisinopril to 10mg He denies dysuria or hematuria US renal: B/L nephrolithiasis, 2cm right renal cyst w/o obstruction - 06/2025 Discussed initiating Jardiance for ASCVD risk reduction and renal protective benefits No significant aortic stenosis. Control BP and monitor every 3 years. Echo: LVEF 55%, RVSP 43, velocity 197, gradient 15/6 - 12/2023 He denies CP or syncope He does have PSVT, NSVT Asymptomatic Holter: 8 beat VT - 11/2023 Echocardiogram: LVEF 55%, normal RV size/function, RVSP 43, calcific AV - 12/2023 Stress test: Lexiscan w/o EKG changes, Cardiolite images w/ fixed inferior wall defect - 01/2024 Increased Toprol to 50mg w/ resolution of symptoms f/u Cardiology This patient is aware of the benefits associated with GENARO: With continued use, the patient reduces the risk for AK, CVA, HTN, cardiac dysrhythmias and sudden cardiac deaths. The patient is also aware of the association between GENARO and morning headaches, daytime somnolence, fatigue and obesity, which also has been improved with continued use. The patient is compliant with treatment, wearing the equipment every night for greater than 4 hours. The patient is instructed to continue use of the CPAP for GENARO treatment. Compliant Continue monthly IM B12 supplement. Monitor B12 and H/H Hgb and MCV have improved I have instructed this patient on a low-fat, high-fiber diet.?? I have also instructed them to reduce calories, portions sizes, sweet drinks and snacks.?? I have also recommended they exercise for 30 minutes, 3-5 times weekly. They are aware of the comorbid conditions associated with excessive weight: Diabetes, HTN, Hyperlipidemia, CAD and arthritis. I have instructed this patient on the recommended lifestyle changes, which includes a low fat, high fiber diet along with a regular exercise routine. I have also reviewed the recommended age-appropriate preventive testing for this patient. I have also reviewed the recommended vaccines for their age and risk factors. I have recommended yearly PSA testing. I have informed him that the PSA can be elevated w/ cancer, infection and enlarged prostates. I have explained to the patient, that If his PSA is elevated, while there are many causes, referral will be recommended to r/o cancer. He would be referred to Urology, who may recommend an MRI, TRUS/bx or possibly continued monitoring. He is agreeable to this plan of action PSA: 1.21 - 10/2021, 1.07 - 10/2022, 1.92 - 10/2023, 1.19 - 10/2024, 1.4 - 10/2025 Developed 2 months ago w/o provoking injury or activity. Pain lumbar area w/ radiation to sides. Denies bowel or bladder dysfunction as well as saddle anesthesia ROM intact w/ increased pain during sidebending SLR Normal Motor strength and sensation intact, reflexes 2/4 B/L patella and 0/4 B/L achilles Recommend ROM and stretching exercises Recommend XR to assess for arthritis, fx, bone lesions Future Tests Future scheduled test information is unavailable Pending Tests Test Name Ordered Date Scheduled Date XR lumbar spine 6V w bending October 27, 2025 11:02am Future Visits Future appointment information is unavailable Future Procedures Future procedure information is unavailable Future Medications Future medication information is unavailable Patient Instructions Instruction Admit Date Low back pain in adults October 27 10:10am
--- OUTSIDE RECORDS SUMMARY | 2025-11-01 11:40 | XMS_ITS | Clinical Summary ---
Author Organization [facility] Address [address] [place] [address] Care Team Providers Care Enterprise Data Architect Name Role Phone Yordan Ramey DO Primary Care Provider [phone] Allergies No known active allergies Medications MedicationSigDispense [...] 35.0 to 35.9 in adult 08/22/2025ortic valve etlcfyuvy32/03/2024Encounter for colonoscopy due to history of adenomatous colonic qcvqlw9108/04/20240829Lpyklfxsowzzchlljoxc26/03/2024 Primary loxzluudupvf34/03/2024ecurrent major depressive disorder, in full zocitltgz37/03/2024ight hip pain08/04/2024LS (restless legs syndrome) 08/04/2024Type 2 diabetes mellitus with elxovyyhaymrv17/03/2024Sleep apnea Diabetes mellitusNSVT (nonsustained ventricular tachycardia) Encounters DateTypeDepartmentCare YwbyEskeaioywau30/19/2025 10:00 AM EDTOffice Visit [facility] [place] [address] [place] [address] Pk Carcamo MD NSVT (nonsustained [...] (1 standard drink = 0.6 oz pure alcohol)DC Safety & EnvironmentAnswerDate RecordedFear of Current or Ex-Partner Not on file01/23/2024Emotionally AbusedNot on file01/23/2024hysically AbusedNot on file01/23/2024Sexually AbusedNot on 01/23/2024hysically or Sexually AbusedNot on file01/23/2024Sex and Gender InformationValueDate RecordedSex Assigned at KurgfCifd70/11/2025 3:30 PM EDTLegal XdkKdit7005/31/2022 12:04 AM EDT Gender RsdgcmodZous81/11/2025 3:30 PM EDTSexual OrientationHeterosexual or Hfksihot14/11/2025 3:30 PM EDT Last Filed Vital Signs Vital SignReadingTime TakenCommentsBlood Yyusltyy339/68008/20/2025 10:48 AM EDT Tzsyd299608/20/2025 10:48 AM EDTTemperature--Respiratory Rate--Oxygen Saturation 97%08/20/2025 10:48 AM EDTInhaled Oxygen Concentration--Tcboem388 kg (238 lb) 08/20/2025 10:48 AM THFHkyvai221.3 cm (5' 9 )08/20/2025 10:48 AM EDTBody Mass Index35.15008/20/2025 10:48 AM EDT Plan of Treatment Health MaintenanceDue DateLast DoneCommentsCT Gyzavitcevrv1953Colonoscopy 3Colorectal Cancer Jbsejxtvh1953Diabetes: Hemoglobin A1C 1953FIT-DNA1953FIT1953FOBT1953Medicare Annual Wellness (AWV)1955 3860Sebxoomdjadrh1953Diabetes: Retinopathy Udeoefcqd25/10/1963 Depression Ygavimceg76/10/1965Diabetes: Urine Protein Qjjikngrl16/10/1972 Pneumococcal Vaccine: 50+ Years (1 of 2 - PCV)1972Adult Pfemdvb3906/10/1975 Zoster Vaccines (1 of 2)Fall Risk Srgiclhtx47/10/2018COVID- 19 Vaccine ( season)/01/2021, 02/04/2021Influenza Vaccine (#1)509/09/2024, [...] age to complete this [place] [address] Care Teams Team MemberRelationshipSpecialtyStart DateEnd Date Yordan Ramey DO [address] [facility] [place] [id number] PCP - General01/22/24
--- OUTSIDE RECORDS SUMMARY | 2025-11-01 12:02 | XMS_ITS | CCD ---
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 Name Role Phone PHYSICIAN, DEFAULT Unavailable [...] Care Provider Yordan Ramey DO Attending Provider SAÚL GUILLAUME Attending Unavailable Allergies Allergy ClassificationReported Allergen(s)Allergy TypeDate of OnsetReaction(s) Facility (10 sources)sulfaSALAzineDrug AllergyUnknoGolden Valley [facility] Hospital Human Demand Other Medications Current Medications MedicationDrug Class(es)DatesSig (Normalized)Sig (Original)amLODIPine 5 mg oral tablet (4 sources)Dihydropyridine Calcium Channel BlockerStart: 43-97-4268coza 1 tablet by mouth once dailyatorvastatin 40 mg oral tablet (20 sources)HMG-CoA Reductase InhibitorStart: 18-36-4823rvtp 1 tablet by mouth once dailyStart: 06-24-2024 End: 63-31-6094zdtw 1 tablet by mouth once daily at bedtimeAtorvastatin 40 mg tablet Discontinued 40 MG PO Daily at bedtime 90 June 24, 2024 11:01am March 14, 2025 9:23pmStart: 03-27-2024 End: 13-31-6107jrmq 1 tablet by mouth once dailyAtorvastatin 40 mg tablet Discontinued 0 .ROUTE .COMPLEX 90 March 27, 2024 7:33am June 241:06am TAKE 1 TABLET BY MOUTH EVERY DAY FOR 90 DAYSStart: 01-31-2024 End: 40-34-0758sbmu 1 tablet by mouth once dailyAtorvastatin 40 [...] every month IM monthly for 365 days Squjpk97 hr buPROPion hydrochloride 150 mg extended release oral tablet (20 sources)AminoketoneStart: 98-37-6720ypbx 1 tablet by mouth once daily in the morningStart: 02-09-2025 End: 60-34-0694jogs 1 tablet by mouth once daily in the morningBupropion Hcl 150 mg tablet extended release 24 hr Discontinued 150 MG PO Every morning 90 2024 12:00am August 10, 2025 8:39amStart: 08-18-2024 End: 09-27-0600iytg 1 tablet by mouth twice dailyBupropion Hcl 100 mg tablet sustained-release 12 hr Discontinued 0 .ROUTE .COMPLEX 180 February 07, 2025 6:55pm February 09, 2025 11:28am TAKE 1 TABLET BY MOUTH TWICE A DAYStart: 07-28-2024 End: 94-46-7218tmga 1 tablet by mouth once daily in the morningBupropion Hcl 150 mg tablet extended release 24 hr Discontinued 150 MG PO Every morning July 28, 2024 12:00am August 18, 2024 5:41pmStart: 07-22-2024 End: 15-64-6815fgpp 1 tablet by mouth twice dailyBupropion Hcl 100 mg tablet sustained-release 12 hr Discontinued 100 MG PO Twice daily 60 2023 9:02am July 28, 2024 2:48pmStart: 06-23-2024 End: 67-41-8887ylob 1 tablet by mouth once daily in the morningBupropion Hcl 150 mg tablet extended release 24 hr Discontinued 150 MG PO Every morning June 23, 2024 12:00am July 22, 2024 5:22pmCinnamon Preparation (16 sources)Non-Standardized Food Allergenic ExtractCinnamon Active Cyanocobalamin (Vitamin B-12) 1,000 mcg/mL solution (4 sources)Start: 84-68-2654Dvgpezindlieds (Vitamin B-12) 1,000 mcg/mL solution Active 0 .ROUTE .COMPLEX April 09, 2025 3:58pmINJECT 1 ML EVERY 4 WEEKSStart: 03-02-2024 End: 70-97-9931Fvtztxrpnwxmoq (Vitamin B-12) 1,000 mcg/mL solution Discontinued 0 .ROUTE .COMPLEX 3 March 02, 2024 5:10pm April 09, 2025 3:58pm INJECT 1 ML EVERY 4 WEEKSStart: 41-62-2545Sxevwqpqukssru (Vitamin B-12) 1,000 mcg/mL solution Active 0 .ROUTE .COMPLEX March 02, 2024 5:10pm INJECT 1 ML EVERY 4 WEEKSFish Oils (16 sources)Fish Oil Activelisinopril 10 mg oral tablet (20 sources)Angiotensin Converting Enzyme InhibitorStart: 88-47-8161yxcn 1 tablet by mouth once dailyStart: 03-03-2025 End: 23-78-4377cjft 2 tablets by mouth once dailyLisinopril 5 mg tablet Discontinued 10 MG PO Daily 180 March 03, 2025 10:32am April 02, 2025 11:49am Start: 10-16-2024 End: 16-96-3150kffx 1 tablet by mouth once dailyLisinopril 5 mg tablet Discontinued 0 .ROUTE .COMPLEX October 16, 2024 8:27am March 03, 2025 10:32am TAKE 1 TABLET BY MOUTH EVERY DAYStart: 06-25-2024 End: 77-37-8654vhuk 1 tablet by mouth once dailyLisinopril 5 mg tablet Discontinued 5 MG PO Daily June 25, 2024 5:45pm October 16, 2024 8 :27amStart: 02-26-2024 End: 08-45-0152prdh 1 tablet by mouth once dailyLisinopril 10 mg tablet Discontinued 10 MG PO Daily February 26, 2024 6:18pm June 25, 2024 5:46pm Start: 10-24-2020 End: 67-96-9114nryz 1 tablet by mouth once dailyLisinopril 20 mg tablet Discontinued 20 MG PO Daily October 24, 2020 1:00am February 26, 2024 6:19pm metFORMIN hydrochloride 500 mg oral tablet (20 sources)BiguanideStart: 80-38-4030fkzl 1 tablet by mouth twice daily at mealtimeStart: 03-19-2025 End: 77-92-2507cjmu 1 tablet by mouth once dailyMetformin 500 mg tablet Discontinued 500 MG PO Daily 90 90 March 19, 2025 12:00am March 22, 2025 5:13pmStart: 02-09-2025 End: 39-89-8324ulxi 1 tablet by mouth once dailyMetformin 1,000 mg tablet Discontinued 1000 MG PO Daily 90 90 February 09, 2025 11:30am March 19, 2025 10:15amStart: 11-27-2024 End: 51-94-8459yoce 1 tablet by mouth before breakfastMetformin 1,000 mg tablet Discontinued 0 .ROUTE .COMPLEX 180 November 27, 2024 8:15am January 11:31am TAKE 1 TABLET BY MOUTH BEFORE BREAKFAST AND EVENING MEALStart: 10-24-2020 End: 22-14-4679xezs 1 tablet by mouth twice daily at mealtimeMetformin 1,000 mg tablet Discontinued 1000 MG PO Twice daily with meals 60 June 24, 2024 12:00am November 27, 2024 8:15amtake 1 tablet by mouth at dinnermetFORMIN HCl 1000 MG TAKE 1 TABLET BY MOUTH BEFORE BKFST AND EVENING MEAL ActiveSyringe With Needle (Bd Eclipse Luer-Josias) 3 mL 23 x 1 syringe (10 sources)Start: 46-93-8744Tctumql With Needle (Bd Eclipse Luer-Josias) 3 mL 23 x 1 syringe Active 0 .Route 50 January 14, 2025 8:57pm As directedStart: 01-14-2025 End: 86-45-5841Ofidmlb With Needle (Bd Eclipse Luer-Josias) 3 mL 23 x 1 syringe Discontinued 0 .Route 50 January 14, 2025 1:00am January 14, 2025 8:57pm As directedtamsulosin hydrochloride 0.4 mg oral capsule (20 sources)alpha-Adrenergic BlockerStart: 70-70-0900opaq 1 capsule by mouth once daily at dinnerStart: 04-25-2023 End: 30-30-0610zudm 1 capsule by mouth once dailyTamsulosin 0.4 mg capsule Discontinued 0.4 MG PO Daily April 25, 2023 12:00am December 16, 2024 8:39am vitamin b12 1 mg/ml injectable solution (20 sources)Vitamin H03Twhjt: 03-02-2024 End: 10-85-9576Ujjpm: 05-85-4713Xjwgnooepoyofw (Vitamin B-12) Active 0 .ROUTE .COMPLEX 3 March 02, 2024 5:10pm INJECT 1 ML EVERY 4WEEKSStart: 10-24-2020 End: 31-19-6933fzqeuq 1000 ug by subcutaneous injection every month Cyanocobalamin (Vitamin B-12) 1,000 mcg/mL solution Discontinued 1000 MCG SUBCUT every month October 24, 2020 1:00am March 02, 2024 5:10pmStart: 10-24-2020 End: 85-91-4419ifuohu 1000 ug by subcutaneous injection every month Cyanocobalamin (Vitamin B-12) Discontinued 1000 MCG SUBCUT every month October 24, 2020 1:00am March 02, 2024 5:10pmCyanocobalamin 1000 MCG/ML INJECT 1 ML EVERY 4 WEEKS ActiveCyanocobalamin 1000 MCG/ML INJECT 1 ML EVERY 4 WEEKS Active Completed/Discontinued Medications MedicationDrug Class(es)DatesSig (Normalized)Sig (Original)dextromethorphan hydrobromide 30 mg / pyrilamine maleate 30 mg oral tablet (16 sources)Uncompetitive B-cyjsro-D-aspartate Receptor Antagonist, Sigma-1 AgonistStart: 97-72-2661Edozrd DMT 30-30 MG 1 tablet Orally every 6-8 hours for 7 days Jan, Not-Taking/PRNStart: 19-23-3427DZXfiwlvni 20 mg oral capsule (20 sources)Serotonin Reuptake InhibitorStart: 10-24-2020 End: 03-78-7926cnsn 1 capsule by mouth once dailyFluoxetine 20 mg capsule Discontinued 20 MG PO Daily October 24, 2020 1:00am June 23, 2024 11:17am metoprolol tartrate 50 mg oral tablet (20 sources)beta-Adrenergic BlockerStart: 06-23-2024 End: 81-10-8744cwac 1 tablet by mouth twice dailyMetoprolol Tartrate 50 mg tablet Discontinued 50 MG PO Twice daily June 23, 2024 11:19am June 24, 2024 11:04amStart: 91-74-7321tezl 1 tablet by mouth once dailyStart: 01-31-2024 End: 38-87-4377qkia 1 tablet by mouth once dailyMetoprolol Tartrate 50 mg tablet Discontinued 50 MG PO Daily January 31, 2024 1:00am June 231:19amStart: 68-15-2735ldkh 1 tablet by mouth every twenty-four hoursMetoprolol Succinate ER 25 MG 1 tablet Orally Once a day Dec, Activeoseltamivir 75 mg oral capsule (16 sources)Neuraminidase InhibitorStart: 91-08-1180tabg 1 capsule by mouth every twelve hoursTamiflu 75 MG 1 capsule Orally Twice a day for 5 day(s) Jan, Not-Taking/PRNpravastatin sodium 40 mg oral tablet (8 sources)HMG-CoA Reductase InhibitorStart: 10-24-2020 End: 87-21-9109azdi 1 tablet by mouth once dailyPravastatin 40 mg tablet Discontinued 40 MG PO Daily October 24, 2020 1:00am January 31, 2024 2:12pm Problems Active Problems Problem ClassificationProblemDateDocumented DateEpisodic/ChronicCalculus of urinary tract (3 sources)Personal history of urinary calculiEpisodicCardiac dysrhythmias (19 sources)Nonsustained ventricular tachycardia ; Translations: [Nonsustained ventricular tachycardia]54-20-7065SpzxekpIustbbd on above:Stress Test: fixed inferior wall defect - 01/2024,Echo: LVEF 55%, RVSP 43, aortic sclerosis - 12/2023 Echocardiogram: LVEF 55%, normal RV size/function, RVSP 43, calcific AV - 12/2023Stress test: Lexiscan w/o EKG changes, Cardiolite images w/ fixed inferior wall defect - ardiac dysrhythmias (1 source)PalpitationsEpisodicChronic kidney disease (4 sources)Chronic kidney disease; Translations: [Chronic kidney disease, unspecified]99-45-5768OvmewtnHenlyqpjge associated with dizziness or vertigo (2 sources)Dizziness and giddiness; Translations: [Dizziness and giddiness] 84-83-7978RgpbtjreHzjyognetm and other anemia (6 sources)Nutritional anemia, unspecified; Translations: [NUTRITIONAL ANEMIA UNSPECIFIED]Onset: 79-20-4378UyymmutzRvieplqify and other anemia (20 sources)Iron deficiency anemia; Translations: [Iron deficiency anemia] EpisodicDeficiency and other anemia (8 sources)Vitamin B12 deficiency anemia due to intrinsic factor deficiency; Translations: [Pernicious anemia]EpisodicDeficiency and other anemia (14 sources)Macrocytic anemia; Translations: [Nutritional anemia, unspecified] EpisodicDeficiency and other anemia (20 sources)Pernicious anemia; Translations: [Vitamin B12 deficiency anemia due to intrinsic factor deficiency]80-09-0177QpxydcpgCztbrrsbcy and other anemia (1 source)Iron deficiency anemia, unspecified; Translations: [Iron deficiency anemia, unspecified]Onset: 79-06-8557BlgkcelwJccqcpgm mellitus with complications (20 sources)Type 2 diabetes mellitus with hyperglycemia; Translations: [Type 2 diabetes mellitus]Onset: 46-17-3340HxiciinZymbhwget of lipid metabolism (20 sources)Mixed hyperlipidemia; Translations: [Hypercholesterolemia]Onset: 91-81-1888AgqrnecMvgqpaasu hypertension (20 sources)Essential (primary) hypertension; Translations: [Essential hypertension]Onset: 56-83-0554IzfpemfMwyrlvrpyoiao symptoms and ill-defined conditions (1 source)NocturiaEpisodicHeart valve disorders (20 sources)Other nonrheumatic aortic valve disorders; Translations: [Aortic valve sclerosis]Onset: 34-18-3818HmssvrqMutlptc on above:Echo: LVEF 55%, RVSP 43, velocity 197, gradient 16/05 - 12/2023Hyperplasia of prostate (8 sources)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; Translations: [Benign prostatic hyperplasia with lower urinary tract symptoms]ChronicMood disorders (20 sources)Recurrent major depression in full remission; Translations: [Major depressive disorder, recurrent, in full remission]ChronicOther aftercare (1 source)Other long term care pharmacist (current) drug therapy; Translations: [OTH SNF CURRENT DRUG THERAPY]Onset: 69-35-0881AyxtnmymEgksz and unspecified benign neoplasm (16 sources)History of polyp of colon; Translations: [Personal history of colonic polyps]EpisodicOther and unspecified benign neoplasm (6 sources)Tubular adenoma of colon; Translations: [Tubular adenoma of colon] EpisodicOther connective tissue disease (4 sources)Other specified soft tissue disorders; Translations: [OTHER SPEC SOFT TISSUE DISORDERS]Onset: 19-36-0352CukqbpzoLarxg diseases of veins and lymphatics (16 sources)Peripheral [...] (7 sources)Hip pain; Translations: [Pain in right hip]54-36-7565TiskiszoLsckd non-traumatic joint disorders (2 sources)Pain in right hip; Translations: [Pain in joint, pelvic region and thigh]61-26-9072ZoqzvwyhHvgap nutritional; endocrine; and metabolic disorders (6 sources)Obesity; Translations: [Obesity, unspecified]22-14-9233RcruwosOpveo nutritional; endocrine; and metabolic disorders (5 sources)Obesity, unspecified; Translations: [Obesity, unspecified]02-09-2025 ChronicOther screening for suspected conditions (not mental disorders or infectious disease) (15 sources)Encounter for screening for malignant neoplasm of prostate; Translations: [History of adenomatous polyp of colon]Onset: 24-04-8619Zebdiigj Comment on above:PSA: 1.21 - 10/2021, 1.07 - 10/2022, 1.92 - 10/2023, 1.19 - 4Problem List clean-up per request of Phys. EHR CmteOther skin disorders (1 source)Inflamed seborrheic keratosisEpisodicResidual codes; unclassified (20 sources)Obstructive sleep apnea syndrome; Translations: [Obstructive sleep apnea (adult) (pediatric)]58-47-1982RdhnrdsLueexpru codes; unclassified (15 sources)Obstructive sleep apnea (adult) (pediatric); Translations: [Obstructive sleep apnea (adult)(pediatric)]ChronicSuperficial injury; contusion (1 source)Contusion of right lower leg, initial encounter; Translations: [CONTUSION RIGHT LOWER LEG INITIAL]Onset: 31-07-8731UomlvfuuSrnlvmihymwl (2 sources)NSVTOnset: 81-42-9008Nnyduzgqnlrk (2 sources)Valve Disorder; Translations: [Valve Disorder]Onset: 08-20-2025 Past or Other Problems Problem ClassificationProblemDateDocumented DateEpisodic/ChronicOther circulatory disease (1 source)Other specified symptoms and signs involving the circulatory and respiratory systems; Translations:[OTH SPEC SX SIGNS INVLV CIRC RS]Onset: 33-35-1832IsnzkmzfGdqhxuxajizu (2 sources)Nonsustained ventricular tachycardia I47.29 Results Test NameValueInterpretationReference RangeFacilityOffice Visiton 08-20-2025 Follow-up [id number] Meryr Norris 1955 M Date Provider Department Center 08/20/2025 [id number] SANDS Family History Problem Relation Age of Onset Diabetes Mother Heart failure Mother Family Status - Relation Status Age at Mother Father Level of Service:84341 [place] OFFICE/OUTPATIENT ESTABLISHED LOW MDM 20 MIN Reason for Visit and Comments: Follow-up [614252] - Patient is here today for a 1 year follow up. Patient states he has been feeling pretty good. Patient has no cardiac complaints at this time NSVT [Other] Valve Disorder [3372] - Aortic valve sclerosis Hyperlipidemia [182] Hypertension [472089]NormalOhio State Health SystemBasophils Auto (Bld) [#/Vol]on 46-59-1142Fahtvuqcx (Bld) [#/Vol]0.0 10 3/uL0.0-0.1FWilson Memorial HospitalBasophils/100 WBC Auto (Bld)on 87-38-8471Kfrhibopy/100 WBC (Bld)0.4 %0.2-2.0[facility] CampusCholesterol in LDL Calc [Mass/Vol]on 69-63-2267Zeudowwklre in LDL [Mass/Vol]36.0 mg/dLTrinity Health System East CampusComment on above:<100 mg/dl IFARLWH994-764 mg/dl NEAR OR ABOVE QQYLONF960-966 mg/dl BORDERLINE HUZX241-769 mg/dl HIGH>190 mg/dl VERY HIGH Cholesterol in VLDL Calc [Mass/Vol]on 64-32-0338Jeugtxkgxqm in VLDL [Mass/Vol] 32.8 mg/dLTrinity Health System East CampusEosinophils/100 WBC Auto (Bld)on 37-16-1521Rursthygdwm/100 WBC (Bld)2.9 %0.9-7.0[facility] Erythrocyte distribution width Auto (RBC) [Ratio]on 98-49-8565Dmnpsrkqfcw distribution width (RBC) [Ratio]12.7 %11.0-15.0[facility] Estimated glomerular filtration rate (GFR) non- Americanon 06-08-2024 GFR/1.73 sq M.predicted among non-blacks MDRD (S/P/Bld) [Vol rate/Area]59 mL/min/{1.73_m2}Low>=60[facility] CampusGlobulin Calc (S) [Mass/Vol]on 96-23-7548Urnovfcy (S) [Mass/Vol]3.1 g/dLTrinity Health System East CampusGlucose mean value [Mass/volume] in Blood Estimated from glycated hemoglobinon 14-96-5375Kdsqtsx glucose Estimated from glycated hemoglobin (Bld) [Mass/Vol]148 mg/dLTrinity Health System East CampusHematocrit Auto (Bld) [Volume fraction]on 37-76-1370Dqagyuzlyn (Bld) [Volume fraction]38.8 %Low 42.0-54.0[facility] CampusHemoglobin [Mass/volume] in Bloodon 62-28-6188Wsyswxqnew (Bld) [Mass/Vol]12.6 g/dLLow14.0-18.0[facility] CampusLaboratory - Chemistry and Chemistry - challengeon 06-08-2024 Albumin [Mass/Vol]3.2 g/dLLow3.4-5.0[facility] CampusALP [Catalytic activity/Vol]80 U/Y91-403QlsduukhwTrinity Health System East CampusALT [Catalytic activity/Vol]28 U/K73-35EyitvjqipTrinity Health System East CampusAST [Catalytic activity/Vol]18 U/X81-20WembyanhhTrinity Health System East CampusBilirubin [Mass/Vol]0.9 mg/dL0.2-1.0[facility] CampusCalcium [Mass/Vol]8.0 mg/dLLow8.5-10.1FWilson Memorial HospitalChloride [Moles/Vol]106 mmol/L 98-107[facility] CampusCholesterol [Mass/Vol]108 mg/dL<=200 [facility] CampusCholesterol in HDL [Mass/Vol]40 mg/dL40-60 [facility] CampusComment on above:> or =60 mg/dl - LOW CARDIOVASCULAR RISK<40 mg/dl - HIGH CARDIOVASCULAR RISKCO2 [Moles/Vol]27.3 mmol/L21.0-32.0[facility] CampusCreatinine [Mass/Vol]1.22 mg/dL 0.70-1.30[facility] CampusGFR/1.73 sq M.predicted MDRD (S/P/Bld) [Vol rate/Area]mL/min/{1.73_m2}>=60[facility] CampusGlucose [Mass/Vol]136 mg/dNKfmw87-371TiiznnyoxTrinity Health System East CampusPotassium [Moles/Vol]4.4 mmol/L3.5-5.1FWilson Memorial HospitalProtein [Mass/Vol] 6.3 g/dLLow6.4-8.2FMercy Health Springfield Regional Medical Centerodium [Moles/Vol]141 mmol/L 136-145[facility] CampusTriglyceride [Mass/Vol]164 mg/dLHigh <=150[facility] CampusUrea nitrogen [Mass/Vol]18.0 mg/dL7.0-18.0 [facility] CampusUrea nitrogen/Creatinine [Mass ratio]14.8 mg/mg [facility] CampusLaboratory - Hematology and Cell countson 69-28-4029QxJ3m (Bld) [Mass fraction]6.8 %High4.5-6.2FWilson Memorial HospitalComment on above:ADA RECOMMENDED LIMIT 4.0 - 6.0ADA THERAPEUTIC TARGET < 7.0ACTION SUGGESTED> 7.0Immature granulocytes/100 WBC (Bld)0.1 %0.0-0.5FWilson Memorial HospitalLeukocytes [#/volume] corrected for nucleated erythrocytes in Blood by Automated counon 04-03-2694LLH corrected for nucl RBC Auto (Bld) [#/Vol]7.3 10 3/uL4.0-11.0[facility] Lymphocytes Auto (Bld) [#/Vol]on 87-88-5328Sixtvtuxatm (Bld) [#/Vol]1.6 10 3/uL 1.2-3.8[facility] CampusLymphocytes/100 WBC Auto (Bld)on 55-20-4443Gnbpfpzmsav/100 WBC (Bld)22.1 %20.5-60.0[facility] HospitalH Auto (RBC) [Entitic mass]on 51-73-7224ZLD (RBC) [Entitic mass]32.1 pg 25.9-34.0[facility] CampusMCHC Auto (RBC) [Mass/Vol]on 49-37-0633EJGX (RBC) [Mass/Vol]32.5 g/dL29.9-35.2FWilson Memorial HospitalMCV Auto (RBC) [Entitic vol]on 21-48-7462VZK (RBC) [Entitic vol]98.7 fL High80.0-94.0[facility] CampusMonocytes Auto (Bld) [#/Vol]on 10-18-3370Fyjmfvsed (Bld) [#/Vol]0.6 10 3/uL0.3-0.8[facility] CampusMonocytes/100 WBC Auto (Bld)on 93-15-4742Oztlaqiax/100 WBC (Bld)8.4 % 1.7-12.0[facility] CampusNeutrophils Auto (Bld) [#/Vol]on 07-64-4394Ibhvoynezza (Bld) [#/Vol]4.8 10 3/uL1.4-6.5FWilson Memorial HospitalNeutrophils/100 WBC Auto (Bld)on 87-07-9152Zblzizzgsxr/100 WBC (Bld)66.1 % 43.0-75.0[facility] CampusNo Panel Informationon 06-08-2024 Eosinophils # (Auto)0.2 10 3/uL0.0-0.7FWilson Memorial HospitalImmature Granulocyte # (Auto)0.01 10 3/uL0.00-0.03[facility] Nucleated Red Blood Cells/100 KYP5TonsnastqTrinity Health System East CampusPlatelet mean volume Auto (Bld) [Entitic vol]on 63-16-2254Bxvycwlq mean volume (Bld) [Entitic vol]10.9 fL9.5-13.5FWilson Memorial HospitalPlatelets Auto (Bld) [#/Vol]on 23-10-6320Rvsrdmskz (Bld) [#/Vol]252 10 3/eK031-231GtfbrnusyTrinity Health System East CampusRBC Auto (Bld) [#/Vol]on 46-46-1580NNO (Bld) [#/Vol]3.93 10 6/uL Low4.70-6.10[facility] Centererum or plasma albumin/globulin mass ratioon 71-33-4329Qfjmdcg/Globulin [Mass ratio]1.0 {ratio}[facility] Centererum or plasma anion gap determinationon 29-74-1470Ypwsw gap [Moles/Vol]12.1 mmol/LFMercy Health Springfield Regional Medical Centererum or plasma total cholesterol/high density lipoprotein (HDL) cholesterol mass carly 06-08-2024 Cholesterol.total/Cholesterol in HDL [Mass ratio]2.7 {ratio}[facility] CampusComment on above:3.3 - 4.4 LOW RISK4.4 - 7.1 AVERAGE RISK7.1 - 11.0 MODERATE RISK>11.0 HIGH RISKGlucose Poct Glucometerson 18-72-5536Hnbejhl2 Glu2: Cleaned MeterNoOhioHealth Grove City Methodist HospitalComment on above: Result Comment: PERFORMED BY: [facility] [address] [place] [address] PATHOLOGIST TRAVEL SERVICE CONSULTANT JERMAIN DANIELS M.D.Performed By: #### GLULS #### Point of Care testing ,Glucose [Mass/Vol]123 mg/dLAvita Health System Bucyrus HospitalComment on above:Result Comment: Random Glucose Reference Range is dependent on time and content of last meal. Glucose of more than 200 mg/dL in a nonstressed, ambulatory subject supports the diagnosis of Diabetes Mellitus.Performed By: #### GLULS #### Point of Care testing ,IRON AND TIBCon 10-26-2022% LQYVRDAQJS74.1 %NormalSelect Medical Specialty Hospital - AkronComment on above:Performed By: #### MALBR #### [facility] [address] [place] [address] Dr. Dayna Lantigua [Mass/Vol]44.0 ug/dLCritically low65.0-175.0[facility] - AkronComment on above:Performed By: #### MALBR #### [facility] [address] [place] [address] Dr. Dayna Jean PEYSTR260.0 ug/mWCqctvh181.0-450.0[facility] Comment on above:Performed By: #### MALBR #### [facility] [address] [place] [address] Dr. Dayna PickeringICULOCYTEon 82-89-4528XZEQY0.75 %Normal0.60-3.10The [place] Children'S HospitalComment on above:Performed By: #### MALBR #### [facility] [address] [place] [address] Dr. Dayna Sosa B12 AND FOLATEon 19-37-2507Pxzgxmpoo (Vitamin B12) [Mass/Vol] 398.0 pg/xVKliico919.0-986.0The [place] [facility]'S HospitalComment on above:Performed By: #### MALBR #### [facility] [address] [place] [address] Dr. Dayna FordFOLATE20.10 ng/mLNormal8.60-58.90The [place] Children'S HospitalComment on above:Performed By: #### MALBR #### [facility] [address] [place] [address] Dr. Dayna VazquezC AUTO DIFFon 28-28-4917OVFF #0.1 103/ulNormal0.0-0.1The [place] [facility]'S HospitalComment on above:Performed By: #### MALBR #### [facility] [address] [place] [address] Dr. Dayna FordBasophils/100 WBC (Bld)0.7 %Normal0.2-2.0[facility] Comment on above:Performed By: #### MALBR #### [facility] [address] [place] [address] Dr. Dayna Bryant #0.2 103/ulNormal0.0-0.7The [place] Children'S HospitalComment on above: Performed By: #### MALBR #### [facility] [address] [place] [address] Dr. Dayna Khannaosinophils/100 WBC (Bld)3.1 %Normal0.9-7.0[facility] Comment on above:Performed By: #### MALBR #### [facility] [address] [place] [address] Dr. Dayna Khannarythrocyte distribution width (RBC) [Ratio]12.7 %Aceffi05.0-15.0 The [place] [facility]'S HospitalComment on above:Performed By: #### MALBR #### [facility] [address] [place] [address] Dr. Dayna FodrHematocrit (Bld) [Volume fraction]36.2 %Critically low42.0-54.0 [facility] [place] [facility]'S HospitalComment on above:Performed By: #### MALBR #### [facility] [address] [place] [address] Dr. Dayna FordHemoglobin (Bld) [Mass/Vol]11.8 g/dLCritically low14.0-18.0The [place] [facility]'S HospitalComment on above:Performed By: #### MALBR #### [facility] [address] [place] [address] Dr. Dayna Clemons #0.02 10e3/ulNormal0.00-0.03The [place] [facility]'S HospitalComment on above:Performed By: #### MALBR #### [facility] [address] [place] [address] Dr. Dayna Clemons %0.3 %Normal0.0-0.5The [facility] Children'S HospitalComment on above: Performed By: #### MALBR #### [facility] [address] [place] [address] Dr. Dayna Pimentel #1.9 103/ulNormal1.2-3.8The [place]'S HospitalComment on above:Performed By: #### MALBR #### [facility] [address] [place] [address] Dr. Dayna Johocytes/100 WBC (Bld)26.2 %Fwksqp98.5-60.0The [place] Children'S HospitalComment on above:Performed By: #### MALBR #### [facility] [address] [place] [address] Dr. Dayna ÁlvarezUAL DIFF REQNONormalThe [facility] Children'S HospitalComment on above: Performed By: #### MALBR #### [facility] [address] [place] [address] Dr. Dayna Navarro (RBC) [Entitic mass]31.9 kqAzclkc66.9-34.0The [place] Children'S HospitalComment on above:Performed By: #### MALBR #### [facility] [address] [place] [address] Dr. Dayna Munoz (RBC) [Mass/Vol]32.6 g/wTXvkltn03.9-35.2The [facility]'S HospitalComment on above:Performed By: #### MALBR #### [facility] [address] [place] [address] Dr. Dayna Espino (RBC) [Entitic vol]97.8 fLCritically high80.0-94.0The [facility]'S HospitalComment on above:Performed By: #### MALBR #### [facility] [address] [place] [address] Dr. Dayna Hayes #0.7 103/ulNormal0.3-0.8The [facility]'S HospitalComment on above:Performed By: #### MALBR #### [facility] [address] [place] [address] Dr. Dayna Goocytes/100 WBC (Bld)9.3 %Normal1.7-12.0The [facility] Comment on above:Performed By: #### MALBR #### [facility] [address] [place] [address] Dr. Dayna Tavarez #4.3 103/ulNormal1.4-6.5The [facility]'S HospitalComment on above:Performed By: #### MALBR #### [facility] [address] [place] [address] Dr. Dayna Cumminsutrophils/100 WBC (Bld)60.4 %Urnvgk52.0-75.0The [facility] [facility]'S HospitalComment on above:Performed By: #### MALBR #### [facility] [address] [place] [address] Dr. Dayna Sheltonlet mean volume (Bld) [Entitic vol]10.6 fLNormal9.5-13.5The [facility] Children'S HospitalComment on above:Performed By: #### MALBR #### [facility] [address] [place] [address] Dr. Dayna MoralezT247 103/suRhzhwl660-279Zok [facility]'S HospitalComment on above: Performed By: #### MALBR #### [facility] [address] [place] [address] Dr. Dayna FordRBC3.70 106/ulCritically low4.70-6.10The [facility]'S HospitalComment on above:Performed By: #### MALBR #### [facility] [address] [address] [address] Dayna FordWBC7.1 103/ulNormal4.0-11.0The [facility] Children'S HospitalComment on above: Performed By: #### MALBR #### [facility] [address] [address] [address] Dayna FordGLYCOHEMOGLOBIN A1Con 61-24-3471JFP RECOMMENDATIONSEE BELOWMemorial Health System Marietta Memorial HospitalComment on above:Result Comment: ADA RECOMMENDED LIMIT 4.0 - 6.0 ADA THERAPEUTIC TARGET < 7.0 ACTION SUGGESTED > 7.0Performed By: #### A1C #### [facility] [address] [place] [address] Dr. Dayna FordGlucose [Mass/Vol]148 mg/dLNormalThUniversity Hospitals St. John Medical CenterComment on above:Performed By: #### A1C #### [facility] [address] [place] [address] Dr. Dayna FordHbA1c (Bld) [Mass fraction]6.8 %Critically high4.5-6.2The [facility] Children'S HospitalComment on above:Performed By: #### A1C #### [facility] [address] [place] [address] Dr. Dayna FordLIPID PROFILEon [id number]-HDL RATIO NORMSEE BELOWMarietta Memorial HospitalComment on above:Result Comment: 3.3 - 4.4 LOW RISK 4.4 - 7.1 AVERAGE RISK 7.1 - 11.0 MODERATE RISK >11.0 HIGH RISKPerformed By: #### ALT, BMP, LIPID #### [facility] [address] [place] [address] Dr. Dayna FordCholesterol [Mass/Vol]183 mg/dLNormal<=200The [facility] Comment on above:Performed By: #### ALT, BMP, LIPID #### [facility] [address] [address] [address] Dayna FordCholesterol in HDL [Mass/Vol]46 mg/zAVhutin62-43Vso [facility] on above:Performed By: #### ALT, BMP, LIPID #### [facility] [address] [place] [address] Dr. Dayna FordCholesterol in LDL [Mass/Vol]98.0 mg/dLMarietta Memorial HospitalComharper university hospital on above:Performed By: #### ALT, BMP, LIPID #### [facility] [address] [place] [address] Dr. Dayna Kangestermarquis.total/Cholesterol in HDL [Mass ratio]4.0 {ratio} NormalThe [facility] on above:Performed By: #### ALT, BMP, LIPID #### [facility] [address] [place] [address] Dr. Dayna PelayoL NORMAL> or = 60 mg/dl - LOW CARDIOVASCULAR RISK <40 mg/dl - HIGH CARDIOVASCULAR RISKMarietta Memorial HospitalComharper university hospital on above:Performed By: #### ALT, BMP, LIPID #### [facility] [address] [place] [address] Dr. Dayna Rodrigues CALC NORMALSEE BELOWMarietta Memorial HospitalComharper university hospital on above:Result Comment: <100 mg/dl OPTIMAL 100 - 129 mg/dl NEAR OR ABOVE OPTIMAL 130 - 159 mg/dl BORDERLINE HIGH 160 - 189 mg/dl HIGH >190 mg/dl VERY HIGH Performed By: #### ALT, BMP, LIPID #### [facility] [address] [place] [address] Dr. Dayna FordTriglyceride [Mass/Vol]195 mg/dLCritically high<=150[place] on above:Performed By: #### ALT, BMP, LIPID #### [facility] [address] [place] [address] Dr. Dayna FordVLDL CALC39.0 mg/dLNoSumma HealthComharper university hospital on above: Performed By: #### ALT, BMP, LIPID #### [facility] [address] [place] [address] Dr. Dayna LopezALBUMIN, RAND URon 67-37-8635bYDS4.3 mg/LNormal<=30.0The [facility] Children'S HospitalComment on above:Performed By: #### MALBR #### [facility] [address] [address] [address] Dayna FordPROF CHEM 8 (BAS METB)on 10-97-4069Mtkzr gap [Moles/Vol]9.5 mmol/LNormalThe [facility]'S HospitalComment on above:Performed By: #### ALT, BMP, LIPID #### [facility] [address] [address] [address] Dayna FordCalcium [Mass/Vol]8.8 mg/dLNormal8.5-10.1The [facility] Comment on above:Performed By: #### ALT, BMP, LIPID #### [facility] [address] [address] [address] Dayna FordChloride [Moles/Vol]106 mmol/DYlakir85-449Txz [facility] Comment on above:Performed By: #### ALT, BMP, LIPID #### [facility] [address] [address] [address] Dayna FordCO2 [Moles/Vol]27.4 mmol/KNisfmd61.0-32.0The [facility] Comment on above:Performed By: #### ALT, BMP, LIPID #### [facility] [address] [address] [address] Dayna FordCreatinine [Mass/Vol]1.10 mg/dLNormal0.70-1.30The [facility]'S HospitalComment on above:Performed By: #### ALT, BMP, LIPID #### [facility] [address] [address] [address] Dayna KhannaGFR-AF ITALIAN>60Normal>=60The [facility] Children'S HospitalComment on above:Performed By: #### ALT, BMP, LIPID #### [facility] [address] [address] [address] Dayna KhannaGFR-NON AF ITALIAN>60Normal>=60The [facility] Children'S HospitalComment on above:Performed By: #### ALT, BMP, LIPID #### [facility] [address] [address] [address] Dayna FordGlucose [Mass/Vol]106 mg/lCHmyjiu76-702OtbSelect Medical Specialty Hospital - [place] Comment on above:Performed By: #### ALT, BMP, LIPID #### [facility] [address] [address] [address] Dayna FordPotassium [Moles/Vol]4.9 mmol/LNormal3.5-5.1[facility] Comment on above:Performed By: #### ALT, BMP, LIPID #### [facility] [address] [address] [address] Dayna FordSodium [Moles/Vol]138 mmol/WXxpnnd384-777CudSelect Medical Specialty Hospital - [place] Comment on above:Performed By: #### ALT, BMP, LIPID #### [facility] [address] [address] [address] Dayna FordUrea nitrogen [Mass/Vol]15.0 mg/dLNormal7.0-18.0The [facility] Children'S HospitalComment on above:Performed By: #### ALT, BMP, LIPID #### [facility] [address] [address] [address] Dayna Reynolds nitrogen/Creatinine [Mass ratio]13.6 mg/mgNormalThe [facility]'S HospitalComment on above:Performed By: #### ALT, BMP, LIPID #### [facility] [address] [place] [address] Dr. Dayna Chester 44-42-0911FNX [Catalytic activity/Vol]27 U/EFxrmzh16-27AlbSelect Medical Specialty Hospital - AkronComment on above:Performed By: #### ALT, BMP, LIPID #### [facility] [address] [place] [address] Dr. Dayna Oliva PATRICIA DOP LEG RTon 50-55-9216EL PATRICIA DOP LEG RTEXAMINATION: [place] PATRICIA DOP [...] Electronically authenticated by: JHOANA SERRATO Date: 2022-09-11 21:23M[facility] Memorial HospitalGLYCOHEMOGLOBIN A1Con 34-04-4530CPL RECOMMENDATIONSEE BELOW NormalThe [facility] Children'S HospitalComment on above:Result Comment: ADA RECOMMENDED LIMIT 4.0 - 6.0 ADA THERAPEUTIC TARGET < 7.0 ACTION SUGGESTED > 7.0Performed By: #### DATA1C #### [facility] [address] [place] [address] Dr. Dayna FordGlucose [Mass/Vol]146 mg/dLNoSumma HealthComment on above:Performed By: #### DATA1C #### [facility] [address] [address] [address] Dayna FordHbA1c (Bld) [Mass fraction]6.7 %Critically high4.5-6.2The [facility] Children'S HospitalComment on above:Performed By: #### DATA1C #### [facility] [address] [place] [address] Dr. Mcintosh ChangECHOCARDIO M/2D COMPLETEon 17-72-6000GJEDDYSVEV M/2D COMPLETE Patient: MERRY NORRIS Exam Date: 01/30/2022 : 1955 Gender:M Ordering : DR YORDAN RAMEY D.O. Admission #: [id number] Family : Order #: [id number] CLICK HERE TO VIEW EXAM ECHOCARDIOGRAM REPORT [...] Area(A4C): 18.10 cm2 Left Atrium Systolic Volume(A2C): 52587 mm3 Left Atrium Systolic Volume(A4C): 27560 mm3 Mitral Valve MV E to A Ratio: 1.30 Deceleration Greenlee: 4520 mm/s2 Mitral Valve A-Wave Peak Velocity: [...] by: Alex Foley M.D. on 01/30/2022 at 18:05[facility] CAROTID ART BILon 75-45-9990RL CAROTID ART BILEXAMINATION: US CAROTID ART JUDSON [...] Electronically authenticated by: ROXANE SOSA Date: 2022-01-30 10:37[facility] Memorial HospitalGLYCOHEMOGLOBIN A1Con 40-31-9725DIO RECOMMENDATIONADA THERAPEUTIC TARGET 6.0 - 7.0 ACTION SUGGESTED > 7.0[facility] Comment on above:Performed By: #### DATA1C #### [facility] [address] [place] [address] Dr. Dayna FordGlucose [Mass/Vol]148 mg/dLNoSumma HealthComment on above:Performed By: #### DATA1C #### [facility] [address] [place], [place] [address] Dr. Dayna FordHbA1c (Bld) [Mass fraction]6.8 %Critically high<=6.0The [facility] Children'S HospitalComment on above:Performed By: #### DATA1C #### [facility] [address] [place], [place] [address] Dr. Dayna Ford Vital Signs Date TimeVital SignValuePerforming EdjapbldkTwwnbodw70-91-9681 10:19-0400Body vzfiiy490.72 cmBenjamin Ball DO Work Phone: [phone]09-09-2025 10:19-0400 Body mass index (BMI) [Ratio]35.7 kg/c6Yxsqjqir Ball DO Work Phone: [phone] [place], [place] 9838109-09-2025 10:19-0400 Body gwhirv180.7 kgBenjamin Ball DO Work Phone: [phone]09-09-2025 10:19-0400 Diastolic blood acitzdbk89 mm[Hg]Yordan Ball DO Work Phone: [phone] [place], [place] 9838109-09-2025 10:19-0400 Heart rate72 /minBenjamin Ball DO Work Phone: [phone])[facility] [place], [place] 1307809-09-2025 10:19-0400 Respiratory rate12 /minBenjamin Ball DO Work Phone: [phone])[address]09-09-2025 10:19-0400 Systolic blood jiyygltb936 mm[Hg]Yordan Ball DO Work Phone: [phone] [place], [place] [address]106-09-2025 11:04-0400 Body gyhxag450.72 [facility]Tr[facility]06-[facility]-2025 11:04-0400Body mass index (BMI) [Ratio]35 kg/r6XjjeulobmTrinity Health System [facility] Campus06-09-2025 11:04-0400Body .49 kgTr[facility]06-09-2025 11:04-0400Diastolic blood ankmakmd97 mm[Hg][facility] 05-10-2025 11:04-0400Heart rate69 /[facility] 05-10-2025 11:04-0400Respiratory rate12 /[facility] 05-10-2025 11:04-0400Systolic blood fucqrjry521 mm[Hg][facility]04-18-2025 09:58-0400Body yletgq993.72 cmTr[facility]04-18-2025 09:58-0400Body mass index (BMI) [Ratio]34.9 kg/c6LgqicpzwzTrinity Health System [facility] Campus04-18-2025 09:58-0400Body iefekc634.38 [facility]04-18-2025 09:58-0400Diastolic blood nuckpaat77 mm[Hg] [facility]04-18-2025 09:58-0400Heart rate67 /[facility]04-18-2025 09:58-0400Respiratory rate12 /[facility]04-18-2025 09:58-0400Systolic blood ntnabzvn027 mm[Hg] [facility]03-11-2025 10:54-0400Body jjtywb697.72 cm [facility]03-11-2025 10:54-0400Body mass index (BMI) [Ratio]35.6 kg/w8UjzncauosTrinity Health System [facility] Campus03-11-2025 10:54-0400Body xcduky329.14 [facility]03-11-2025 10:54-0400Diastolic blood mm[Hg][facility]03-11-2025 10:54-0400 Heart rate69 /[facility]03-11-2025 10:54-0400 Respiratory rate12 /[facility]03-11-2025 10:54-0400 SaO2% (BldA) [Mass fraction]98 %[facility]03-11-2025 10:54-0400Systolic blood kbzbeeci250 mm[Hg][facility] 06-23-2024 10:50-0400Body vnzldi572.72 cmTr[facility] 06-23-2024 10:50-0400Body mass index (BMI) [Ratio]35.8 kg/z9VqnksanqyTrinity Health System [facility] Campus07-23-2024 10:50-0400Body .82 kgTr[facility]07-23-2024 10:50-0400Diastolic blood hyinophr84 mm[Hg][facility]07-23-2024 10:50-0400Heart rate67 /minTrinity Health System [facility] Campus07-23-2024 10:50-0400Respiratory rate12 /[facility]07-23-2024 10:50-0400Systolic blood mm[Hg][facility]03-25-2024 14:33-0400Body knedoc472.72 cmTr[facility] Health [facility]03-25-2024 14:33-0400Body mass index (BMI) [Ratio]36.3 kg/o4SzulvagsmTrinity Health System [facility]03-25-2024 14:33-0400Body lpgicl105.4 kg [facility]03-25-2024 14:33-0400Diastolic blood ewallqpt85 mm[Hg][facility]03-25-2024 14:33-0400Heart rate71 /min [facility]03-25-2024 14:33-0400Respiratory rate12 /min [facility]03-25-2024 14:33-0400Systolic blood ypfovidb70 mm[Hg][facility]01-04-2024 13:24-0500Body empivh285.72 cm Yordan Ball Other [facility]12-14-2023 11:00-0500 Body cyqmlj965.72 cmBenjamin Ball Other [facility] Other 051245-30-1418 11:00-0500Body mass index (BMI) [Ratio]36.4 kg/q7Gsjzyyvw Ball Other [facility] Other 12-14-2023 11:00-0500Body qtctqa029.59 kgBenjamin Ball Other [facility] Other 12-14-2023 11:00-0500Diastolic blood mm[Hg] Yordan Ball Other [facility] Other 12-14-2023 11:00-0500Respiratory rate12 /minBenjamin Ball Other [facility] Other 12-14-2023 11:00-0500Systolic blood mm[Hg] Yordan Ball Other [facility] Other 11-17-2023 09:30-0500Body zwywiz074.72 cmBenjamin Ball Other [facility] Other 11-17-2023 09:30-0500Body mass index (BMI) [Ratio] 35.85 kg/y8Dpzexzfh Ball Other [facility] Other 11-17-2023 09:30-0500Body .96 kgBenjamin Ball Other [facility] Other 11-17-2023 09:30-0500Diastolic blood mm[Hg] Yordan Ball Other [facility] Other 11-17-2023 09:30-0500Respiratory rate12 /minBenjamin Ball Other [facility] Other 11-17-2023 09:30-0500Systolic blood jceqqgdp909 mm[Hg] Yordan Ball Other [facility] Other 08-31-2023 09:30-0400Body ybppcw759.72 cmBenjamin Ball Other [facility] Other 08-31-2023 09:30-0400Body mass index (BMI) [Ratio] 35.82 kg/h8Wweahvhf Ball Other [facility] Other 08-31-2023 09:30-0400Body yrtbit133.87 kgBenjamin Ball Other [facility] Other 08-31-2023 09:30-0400Diastolic blood mm[Hg] Yordan Ball Other [facility] Other 08-31-2023 09:30-0400Respiratory rate12 /minBenjamin Ball Other [facility] Other 08-31-2023 09:30-0400Systolic blood psbarppx652 mm[Hg] Yordan Ball Other [facility] Other 07-12-2023 13:20-0400Body uvurkz167.72 cmBenjamin Ball Other [facility] Other 05-26-2023 09:30-0400Body vrdron339.72 cmBenjamin Ball Other [facility] Other 05-26-2023 09:30-0400Body mass index (BMI) [Ratio] 35.91 kg/a5Lvgbghuu Ball Other [facility] Other 05-26-2023 09:30-0400Body kmuybv557.14 kgBenjamin Ball Other [facility] Other 05-26-2023 09:30-0400Diastolic blood degtdsjm97 mm[Hg] Yordan [facility] Other 05-26-2023 09:30-0400Respiratory rate12 /minBenjamin Ball Other [facility] [employer] Other 05-26-2023 09:30-0400Systolic blood mbisltsq002 mm[Hg] Yordan Ball Other [facility] [employer] Other 02-24-2023 09:30-0500Body vcrsfi177.72 cmBenjamin Ball Other [facility] [employer] Other 02-24-2023 09:30-0500Body mass index (BMI) [Ratio] 36.12 kg/r9Rxiazxbx Ball Other [facility] [employer] Other 02-24-2023 09:30-0500Body dhawqq919.78 kgBenjamin Ball Other [facility] [employer] Other 02-24-2023 09:30-0500Diastolic blood uoyxjywj09 mm[Hg] Yordan Ball Other [facility] [employer] Other 02-24-2023 09:30-0500Respiratory rate12 /minBenjamin Ball Other [facility] Other 02-24-2023 09:30-0500Systolic blood udwbziaw139 mm[Hg] Yordan Ball Other [facility] [employer] Other Encounters Encounter DateEncounter TypeCare ProviderFacilityStart: 08-26-2025 End: 90-71-2881bwbhssaczxLptjxetb Ball DO Work Phone: [facility] Work Phone: Start: 08-26-2025 End: 19-85-1525Mozswho encounter procedureBenshamir Ramey DO-[facility] Work Phone: Start: 08-20-2025 End: 36-49-2027xfqzafztdjCOFGXOhio Valley Surgical Hospitaltart: 08-10-2025 End: 76-79-8154xqqxbsglxkFewmnyvw Ball DO Work Phone: [facility] Work Phone: Start: 08-10-2025 End: 64-71-9016Jlpigwt encounter procedureBenshamir Ramey DO-[facility] Work Phone: Start: 05-10-2025 End: 63-36-3044kpmapofpvyYkdcdxezjUniversity Hospitals [facility]hu[facility] Work Phone: Start: 05-10-2025 End: 21-68-2399Icvjsew encounter procedureFirubaldos Physician Group-[facility] Work Phone: Start: 03-19-2025 End: 67-30-5917qaxgwwadnvEecknlbhgUniversity Hospitals Ahuja [facility] Center Work Phone: Start: 03-19-2025 End: 16-76-5258Wrygdzz encounter procedureFirelands Physician Group-[facility] Work Phone: Start: 02-09-2025 End: 33-46-1907hcqzwmgbtvLoxsbdvqyUniversity Hospitals Ahu[facility] Center Work Phone: Start: 02-09-2025 End: 98-59-7487Ohtmvhv encounter procedureFirelands Physician Group-[facility] Work Phone: Start: 71-71-5016Nprksdg encounter procedureCincinnati [facility] Medical Centertart: 08-11-2024 End: 77-95-9778pfmwteysmoQvyigfnsyUniversity Hospitals [facility]hu[facility] Work Phone: Start: 08-11-2024 End: 15-01-3399Jttvmgn encounter procedureFirelands Physician Group-[facility] Work Phone: Start: 06-23-2024 End: 89-30-6667ldholioodqLcqcvyxqcUniversity Hospitals Ahu[facility] Work Phone: Start: 06-23-2024 End: 42-13-9901Avknbng encounter procedureFirelands Physician Group-[facility] Work Phone: Start: 06-15-0985Uqs-patient / Non-visitFirelands Physician Group-[facility] Work Phone: Start: 02-24-2024 End: 98-11-3918tcsvzimovjEncapqldqUniversity Hospitals [facility]hu[facility] Work Phone: Start: 02-24-2024 End: 11-05-2532Sitezlr encounter procedureFirelands Physician Group-[facility] Work Phone: Start: 70-21-2208Qun-patient / Non-visitFirelands Physician Group-[facility] Work Phone: Start: 12-24-2023 End: 47-72-6381yrlzwtcdleTixdihhw Ball Other [facility] Other Start: 10-97-2328Dosdihqlm encounterBenjamin KatianaG [facility] ClinicStart: 24-78-8893Cqzqtod encounter procedureFirelands Physician Group-Start: 12-23-2023 End: 43-10-0196osvxtkgpmxGbmnykvy Ball Other [employer] Other Start: 96-04-1139Utbnwvepv encounterBenjamin BallFPG [facility] ClinicStart: 12-05-2023 End: 76-33-0148lqmktiqsrlWvcddznk Ball Other [facility] Other Start: 31-73-8505Gmvqdcoms encounterBenjaisaac Ramey Medical ClinicStart: 12-05-2023 End: 44-65-6762Zorckuz encounter procedureFirelands Physician Group-[facility] Work Phone: Start: 11-14-2023 End: 65-88-3521cvsuonmucqGsqqlqma Ball Other [employer] Other Start: 05-73-2864Ijjqom outpatient visit 15 minutes Yordan [facility] ClinicStart: 10-18-2023 End: 48-88-3901gidsnvgqozSkexgdol Ball Other [employer] Other Start: 93-20-9645Thnxvnd encounter procedureBenshamir Ramey Medical ClinicStart: 10-08-2023 End: 54-25-2308lcylkwxhffOivzziab Ball Other [employer] Other Start: 06-16-1569Wrtgifl evaluation of patient and reportBenshamir Ramey Medical ClinicStart: 09-19-2023 End: 89-61-3432mcnshdbnbwYrwcolzo Ball Other [employer] Other Start: 09-31-8340Zavcjza evaluation of patient and reportBenshamir Ramey Medical ClinicStart: 08-01-2023 End: 91-64-1037nkpsmcajfoAachihtc Ball Other [employer] Other Start: 68-58-5689Xtkgbx outpatient visit 25 minutes Yordan [facility] ClinicStart: 06-12-2023 End: 93-61-9734jneqxyxjjzCztyjvbz Ball Other [employer] Other Start: 14-34-1182Pzxbdycwo encounterBenjamin BallFPG [facility] ClinicStart: 05-22-2023 End: 08-79-0809suutmpxmnnZddqpcbc Ball Other [employer] Other Start: 47-82-1234Jmlyjtvsy encounterBenjamin BallZIAG [facility] ClinicStart: 04-26-2023 End: 51-06-9777yiiihocdyxEidzdtwc Ball Other [employer] Other Start: 82-93-5089Pvhbbh outpatient visit 25 minutes Yordan SaabG [facility] ClinicStart: 04-25-2023 End: 50-09-3601carqlrxmioFcovkcl J DittyFacility:[facility] Centertart: 04-15-2023 End: 14-93-3049ieobsikgynJohoyrrm Ball Other [employer] Other Start: 11-49-9095Ixkoqimyr encounterBenjamin BallZIAG [facility] ClinicStart: 01-25-2023 End: 36-47-9843fdmzhbyqwdYwaxtmzx Ball Other [employer] Other Start: 68-44-1770Rczsmd outpatient visit 25 minutes Yordan [facility] ClinicStart: 10-26-2022 End: 05-25-2262ebjbfpygbwMH YORDAN BALLFacility:X8Yaiqk: 10-18-2022 End: 53-58-7492zkziiyfnieYR YORDAN BALLFacility:O9Ykmrh: 09-11-2022 End: 90-93-7726zeobgsncvpYX YORDAN BALLFacility:N4Mulgs: 07-19-2022 End: 24-63-0637jrphmmdxzhKK NONE LISTED REQUESTFacility:G2Vhind: 01-30-2022 End: 75-87-2843gyvxuodwuvIG YORDAN BALLFacility:I1Acizd: 01-17-2022 End: 18-82-7879ddwpriphpkRB NONE LISTED REQUESTFacility:Q2Mrpdf: 03-25-2018 End: 67-94-4056KzkobgyqtdNNXQXEH PHYSICIANFacility:[facility] CENTERBtart: 03-12-2018 End: 46-68-5007GzmvjwvyjdJULQRLJ PHYSICIANFacility:[facility] Procedures DateProcedureProcedure DetailPerforming ClinicianStart: 58-33-8152Qainzm-up visitFollow-upSAMAR MADIEOURYStart: 27-92-6345VLI screeningDR YORDAN RAMEYComment on above:Performed By: #### MALBR #### [facility] [address] [address] [address] Dayna Ford Plan of Treatment DateCare ActivityDetailAuthorXR Hip - right 2 [facility] Immunizations Immunization DateImmunizationNotesCare NjhjrgktMgjmjcsp66-59-0053yelntnibq, high dose seasonal, preservative-freeBenjamin Ball DO Work Phone: [facility]09-10-2024influenza, high dose seasonal, preservative-freeTr[facility] Health System [facility]11-07-2023 tetanus and diphtheria toxoids, adsorbed, preservative free, for adult use (2 Lf of tetanus toxoid and 2 Lf of diphtheria toxoid)[facility] [facility]tetanus and diphtheria toxoids, adsorbed, preservative free, for adult use (5 Lf of tetanus toxoid and 2 Lf of diphtheria toxoid)Yordan Ramey Other [facility] Other [id number] virus vaccine, unspecified formulationTr[facility]10-19-2023influenza, high dose seasonal, preservative-freeBenjamin Tanvir Other [facility] Other [id number] virus vaccine, split virus (incl. purified surface antigen)Yordan Ramey Other [facility] Other 10-342027-63-2332yoajfbkqd virus vaccine, unspecified formulationTr[facility]09-26-2021influenza virus vaccine, split virus (incl. purified surface antigen)Yordan Ramey Other [place] Other [id number] virus vaccine, unspecified formulationTr[facility]09-30-2019pneumococcal polysaccharide vaccine, 23 valentBenshamir Ramey Other [facility]11-27-2013diphtheria, tetanus toxoids and acellular pertussis vaccine, unspecified formulation Yordan Ramey Other [facility] Payers DatePayer CategoryPayerPolicy [id number] 1962Medicare [id number] [id number] [id number] [id number] [id number] [id number] [id number] [id number]nMutual Health [id number] Social History DateTypeDetailFacilityUnknown if ever smokedNort [employer] Other Sex Assigned At BirthSex Assigned At SuperDerivativesDeaconess Incarnate Word Health SystemDeadstock Network Other Start: [id number] smoking status NHISNever smoked tobacco (finding)[facility]: [id number] Assigned At [facility]: 02-09-2025 End: [id number] (finding)[facility] Clinical Notes 01-25-2023 to 08-20-2025 Note Date & [id number] NoteUT Cardiology - [facility] Subjective Merry Norris is a 70 y.o. year old male patient being seen for Hypertension and NSVT Patient Active Problem List Diagnosis Sleep apnea Diabetes mellitus (CMS/HCC) NSVT (nonsustained ventricular tachycardia) (CMS/[facility]) Aortic valve sclerosis Encounter for [...] hemoglobin 12, hem (more content not included)... [facility]09-09-2025 Evaluation note* Diagnosis Onset Date Resolution Status Admit Date Aortic valve sclerosis acuteSept2024 10:14amChronic kidney diseaseacuteSept2024 10:14amNSVT (nonsustained ventricular tachycardia)acutept2024 10:14amObesityacuteSept2024 10:14amOSA (obstructive sleep apnea)acute August 10, 2025 10:14amPernicious anemiaacuteSept2024 10:14am Primary hypertensionacuteSept2024 10:14amType 2 diabetes mellitus with hyperglycemiaacuteSept2024 10:14am [facility] Work Phone: 1(806) 558-192203-11-2025 Evaluation note* Diagnosis Onset Date Resolution Status [...] 2 diabetes mellitus with hyperglycemiaacuteApril 2024 9:48am [facility] Work Phone: [phone]) 581-892703-11-2025 Evaluation note* Diagnosis Onset Date Resolution Status Admit Date Aortic valve sclerosis acuteMarch 2024 10:52amNSVT (nonsustained ventricular tachycardia)acute February 09, 2025 10:52amObesityacuteMarch 2024 10:52amOSA (obstructive sleep apnea)acuteSaint [facility] Centerch 2024 10:52amPernicious anemiaacuteMarch 2024 10:52amPrimary hypertensionacuteMarch 2024 [...] 2 diabetes mellitus with hyperglycemiaacuteJune 2024 10:52am [facility] Work Phone: 1([phone]) 681-800701-23-2024 Evaluation note* Encounter Date Diagnosis Assessment Notes [...] E11.65)Stable Dec,hronic venous insufficiency (ICD-10 - I87.2)Stable [facility] Other 01-04-2024 Evaluation note* Encounter Date Diagnosis Assessment Notes Treatment Notes Treatment Clinical Notes Dec, Nonsustained ventricular tachyca rdia (ICD-10 - I47.29) Dec,ortic valve sclerosis (ICD-10 - I35.8)2021 ECHO: MORIAH 1.8cm, velocity 190, 15/9 Dec,4Primary hypertension (ICD-10 - I10) [facility] Other 12-14-2023 Evaluation note* Encounter Date Diagnosis [...] Microalbumin, Dilated eye exam and Foot exam [facility] Other 11-17-2023 Evaluation note* Encounter Date Diagnosis [...] use, the patient reduces the risk for NH, CVA, HTN, cardiac dysrhythmias and sudden cardiac [...] and to keep active. 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 No change [...] PSA (prostate specific antigen) (ICD-10 - Z12.5) [facility] Other 11-07-2023 Evaluation note* Encounter Date Diagnosis Assessment Notes Treatment Notes Treatment Clinical Notes Oct, Superficial laceration of skin ( ICD-10 - T14.8XXA) [facility] Other 11-07-2023 Evaluation note* Encounter Date Diagnosis Assessment Notes Treatment Notes Treatment Clinical Notes Oct, Superficial laceration of skin ( ICD-10 - T14.8XXA) Tetanus shot given due to laceration on right hand [facility] Other 08-31-2023 Evaluation note* Encounter Date Diagnosis [...] use, the patient reduces the risk for NH, CVA, HTN, cardiac dysrhythmias and sudden cardiac [...] healthy diet, exercise and 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 Jul,hronic venous insufficiency (ICD-10 - I87.2)Avoid salt and elevate lower extremities, support stockings, inspect legs and feet daily for blisters and ulcerations. Jul,A (pernicious anemia) (ICD-10 - D51.0)COntinue monthly B12 injections [facility] Other 07-12-2023 Evaluation note* Encounter Date Diagnosis Assessment Notes Treatment Notes Treatment Clinical Notes Jun, GENARO (obstructive sleep apnea) (ICD-10 - G 47.33) AHI > 30 [facility] Other 05-26-2023 Evaluation note* Encounter Date Diagnosis [...] use, the patient reduces the risk for NH, CVA, HTN, cardiac dysrhythmias and sudden cardiac [...] Hematology? April,History of nephrolithiasis (ICD-10 - Z87.442)[facility] Other 05-26-2023 Evaluation note* Encounter Date Diagnosis [...] use, the patient reduces the risk for NH, CVA, HTN, cardiac dysrhythmias and sudden cardiac [...] April,History of nephrolithiasis (ICD-10 - Z87.442)Push fluids [facility] Other 05-15-2023 Evaluation note* Encounter Date Diagnosis Assessment Notes Treatment Notes Treatment Clinical Notes April, Elevated cholesterol (ICD-10 - E 78.00) [facility] Other 02-24-2023 Evaluation note* Encounter Date Diagnosis [...] use, the patient reduces the risk for NH, CVA, HTN, cardiac dysrhythmias and sudden cardiac [...] - G25.81)Continue treatment of GENARO. Symptoms tolerable [facility] Other Evaluation noteNo InformationNortLECOM Health - [facility] Other Evaluation note* Diagnosis Onset Date Resolution Status Aortic valve sclerosis acuteNSVT (nonsustained ventricular tachycardia)acuteType [address] [facility] Work Phone: Evaluation note* Diagnosis Onset Date Resolution Status Aortic valve sclerosis acuteNSVT (nonsustained ventricular tachycardia)acuteOSA (obstructive sleep apnea)acutePrimary hypertensionacuteRight hip painacuteType 2 diabetes mellitus with hyperglycemiaacuteLightheadednessnoneactive [facility] Work Phone: Evaluation note* Diagnosis Onset Date Resolution Status Admit Date Aortic valve sclerosis acuteMarch 2024 10:52amNSVT (nonsustained ventricular tachycardia)acute February 09, 2025 10:52amOSA (obstructive sleep apnea)acuteMarch 2024 10:52amPrimary hypertensionacuteMarch 2024 10:52amType 2 diabetes mellitus with hyperglycemiaacuteMarch 2024 10:52am [facility] Work Phone: Evaluation note* Diagnosis Onset Date Resolution Status Admit Date Aortic valve sclerosis acuteSeptember 2024 10:14amChronic kidney diseaseacuteSeptember 2024 10:14amNSVT (nonsustained ventricular tachycardia)acuteSept2024 10:14amObesityacuteSeptember 2024 10:14amOSA (obstructive sleep apnea)acute August 10, 2025 10:14amPernicious anemiaacuteSeptember 2024 10:14am Primary hypertensionacuteSeptember 2024 10:14amType 2 diabetes mellitus with hyperglycemiaacuteSeptember 2024 10:14am [facility] Work Phone: History general Narrative - Reported* Type Description Date Medical History hypertension Medical Historytype II diabetesMedical HistoryhypercholesterolemiaSurgical Historywisdom teeth extractSurgical Historyhiatal hernia repairSurgical History cholecystectomySurgical HistoryherniaHospitalization Historysee surgical history [facility] Other History general Narrative - Reported* Type Description Date Medical History hypertension Medical Historytype II diabetesMedical HistoryhypercholesterolemiaSurgical Historywisdom teeth extractSurgical Historyhiatal hernia repairSurgical History cholecystectomySurgical HistoryherniaSurgical HistoryEGD04/2023Surgical History Colonoscopy04/2023Hospitalization Historysee surgical history [facility] Other History general Narrative - ReportedNortDeadstock Network Other History general Narrative - Reported* Type Description Date Medical History hypertension Medical Historytype II diabetesMedical HistoryhypercholesterolemiaMedical HistoryOSASurgical Historywisdom teeth extractSurgical Historyhiatal hernia repairSurgical HistorycholecystectomySurgical HistoryherniaSurgical HistoryEGD 04/2023Surgical HistoryColonoscopy04/2023Hospitalization Historysee surgical history [facility] Other Reason for referral (narrative)* Reason Referral for NSVT Diagnosis 1 NSVT (nonsustained v entricular tachycardia) (I47.29) Referral Organization [facility] Referring Provider First Name Yordan Referring Provider Last Name Tanvir Referring Provider Specialty Internal Ar dicine Referred Organization [facility] Referred Provider Gabino Parham Referred Address [address], [place],[address] Referred Provider Specialty Cardiology Referral Priority Routine General Notes Patient being referr ed for NSVT. He presented w/ heart fluttering during rest. He denies activity limiting symptoms. He has normal LVEF and denies CP, dyspnea or lightheadedness. He is being referred for evaluation and treatment. [facility] Other Reason for referral (narrative)No reason for referral information availableSt. Francis Hospital Work Phone: Summary Purpose Family History [...] :52am Type 2 diabetes mellitus with hyperglyce ltio February 09, 2025 10:52am Chief Complaint Admit [...] 2am Type 2 diabetes mellitus with hyperglyce [facility] May 10, 2025 10:52am Chief Complaint Admit [...] 10:14am Type 2 diabetes mellitus with hyperglyce [facility] August 10, 2025 10:14am Chief Complaint Admit Date 3 mo f/u August 10, 2025 10:14am Flu Shot August 26, 2025 10:09am Additional Source Comments (unrecognized sect ion and content) No Status Records FoundNo Status Records FoundNo Status Records FoundNo Status Records Found INFORMATION SOURCE (unrecogn ized section and content) DATE CREATED AUTHOR 05/22/2018 [facility] DATE CREATED AUTHOR AUTHOR'S ORGANIZ ATION 11/01/2022 [facility] DATE CREATED AUTHOR AUTHOR'S ORGANIZ ATION 05/12/2023 [facility] DATE CREATED AUTHOR AUTHOR'S ORGANIZ ATION 08/22/2025 [facility] REASON FOR VISIT (unrecogniz ed section and [...] BE BASED ON THE PRIMARY CLINICAL RECORDS. [employer] [facility]. provides no warranty or guarantee of the accuracy or completeness of information in this document.
--- NOTE | 2025-11-01 12:06 | XR_ITS ---
[facility] [place] [id number] Patient Name: MERRY RASMUSSEN MRN: [id number] date: 1955 Sex: M Assigned Patient Location: LAB Current Patient Location: LAB Accession/Order Number: [id number] Exam Date: 11/01/2025 11:54 Report Date: 11/01/2025 16:13 At the request of: HUNTER SIMMONS DO Procedure: XR lumbar spine 6V w bending XR lumbar spine 6V w bending 11/01/2025 12:06 PM SIGNS AND SYMPTOMS: ^Low Back Pain PROTOCOLS: Frontal, lateral, oblique, and flexion-extension views of the lumbar spine COMPARISON: None FINDINGS: The alignment, development and bony structures are normal. There is no fracture or destructive lesion. No pathologic movement on flexion or extension There is mild disc height loss at L4-5 with moderate disc height loss at L5-S1. There is facet hypertrophy at L3-L4, L4-5, and L5-S1. Degenerative changes are noted in the sacroiliac joints. Atherosclerotic changes are noted in the abdominal aorta. XR/XR lumbar spine 6V w bending IMPRESSION: No fracture, subluxation, or pathologic movement. Degenerative changes are noted in the lumbar spine, greatest at L4-5 and L5-S1. Impression dictated by: Sammy Elizondo M.D. 11/01/2025 4:13 PM Dictation Location: [place] [address] Electronically authenticated by: [id number] Y Date: 11/01/2025 16:13
== END 2025-11-01 11:37 | disposition home or self-care (01) ==
LOC: LAB 11:37
PROVIDERS: PCP Internal Medicine; Visit Provider Internal Medicine
DX: M54.50 Low back pain, unspecified (principal); M51.369 Other intervertebral disc degeneration, lumbar region without mention of lumbar back pain or lower extremity pain
CPT/HCPCS: 72114